=== PATIENT | female | born 1965 | race Caucasian/White ===

== ENCOUNTER 2020-01-14 12:54 | Inpatient (IN) ==
[2020-01-14 13:26] LABS: Appearance Urine Clear (Clear); Bacteria Urine Automated Negative (Negative); Bilirubin Urine Negative (Negative); Blood Urine 2+ (Negative); Cast Urine Automated 0 /lpf (0-5); Color Urine Yellow; Epithelial Cell Urine Auto >30 /lpf (0-5); Glucose Urine UA Negative (Negative); Ketones Urine Negative (Negative); Leukocyte Esterase Urine Trace (Negative); Nitrite Urine Negative (Negative); Protein Urine Negative (Negative); Urobilinogen Urine Negative (Negative)
[2020-01-14 13:33] LABS: Basophils # (auto) 0.01 K/uL (0-0.2); Basophils % (auto) 0.2 %; Eosinophils # (auto) 0.11 K/uL (0-0.5); Eosinophils % (auto) 1.8 %; Hematocrit (blood only) 41.8 % (37-47); Hemoglobin 13.7 g/dL (12.0-16.0); Immature Granulocytes # (auto) 0.02 K/uL (0.00-0.02); Immature Granulocytes % (auto) 0.3 %; Lymphocytes # (auto) 2.24 K/uL (1.2-3.4); Lymphocytes % (auto) 36.2 %; Mean Corpuscular Hemoglobin 26.9 pg (25-34); Mean Corpuscular Hgb Conc 32.8 g/dL (32-36); Mean Platelet Volume 12.5 fL (7.4-10.4); Monocytes % (auto) 4.9 %; Neutrophils % (auto) 56.6 %; Platelet Count 238 K/uL (130-400); RDW Coefficient of Variation 15.7 % (11.5-14.5); RDW Standard Deviation 46.6 fL (36.4-46.3); White Blood Count 6.18 K/uL (4.8-10.8)
[2020-01-14 13:50] LABS: Albumin Level 3.9 gm/dl (3.4-5.0); BUN Creatinine Ratio 11.7 (10-20); Calcium 10.7 mg/dl (8.5-10.1); Creatinine Clr Calc Pharmacy 97.3 ml/min; Est GFR (African American) 115.7; Est GFR (Non-African American) 99.9; Potassium 3.6 mmol/L (3.5-5.1)
[2020-01-14 13:53] LABS: Amphetamines+Metham, Urine Neg (Neg); Barbiturates, Urine Neg (Neg); Benzodiazepine, Urine Neg (Neg); Cocaine, Urine Neg (Neg); MDMA (Ecstacy), Urine Neg (Neg); Methadone, Urine Neg (Neg); Opiate, Urine Neg (Neg); Phencyclidine, Urine Neg (Neg)
--- NOTE | 2020-01-14 13:53 | Emergency Department Note ---
History of Present Illness General Chief complaint: Mental Health Evaluation Stated complaint: [facility] Time Seen by Provider: 01/14/20 13:00 History of Present Illness Provider complaint: Mental health evaluation Maximum Pain Intensity: 0 54-year-old female presents emergency department for mental health evaluation. She states that her family members wanted her to get evaluated. Patient states she has been feeling depressed. She reports decreased sleep, decreased energy levels, and decreased consultation. She denies any suicidal ideation currently. Patient does have a history of suicide attempts in the past. She does report wanting to hurt her . She reports that her has been cutting her hair and dying it without her knowing in her sleep. She states she has not taken any of her psychiatric medications last 3 to 4 years since she lost health insurance. Home Medications Home Medications Medication Instructions Recorded Confirmed Type Ergocalciferol (Vitamin D Cap) 50,000 inter.unit PO WK #0 cap 10/05/13 01/14/20 History FERROUS SULFATE 325 mg PO TIDM 30 Days #0 tab 10/07/13 01/14/20 Rx Ibuprofen 600 mg PO Q6H PRN #30 tab 11/29/13 01/14/20 Rx ASPIRIN (ASPIRIN EC) 81 mg PO DAILY #0 05/26/16 01/14/20 History atorvastatin 40 mg PO DAILY 01/14/20 01/14/20 History Allergies Allergy/AdvReac Type Severity Reaction Status Date / Time Penicillins Allergy Severe SEIZURES Verified 01/14/20 13:30 Sulfa (Sulfonamide Allergy Severe ARRHYTHMIAS Verified 01/14/20 13:30 Antibiotics) Past Med/Surg History Medical History Altered mental status (Acute) Near syncope (Acute 10/05/13) No pertinent family history Surgical History No pertinent past surgical history Social History Preferred Language: Rw[place] Feels Safe at Home: Hesitant to Answer Smoking Status: Never smoker Review of Systems Unobtainable due to cognitive status Physical Exam Vital Signs Vital Signs - 24 hr 01/14/20 12:56 01/14/20 15:12 01/14/20 17:33 Temperature 36.6 C Temperature Source Oral Pulse Rate 78 87 Pulse Rate [Finger] 81 Pulse Rhythm Regular Pulse Strength Normal Respiratory Rate 16 16 18 Respiratory Effort / Characteristics Non-Labored Non-Labored Spontaneous Respiratory Depth Normal Normal Respiratory Pattern Regular Regular Blood Pressure 195/25 H 164/105 H Blood Pressure [Right Arm] 161/95 H Blood Pressure Mean 81 Blood Pressure Mean [Right Arm] 117 Blood Pressure Position Sitting Blood Pressure Position [Right Arm] Lying Pulse Oximetry 99 98 97 Oxygen Delivery Method Room Air Room Air Room Air Sepsis Recent Fever Within 48 Hours No Sepsis Action Taken by Nursing No Action Required Physical Exam HENT: Exam performed. -Head: Normocephalic and atraumatic. -Right Ear: External ear normal. No mastoid tenderness. -Left Ear: External ear normal. No mastoid tenderness. -Mouth/Throat: The oropharynx is clear and moist. No trismus in the jaw. No dental abscesses or uvula swelling. No oropharyngeal exudate or tonsillar abscesses. EYES: Conjunctivae and EOM are normal. Pupils are equal, round, and reactive to light. Right eye exhibits no discharge. Left eye exhibits no discharge. No scleral icterus. NECK: Normal range of motion. Neck supple. No JVD present. No spinous process tenderness present. No carotid bruit present. No rigidity. No tracheal deviation and normal range of motion present. No Brudzinski's sign and no Kernig's sign noted. CV: Normal rate, regular rhythm, normal heart sounds and intact distal pulses. There is no peripheral edema. Palpable radial pulses bue. PULM/CHEST: Effort normal and breath sounds normal. No respiratory distress. No stridor. She has no wheezes. She has no rales. -Chest Wall: She exhibits no tenderness. ABD: The abdomen is soft. Bowel sounds are normal. She has no distension. No mass is present. There is no tenderness. There is no rebound, no guarding, no Humphreys's sign and no tenderness at McBurney's point. Rovsig negative MUSC/SKEL: Normal range of motion. There is no peripheral edema, tenderness or deformity. LYMPH: No cervical adenopathy. NEURO: She is alert and oriented to place and time. She is not oriented to person. She has normal strength. No cranial nerve deficit or sensory deficit. Coordination and gait normal. GCS eye subscore is 4. GCS verbal subscore is 5. GCS motor subscore is 6. Cerebellar tests wnl. SKIN: Skin is warm and dry. She is not diaphoretic. PSYCH: Bizarre affect. Course Course 1345: The patient was evaluated in room A6. A complete history and physical exam was performed. 1500: Patient medically cleared. Placed in observation at this time awaiting psychiatric evaluation and possible placement Medical Decision Making Laboratory Data Result diagrams: 01/14/20 13:10 01/14/20 13:10 Lab Results 01/14/20 01/14/20 01/14/20 Range/Units 13:05 13:05 13:10 WBC 6.18 (4.8-10.8) K/uL RBC 5.10 (4.2-5.4) M/uL Hgb 13.7 (12.0-16.0) g/dL Hct 41.8 (37-47) % MCV 82.0 (80-100) fL MCH 26.9 (25-34) pg MCHC 32.8 (32-36) g/dL RDW Std Deviation 46.6 H (36.4-46.3) fL RDW Coeff of Padmini 15.7 H (11.5-14.5) % Plt Count 238 (130-400) K/uL MPV 12.5 H (7.4-10.4) fL Immature Gran % (Auto) 0.3 % Neut % (Auto) 56.6 % Lymph % (Auto) 36.2 % Coffey % (Auto) 4.9 % Eos % (Auto) 1.8 % Baso % (Auto) 0.2 % Immature Gran # (Auto) 0.02 (0.00-0.02) K/uL Neut # (Auto) 3.50 (1.4-6.5) K/uL Lymph # (Auto) 2.24 (1.2-3.4) K/uL Coffey # (Auto) 0.30 (0.11-0.59) K/uL Eos # (Auto) 0.11 (0-0.5) K/uL Baso # (Auto) 0.01 (0-0.2) K/uL Sodium (136-145) mmol/L Potassium (3.5-5.1) mmol/L Chloride (98-107) mmol/L Carbon Dioxide (21-32) mmol/L Anion Gap (3-11) BUN (7-18) mg/dl Creatinine (0.6-1.2) mg/dl Est Cr Clr Drug Dosing ml/min Est GFR ( Amer) Est GFR (Non-Af Amer) BUN/Creatinine Ratio (10-20) Glucose (70-99) mg/dl Calcium (8.5-10.1) mg/dl Total Bilirubin (0.2-1) mg/dl AST (15-37) U/L ALT (12-78) U/L Alkaline Phosphatase (45-117) U/L Total Protein (6.4-8.2) gm/dl Albumin (3.4-5.0) gm/dl Globulin (2.5-4.0) gm/dl Albumin/Globulin Ratio (0.9-2) TSH (0.300-4.500) uIu/ml Urine Color Yellow Urine Appearance Clear (Clear) Urine pH 7.0 (4.5-7.5) Ur Specific [place] 1.010 (1.000-1.030) Urine Protein Negative (Negative) Urine Glucose (UA) Negative (Negative) Urine Ketones Negative (Negative) Urine Blood 2+ H (Negative) Urine Nitrite Negative (Negative) Urine Bilirubin Negative (Negative) Urine Urobilinogen Negative (Negative) Ur Leukocyte Esterase Trace H (Negative) Urine WBC (Auto) 1-5 (0-5) /hpf Urine RBC (Auto) 5-10 H (0-4) /hpf U Hyaline Cast (Auto) 0 (0-5) /lpf U Epithel Cells (Auto) >30 H (0-5) /lpf Urine Bacteria (Auto) Negative (Negative) POC Ur Test (NEG) Salicylates (2.8-20) mg/dl Urine Opiates Screen Neg (Neg) Ur Methadone, Qual Neg (Neg) Acetaminophen (10-30) ug/ml Urine Barbiturates Neg (Neg) Ur Phencyclidine (PCP) Neg (Neg) U Amphetamin/Meth Scrn Neg (Neg) MDMA (Ecstasy) Screen Neg (Neg) U Benzodiazepines Scrn Neg (Neg) Ur Cocaine Metabolite Neg (Neg) U Marijuana (THC) Screen Neg (Neg) Ethyl Alcohol mg/dL (0-3) mg/dl 01/14/20 01/14/20 01/14/20 Range/Units 13:10 13:10 13:10 WBC (4.8-10.8) K/uL RBC (4.2-5.4) M/uL Hgb (12.0-16.0) g/dL Hct (37-47) % MCV (80-100) fL MCH (25-34) pg MCHC (32-36) g/dL RDW Std Deviation (36.4-46.3) fL RDW Coeff of Padmini (11.5-14.5) % Plt Count (130-400) K/uL MPV (7.4-10.4) fL Immature Gran % (Auto) % Neut % (Auto) % Lymph % (Auto) % Coffey % (Auto) % Eos % (Auto) % Baso % (Auto) % Immature Gran # (Auto) (0.00-0.02) K/uL Neut # (Auto) (1.4-6.5) K/uL Lymph # (Auto) (1.2-3.4) K/uL [place]offey # (Auto) (0.11-0.59) K/uL Eos # (Auto) (0-0.5) K/uL Baso # (Auto) (0-0.2) K/uL Sodium 140 (136-145) mmol/L Potassium 3.6 (3.5-5.1) mmol/L Chloride 110 H (98-107) mmol/L Carbon Dioxide 24 (21-32) mmol/L Anion Gap 6.0 (3-11) BUN 8 (7-18) mg/dl Creatinine 0.68 (0.6-1.2) mg/dl Est Cr Clr Drug Dosing 97.3 ml/min Est GFR ( Amer) 115.7 Est GFR (Non-Af Amer) 99.9 BUN/Creatinine Ratio 11.7 (10-20) Glucose 98 (70-99) mg/dl Calcium 10.7 H (8.5-10.1) mg/dl Total Bilirubin 0.3 (0.2-1) mg/dl AST 9 L (15-37) U/L ALT 23 (12-78) U/L Alkaline Phosphatase 132 H (45-117) U/L Total Protein 8.2 (6.4-8.2) gm/dl Albumin 3.9 (3.4-5.0) gm/dl Globulin 4.3 H (2.5-4.0) gm/dl Albumin/Globulin Ratio 0.9 (0.9-2) TSH 1.800 (0.300-4.500) uIu/ml Urine Color Urine Appearance (Clear) Urine pH (4.5-7.5) Ur Specific [place] (1.000-1.030) Urine Protein (Negative) Urine Glucose (UA) (Negative) Urine Ketones (Negative) Urine Blood (Negative) Urine Nitrite (Negative) Urine Bilirubin (Negative) Urine Urobilinogen (Negative) Ur Leukocyte Esterase (Negative) Urine WBC (Auto) (0-5) /hpf Urine RBC (Auto) (0-4) /hpf U Hyaline Cast (Auto) (0-5) /lpf U Epithel Cells (Auto) (0-5) /lpf Urine Bacteria (Auto) (Negative) POC Ur Test (NEG) Salicylates < 1.7 L (2.8-20) mg/dl Urine Opiates Screen (Neg) Ur Methadone, Qual (Neg) Acetaminophen < 2 L (10-30) ug/ml Urine Barbiturates (Neg) Ur Phencyclidine (PCP) (Neg) U Amphetamin/Meth Scrn (Neg) MDMA (Ecstasy) Screen (Neg) U Benzodiazepines Scrn (Neg) Ur Cocaine Metabolite (Neg) U Marijuana (THC) Screen (Neg) Ethyl Alcohol mg/dL < 3.0 (0-3) mg/dl 01/14/20 Range/Units 14:48 WBC (4.8-10.8) K/uL RBC (4.2-5.4) M/uL Hgb (12.0-16.0) g/dL Hct (37-47) % MCV (80-100) fL MCH (25-34) pg MCHC (32-36) g/dL RDW Std Deviation (36.4-46.3) fL RDW Coeff of Padmini (11.5-14.5) % Plt Count (130-400) K/uL MPV (7.4-10.4) fL Immature Gran % (Auto) % Neut % (Auto) % Lymph % (Auto) % Coffey % (Auto) % Eos % (Auto) % Baso % (Auto) % Immature Gran # (Auto) (0.00-0.02) K/uL Neut # (Auto) (1.4-6.5) K/uL Lymph # (Auto) (1.2-3.4) K/uL Coffey # (Auto) (0.11-0.59) K/uL Eos # (Auto) (0-0.5) K/uL Baso # (Auto) (0-0.2) K/uL Sodium (136-145) mmol/L Potassium (3.5-5.1) mmol/L Chloride (98-107) mmol/L Carbon Dioxide (21-32) mmol/L Anion Gap (3-11) BUN (7-18) mg/dl Creatinine (0.6-1.2) mg/dl Est Cr Clr Drug Dosing ml/min Est GFR ( Amer) Est GFR (Non-Af Amer) BUN/Creatinine Ratio (10-20) Glucose (70-99) mg/dl Calcium (8.5-10.1) mg/dl Total Bilirubin (0.2-1) mg/dl AST (15-37) U/L ALT (12-78) U/L Alkaline Phosphatase (45-117) U/L Total Protein (6.4-8.2) gm/dl Albumin (3.4-5.0) gm/dl Globulin (2.5-4.0) gm/dl Albumin/Globulin Ratio (0.9-2) TSH (0.300-4.500) uIu/ml Urine Color Urine Appearance (Clear) Urine pH (4.5-7.5) Ur Specific [place] (1.000-1.030) Urine Protein (Negative) Urine Glucose (UA) (Negative) Urine Ketones (Negative) Urine Blood (Negative) Urine Nitrite (Negative) Urine Bilirubin (Negative) Urine Urobilinogen (Negative) Ur Leukocyte Esterase (Negative) Urine WBC (Auto) (0-5) /hpf Urine RBC (Auto) (0-4) /hpf U Hyaline Cast (Auto) (0-5) /lpf U Epithel Cells (Auto) (0-5) /lpf Urine Bacteria (Auto) (Negative) POC Ur Test NEG (NEG) Salicylates (2.8-20) mg/dl Urine Opiates Screen (Neg) Ur Methadone, Qual (Neg) Acetaminophen (10-30) ug/ml Urine Barbiturates (Neg) Ur Phencyclidine (PCP) (Neg) U Amphetamin/Meth Scrn (Neg) MDMA (Ecstasy) Screen (Neg) U Benzodiazepines Scrn (Neg) Ur Cocaine Metabolite (Neg) U Marijuana (THC) Screen (Neg) Ethyl Alcohol mg/dL (0-3) mg/dl Imaging Data Radiologist's Impression: CT head/brain wo con CLINICAL HISTORY: 54 years-old Female presenting with ams. TECHNIQUE: Multidetector CT imaging of the head was performed without the use of intravenous contrast. IV contrast: None. One or more dose lowering techniques were used consistent with the principles of ALARA (as low as reasonably achievable), including automatic exposure control, mA or kV adjustment to kellie vidual patient size, and/or use of iterative reconstruction. COMPARISON: 10/05/2013. CT DOSE (mGy.cm): The estimated cumulative dose is 638.56 mGycm. FINDINGS: Adzing And Boring Machine Helper topogram: Unremarkable. Ventricles and sulci normal in size. No hemorrhage. Brain parenchyma normal in appearance with preserved addison-white differentiation. No acute territorial infarct. No mass effect or midline shift. No extra-axial fluid collection. Paranasal sinuses and mastoid air cells clear. Calvarium intact. IMPRESSION: 1. No acute intracranial abnormality. ACT 112: Negative or not required by law. Electronically signed by: Abel Blackburn M.D. 01/14/2020 2:32 PM Dictated: 01/14/20 1430 Transcribed: 01/14/20 1430 [facility] Narrative Observation note Indication: Mental health evaluation/placement Patient, with depression was first seen at 1345 hrs and the observation time began at 1500 hrs and was necessary in order to determine psychiatric evaluatio n and placement. Upon re-evaluation, 75 minutes of observation revealed that the patient should be admitted to inpatient psychiatry. Disposition date and time January 14, 2020 1615. Impression & Plan Acute paranoia Discharge Plan Visit Data Chief Complaint: Mental Health Evaluation Stated Complaint: [facility] ED Provider: Bill Lovett Discharge Problem: Acute paranoia Patient Disposition: Admitted As Inpatient Forms Stand Alone Forms: My [facility], Suicide Prevention Resources Prescriptions Prescriptions: No Action Ergocalciferol (Vitamin D Cap) 50,000 INTERUNIT capsule 50,000 inter.unit PO WK Qty: 0 RF: 0 FERROUS SULFATE 325 MG tablet 325 mg PO TIDM 30 Days Qty: 0 RF: 0 Ibuprofen 600 MG tablet 600 mg PO Q6H PRN (Reason: Pain) Qty: 30 RF: 0 ASPIRIN (ASPIRIN EC) 81 MG tablet 81 mg PO DAILY Qty: 0 RF: 0 atorvastatin 40 mg PO DAILY RF: 0 Referrals Referrals: Joseph Harvey MD [Primary Care Provider] -
[2020-01-14 13:56] LABS: Acetaminophen < 2 ug/ml (10-30); Salicylate < 1.7 mg/dl (2.8-20)
[2020-01-14 14:01] LABS: Albumin Globulin Ratio 0.9 (0.9-2); Bilirubin,Total 0.3 mg/dl (0.2-1); Globulin 4.3 gm/dl (2.5-4.0); Thyroid Stimulating Hormone 1.8 uIu/ml (0.300-4.500); Total Protein 8.2 gm/dl (6.4-8.2)
--- NOTE | 2020-01-14 14:34 | CT Scan Report ---
CT head/brain wo con CLINICAL HISTORY: 54 years-old Female presenting with ams. TECHNIQUE: Multidetector CT imaging of the head was performed without the use of intravenous contrast . IV contrast: None. One or more dose lowering techniques were used consistent with the principles of ALARA (as low as reasonably achievable), including automatic exposure control, mA or kV adjustment t o individual patient size, and/or use of iterative reconstruction. COMPARISON: 10/05/2013. CT DOSE (mGy.cm): The estimated cumulative dose is 638.56 mGycm. FINDINGS: In Tube Conversion Technician topogram: Unremarkable. Ventricles and sulci normal in size. No hemorrhage. Brain parenchyma normal in appearance with preser braulio addison-white differentiation. No acute territorial infarct. No mass effect or midline shift. No ext ra-axial fluid collection. Paranasal sinuses and mastoid air cells clear. Calvarium intact. IMPRESSION: 1. No acute intracranial abnormality. ACT 112: Negative or not required by law. Electronically signed by: Abel Blackburn M.D. 01/14/2020 2:32 PM
[2020-01-14] MEDS ORDERED: ALUMINUM/MAGNESIUM SUSP 30 ML UDC PO PRN (16:36)
[2020-01-14] MEDS ORDERED: SODIUM CHLORIDE 0.65% NA SOLN 45 ML (OCEAN) PRN (16:36)
[2020-01-14] MEDS ORDERED: MAGNESIUM HYDROXIDE SUSP 30 ML UDC PO PRN (16:36)
[2020-01-14] MEDS ORDERED: BISMUTH SUBSALICYLATE PER ML OMNICELL CHARGE PO PRN (16:36)
[2020-01-14] MEDS ORDERED: IBUPROFEN 600 MG TAB PO PRN (17:45)
[2020-01-14] MEDS: ACETAMINOPHEN 325 MG TAB PO PRN (21:29)
[2020-01-15] MEDS: ACETAMINOPHEN 325 MG TAB PO PRN (04:53)
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
[2020-01-15] MEDS: ASPIRIN 81 MG ECTAB PO SCH (08:28)
[2020-01-15] MEDS: FERROUS SULFATE 325 MG TAB PO SCH ×3 (08:28→16:50)
[2020-01-15] MEDS: ATORVASTATIN 40 MG TAB PO SCH (08:29)
[2020-01-15] MEDS: risperiDONE 1 MG TABLET PO SCH ×3 (12:38→20:27)
[2020-01-15] MEDS: OLANZAPINE ZYDIS 5 MG ORALLY DIS. TAB PO PRN ×2 (14:36→20:23)
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
[2020-01-16 08:12] LABS: Glucose Fasting 102 mg/dl (70-99)
[2020-01-16 08:25] LABS: Chol HDL Ratio 4; Cholesterol 212 mg/dl (0-200); HDL Cholesterol 61 mg/dl; LDL Cholesterol Calculated 132 mg/dl; Triglycerides 94 mg/dl (0-150); VLDL Cholesterol 19 mg/dl
[2020-01-16] MEDS: FERROUS SULFATE 325 MG TAB PO SCH ×3 (09:08→17:03)
[2020-01-16] MEDS: CEROVITE ADV FORMULA TAB PO SCH (09:08)
[2020-01-16] MEDS: ATORVASTATIN 40 MG TAB PO SCH (09:08)
[2020-01-16] MEDS: ASPIRIN 81 MG ECTAB PO SCH (09:08)
[2020-01-16] MEDS: OLANZAPINE ZYDIS 5 MG ORALLY DIS. TAB PO SCH ×2 (09:09→20:27)
[2020-01-17] MEDS: ASPIRIN 81 MG ECTAB PO SCH (07:41)
[2020-01-17] MEDS: CEROVITE ADV FORMULA TAB PO SCH (07:41)
[2020-01-17] MEDS: ATORVASTATIN 40 MG TAB PO SCH (07:41)
[2020-01-17] MEDS: FERROUS SULFATE 325 MG TAB PO SCH (07:41)
[2020-01-17] MEDS: OLANZAPINE ZYDIS 5 MG ORALLY DIS. TAB PO SCH ×2 (07:42→21:01)
[2020-01-17] MEDS: ACETAMINOPHEN 325 MG TAB PO PRN (07:42)
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
[2020-01-18] MEDS: ASPIRIN 81 MG ECTAB PO SCH (08:11)
[2020-01-18] MEDS: CEROVITE ADV FORMULA TAB PO SCH (08:11)
[2020-01-18] MEDS: ATORVASTATIN 40 MG TAB PO SCH (08:12)
[2020-01-18] MEDS: OLANZAPINE ZYDIS 5 MG ORALLY DIS. TAB PO SCH (08:12)
[2020-01-18] MEDS ORDERED: FERROUS SULFATE 325 MG TAB PO SCH (09:00)
[2020-01-18] MEDS ORDERED: FLUOXETINE HCL 10 MG CAP PO SCH (09:00)
--- NOTE | 2020-01-18 11:44 | Discharge Summary ---
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 At any time you feel your situation is an emergency, you may also call 911 immediately. Your Doctors Instructions noted above were prepared by provider South Sharif MD. Pending Studies at Discharge: No Stand-Alone Forms: [facility], Smoking Cessation, Suicide Prevention Resources Medications and DC Order Prescriptions: New ferrous sulfate 325 mg (65 mg iron) Tablet,Delayed Release (Dr/Ec) 325 mg PO QAM Qty: 30 RF: 0 olanzapine 5 mg tablet 5 mg PO BID Qty: 60 RF: 1 fluoxetine 10 mg Capsule 10 mg PO QAM Qty: 30 RF: 1 Continued Ergocalciferol (Vitamin D Cap) 50,000 INTERUNIT capsule 50,000 inter.unit PO WK Qty: 0 RF: 0 Ibuprofen 600 MG tablet 600 mg PO Q6H PRN (Reason: Pain) Qty: 30 RF: 0 ASPIRIN (ASPIRIN EC) 81 MG tablet 81 mg PO DAILY Qty: 0 RF: 0 atorvastatin 40 mg PO DAILY RF: 0 Discontinued FERROUS SULFATE 325 MG tablet 325 mg PO TIDM 30 Days Qty: 0 RF: 0 Discharge Orders: Discharge Order (Routine); Ordered 01/18/20 Ordered By: South Sharif Admission Data Admit Date/Time: 01/14/20 16:36 Attending Provider: Marlene Molina Admit Provider: Marlene Molina Primary Care Provider: Joseph Harvey Other Interventions: PSY Interdisciplinary Discharge Planning Last Done: 01/18/20 10:23 C[place] [address] D/C day mgmt > 30 min Patient Type Established History Expanded Problem Focused Exam Expanded Problem Focused Medical Decision Making Moderate Complexity Diagnoses Psychosis F29 Major depression F32.9 Time Spent (min) 60
[2020-01-20] MEDS ORDERED: ERGOCALCIFEROL 50,000 UNITS CAP PO SCH (09:00)
== END 2020-01-18 12:25 | disposition home or self-care (01) | DRG 885 ==
LOC: ED 12:54 → 3S 16:36

== ENCOUNTER 2025-01-23 17:07 | Inpatient (IN) ==
[~2025-01-23 17:07] MED LIST: ROCURONIUM BROMIDE 10 MG/ML 5 ML VIAL IV ONE
[2025-01-23 17:28] LABS: Base Excess VBG -1.4 mEq/L; HCO3 VBG 25 mmol/L; Oxygen Saturation VBG 81.8 %; PCO2 VBG 49 mmHg (38-50); PO2 VBG 51 mmHg; pH VBG 7.32 (7.36-7.41)
[2025-01-23 17:34] LABS: Basophils # (auto) 0.02 K/uL (0.00-0.20); Basophils % (auto) 0.2 %; Eosinophils # (auto) 0.01 K/uL (0.00-0.50); Eosinophils % (auto) 0.1 %; Hematocrit (blood only) 44.1 % (37.0-47.0); Hemoglobin 14.4 g/dl (12.0-16.0); Immature Granulocytes # (auto) 0.11 K/uL (0.01-0.20); Immature Granulocytes % (auto) 1.1 %; Mean Corpuscular Hemoglobin 28.7 pg (25.0-34.0); Mean Corpuscular Hgb Conc 32.7 g/dL (32.0-36.0); Mean Platelet Volume 11.9 fL (9.4-12.4); Monocytes # (auto) 0.24 K/uL (0.11-0.59); Monocytes % (auto) 2.4 %; Neutrophils # (auto) 8.71 K/uL (1.40-6.50); Neutrophils % (auto) 87.2 %; Platelet Count 201 K/uL (130-400); RDW Coefficient of Variation 13.3 % (11.5-14.5); RDW Standard Deviation 42.7 fL (36.4-46.3); Red Blood Count 5.01 M/uL (4.20-5.40); White Blood Count 9.99 K/ul (4.8-10.8)
[2025-01-23] MEDS: SODIUM CHLORIDE 0.9% 1,000 ML IV ONE ×2 (17:39→19:18)
--- NOTE | 2025-01-23 17:39 | Emergency Department Note ---
Impression & Plan On mechanically assisted ventilation, Unresponsive, Antipsychotic overdose, Encephalopathy acute, Prolonged QT interval ED Provider Note NAME: RIK FAJARDO AGE: 59 SEX: F : 1965 ARRIVES VIA: Ambulance INFORMANT: EMS report, family ED PROVIDER(S): Mulugeta Ahumada MD CHIEF COMPLAINT: Overdose MEDICAL DECISION MAKING: Patient presents as an overdose. Not responding to commands. Patient is not protecting airway and reportedly has already vomited prior to arrival in the setting of overdose. Patient also already received Narcan and the patient's sugar was not initially 198. IV was established blood work was obtained. The patient did receive rocuronium and the patient was intubated without issue. Of note the patient does have an anterior airway and did require cricoid pressure. Blood work was obtained along with ordering CT of the head. I did speak with poison control agreed with recommendations. They did state that there can be an increased risk of seizure with Zyprexa overdose with the patient was ordered Versed drip. Patient also ordered fentanyl IV bolus as needed for pain control. EKG was obtained upon arrival but too much motion artifact. EKG with elevations inferiorly although no obvious reciprocal changes and no reports of any prior history of chest pain and no known prior history of any heart disease. I did speak with the on-call java project manager Dr. De La Cruz who did present to the emergency department. He did do a [id number] echo at the bedside. Given the patient's abnormal EKG CT angiography of the chest was ordered. Initial creatinine normal. Patient's EKG did show QTc prolongation so the patient was ordered 2 g of magnesium IV over 1 hour. Patient was ordered fentanyl as needed as well as Versed drip. I did speak with the patient's who stated that he was at work when he was called about this. There were no reports of any chest pain. He states that she does follow with a PCP through [facility] and the patient has had prior significant depressive episodes. Reportedly had been taking fluoxetine which she may still take. He states that she had been on respite all but this was stopped. He also states that she was to be on something for bipolar but reportedly she was taking it as needed when he states that she likely was post to be taking this every day. I did speak with case management in order to obtain the patient's records. Dr. De La Cruz bedside echo states that patient's EF is normal and hyperdynamic no obvious wall motion abnormality based on his assessment. OG was placed. KUB performed which shows appropriate placement of KUB. Blood work shows a normal white count H&H and platelet count. Patient's initial venous blood gas shows a VBG pH is 7.32. The patient's pCO2 is not elevated. Patient's kidney function is unremarkable. Patient CT head did not show any obvious acute changes. Chest x-ray showed endotracheal tube 2 and half centimeters above the rosalia. CT angiography of the chest was completed no evidence of PE and atelectatic changes noted. Patient also with consolidation atelectasis in the superior segment of the right lower lobe. Initial troponin of 434. I discussed the patient's elevated troponin with Dr. Leong states that unless there is a big change in the troponin or changes on EKG he would defer heparin at this time. I subsequently did speak with the on-call hospitalist service Dr. Cardona who and also did speak with Destinee Boston PA-C first beater service. I updated family the patient was subsequently admitted to the intensive care unit. Critical Care: I have personally spent 125 minutes of critical care time in direct management of this patient. This includes bedside care, interpretation of diagnostic studies, and testing, discussion with consultants, patient, and family members, and other require inpatient management activities. This 125 minutes is in excess of all separately billable procedures. Procedures: Endotracheal Intubation performed by Dr. Ahumada Indication: Apnea, unresponsive The patient was on 100% oxygen via NRB prior to the procedure. Suction, airway equipment, RSI drugs, respiratory equipment, and appropriate personnel were prepared prior to the initiation of the procedure. A time out was taken. Patient did receive IV rocuronium 100 mg. After observing the clinical benefit of the medications, the airway was easily visualized utilizing a MAC 3 video laryngoscope. A 7.523 size ETT tube was placed atraumatically to cm using standard technique. The cuff inflated without signs of malfunction. There were bilateral breath sounds, positive colormetric change, no gastric sounds, a good capnography waveform, and post procedure pulse oximetry was 100%. Post intubation sedation with as needed IV fentanyl as well as Versed drip. There were no complications. Discussion w/ other healthcare providers: Poison control Dr. De La Cruz interventional cardiology Dr. Cardona inpatient medicine service Destinee Boston PA-C ICU with Dr. Aguilar Prior /Outside records reviewed: I did review part of a prior PCP visit from Dr. Mendez from August 20, 2024. Known history of PFO methylenetetrahydrofolate reductase mutation, dyslipidemia, CVA, MDD elevated parathyroid iron deficiency CVA who is on aspirin and lisinopril B vitamin folic acid atorvastatin multivitamin and albuterol. Differential diagnosis: Overdose, medication side effect, dehydration, infection, hypoglycemia, electrolyte abnormalities, arrhythmia, among other etiologies were considered. Diagnostics, as interpreted by me: ECG: Sinus tachycardia, rate of 152, normal UT QRS, prolonged QTc, normal axis, inferior elevations without obvious reciprocal changes. Cardiac monitoring: An order was placed for continuous cardiac monitoring. The monitor shows a rate of 125 with tachycardic and regular rhythm. Patient was placed on pulse oximetry Medical decision rules: None Imaging studies: I informally interpreted the patient's chest x-ray shows well-positioned ET tube no obvious pneumonia or pneumothorax with formal report to follow. HPI: Patient presents due to concern for reported overdose. Patient reportedly been found with the Zyprexa bottle that was empty. Reportedly the patient has been in a verbal disagreement family and subsequently took these medications. EMS did report the patient had vomited and they did suction her oropharynx which did reveal food that was removed at the time. They report that the patient has been unresponsive and not following commands and is not responding to tactile stimuli. Patient reportedly did have some additional empty bottles at her side unclear as to what these were although they did say atorvastatin is one of them. EMS had reported that family also reports that sometimes she will just empty her meds. PAST MEDICAL HISTORY: See Below PAST SURGICAL HISTORY: See Below SOCIAL HISTORY: See Below HOME MEDICATIONS: See Below ALLERGIES: See Below VITALS: See Below PHYSICAL EXAMINATION: GENERAL: Severe distress, occasionally apneic. EYE EXAM: Normal conjunctiva. PERRL, no anisocoria and EOM's grossly intact w/o pain. OROPHARYNX: Dry mucus membranes, grossly normal dentition. NECK: Trachea midline, no stridor. Supple, no nuchal rigidity, no adenopathy, non-tender. No signs of meningismus. FROM of the neck with good chin to chest and neck extension. Short neck noted. LUNGS: Normal breath sounds. Occasional apnea. HEART: Tachycardic and regular, no MRG. ABDOMEN: Abdomen soft, non-tender, no masses, no rebound or guarding. BACK: No step-offs. SKIN: No rashes and no bruising. UPPER EXTREMITIES: Upper extremities are grossly normal. LOWER EXTREMITIES: Grossly normal, no edema. NEURO EXAM: Somnolent occasionally will wake up with eyes open and utter unintelligible sounds and move upper extremities. Past Med/Surg History Problem List (Updated 01/23/25 @ 23:04 by Mulugeta Ahumada MD) Prolonged QT interval (Acute) Lactic acidosis Acute kidney injury On mechanically assisted ventilation (Acute) Encephalopathy acute (Acute) Antipsychotic overdose (Acute) Unresponsive (Acute) Major depression Near syncope (Acute 10/05/13) Altered mental status (Acute) Medical History Psychosis No pertinent family history Surgical History No pertinent past surgical history Social History Smoking Status: Never smoker Hx Alcohol Use: No Hx Substance Use: No Preferred Language: Estonian Communication Ability: Effective Manager Aviation Required: No Beliefs That Will Affect Care: None Current Living Situation: Spouse Feels Safe at Home: Yes Assistive Devices: Glasses Allergies Allergies Allergy/AdvReac Type Severity Reaction Status Date / Time Penicillins Allergy Severe SEIZURES Verified 01/23/25 17:57 Sulfa (Sulfonamide Allergy Severe ARRHYTHMIAS Verified 03/03/24 17:55 Antibiotics) doxycycline AdvReac Tachycardia Verified 01/23/25 17:57 Home Meds Home Medications Medication Instructions Recorded Confirmed albuterol sulfate 90 mcg/actuation 2 puff inhalation Q4 PRN Wheezing 05/17/21 01/23/25 aerosol inhaler atorvastatin 40 mg tablet 40 mg PO QAM 05/17/21 01/23/25 aspirin 81 mg tablet,delayed 81 mg PO QAM 03/03/24 01/23/25 release multivitamin with minerals 1 tab PO QAM 03/03/24 01/23/25 (Multiple Vitamin-Minerals tablet) lisinopril 20 mg tablet 20 mg PO QAM 01/23/25 01/23/25 Results & Data (ED) Vital Signs Vital Signs - 24 hr 01/23/25 17:10 01/23/25 17:14 01/23/25 17:18 Temperature Temperature Source Pulse Rate 163 H 160 H 159 H Pulse Rate [Right Finger] Pulse Rate from SpO2 Sensor 157 H Respiratory Rate 20 22 Respiratory Effort / Characteristics Gasping/Agonal Blood Pressure 118/100 118/100 Blood Pressure [Left Arm] Blood Pressure Mean 106 106 Blood Pressure Mean [Left Arm] Blood Pressure Position Lying Pulse Oximetry 98 99 Oxygen Delivery Method Non-rebreather Mechanical Vent Oxygen Flow Rate 15 Fraction of Inspired Oxygen Sepsis Recent Fever Within 48 Hours No Sepsis New/Unexplained Change in Mental Status N/A Sepsis Action Taken by Nursing No Action Required End-Tidal CO2 01/23/25 17:19 01/23/25 17:27 01/23/25 17:30 Temperature Temperature Source Pulse Rate 153 H Pulse Rate [Right Finger] Pulse Rate from SpO2 Sensor 150 H Respiratory Rate 22 22 Respiratory Effort / Characteristics Blood Pressure 110/70 Blood Pressure [Left Arm] Blood Pressure Mean 83 Blood Pressure Mean [Left Arm] Blood Pressure Position Pulse Oximetry 98 Oxygen Delivery Method Mechanical Vent Mechanical Vent Oxygen Flow Rate Fraction of Inspired Oxygen 50 Sepsis Recent Fever Within 48 Hours Sepsis New/Unexplained Change in Mental Status Sepsis Action Taken by Nursing End-Tidal CO2 22 38 01/23/25 17:33 01/23/25 17:51 01/23/25 18:00 Temperature 37.1 C Temperature Source Stone Cath ( Temp Sensing) Pulse Rate 134 H 132 H Pulse Rate [Right Finger] Pulse Rate from SpO2 Sensor 135 H 131 H Respiratory Rate 22 22 Respiratory Effort / Characteristics Blood Pressure 158/91 H 142/87 H Blood Pressure [Left Arm] Blood Pressure Mean 113 105 Blood Pressure Mean [Left Arm] Blood Pressure Position Pulse Oximetry 100 100 Oxygen Delivery Method Mechanical Vent Mechanical Vent Oxygen Flow Rate Fraction of Inspired Oxygen Sepsis Recent Fever Within 48 Hours Sepsis New/Unexplained Change in Mental Status Sepsis Action Taken by Nursing End-Tidal CO2 22 32 01/23/25 18:38 01/23/25 19:00 01/23/25 19:57 Temperature Temperature Source Pulse Rate 138 H Pulse Rate [Right Finger] 134 H 122 H Pulse Rate from SpO2 Sensor Respiratory Rate 22 22 21 Respiratory Effort / Characteristics Blood Pressure 134/63 Blood Pressure [Left Arm] 114/68 125/95 Blood Pressure Mean 86 Blood Pressure Mean [Left Arm] 83 105 Blood Pressure Position Pulse Oximetry 100 97 100 Oxygen Delivery Method Mechanical Vent Mechanical Vent Mechanical Vent Oxygen Flow Rate Fraction of Inspired Oxygen Sepsis Recent Fever Within 48 Hours Sepsis New/Unexplained Change in Mental Status Sepsis Action Taken by Nursing End-Tidal CO2 33 Home Medications Current Medication List: was personally reviewed by me Laboratory Data Attestation: I reviewed the patient's lab results. 01/23/25 17:14 01/23/25 22:13 Lab Results 01/23/25 01/23/25 01/23/25 Range/Units 17:11 17:14 17:32 WBC 9.99 (4.8-10.8) K/ul RBC 5.01 (4.20-5.40) M/uL Hgb 14.4 (12.0-16.0) g/dl Hct 44.1 (37.0-47.0) % MCV 88.0 (80.0-100.0) fL MCH 28.7 (25.0-34.0) pg MCHC 32.7 (32.0-36.0) g/dL RDW Std Deviation 42.7 (36.4-46.3) fL RDW Coeff of Padmini 13.3 (11.5-14.5) % Plt Count 201 (130-400) K/uL MPV 11.9 (9.4-12.4) fL Immature Gran % (Auto) 1.1 % Neut % (Auto) 87.2 % Lymph % (Auto) 9.0 % [facility] % (Auto) 2.4 % Eos % (Auto) 0.1 % Baso % (Auto) 0.2 % Neut # (Auto) 8.71 H (1.40-6.50) K/uL Lymph # (Auto) 0.90 L (1.20-3.40) K/uL [facility] [place] [facility] # (Auto) 0.24 (0.11-0.59) K/uL Eos # (Auto) 0.01 (0.00-0.50) K/uL Baso # (Auto) 0.02 (0.00-0.20) K/uL Immature Gran # (Auto) 0.11 (0.01-0.20) K/uL VBG pH 7.32 L (7.36-7.41) VBG pCO2 49 (38-50) mmHg VBG pO2 51 mmHg VBG HCO3 25 mmol/L VBG O2 Saturation 81.8 % VBG Base Excess -1.4 mEq/L Sodium 138 (136-145) mmol/L Potassium 3.7 (3.5-5.1) mmol/L Chloride 102 (98-107) mmol/L Carbon Dioxide 25 (21-32) mmol/L Anion Gap 11 (3-11) BUN 16 (6-23) mg/dl Creatinine 1.03 (0.6-1.2) mg/dl Est Cr Clr Drug Dosing Not Reportable eGFR 63.03 BUN/Creatinine Ratio 15.5 (10-20) Glucose 203 H (70-99(Fasting)) mg/dl POC Glucose 189 H (70-99) mg/dl Calcium 11.3 H (8.6-10.3) mg/dl Total Bilirubin 0.9 (0.2-1.0) mg/dl AST 21 (13-39) U/L ALT 32 (7-52) U/L Alkaline Phosphatase 155 H (34-104) U/L Troponin I High Sens 434.8 H* (0-14) pg/ml Total Protein 7.2 (6.0-8.3) gm/dl Albumin 4.5 (3.4-5.0) gm/dl Globulin 2.7 (2.5-4.0) gm/dl Albumin/Globulin Ratio 1.7 (0.9-2) TSH 2.447 (0.300-4.500) uIu/ml Urine Color Yellow Urine Appearance Clear (Clear) Urine pH 6.0 (4.5-7.5) Ur Specific Brandon 1.013 (1.000-1.030) Urine Protein 2+ H (Negative) Urine Glucose (UA) Negative (Negative) Urine Ketones Negative (Negative) Urine Blood Negative (Negative) Urine Nitrite Negative (Negative) Urine Bilirubin Negative (Negative) Urine Urobilinogen Negative (Negative) Ur Leukocyte Esterase Negative (Negative) Urine WBC (Auto) 0-5 (0-5) /hpf Urine RBC (Auto) 3-5 H (0-2) /hpf U Hyaline Cast (Auto) >20 H (0-2) /lpf U Epithel Cells (Auto) 6-10 H (0-2) /hpf Urine Bacteria (Auto) None Seen (None Seen) Calcium Oxalate Crystal Present A (None Prsent) Urine Opiates Screen Neg (Neg) Ur Methadone, Qual Neg (Neg) Urine Fentanyl Screen Neg (Neg) Urine Barbiturates Neg (Neg) Ur Phencyclidine (PCP) Neg (Neg) U Amphetamin/Meth Scrn Neg (Neg) MDMA (Ecstasy) Screen Neg (Neg) U Benzodiazepines Scrn Neg (Neg) Ur Cocaine Metabolite Neg (Neg) U Marijuana (THC) Screen Neg (Neg) Ethyl Alcohol mg/dL < 10.0 (<10.0) mg/dl 01/23/25 Range/Units 19:16 WBC (4.8-10.8) K/ul RBC (4.20-5.40) M/uL Hgb (12.0-16.0) g/dl Hct (37.0-47.0) % MCV (80.0-100.0) fL MCH (25.0-34.0) pg MCHC (32.0-36.0) g/dL RDW Std Deviation (36.4-46.3) fL RDW Coeff of Padmini (11.5-14.5) % Plt Count (130-400) K/uL MPV (9.4-12.4) fL Immature Gran % (Auto) % Neut % (Auto) % Lymph % (Auto) % [facility] [place] [facility] % (Auto) % Eos % (Auto) % Baso % (Auto) % Neut # (Auto) (1.40-6.50) K/uL Lymph # (Auto) (1.20-3.40) K/uL [facility] # (Auto) (0.11-0.59) K/uL Eos # (Auto) (0.00-0.50) K/uL Baso # (Auto) (0.00-0.20) K/uL Immature Gran # (Auto) (0.01-0.20) K/uL VBG pH (7.36-7.41) VBG pCO2 (38-50) mmHg VBG pO2 mmHg VBG HCO3 mmol/L VBG O2 Saturation % VBG Base Excess mEq/L Sodium (136-145) mmol/L Potassium (3.5-5.1) mmol/L Chloride (98-107) mmol/L Carbon Dioxide (21-32) mmol/L Anion Gap (3-11) BUN (6-23) mg/dl Creatinine (0.6-1.2) mg/dl Est Cr Clr Drug Dosing eGFR BUN/Creatinine Ratio (10-20) Glucose (70-99(Fasting)) mg/dl POC Glucose (70-99) mg/dl Calcium (8.6-10.3) mg/dl Total Bilirubin (0.2-1.0) mg/dl AST (13-39) U/L ALT (7-52) U/L Alkaline Phosphatase (34-104) U/L Troponin I High Sens 618.8 H* D (0-14) pg/ml Total Protein (6.0-8.3) gm/dl Albumin (3.4-5.0) gm/dl Globulin (2.5-4.0) gm/dl Albumin/Globulin Ratio (0.9-2) TSH (0.300-4.500) uIu/ml Urine Color Urine Appearance (Clear) Urine pH (4.5-7.5) Ur Specific Brandon (1.000-1.030) Urine Protein (Negative) Urine Glucose (UA) (Negative) Urine Ketones (Negative) Urine Blood (Negative) Urine Nitrite (Negative) Urine Bilirubin (Negative) Urine Urobilinogen (Negative) Ur Leukocyte Esterase (Negative) Urine WBC (Auto) (0-5) /hpf Urine RBC (Auto) (0-2) /hpf U Hyaline Cast (Auto) (0-2) /lpf U Epithel Cells (Auto) (0-2) /hpf Urine Bacteria (Auto) (None Seen) Calcium Oxalate Crystal (None Prsent) Urine Opiates Screen (Neg) Ur Methadone, Qual (Neg) Urine Fentanyl Screen (Neg) Urine Barbiturates (Neg) Ur Phencyclidine (PCP) (Neg) U Amphetamin/Meth Scrn (Neg) MDMA (Ecstasy) Screen (Neg) U Benzodiazepines Scrn (Neg) Ur Cocaine Metabolite (Neg) U Marijuana (THC) Screen (Neg) Ethyl Alcohol mg/dL (<10.0) mg/dl Administered Medications Fentanyl Citrate (Fentanyl Citrate Pf 100 Mcg/2 Ml Vial) 50 mcg IV Q15M PRN PRN Reason: Pain Stop: 02/06/25 17:18 Last Admin: 01/23/25 19:45 Dose: 50 mcg Documented By: Admin: 01/23/25 18:54 Dose: 50 mcg Documented By: [facility] [place] Midazolam HCl (Versed) 125 mg in 250 mls @ 4 mls/hr IV .[id number] DARLENE; Protocol Stop: 02/22/25 17:29 Last Titration: 01/23/25 21:15 Dose: 2 mg/hr, 4 mls/hr Documented By: MICHELLE Co-signed By: YOLANDA Titration: 01/23/25 19:19 Dose: 1.5 mg/hr, 3 mls/hr Documented By: PAM Co-signed By: Admin: 01/23/25 17:47 Dose: 1 mg/hr, 2 mls/hr Documented By: TEVIN Co-signed By: CAP Lactated Ringer's (Lr) 1,000 mls @ 100 mls/hr IV .Q10H [facility] Stop: 01/24/25 21:44 Last Admin: 01/23/25 22:22 Dose: 100 mls/hr Documented By: MICHELLE Midazolam HCl (Midazolam Bolus From Bag) 2 mg IV Q60M PRN PRN Reason: Sedation Stop: 02/22/25 17:21 Last Admin: 01/23/25 21:15 Dose: 2 mg Documented By: MICHELLE Co-signed By: YOLANDA Admin: 01/23/25 18:50 Dose: 2 mg Documented By: TEVIN Co-signed By: PAM Miscellaneous (Icu Protocol For Hyperglycemia) 1 each N/A ACHS [facility] Stop: 01/25/25 21:58 Last Admin: 01/23/25 22:31 Dose: Not Given Documented By: MICHELLE Discontinued Medications Sodium Chloride (Nss) 1,000 mls @ 999 mls/hr IV .Q1H1M ONE Stop: 01/23/25 18:21 Last Infusion: 01/23/25 19:22 Dose: Infused Documented By: Admin: 01/23/25 17:39 Dose: 999 mls/hr Documented By: [facility] [place] Magnesium Sulfate/Dextrose (Magnesium Sulfate / D5w) 1 gm in 100 mls @ 200 mls/hr IV Q30M [facility] Stop: 01/23/25 18:59 Last Infusion: 01/23/25 19:54 Dose: Infused Documented By: Admin: 01/23/25 19:18 Dose: 200 mls/hr Documented By: Infusion: 01/23/25 19:09 Dose: Infused Documented By: Admin: 01/23/25 18:33 Dose: 200 mls/hr Documented By: [facility] [place] Sodium Chloride (Nss) 1,000 mls @ 999 mls/hr IV .Q1H1M ONE Stop: 01/23/25 19:57 Last Infusion: 01/23/25 20:29 Dose: Infused Documented By: Admin: 01/23/25 19:18 Dose: 999 mls/hr Documented By: PAM Ioversol (Optiray 320 125ml) 115 ml IV ONCE ONE Stop: 01/23/25 18:16 Last Admin: 01/23/25 18:16 Dose: 115 ml Documented By: EDEL Miscellaneous (Rapid Sequence Induction Bag) Confirm Administered Dose 1 each N/A .STK-MED ONE Stop: 01/23/25 16:58 Last Admin: 01/23/25 18:33 Dose: Not Given Documented By: [facility] [place] Margacellaneous (Stat Iv Infusion Titration Per Protocol) 1 each N/A NOW STA Stop: 01/23/25 17:23 Last Admin: 01/23/25 18:33 Dose: Not Given Documented By: [facility] [place] Imaging Data Radiologist's Impression: Head CT 01/23/25 17:19 EXAM: CT head/brain wo con CLINICAL HISTORY: AMS TECHNIQUE: An axial non-contrast CT scan of the brain was performed from the skull base to the high parietal region. One of the following dose-reduction techniques was utilized for this exam. Automated exposure control, adjustment of the mA and/or kV according to patient size, and use of iterative reconstruction. (CTDI: 65.32 mGy, DLP: 2022.61 mGy*cm) COMPARISON: 01/14/2020 CT FINDINGS: Patchy hypodensities are seen in the bilateral cerebral deep and subcortical white matter regions and are non-specific but may represent chronic microvascular white matter ischemic changes. The ventricular system, cortical sulci, and basal cisterns are prominent and consistent with senile changes. Coelho-white matter differentiation is maintained. No midline shifts or deformity. No intracerebral or extra axial hematoma. Normal CT appearance of the posterior fossa structures, namely the cerebellar hemispheres, brainstem, and cerebellar peduncles. The bony structures in the skull base are unremarkable. There are no definite calvarium fractures. The scanned paranasal sinuses are clear. Septum nasi shows mild deviation to the right with a bony spur. IMPRESSION: 1. Microvascular white matter ischemic changes and senile changes. Mild interval progression. 2. No intra. or extra-axial hematomas or parenchymal territorial hypodense areas suggest an acute ischemic insult. 3. Early changes of stroke may not be detected on a CT scan. If there is a strong clinical suspicion of stroke, then an MRI with diffusion-weighted imaging is suggested. Electronically signed by Jordan Ventura 01-23-2025 7:11 PM Chest X-Ray 01/23/25 17:20 EXAM: X-ray chest one-view portable CLINICAL HISTORY: Post intubation PRIORS: 05/26/2016 TECHNIQUE: Frontal view chest FINDINGS: An endotracheal tube is present terminating 2.5 cm superior to the rosalia. Lung volumes diminished. Patient is rotated. Cardiac size mildly enlarged. Diffuse interstitial changes noted. No confluent opacification. Indistinctness of the superior mediastinum, possibly elevation of patient rotation No radiopaque foreign body. IMPRESSION: 1. Endotracheal tube with distal tip 2.5 cm superior to the rosalia. If clinically appropriate, tube could be withdrawn approximately 1.5 to 2 cm or as appropriate. 2. Diffuse interstitial changes, in the setting of diminished lung volumes, please correlate clinically. Electronically signed by Tisha Mcguire 01-23-2025 5:43 PM Chest CTA 01/23/25 17:33 EXAM: CT angio chest PE protocol CLINICAL HISTORY: PE TECHNIQUE: CT angiography of the chest was performed with and without intravenous contrast with the following protocol: axial images with, reconstructed coronal and sagittal images. Non-contrast images were initially acquired, followed by contrast-enhanced images in arterial and venous phases. Intravenous contrast was administered using automated injection techniques. Bolus tracking was employed to optimize arterial phase imaging. One of these 3D techniques was utilized: Maximum Intensity Pixel (MIP), 3D Reconstructed Images, Volume Rendered Images, Surface Shaded Rendering. One of the following dose reduction techniques was utilized for this exam: Automated exposure control, adjustment of the mA and/or kV according to patient size, and use of iterative reconstruction. COMPARISON: Same day chest xray was reviewed. FINDINGS: Endotracheal tube is seen with its distal tip 1.2 cm above the rosalia Nasogastric tube with distal tip cut off from the view. Aorta and Great Vessels: Ascending Aorta: Normal in caliber, no aneurysm, dissection, or significant atherosclerosis. Aortic Arch: Normal in caliber, no aneurysm, dissection, or significant atherosclerosis. Descending Aorta: Normal in caliber, no aneurysm, dissection, or significant atherosclerosis. Pulmonary Arteries: The main pulmonary artery and its branches are patent. No evidence of pulmonary embolism or significant stenosis. Heart: Cardiac Chambers: Normal in size. No evidence of cardiomegaly. Pericardium: No pericardial effusion or thickening. Lungs and Pleura: Subpleural atelectasis in both lungs from superior to lower zones. Consolidation/atelectasis in the superior segment of the right lower lobe. Small calcified nodule in the left lower lobe. No pleural effusion or pleural thickening. Mediastinum: No mediastinal mass or abnormal lymphadenopathy. Normal appearance of the trachea and central bronchi. Hilar Structures: Hilar structures are normal without enlargement. Chest Wall: No mass lesions or abnormalities in the chest wall. Vascular Structures: Superior Vena Cava: Patent without evidence of stenosis or thrombus. Inferior Vena Cava: Patent without evidence of stenosis or thrombus. Bones and Soft Tissues: No fractures, lytic, or blastic lesions of the visualized bony structures. Soft tissues are unremarkable. IMPRESSION: 1. Endotracheal tube is seen with its distal tip 1.2 cm above the rosalia. Advised urgent repositioning. 2. No evidence of pulmonary embolism. 3. Subpleural atelectasis in both lungs from superior to lower zones. 4. Consolidation/atelectasis in the superior segment of the right lower lobe. Electronically signed by Jordan Ventura 01-23-2025 7:21 PM KUB X-Ray 01/23/25 18:37 EXAM: XR KUB/Abdomen 1 view CLINICAL HISTORY: OG tube placement TECHNIQUE: X-ray image of the chest and upper abdomen performed in Frontal projection. COMPARISON: CR 05/26/2016 - CT 03/03/2024 FINDINGS: Orogastric tube is noted with its tip in the stomach. An endotracheal tube is noted with its tip 3.5 cm above the rosalia. Lungs: Prominent bilateral bronchovascular markings. No evidence of any focal area of consolidation. The costophrenic and cardiophrenic angles are clear. Mediastinum: Cardiac size cannot be accurately assessed in AP projection, however, cardiac shadow appears enlarged. Soft Tissues: Soft tissues of the abdomen appear normal without evidence of masses or calcifications. IMPRESSION: 1. Orogastric tube is noted with its tip in the stomach. 2. An endotracheal tube is noted with its tip 3.5 cm above the rosalia. 3. Prominent bilateral bronchovascular markings. These could probably represent early/mild inflammatory/infectious etiology. 4. New findings. Correlate clinically. Electronically signed by Jordan Ventura 01-23-2025 8:09 PM Discharge Plan Visit Data Chief Complaint: Unresponsive Stated Complaint: UNRESP. OVERDOSE ED Provider: Mulugeta Ahumada Discharge Problem: On mechanically assisted ventilation, Unresponsive, Antipsychotic overdose, Encephalopathy acute, Prolonged QT interval Patient Disposition: Admitted As Inpatient Discharge Instructions Interventions: ED Discharge Assessment Last Done: 01/23/25 21:31 Discharge Problem: Antipsychotic overdose Qualifiers: Encounter type: initial encounter Injury intent: intentional self-harm Q ualified Code(s): T43.502A - Poisoning by unspecified antipsychotics and neuroleptics, intentional self-harm, initial encounter
--- NOTE | 2025-01-23 17:43 | XRay Report ---
EXAM: X-ray chest one-view portable CLINICAL HISTORY: Post intubation PRIORS: 05/26/2016 TECHNIQUE: Frontal view chest FINDINGS: An endotracheal tube is present terminating 2.5 cm superior to the rosalia. Lung volumes diminished. Patient is rotated. Cardiac size mildly enlarged. Diffuse interstitial changes noted. No confluent opacification. Indistinctness of the superior mediastinum, possibly elevation of patient rotation No radiopaque foreign body. IMPRESSION: 1. Endotracheal tube with distal tip 2.5 cm superior to the rosalia. If clinically appropriate, tube could be withdrawn approximately 1.5 to 2 cm or as appropriate. 2. Diffuse interstitial changes, in the setting of diminished lung volumes, please correlate clinically. Electronically signed by Tisha Mcguire 01-23-2025 5:43 PM
[2025-01-23] MEDS: MIDAZOLAM HCL 125 MG/250 ML BAG IV SCH (17:47)
[2025-01-23 17:49] LABS: Alanine Aminotransferase 32 U/L (7-52); Albumin Globulin Ratio 1.7 (0.9-2); Albumin Level 4.5 gm/dl (3.4-5.0); Alkaline Phosphatase 155 U/L (34-104); Anion Gap 11 (3-11); Aspartate Aminotransferase 21 U/L (13-39); BUN Creatinine Ratio 15.5 (10-20); Bilirubin,Total 0.9 mg/dl (0.2-1.0); Blood Urea Nitrogen 16 mg/dl (6-23); Calcium 11.3 mg/dl (8.6-10.3); Carbon Dioxide 25 mmol/L (21-32); Chloride 102 mmol/L (98-107); Globulin 2.7 gm/dl (2.5-4.0); Glucose 203 mg/dl (70-99(Fasting)); Potassium 3.7 mmol/L (3.5-5.1); Sodium 138 mmol/L (136-145); Total Protein 7.2 gm/dl (6.0-8.3)
[2025-01-23 18:03] LABS: Thyroid Stimulating Hormone 2.447 uIu/ml (0.300-4.500)
[2025-01-23] MEDS: OPTIRAY 320 125ml IV ONE (18:16)
[2025-01-23 18:17] LABS: Amphetamines+Metham, Urine Neg (Neg); Barbiturates, Urine Neg (Neg); Benzodiazepine, Urine Neg (Neg); Cocaine, Urine Neg (Neg); Fentanyl, Urine Neg (Neg); MDMA (Ecstacy), Urine Neg (Neg); Marijuana, Urine Neg (Neg); Methadone, Urine Neg (Neg); Opiate, Urine Neg (Neg); Phencyclidine, Urine Neg (Neg)
[2025-01-23 18:25] LABS: Troponin I High Sensitivity 434.8 pg/ml (0-14)
[2025-01-23] MEDS: STAT IV Infusion **Titration per Protocol STA (18:33)
[2025-01-23] MEDS: MAGNESIUM SULFATE / D5W 1 GM/100 ML BAG IV SCH (18:33)
[2025-01-23] MEDS: RAPID SEQUENCE INDUCTION BAG ONE (18:33)
[2025-01-23 18:45] LABS: Appearance Urine Clear (Clear); Bacteria Urine Automated None Seen (None Seen); Bilirubin Urine Negative (Negative); Blood Urine Negative (Negative); Calcium Oxalate Crystals Urine Present (None Prsent); Cast Urine Automated >20 /lpf (0-2); Color Urine Yellow; Glucose Urine UA Negative (Negative); Ketones Urine Negative (Negative); Leukocyte Esterase Urine Negative (Negative); Nitrite Urine Negative (Negative); Protein Urine 2+ (Negative); Specific Gravity Urine 1.013 (1.000-1.030); Urobilinogen Urine Negative (Negative); WBC Urine Automated 0-5 /hpf (0-5)
[2025-01-23] MEDS: MIDAZOLAM BOLUS FROM BAG IV PRN (18:50)
[2025-01-23] MEDS: fentaNYL citrate PF 100 MCG/2 ML VIAL IV PRN (18:54)
--- NOTE | 2025-01-23 19:11 | CT Scan Report ---
EXAM: CT head/brain wo con CLINICAL HISTORY: AMS TECHNIQUE: An axial non-contrast CT scan of the brain was performed from the skull base to the high parietal region. One of the following dose-reduction techniques was utilized for this exam. Automated exposure control, adjustment of the mA and/or kV according to patient size, and use of iterative reconstruction. (CTDI: 65.32 mGy, DLP: 2022.61 mGy*cm) COMPARISON: 01/14/2020 CT FINDINGS: Patchy hypodensities are seen in the bilateral cerebral deep and subcortical white matter regions and are non-specific but may represent chronic microvascular white matter ischemic changes. The ventricular system, cortical sulci, and basal cisterns are prominent and consistent with senile changes. Coelho-white matter differentiation is maintained. No midline shifts or deformity. No intracerebral or extra axial hematoma. Normal CT appearance of the posterior fossa structures, namely the cerebellar hemispheres, brainstem, and cerebellar peduncles. The bony structures in the skull base are unremarkable. There are no definite calvarium fractures. The scanned paranasal sinuses are clear. Septum nasi shows mild deviation to the right with a bony spur. IMPRESSION: 1. Microvascular white matter ischemic changes and senile changes. Mild interval progression. 2. No intra. or extra-axial hematomas or parenchymal territorial hypodense areas suggest an acute ischemic insult. 3. Early changes of stroke may not be detected on a CT scan. If there is a strong clinical suspicion of stroke, then an MRI with diffusion-weighted imaging is suggested. Electronically signed by Jordan Ventura 01-23-2025 7:11 PM
--- NOTE | 2025-01-23 19:22 | CT Scan Report ---
EXAM: CT angio chest PE protocol CLINICAL HISTORY: PE TECHNIQUE: CT angiography of the chest was performed with and without intravenous contrast with the following protocol: axial images with, reconstructed coronal and sagittal images. Non-contrast images were initially acquired, followed by contrast-enhanced images in arterial and venous phases. Intravenous contrast was administered using automated injection techniques. Bolus tracking was employed to optimize arterial phase imaging. One of these 3D techniques was utilized: Maximum Intensity Pixel (MIP), 3D Reconstructed Images, Volume Rendered Images, Surface Shaded Rendering. One of the following dose reduction techniques was utilized for this exam: Automated exposure control, adjustment of the mA and/or kV according to patient size, and use of iterative reconstruction. COMPARISON: Same day chest xray was reviewed. FINDINGS: Endotracheal tube is seen with its distal tip 1.2 cm above the rosalia Nasogastric tube with distal tip cut off from the view. Aorta and Great Vessels: Ascending Aorta: Normal in caliber, no aneurysm, dissection, or significant atherosclerosis. Aortic Arch: Normal in caliber, no aneurysm, dissection, or significant atherosclerosis. Descending Aorta: Normal in caliber, no aneurysm, dissection, or significant atherosclerosis. Pulmonary Arteries: The main pulmonary artery and its branches are patent. No evidence of pulmonary embolism or significant stenosis. Heart: Cardiac Chambers: Normal in size. No evidence of cardiomegaly. Pericardium: No pericardial effusion or thickening. Lungs and Pleura: Subpleural atelectasis in both lungs from superior to lower zones. Consolidation/atelectasis in the superior segment of the right lower lobe. Small calcified nodule in the left lower lobe. No pleural effusion or pleural thickening. Mediastinum: No mediastinal mass or abnormal lymphadenopathy. Normal appearance of the trachea and central bronchi. Hilar Structures: Hilar structures are normal without enlargement. Chest Wall: No mass lesions or abnormalities in the chest wall. Vascular Structures: Superior Vena Cava: Patent without evidence of stenosis or thrombus. Inferior Vena Cava: Patent without evidence of stenosis or thrombus. Bones and Soft Tissues: No fractures, lytic, or blastic lesions of the visualized bony structures. Soft tissues are unremarkable. IMPRESSION: 1. Endotracheal tube is seen with its distal tip 1.2 cm above the rosalia. Advised urgent repositioning. 2. No evidence of pulmonary embolism. 3. Subpleural atelectasis in both lungs from superior to lower zones. 4. Consolidation/atelectasis in the superior segment of the right lower lobe. Electronically signed by Jordan Ventura 01-23-2025 7:21 PM
--- NOTE | 2025-01-23 20:09 | XRay Report ---
EXAM: XR KUB/Abdomen 1 view CLINICAL HISTORY: OG tube placement TECHNIQUE: X-ray image of the chest and upper abdomen performed in Frontal projection. COMPARISON: CR 05/26/2016 - CT 03/03/2024 FINDINGS: Orogastric tube is noted with its tip in the stomach. An endotracheal tube is noted with its tip 3.5 cm above the rosalia. Lungs: Prominent bilateral bronchovascular markings. No evidence of any focal area of consolidation. The costophrenic and cardiophrenic angles are clear. Mediastinum: Cardiac size cannot be accurately assessed in AP projection, however, cardiac shadow appears enlarged. Soft Tissues: Soft tissues of the abdomen appear normal without evidence of masses or calcifications. IMPRESSION: 1. Orogastric tube is noted with its tip in the stomach. 2. An endotracheal tube is noted with its tip 3.5 cm above the rosalia. 3. Prominent bilateral bronchovascular markings. These could probably represent early/mild inflammatory/infectious etiology. 4. New findings. Correlate clinically. Electronically signed by Jordan Ventura 01-23-2025 8:09 PM
--- NOTE | 2025-01-23 20:44 | History & Physical Report ---
Date of Service January 23, 2025 Assessment & Plan (1) Unresponsive: Plan: 59-year-old female with past medical history significant for dyslipidemia, history of elevated parathyroid hormone, methytetrahydrofolate reductase mutation, patent foramen ovale, history of CVA , morbid obesity, microcytic anemia, recurrent depression, was brought in from home because of unresponsiveness. As per in the morning patient seemed irritable. Patient's has history of depression and psychosis in the past and currently not taking medications for mental health as per . At 4 PM was called by her son that the patient had an episode of vomiting and was unresponsive. Zyprexa empty bottle was found beside her. Zyprexa was prescribed in 2019 when she was admitted here for psychosis and depression. As per she never took the Zyprexa medication and thinks the bottle is full . Expiry date on the bottle is 2020. She was on fluoxetine but has been not taking as per . Sometimes seems irritable as per . Her appetite is down but she was drinking a lot of water. No recent fevers. No complaint of chest pain or abdominal pain as per . She has some back pain. But she was walking and climbing steps okay. Patient in the ER was intubated. ER spoke with poison control and plan for supportive care.Patient was placed on Versed for seizure precaution and also fentanyl as needed. Patient also has ST elevations on EKG and elevated troponins. Patient was evaluated by cardiology at bedside with bedside echo and plan for observation for now as per ER. Unresponsive Zyprexa overdose S/p intubation On Versed and fentanyl as needed and also on propofol currently Poison control notified by ER Close monitoring ICU possible Seizures on MRI appreciate critical care help Supportive care Abnormal EKG ST elevation on EKG Initial troponin 432 and repeat 618 Cardiology evaluated patient in the ER and did bedside echo No ACS per cardiology Plan for observation Follow serial cardiac enzyme, repeat EKG and echo cardiology consult Close monitor elevated lactic acid lactic acid 3.5 and repeat 3.9 procalcitonin negative on fluids close monitor follow repeat levels. History of depression History of psychosis Currently not taking any medications Psychiatry consult once stable History of CVA Patent foramen ovale On aspirin and statin History of hypertension On lisinopril which will be held for now Will monitor DVT prophylaxis SCDs Lovenox Disposition Close monitoring ICU Full code History of Present Illness Chief Complaint: Unresponsiveness, drug overdose Primary Care Provider: NO PCP 59-year-old female with past medical history significant for dyslipidemia, history of elevated parathyroid hormone, methytetrahydrofolate reductase mutation, patent foramen ovale, history of CVA , morbid obesity, microcytic anemia, recurrent depression, was brought in from home because of unresponsiveness. As per in the morning patient seemed irritable. Patient's has history of depression and psychosis in the past and currently not taking medications for mental health as per . At 4 PM was called by her son that the patient had an episode of vomiting and was unresponsive. Zyprexa empty bottle was found beside her. Zyprexa was prescribed in 2019 when she was admitted here for psychosis and depression. As per she never took the Zyprexa medication and thinks the bottle is full . Expiry date on the bottle is 2020. She was on fluoxetine but has been not taking as per . Sometimes seems irritable as per . Her appetite is down but she was drinking a lot of water. No recent fevers. No complaint of chest pain or abdominal pain as per . She has some back pain. But she was walking and climbing steps okay. Patient in the ER was intubated. ER spoke with poison control and plan for supportive care.Patient was placed on Versed for seizure precaution and also fentanyl as needed. Patient also has ST elevations on EKG and elevated troponins. Patient was evaluated by cardiology at bedside with bedside echo and plan for observation for now as per ER. Past medical history. As mentioned above Past surgical history. Biopsy of uterus lining. Colonoscopy. Ligation oviducts. Social history. . No smoking. No alcohol use. No drug use. Family history. Paternal aunt had breast cancer. Father had cancer. Hypertension. Mother has diabetes. Allergies Allergy/AdvReac Type Severity Reaction Status Date / Time Penicillins Allergy Severe SEIZURES Verified 01/23/25 17:57 Sulfa (Sulfonamide Allergy Severe ARRHYTHMIAS Verified 03/03/24 17:55 Antibiotics) doxycycline AdvReac Tachycardia Verified 01/23/25 17:57 Home Medications Medication Instructions Recorded Confirmed Type albuterol sulfate 90 mcg/actuation 2 puff inhalation Q4 PRN Wheezing 05/17/21 01/23/25 History aerosol inhaler atorvastatin 40 mg tablet 40 mg PO QAM 05/17/21 01/23/25 History aspirin 81 mg tablet,delayed 81 mg PO QAM 03/03/24 01/23/25 History release multivitamin with minerals 1 tab PO QAM 03/03/24 01/23/25 History (Multiple Vitamin-Minerals tablet) lisinopril 20 mg tablet 20 mg PO QAM 01/23/25 01/23/25 History Past Med/Surg History Problem List (Updated 01/23/25 @ 23:04 by Mulugeta Ahumada MD) Prolonged QT interval (Acute) Lactic acidosis Acute kidney injury On mechanically assisted ventilation (Acute) Encephalopathy acute (Acute) Antipsychotic overdose (Acute) Unresponsive (Acute) Major depression Near syncope (Acute 10/05/13) Altered mental status (Acute) Medical History Psychosis No pertinent family history Surgical History No pertinent past surgical history Social History Smoking Status: Never smoker Hx Alcohol Use: No Hx Substance Use: No Preferred Language: Belgian Communication Ability: Effective Watch Assembly Inspector Required: No Beliefs That Will Affect Care: None Current Living Situation: Spouse Feels Safe at Home: Yes Assistive Devices: Glasses Review of Systems Review of Systems: Unobtainable due to endotracheal tube Physical Exam Physical Exam: General- s/p intubation Head- atraumatic Eyes- Pupils pinpoint and very sluggish reaction to light Neck- No neck masses seen.no JVD. Lungs- clear to auscultation no wheezing or crackles Heart- regular rhythm;tachycardia no murmur, no gallop. Abdomen- normal bowel sounds, soft, no distension Extremities- no pretibial edema, no erythema seen Neuro- s/p intubation Results & Data Results & Data Vital Signs (Past 12 Hours) Vital Signs Temp Pulse Pulse Resp BP BP Pulse Ox 01/23/25 20:33 125 H 22 131/90 99 01/23/25 19:57 122 H 21 125/95 100 01/23/25 19:00 134 H 22 114/68 97 01/23/25 18:38 138 H 22 134/63 100 01/23/25 18:00 132 H 22 142/87 H 100 01/23/25 17:51 134 H 22 158/91 H 100 01/23/25 17:33 37.1 C 01/23/25 17:30 22 01/23/25 17:27 153 H 22 110/70 98 01/23/25 17:19 01/23/25 17:18 159 H 22 118/100 99 01/23/25 17:14 160 H 01/23/25 17:10 163 H 20 118/100 98 O2 Del Method O2 Flow Rate FiO2 01/23/25 20:33 Mechanical Vent 01/23/25 19:57 Mechanical Vent 01/23/25 19:00 Mechanical Vent 01/23/25 18:38 Mechanical Vent 01/23/25 18:00 Mechanical Vent 01/23/25 17:51 Mechanical Vent 01/23/25 17:33 01/23/25 17:30 50 01/23/25 17:27 Mechanical Vent 01/23/25 17:19 Mechanical Vent 01/23/25 17:18 Mechanical Vent 01/23/25 17:14 01/23/25 17:10 Non-rebreather 15 Diagnostic Findings Laboratory Results WBC 9.99 K/ul (4.8-10.8) 01/23/25 17:14 RBC 5.01 M/uL (4.20-5.40) 01/23/25 17:14 Hgb 14.4 g/dl (12.0-16.0) 01/23/25 17:14 Hct 44.1 % (37.0-47.0) 01/23/25 17:14 MCV 88.0 fL (80.0-100.0) 01/23/25 17:14 MCH 28.7 pg (25.0-34.0) 01/23/25 17:14 MCHC 32.7 g/dL (32.0-36.0) 01/23/25 17:14 RDW Std Deviation 42.7 fL (36.4-46.3) 01/23/25 17:14 RDW Coeff of Padmini 13.3 % (11.5-14.5) 01/23/25 17:14 Plt Count 201 K/uL (130-400) 01/23/25 17:14 MPV 11.9 fL (9.4-12.4) 01/23/25 17:14 Immature Gran % (Auto) 1.1 % 01/23/25 17:14 Neut % (Auto) 87.2 % 01/23/25 17:14 Lymph % (Auto) 9.0 % 01/23/25 17:14 [place] % (Auto) 2.4 % 01/23/25 17:14 Eos % (Auto) 0.1 % 01/23/25 17:14 Baso % (Auto) 0.2 % 01/23/25 17:14 Neut # (Auto) 8.71 K/uL (1.40-6.50) H 01/23/25 17:14 Lymph # (Auto) 0.90 K/uL (1.20-3.40) L 01/23/25 17:14 [place] # (Auto) 0.24 K/uL (0.11-0.59) 01/23/25 17:14 Eos # (Auto) 0.01 K/uL (0.00-0.50) 01/23/25 17:14 Baso # (Auto) 0.02 K/uL (0.00-0.20) 01/23/25 17:14 Immature Gran # (Auto) 0.11 K/uL (0.01-0.20) 01/23/25 17:14 VBG pH 7.32 (7.36-7.41) L 01/23/25 17:14 VBG pCO2 49 mmHg (38-50) 01/23/25 17:14 VBG pO2 51 mmHg 01/23/25 17:14 VBG HCO3 25 mmol/L 01/23/25 17:14 VBG O2 Saturation 81.8 % 01/23/25 17:14 VBG Base Excess -1.4 mEq/L 01/23/25 17:14 Sodium 138 mmol/L (136-145) 01/23/25 17:14 Potassium 3.7 mmol/L (3.5-5.1) 01/23/25 17:14 Chloride 102 mmol/L (98-107) 01/23/25 17:14 Carbon Dioxide 25 mmol/L (21-32) 01/23/25 17:14 Anion Gap 11 (3-11) 01/23/25 17:14 BUN 16 mg/dl (6-23) 01/23/25 17:14 Creatinine 1.03 mg/dl (0.6-1.2) 01/23/25 17:14 Est Cr Clr Drug Dosing Not Reportable 01/23/25 17:14 eGFR 63.03 01/23/25 17:14 BUN/Creatinine Ratio 15.5 (10-20) 01/23/25 17:14 Glucose 203 mg/dl (70-99(Fasting)) H 01/23/25 17:14 POC Glucose 189 mg/dl (70-99) H 01/23/25 17:11 Lactate 3.5 mmol/L (0.4-2.0) H* 01/23/25 20:26 Calcium 11.3 mg/dl (8.6-10.3) H 01/23/25 17:14 Total Bilirubin 0.9 mg/dl (0.2-1.0) 01/23/25 17:14 AST 21 U/L (13-39) 01/23/25 17:14 ALT 32 U/L (7-52) 01/23/25 17:14 Alkaline Phosphatase 155 U/L (34-104) H 01/23/25 17:14 Troponin I High Sens 618.8 pg/ml (0-14) H* D 01/23/25 19:16 Total Protein 7.2 gm/dl (6.0-8.3) 01/23/25 17:14 Albumin 4.5 gm/dl (3.4-5.0) 01/23/25 17:14 Globulin 2.7 gm/dl (2.5-4.0) 01/23/25 17:14 Albumin/Globulin Ratio 1.7 (0.9-2) 01/23/25 17:14 TSH 2.447 uIu/ml (0.300-4.500) 01/23/25 17:14 Urine Color Yellow 01/23/25 17:32 Urine Appearance Clear (Clear) 01/23/25 17:32 Urine pH 6.0 (4.5-7.5) 01/23/25 17:32 Ur Specific [place] 1.013 (1.000-1.030) 01/23/25 17:32 Urine Protein 2+ (Negative) H 01/23/25 17:32 Urine Glucose (UA) Negative (Negative) 01/23/25 17:32 Urine Ketones Negative (Negative) 01/23/25 17:32 Urine Blood Negative (Negative) 01/23/25 17:32 Urine Nitrite Negative (Negative) 01/23/25 17:32 Urine Bilirubin Negative (Negative) 01/23/25 17:32 Urine Urobilinogen Negative (Negative) 01/23/25 17:32 Ur Leukocyte Esterase Negative (Negative) 01/23/25 17:32 Urine WBC (Auto) 0-5 /hpf (0-5) 01/23/25 17:32 Urine RBC (Auto) 3-5 /hpf (0-2) H 01/23/25 17:32 U Hyaline Cast (Auto) >20 /lpf (0-2) H 01/23/25 17:32 U Epithel Cells (Auto) 6-10 /hpf (0-2) H 01/23/25 17:32 Urine Bacteria (Auto) None Seen (None Seen) 01/23/25 17:32 Calcium Oxalate Crystal Present (None Prsent) A 01/23/25 17:32 Urine Opiates Screen Neg (Neg) 01/23/25 17:32 Ur Methadone, Qual Neg (Neg) 01/23/25 17:32 Urine Fentanyl Screen Neg (Neg) 01/23/25 17:32 Urine Barbiturates Neg (Neg) 01/23/25 17:32 Ur Phencyclidine (PCP) Neg (Neg) 01/23/25 17:32 U Amphetamin/Meth Scrn Neg (Neg) 01/23/25 17:32 MDMA (Ecstasy) Screen Neg (Neg) 01/23/25 17:32 U Benzodiazepines Scrn Neg (Neg) 01/23/25 17:32 Ur Cocaine Metabolite Neg (Neg) 01/23/25 17:32 U Marijuana (THC) Screen Neg (Neg) 01/23/25 17:32 Ethyl Alcohol mg/dL < 10.0 mg/dl (<10.0) 01/23/25 17:[address] 01/23/25 17:19 EXAM: CT head/brain wo con CLINICAL HISTORY: AMS TECHNIQUE: An axial non-contrast CT scan of the brain was performed from the skull base to the high parietal region. One of the following dose-reduction techniques was utilized for this exam. Automated exposure control, adjustment of the mA and/or kV according to patient size, and use of iterative reconstruction. (CTDI: 65.32 mGy, DLP: 2022.61 mGy*cm) COMPARISON: 01/14/2020 CT FINDINGS: Patchy hypodensities are seen in the bilateral cerebral deep and subcortical white matter regions and are non-specific but may represent chronic microvascular white matter ischemic changes. The ventricular system, cortical sulci, and basal cisterns are prominent and consistent with senile changes. Coelho-white matter differentiation is maintained. No midline shifts or deformity. No intracerebral or extra axial hematoma. Normal CT appearance of the posterior fossa structures, namely the cerebellar hemispheres, brainstem, and cerebellar peduncles. The bony structures in the skull base are unremarkable. There are no definite calvarium fractures. The scanned paranasal sinuses are clear. Septum nasi shows mild deviation to the right with a bony spur. IMPRESSION: 1. Microvascular white matter ischemic changes and senile changes. Mild interval progression. 2. No intra. or extra-axial hematomas or parenchymal territorial hypodense areas suggest an acute ischemic insult. 3. Early changes of stroke may not be detected on a CT scan. If there is a strong clinical suspicion of stroke, then an MRI with diffusion-weighted imaging is suggested. Electronically signed by Jordan Ventura 01-23-2025 7:11 PM Chest X-Ray 01/23/25 17:20 EXAM: X-ray chest one-view portable CLINICAL HISTORY: Post intubation PRIORS: 05/26/2016 TECHNIQUE: Frontal view chest FINDINGS: An endotracheal tube is present terminating 2.5 cm superior to the rosalia. Lung volumes diminished. Patient is rotated. Cardiac size mildly enlarged. Diffuse interstitial changes noted. No confluent opacification. Indistinctness of the superior mediastinum, possibly elevation of patient rotation No radiopaque foreign body. IMPRESSION: 1. Endotracheal tube with distal tip 2.5 cm superior to the rosalia. If clinically appropriate, tube could be withdrawn approximately 1.5 to 2 cm or as appropriate. 2. Diffuse interstitial changes, in the setting of diminished lung volumes, please correlate clinically. Electronically signed by Tisha Mcguire 01-23-2025 5:43 PM Chest CTA 01/23/25 17:33 EXAM: CT angio chest PE protocol CLINICAL HISTORY: PE TECHNIQUE: CT angiography of the chest was performed with and without intravenous contrast with the following protocol: axial images with, reconstructed coronal and sagittal images. Non-contrast images were initially acquired, followed by contrast-enhanced images in arterial and venous phases. Intravenous contrast was administered using automated injection techniques. Bolus tracking was employed to optimize arterial phase imaging. One of these 3D techniques was utilized: Maximum Intensity Pixel (MIP), 3D Reconstructed Images, Volume Rendered Images, Surface Shaded Rendering. One of the following dose reduction techniques was utilized for this exam: Automated exposure control, adjustment of the mA and/or kV according to patient size, and use of iterative reconstruction. COMPARISON: Same day chest xray was reviewed. FINDINGS: Endotracheal tube is seen with its distal tip 1.2 cm above the rosalia Nasogastric tube with distal tip cut off from the view. Aorta and Great Vessels: Ascending Aorta: Normal in caliber, no aneurysm, dissection, or significant atherosclerosis. Aortic Arch: Normal in caliber, no aneurysm, dissection, or significant atherosclerosis. Descending Aorta: Normal in caliber, no aneurysm, dissection, or significant atherosclerosis. Pulmonary Arteries: The main pulmonary artery and its branches are patent. No evidence of pulmonary embolism or significant stenosis. Heart: Cardiac Chambers: Normal in size. No evidence of cardiomegaly. Pericardium: No pericardial effusion or thickening. Lungs and Pleura: Subpleural atelectasis in both lungs from superior to lower zones. Consolidation/atelectasis in the superior segment of the right lower lobe. Small calcified nodule in the left lower lobe. No pleural effusion or pleural thickening. Mediastinum: No mediastinal mass or abnormal lymphadenopathy. Normal appearance of the trachea and central bronchi. Hilar Structures: Hilar structures are normal without enlargement. Chest Wall: No mass lesions or abnormalities in the chest wall. Vascular Structures: Superior Vena Cava: Patent without evidence of stenosis or thrombus. Inferior Vena Cava: Patent without evidence of stenosis or thrombus. Bones and Soft Tissues: No fractures, lytic, or blastic lesions of the visualized bony structures. Soft tissues are unremarkable. IMPRESSION: 1. Endotracheal tube is seen with its distal tip 1.2 cm above the rosalia. Advised urgent repositioning. 2. No evidence of pulmonary embolism. 3. Subpleural atelectasis in both lungs from superior to lower zones. 4. Consolidation/atelectasis in the superior segment of the right lower lobe. Electronically signed by Jordan Ventura 01-23-2025 7:21 PM KUB X-Ray 01/23/25 18:37 EXAM: XR KUB/Abdomen 1 view CLINICAL HISTORY: OG tube placement TECHNIQUE: X-ray image of the chest and upper abdomen performed in Frontal projection. COMPARISON: CR 05/26/2016 - CT 03/03/2024 FINDINGS: Orogastric tube is noted with its tip in the stomach. An endotracheal tube is noted with its tip 3.5 cm above the rosalia. Lungs: Prominent bilateral bronchovascular markings. No evidence of any focal area of consolidation. The costophrenic and cardiophrenic angles are clear. Mediastinum: Cardiac size cannot be accurately assessed in AP projection, however, cardiac shadow appears enlarged. Soft Tissues: Soft tissues of the abdomen appear normal without evidence of masses or calcifications. IMPRESSION: 1. Orogastric tube is noted with its tip in the stomach. 2. An endotracheal tube is noted with its tip 3.5 cm above the rosalia. 3. Prominent bilateral bronchovascular markings. These could probably represent early/mild inflammatory/infectious etiology. 4. New findings. Correlate clinically. Electronically signed by Jordan Ventura 01-23-2025 8:09 PM ECG Additional Comments: ECG. Sinus tachycardia rate of 152. ST elevation in inferior leads. QTc 492. Code Status & VTE Plan VTE Prophylaxis Plan VTE Prophylaxis will be ordered: Yes
--- NOTE | 2025-01-23 21:13 | Critical Care Consultation ---
Date of Consultation January 23, 2025 Assessment & Plan (1) Antipsychotic overdose: (2) Encephalopathy acute: (3) On mechanically assisted ventilation: (4) Acute kidney injury: (5) Lactic acidosis: (6) Prolonged QT interval: Plan Reason Critically Ill: 1. Acute toxic encephalopathy 2. Toxic ingestion / atypical antipsychotic toxicity 3. JENNA on CKD 4. Psychosis and hallucinations 5. Cardiac ischemia, type I vs. type II WI Neuro - RASS GOAL 0 to -1 If QTc stable we will transition to propofol vs Precedex for hopeful extubation in AM APAP PRN fever Seizure precautions MRI brain to rule out occult CVA, especially posterior CVA leading to unresponsiveness Consider Neurology consult given "senile" changes on CTH, ?vascular dementia?, awaiting MRI read Cardiac - Serial EKG, s/p 2g MgSO4 Serial troponin, Dr. De La Cruz has evaluated the patient and does not recommend heparin at this time, appreciate continued input TTE pending MAP goal > 65mmHg mIVF as below Permissive hypertension, treat judiciously if > 180mmHg Respiratory - Continue mechanical ventilation Daily SAT/SBT, hopeful extubation in AM pending mentation VBG post-intubation pending SpO2 goal > 92% Pulmonary hygiene GI - Diet: NPO except Rx via OGT SUP: H2B Bowel regimen: Miralax RENAL/LYTES - JENNA Replete electrolytes as indicated Stone for accurate I/Os, remove upon extubation mIVF LR at 100cc/hr Maintain net even to net negative ENDO - BG 140-180 per SCCM guidelines ISS if needed while inpatient HEME/ONC/OTHER - No acute concerns Psych consult once extubated and able to participate in care ID - Afebrile, normal WBC. Trend fever curve and CBC Monitor off antibiotics for now. Possible aspiration pneumonitis, will see how patient declares herself UA WNL, procalcitonin pending LINES/TUBES/DRAINS - ETT (Day #1) OGT (Day #1) Stone (Day #1) PIV x2 DVT PROPHYLAXIS - Enoxaparin I have personally spent 48 minutes of critical care time in the direct management of this patient. This is a life/limb threatening event. This includes time spent evaluating patient, direct bedside care, chart review, placing orders, interpretation of diagnostic studies, discussion with consultants, patient, and family members, as well as other required patient management activities. This time is exclusive of all separately billable procedures, and teaching time and separate from and in addition to any other critical care service time. Thank you for allowing us to participate in the care of this patient. Please refer to my attending physician's documentation for any further recommendations. Supervising Physician Co-Signing Physician Notes Patient seen and examined. EMR reviewed. Discussed with critical care TERI and agree with assessment plan as noted. Please refer to my progress note from for additional details History of Present Illness Reason for Consultation: Unresponsiveness requiring mechanical ventilation Requesting Physician: Brendan Attending Physician: Brendan History of Present Illness Ms. Jo Patel is a 59YOF with a history of psychosis, hypertension, dyslipidemia, medical nonadherence, MTHR mutation, PFO, CVA, obesity, hyperparathyroidism who is admitted to [facility] ICU after being found unresponsive at home. Per report, patient had an episode of emesis and was unresponsive around 1600 01/23/2025. LKW was that morning. An empty Zyprexa bottle was found near her. This is an old prescription which actually in 2020, but patient did not take it. She was intubated in the emergency department due to inability to protect her airway. Placed on Versed infusion. Her EKG showed STEMI with QTc 492. Dr. De La Cruz saw the patient in the ED, performed POCUS without WMA, recommended serial troponin and observation. Remainder of workup was remarkable for elevated troponin, negative UDS, negative ETOH, JENNA, LA 3.5, hypercalcemia. CTA Chest negative for PE, does show atelectasis of RUL. CTH showing ischemic and senile changes. No CTA Head performed. Patient seen in B01. She is intubated and sedated with Versed infusion at 3mg/hr. Pupils 1-2mm and reactive. Normothermic. Not diaphoretic. Hypertensive and tachycardic. Saturating well on minimal ventilator settings. Family at bedside who provide additional history. Patient has history of small strokes and was found to have PFO on prior echo. In recent weeks she has been quite irritable and "sometimes seeing people who aren't there". Per daughter, patient refuses to take her medications and never took her prescribed Zyprexa after inpatient psych discharge in 2019. They did not note any admitted suicidal ideations, and feel it's possible she could've taken the Zyprexa to stop the hallucinations. I assured them that Jo will receive multidisciplinary support at [facility] and our social work services are here if they were to need anything as well. All questions were answered to apparent satisfaction. Allergies Allergy/AdvReac Type Severity Reaction Status Date / Time Penicillins Allergy Severe SEIZURES Verified 01/23/25 17:57 Sulfa (Sulfonamide Allergy Severe ARRHYTHMIAS Verified 03/03/24 17:55 Antibiotics) doxycycline AdvReac Tachycardia Verified 01/23/25 17:57 Home Medications Medication Instructions Recorded Confirmed Type albuterol sulfate 90 mcg/actuation 2 puff inhalation Q4 PRN Wheezing 05/17/21 01/23/25 History aerosol inhaler atorvastatin 40 mg tablet 40 mg PO QAM 05/17/21 01/23/25 History aspirin 81 mg tablet,delayed 81 mg PO QAM 03/03/24 01/23/25 History release multivitamin with minerals 1 tab PO QAM 03/03/24 01/23/25 History (Multiple Vitamin-Minerals tablet) lisinopril 20 mg tablet 20 mg PO QAM 01/23/25 01/23/25 History Patient History Medical History Psychosis No pertinent family history Surgical History No pertinent past surgical history Social History Smoking Status: Never smoker Hx Alcohol Use: No Hx Substance Use: No Preferred Language: Finnish Communication Ability: Effective Residential Instructor Required: No Beliefs That Will Affect Care: None Current Living Situation: Spouse Feels Safe at Home: Yes Assistive Devices: Glasses Review of Systems Review of Systems: Unobtainable due to endotracheal tube Physical Exam Constitutional: + ill appearing, + obese and + mechanica lly ventilated; no acute distress Eyes: reactive pupils; no conjunctival abnormality, no scleral abnormality and pupils not dilated ENMT: ETT in place Neck: trachea midline, no thyromegaly Respiratory: + tachypneic Auscultation: no crackle s, no rhonchi and no wheezes Cardiovascular: Rate/Rhythm: regular rhythm and + tachycardic Heart Sounds: + murmur Vessels: no JVD and no carotid bruit Extremities: normal capillary refill; no edema Gastrointestinal (Abdomen): normal bowel sounds, soft, nontender, no hepatosplenomegaly Skin: no rashes, warm and dry Neurologic: + obtunded Genitourinary: Stone in place draining dilute urine Results & Data Results & Data Vital Signs (Past 12 Hours) Vital Signs Temp Pulse Pulse Resp BP BP Pulse Ox 01/23/25 20:47 37.1 C 119 H 20 125/80 99 01/23/25 20:33 125 H 22 131/90 99 01/23/25 19:57 122 H 21 125/95 100 01/23/25 19:00 134 H 22 114/68 97 01/23/25 18:38 138 H 22 134/63 100 01/23/25 18:00 132 H 22 142/87 H 100 01/23/25 17:51 134 H 22 158/91 H 100 01/23/25 17:33 37.1 C 01/23/25 17:30 22 01/23/25 17:27 153 H 22 110/70 98 01/23/25 17:19 01/23/25 17:18 159 H 22 118/100 99 01/23/25 17:14 160 H 01/23/25 17:10 163 H 20 118/100 98 O2 Del Method O2 Flow Rate FiO2 01/23/25 20:47 Mechanical Vent 01/23/25 20:33 Mechanical Vent 01/23/25 19:57 Mechanical Vent 01/23/25 19:00 Mechanical Vent 01/23/25 18:38 Mechanical Vent 01/23/25 18:00 Mechanical Vent 01/23/25 17:51 Mechanical Vent 01/23/25 17:33 01/23/25 17:30 50 01/23/25 17:27 Mechanical Vent 01/23/25 17:19 Mechanical Vent 01/23/25 17:18 Mechanical Vent 01/23/25 17:14 01/23/25 17:10 Non-rebreather 15 Laboratory Results Reviewed Diagnostic Findings Reviewed Medications Administered See MAR Coding Level of Care Code 18590 CRITICAL CARE 1ST 30-74M Diagnoses Antipsychotic overdose T43.501A Encephalopathy acute G93.40 On mechanically assisted ventilation Z99.11 Acute kidney injury N17.9 Lactic acidosis E87.20 Prolonged QT interval R94.31 Time Spent (min) 48
[2025-01-23] MEDS ORDERED: ENOXAPARIN 0.5 MG/KG SQ SCH (22:00)
[2025-01-23] MEDS: LACTATED RINGER'S 1,000 ML IV SCH (22:22)
[2025-01-23] MEDS: ICU Protocol for HYPERglycemia SCH (22:31)
[2025-01-23 22:38] LABS: Base Excess VBG -0.4 mEq/L; HCO3 VBG 25 mmol/L; Oxygen Saturation VBG 77.9 %; PCO2 VBG 42 mmHg (38-50); PO2 VBG 46 mmHg; pH VBG 7.38 (7.36-7.41)
[2025-01-23 22:45] LABS: Acetaminophen < 3 ug/ml (10-30); Salicylate < 3.0 mg/dl (3.0-30)
[2025-01-23 22:53] LABS: Calcium 10.3 mg/dl (8.6-10.3); Magnesium 2.2 mg/dl (1.7-2.4); Potassium 4.2 mmol/L (3.5-5.1)
[2025-01-23 22:59] LABS: BUN Creatinine Ratio 15.3 (10-20); Creatinine Clr Calc Pharmacy 81.4 ml/min
[2025-01-23] MEDS: ENOXAPARIN INJ 60 MG/0.6 ML SYR SQ SCH (23:21)
[2025-01-23] MEDS ORDERED: STAT IV Infusion **Titration per Protocol STA (23:23)
[2025-01-23] MEDS ORDERED: Nursing to Pharmacy Communication SCH (23:30)
[2025-01-24] MEDS: propofoL 1,000 MG/100 ML VIAL IV SCH (00:05)
[2025-01-24] MEDS ORDERED: Nursing to Pharmacy Communication SCH ×3 (00:15→03:15)
--- NOTE | 2025-01-24 00:25 | Magnetic Resonance Report ---
Exam(s): MRI HEAD Without Contrast EXAM: MR Head Without Intravenous Contrast CLINICAL HISTORY: Reason for exam: Unresponsive. rule out occult CVA. TECHNIQUE: Magnetic resonance images of the head/brain without intravenous contrast in multiple planes. COMPARISON: Prior brain MRI from October 06, 2013. 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 No mass. No hemorrhage. No acute infarct. The flow voids at the base of the brain are intact. Ventricles: Unremarkable. No ventriculomegaly. Bones/joints: Unremarkable. No acute fracture. Sinuses: Chronic ethmoid sinusitis. No acute sinusitis. Mastoid air cells: Unremarkable as visualized. No mastoid effusion. Orbits: Unremarkable as visualized. IMPRESSION: No evidence of acute intracranial Pathology. 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 Clinical correlation is recommended. Electronically signed by: Rizwana Pedro MD 01/24/25 00:24 AM
--- OUTSIDE RECORDS SUMMARY | 2025-01-24 02:13 | External Medical Summary | Summary of Care ---
Author Name Unknown Organization [facility] Address [address] [place] [address] Phone [phone] Care Team Providers Care [employer] Name Role Phone Unavailable Primary Care Provider Unavailabl e Reason for Visit * Reason Comments eRx-Medication Refill Encounter Details Date Type Department Care Team (Late st Contact Info) Description 12/21/2024 Refill Family Medicine [address] [id number] Stephen Ritter PA-C [address] [place] [address] Dr [place] [id number] HTN, goal below 130/80 Allergies Active Allergy Reactions Criticality Noted Date Comments Doxycycline 06/28/2020 Tachycardia per pt Penicillins Edema airway High 08/07/2002 convulsions documented as of this encounter (statuses as of 12/22/2024) Medications Aspirin 81 MG Tablet Take 1 Tablet by mouth in the morning. Active Multiple Vitamins-[place] als (MULTIVITAMIN ADULT) TABS Take by mouth. 08/08/20 19 Active Albuterol Sulfate HFA 108 (90 Base) MCG/ACT Inhalation Aerosol SolutionIndica tions:Pneumoni a of left lower lobe due to infectious organism Inhale 2 Puffs by mouth every 4 hours as needed for Wheezing. 18 g 3 04/20/20 24 Active B-Complex/B-12 Oral Tablet Take by mouth. Active Folic Acid 5 MG Oral Capsule Take by mouth. Active Atorvastatin Calcium 40 MG Oral Tablet (Lipitor)Indic ations:Cerebro vascular disease, arteriosclerot ic, post-stroke,Dy slipidemia, goal LDL below 100 Take 1 Tablet by mouth in the morning. 90 Tablet 1 06/28/20 24 Active Nystatin-Triam cinolone 197945-6.1 UNIT/GM-% External Cream (Mycolog)Indic ations:Tinea corporis Apply topically to affected area 3 times a day. Apply to exterior as needed for itching 30 g 2 06/28/20 24 Active Lisinopril 20 MG Oral Tablet (Prinivil)Zoila cations:HTN, goal below 130/80 TAKE 1 TABLET BY MOUTH EVERY DAY IN THE MORNING 90 Tablet 1 12/23/19 25 Active Lisinopril 20 MG Oral Tablet (Prinivil)Zoila cations:HTN, goal below 130/80 Take 1 Tablet by mouth in the morning. 90 Tablet 1 06/19/20 24 025 Discontinued documented as of this encounter (statuses as of 12/22/2024) Active Problems Problem Noted Date Diagnosed Date Morbid obesity with BMI of 40.0-44.9, adult 10/2021 Overview (11/17/2021): 221 Food insecurity 05/25/2021 Overview: Per [facility] Protocol Iron deficiency anemia 03/24/2021 Elevated parathyroid hormone 01/12/2019 Cerebrovascular disease, arteriosclerotic, post- stroke 10/05/2017 H/O colonoscopy with polypectomy 10/05/2017 Recurrent major depressive disorder, in full rem ission 10/05/2017 Microcytic anemia 10/05/2017 Dyslipidemia, goal LDL below 100 09/08/2010 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 Patent foramen ovale 2007 documented as of this encounter (statuses as of 12/22/2024) Resolved Problems Problem Noted Date Diagnosed Date Resolved Date Hyperplastic polyp of large intestine 09/03/2016 10/05/2017 Dyslipidemia, goal LDL below 160 09/08/2010 09/08/2010 Obesity, morbid (more than 1 00 lbs over ideal weight or BMI > 40) 03/31/2010 09/22/2012 Overview (01/05/2016): Per Obesity Protocol, #19 ICD-10 update of inactive term Mixed dyslipidemia 11/03/2009 0 Overview (11/03/2009): chol 222, hdl 52, ldl 141, tirg 142 Vitamin D deficiency 11/03/2009 017 Overview (11/04/2009): Vitamin D 5.0 Dyslipidemia, goal to be determined 10/02/2009 11/03/2009 Overview (10/02/2009): Per Lipid Taxonomy. chol 222, hdl 52, ldl 141, tirg 142 GENERALIZED ANXIETY DIS 11/28/200608/18 CVA 11/16/2006 10/30/2008 Mixed dyslipidemia 07/12/2006 9 Overview (10/02/2009): Per Lipid Taxonomy. chol 222, hdl 52, ldl 141, tirg 142 Encounter for supervision of other normal 03/02/2006 11/03/2009 Overview (02/17/2016): ICD-10 update of inactive term ADVANCE DIRECTIVE INFORMATION 12/23/2005 10/05/2017 Overview (12/23/2005): No, Advance Directive brochure given to patient. Residual schizophrenia 02/19/200408/24 Overview (05/25/2004): admitted to [facility] Ill-defined cerebrovascular disease 10/05/2017 documented as of this encounter (statuses as of 12/22/2024) Immunizations Name Administration Dates Next Due COVID-19 mRNA, LNP-s, No Pre serve, 2-Dose Series ([employer]) 07/11/2021,06/20/2021 Seasonal Influenza Vac., MDV , IM, 0.5 mL (Fluzone) 07/14/2012,09/08/2010,07/21/2009,2006 Seasonal Influenza Virus Vac cine, Unspecified Formulation 07/20/2019 Seasonal Influenza, PF, 6 M & above, IM , (FluLaval or Fluzone) 07/20/2019,07/06/2018,10/05/2017 Seasonal Influenza, Quadriva lent, No Preserve, IM 07/23/2016,11/10/2015 TDAP (age 10 and older)(Boostrix) 07/06/2018 TDAP, Age 7 and older, IM (Adacel) 12/20/2007 documented as of this encounter Social History Tobacco Use Types Packs/Day Years Used Date Smoking Tobacco: Never Smokeless Tobacco: Never Alcohol Use Standard Drinks/Week Comments No 0 (1 standard drink = 0.6 oz pur e alcohol) PHQ-2 Answer Date Recorded PHQ-2 Score 0 07/20/2019 Hunger Vital Sign Answer Date Recorded Worried About Running Out of Food in the Last Ye ar Sometimes true 07/20/2019 Ran Out of Food in the Last Year Sometimes true 07/20/2019 Comments No Sex and Gender Information Value Date Recorded Sex Assigned at Not on file Legal Sex Female 5:37 AM EST Gender Identity Not on file Sexual Orientation Not on file Occupation Industry Job Start Date Job End Date Homemaker Not on file Not on file Not on file documented as of this encounter Miscellaneous Notes * Telephone Encounter - Lewis Rojas [facility] - 12/22/2024 1:30 AM ESTSigned Prescriptions: Disp Refills Lisinopril 20 MG Oral Tablet (Prinivil) 90 Tab*1 Sig: TAKE 1 TABLET BY MOUTH EVERY DAY IN THE MORNINGAuthorizing Provider: STEPHEN RITTER User: LEWIS ROJAS documented in this encounter Plan of Treatment Scheduled Procedures Name Priority Associated Diagnoses Date/Ti me COLONOSCOPY FLEXIBLE PROXIMAL DIAGNOSTIC Recall Colon cancer screening Health Maintenance Due Date Last Done Comments Hepatitis C Screening 02/23/1984 Hepatitis B Vaccine (1 of 3 - 19+ 3-dose series) 1985 Cologuard 2011 Fecal Occult Blood Test 2011 Sigmoidoscopy 2011 Pneumococcal Vaccine: 50+ Years (1 of 1 - PCV) 02/23/2016 Zoster Vaccines (1 of 2) 02/23/2016 Depression Monitoring 07/20/2020 07/20/2019 Mammogram 01/06/2024 01/05/2023, 10/0 05/2021, 08/11/2020, Additional history exists COVID-19 Vaccine (3 - season) 2024 07/11/2021, 06/20/2021 Influenza Vaccine (FLU shot) (#1) 2024 07/20/2019, 07/20/2019, 07/06/2018, Additional history exists Colonoscopy 09/02/2026 09/02/2016, 09/02/2016 Colorectal Cancer Screening 09/02/2026 Diabetes Screening 05/17/2027 05/17/2024, 0 03/17/2021, 04/25/2020, Additional history exists Pap Smear 07/03/2027 07/03/2024, 07/18, 07/23/2016, Additional history exists DTap/Tdap Vaccines (3 - Td or Tdap) 07/06/2028 07/06/2018, 12/20/2007 Cervical Cancer Screening 07/03/2029 HPV/Co-Test 07/03/2029 07/03/2024 HPV (Gardasil) Vaccine Aged Out No lo nger eligible based on patient's age to complete this topic MENINGOCOCCAL (MENACTRA/MENVEO) Aged Out No longer eligible based on patient's age to complete this topic Meningitis B Vaccine (Bexsero/Trumemba) Aged Out No longer eligible based on patient's age to complete this topic documented as of this encounter Medical Devices Not on filedocumented as of this encounter Visit Diagnoses Diagnosis HTN, goal below 130/80 Unspecified essential hypertension documented in this encounter
--- OUTSIDE RECORDS SUMMARY | 2025-01-24 02:13 | External Medical Summary | Summary of Care ---
Author Name Unknown Organization [facility] Address [address] [place] [address] Phone [phone] Care Team Providers Care Deployment Engineer Name Role Phone Unavailable Primary Care Provider Unavailabl e Reason for Visit * Reason Comments Acute Encounter Details Date Type Department Care Team (Late st Contact Info) Description 08/20/2024 5:20 PM EST Office Visit Family Medicine [address] [phone] Minerva Mendez MD [address] [place] [address] [place] [id number] Acute cystitis with hematuria*; Dysuria; Microscopic hematuria; HTN, goal below 130/80; Back strain, initial encounter Allergies Active Allergy Reactions Criticality Noted Date Comments Doxycycline 06/28/2020 Tachycardia per pt Penicillins Edema airway High 08/07/2002 convulsions documented as of this encounter (statuses as of 08/20/2024) Medications Medication Sig Dispensed Refills Start Date End Date Status Aspirin 81 MG Tablet Take 1 Tablet by mouth in the morning. Active Multiple Vitamins-Minerals (MULTIVITAMIN ADULT) TABS Take by mouth. 08/08/2019 Active Albuterol Sulfate HFA 108 (90 Base) MCG/ACT Inhalation Aerosol SolutionIndication s:Pneumonia of left lower lobe due to infectious organism Inhale 2 Puffs by mouth every 4 hours as needed for Wheezing. 18 g 3 04/20/2024 Active Lisinopril 20 MG Oral Tablet (Prinivil)Indicati ons:HTN, goal below 130/80 Take 1 Tablet by mouth in the morning. 90 Tablet 1 06/19/2024 Active B-Complex/B-12 Oral Tablet Take by mouth. Active Folic Acid 5 MG Oral Capsule Take by mouth. Active Atorvastatin Calcium 40 MG Oral Tablet (Lipitor)Indicatio ns:Cerebrovascular disease, arteriosclerotic, post-stroke,Dyslip idemia, goal LDL below 100 Take 1 Tablet by mouth in the morning. 90 Tablet 1 06/28/2024 Active Nystatin-Triamcino lone 288530-0.1 UNIT/GM-% External Cream (Mycolog)Indicatio ns:Tinea corporis Apply topically to affected area 3 times a day. Apply to exterior as needed for itching 30 g 2 06/28/2024 Active Cephalexin 500 MG Oral Capsule (Keflex)Indication s:Acute cystitis with hematuria Take 1 Capsule by mouth in the morning and 1 Capsule before bedtime. Do all this for 6 days. 12 Capsule 08/20/2024 08/26/2024 Active documented as of this encounter (statuses as of 08/20/2024) Active Problems Problem Noted Date Diagnosed Date Morbid obesity with BMI of 40.0-44.9, adult 10/2021 Overview: 221 Food insecurity 05/25/2021 Overview: Per [facility] Protocol Iron deficiency anemia 03/24/2021 Elevated parathyroid hormone 01/12/2019 Cerebrovascular disease, arteriosclerotic, post- stroke 10/05/2017 H/O colonoscopy with polypectomy 10/05/2017 Recurrent major depressive disorder, in full rem ission 10/05/2017 Microcytic anemia 10/05/2017 Dyslipidemia, goal LDL below 100 09/08/2010 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 Patent foramen ovale 2007 documented as of this encounter (statuses as of 08/20/2024) Resolved Problems Problem Noted Date Diagnosed Date Resolved Date Hyperplastic polyp of large intestine 09/03/2016 10/05/2017 Dyslipidemia, goal LDL below 160 09/08/2010 09/08/2010 Obesity, morbid (more than 1 00 lbs over ideal weight or BMI > 40) 03/31/2010 09/22/2012 Overview: Per Obesity Protocol, #19 ICD-10 update of inactive term Mixed dyslipidemia 11/03/2009 0 Overview: chol 222, hdl 52, ldl 141, tirg 142 Vitamin D deficiency 11/03/2009 017 Overview: Vitamin D 5.0 Dyslipidemia, goal to be determined 10/02/2009 11/03/2009 Overview: Per Lipid Taxonomy. chol 222, hdl 52, ldl 141, tirg 142 GENERALIZED ANXIETY DIS 11/28/200608/18 CVA 11/16/2006 10/30/2008 Mixed dyslipidemia 07/12/2006 9 Overview: Per Lipid Taxonomy. chol 222, hdl 52, ldl 141, tirg 142 Encounter for supervision of other normal 03/02/2006 11/03/2009 Overview: ICD-10 update of inactive term ADVANCE DIRECTIVE INFORMATION 12/23/2005 10/05/2017 Overview: No, Advance Directive brochure given to patient. Residual schizophrenia 02/19/200408/24 Overview: admitted to [facility] Ill-defined cerebrovascular disease 10/05/2017 documented as of this encounter (statuses as of 08/20/2024) Immunizations Name Administration Dates Next Due COVID-19 mRNA, LNP-s, No Pre serve, 2-Dose Series ([employer]) 07/11/2021,06/20/2021 Seasonal Influenza Vac., MDV , IM, [...] in the Last Year Sometimes true 07/20/2019 Utilities Answer Date Recorded Do you have trouble paying y our heating, water, or electric bill? (Adult - for ages 18 years and over) Not on file 04/03/2024 Is your family able to pay t he heat, water, or electric bill? (Household - for ages 0-17 years) Not on file 04/03/2024 Does your family have access to good internet? (Household - for ages 0-17 years) Not on file 04/03/2024 Social Connections Answer Date Recorded How often do you feel lonely or isolated from those around you? (Adult - for ages 18 years and over) Not on file 04/03/2024 Sex and Gender Information Value Date Recorded Sex Assigned at Not on file Gender Identity Not on file Sexual Orientation Not on file Job Start Date Occupation Industry Not on file Not on file Not on file documented as of this encounter Last Filed Vital Signs Vital Sign Reading Time Taken Comments Blood Pressure 160/100 08/20/2024 5:16 PM EST Pulse 89 08/20/2024 5:16 PM EST Temperature 36.2 °C (97.1 °F) 08/20/2024 5:16 PM ES T Respiratory Rate - - Oxygen Saturation 97% 08/20/2024 5:16 PM EST Inhaled Oxygen Concentration - - Weight 97.5 kg (215 lb) 08/20/2024 5:16 PM EST Height - - Body Mass Index 40.62 07/03/2024 2:11 PM EDT documented in this encounter Progress Notes * Minerva Mendez MD - 08/20/2024 5:24 PM EST Subjective: Jo Patel is a 59 year old female. Chief Complaint Patient presents with Acute HPI: Brief Clinical History Ms. Patel is a 59 year old female last seen in [facility] on 07/03/2024 by Estrella Silveira She has a h/o the following chronic conditions indicated on the problem list: Chronic Conditions Morbid obesity with BMI of 40.0-44.9, adult (HCC) Recurrent major depressive disorder, in full remission (HCC) Was having some low mid back pain but got much worse this morning when she got up. Is swollen in her low back. Has had frequent urination and some dysuria. Feels the same as her UTIs. No fever. She took some ibuprofen and her back pain is improved. Dropped some of her lisinopril on the floor so she ran out early. Will check on the refill at the pharmacy. Results for orders placed or performed in visit on 07/03/24 HUMAN PAPILLOMA VIRUS, PROBE Result Value Ref Range Human Papilloma Virus Result Negative Not Applicable TAG PRESS OPERATOR PAP SCREEN Result Value Ref Range Final Diagnosis A. Cervix, SurePath Pap test: Adequacy: Satisfactory for evaluation. Cellular content appropriate for menstrual/clinical history. Interpretation: Negative for Intraepithelial lesion or malignancy (Shubert System). AUTOMATED REVIEW: Focal Point computerized screening device (quintile 3, review). Performing Labs Black Top Paver Operator screening performed at [facility] ([facility] [address] [place] [address]. Gross Description A. Cervix. SurePath vial received labeled with the patient's identification. EDUCATIONAL NOTE: The Pap test (thin-layer cervical screening specimen) is a screening test that aids in the detection of cervical cancer and cancer precursors. Both false positive and false negativeresults can occur. The test should be used at regular intervals (as per the ASCCP guidelines) and positive results should be confirmed before definitive therapy. Discrepancies between the Pap test findings and clinical impressions should be resolved with diagnostic tests such as colposcopy and biopsy. Case Report Gynecologic Cytology Report Case: [id number] Authorizing Provider: Estrella Silveira CRNP Collected: 07/03/2024 03:17 PM Ordering Location: [facility] Received: 07/03/2024 03:20 PM [facility] First Screen: Derick Payne CT(ASCP) Specimen: SurePath Pap test, Cervix PAP Indication for Procedure: Routine Pap PAP Previous Cancer: None HPV Permissions: HPV Regardless (Including cotest) PAP Contraceptive History: None PAP Menstrual Status: Pre-menopausal PHM: Patient Active Problem List Diagnosis Patent foramen ovale Methyltetrahydrofolate reductase mutation Dyslipidemia, goal LDL below 100 Morbid obesity with BMI of 40.0-44.9, adult (HCC) Cerebrovascular disease, arteriosclerotic, post-stroke H/O colonoscopy with polypectomy Recurrent major depressive disorder, in full remission (HCC) Microcytic anemia Elevated parathyroid hormone Iron deficiency anemia Food insecurity Current Outpatient Medications Medication Sig Dispense Refill Aspirin 81 MG Tablet Take 1 Tablet by mouth in the morning. Multiple Vitamins-Minerals (MULTIVITAMIN ADULT) TABS Take by mouth. Albuterol Sulfate HFA 108 (90 Base) MCG/ACT Inhalation Aerosol Solution Inhale 2 Puffs by mouth every 4 hours as needed for Wheezing. 18 g 3 Lisinopril 20 MG Oral Tablet (Prinivil) Take 1 Tablet by mouth in the morning. 90 Tablet 1 B-Complex/B-12 Oral Tablet Take by mouth. Folic Acid 5 MG Oral Capsule Take by mouth. Atorvastatin Calcium 40 MG Oral Tablet (Lipitor) Take 1 Tablet by mouth in the morning. 90 Tablet 1 Nystatin-Triamcinolone 328056-6.1 UNIT/GM-% External Cream (Mycolog) Apply topically to affected area 3 times a day. Apply to exterior as needed for itching 30 g 2 No current facility-administered medications for this visit. Past Medical History: Diagnosis Date BMI 39.0-39.9,adult Body mass index 40 and over, adult 03/31/2010 Cerebrovascular event, ill-defined, within last 8 weeks 11/08/2006 2x3 cm infarct in psterior left parietal lobe. COVID-19 11/11/2021 vaccinated two doses Dyslipidemia, goal LDL below 100 09/08/2010 Generalized anxiety disorder 11/28/2006 Hyperplastic polyp of large intestine 09/03/2016 Ill-defined cerebrovascular disease LLL pneumonia 05/26/2016 Methyltetrahydrofolate reductase mutation Migraine without aura 09/14/2006 seen in [place] for Tremor and headache, told it was migraine Mixed dyslipidemia 07/12/2006 chol 222, hdl 52, ldl 141, tirg 142 Patent foramen ovale 2007 Severe recurrent major depression with psychotic features (HCC) 02/16/2004 Treated in [place] and discharged with this diagnosis Syncope and collapse 04/07/2009 [facility] Vitamin D deficiency 11/03/2009 Vitamin D 5.0 XANTHELASMA OF EYELID upper eyelids Past Surgical History: Procedure Laterality Date BIOPSY OF UTERUS LINING 11/29/2013 endometrial polyp, negative for malignancy CHARGE ONLY - EEG, AWAKE AND DROWSY 11/10/2006 normal EEG in the waking, drowsy and sleep states COLONOSCOPY, DIAGNOSTIC (RECTUM) 09/02/2016 hyperplastic polyp, repeat 10 yrs/COLONOSCOPY FLEXIBLE PROXIMAL DIAGNOSTIC performed by Nakita Hopper DO at ENDOSCOPY [facility] CT CHEST W CONTRAST 07/14/2009 0.63 cm left hilar node, normal parenchyma CT CHEST WO CONTRAST 04/01/2009 micronodular appearance RUL, possible infiltrate, followup advised CT HEAD/BRAIN WO CONTRAST 09/14/[address] HEAD/BRAIN WO CONTRAST 11/17/[address] of brain CT HEAD/BRAIN WO CONTRAST 04/01/2009 moderate paranasal sinus thickening CT HEAD/BRAIN WO CONTRAST 10/05/2013 no acute process CXR 2 VIEWS AP/PA & LATERAL 02/19/2004 [facility]-normal chest. CXR 2 VIEWS AP/PA & LATERAL 03/07/2004 [facility]-the heart, lungs, mediastinum and bony thorax are normal ECHO, COMPLETE (2D), TRANS-THORACIC 04/01/2009 EF 60-65% nor thrombus EEG 12/29/2006 normal EEG in awake and drowsy states EEG 04/01/2009 normal HC BREAST JEN BILATATERAL Bilateral 01/05/2023 left suspicious, category 4, needs biopsy HC DIGITAL BREAST TOMOSYNTHESIS; BILATERAL Bilateral 08/11/2020 category 2 scattered fibroglandular densities LIGATE/CUT OVIDUCT(S) 08/01/2006 Dr Cotton, [facility] MAMMOGRAM SCREENING BILATERAL Bilateral 08/05/2016 scattered fibroglandular densities, left category 0 MAMMOGRAM SCREENING BILATERAL Bilateral 08/30/2019 scattered fibroglandular densities, asymmetry right category 0 MAMMOGRAM SCREENING-BILATERAL 04/21/2007 category 1 normal MRA HEAD W WO CONTRAST 10/06/2013 normal MRA NECK W WO CONTRAST 10/06/2013 unremarkable MRI BRAIN W WO CONTRAST 11/08/2006 possible infarct of left posterior parietal lobe MRI BRAIN W WO CONTRAST 04/02/2009 hyperintensity in left parietal lobe, thickening paranasal sinuses MRI BRAIN WITHOUT CONTRAST 10/06/2013 no acute abnormality, white matter changes similar to 2009 US HEAD AND NECK 10/05/2013 no carotid stenosis, vertebral flow antegrade US PELVIS/HIPS ADULT 10/06/2013 ovaries normal, endometrial polyp vs submucosal fibroid Social History Socioeconomic History Marital status: Spouse name: Not on file Number of children: 6 Years of education: Not on file Highest education level: Not on file Occupational History Occupation: Homemaker Tobacco Use Smoking status: Never Smokeless tobacco: Never Substance and Sexual Activity Alcohol use: No Drug use: No Sexual activity: Yes Partners: Male control/protection: Surgical Comment: BTL 08/01/06 Other Topics Concern Not on file Social History Narrative Not on file Social Determinants of Health Financial Resource Strain: Not on file Food Insecurity: Food Insecurity Present (07/20/2019) Hunger Vital Sign Worried About Running Out of Food in the Last Year: Sometimes true Ran Out of Food in the Last Year: Sometimes true Transportation Needs: Not on file Social Connections: Unknown (04/03/2024) Social Connections How often do you feel lonely or isolated from those around you? (Adult - for ages 18 years and over): Not on file Housing Stability: Not on file Review of patient's allergies indicates: Allergen Reactions Penicillins Edema airway convulsions Doxycycline Tachycardia per pt Objective: BP 160/100 | Pulse 89 | Temp 36.2 °C (97.1 °F) (Tympanic) | Wt 97.5 kg (215 lb) | SpO2 97% | BMI 40.62 kg/m² | BSA 2.05 m² Physical Exam: General: alert, healthy, no distress, well nourished, well developed, and obese Head: Normocephalic, No masses, lesions, tenderness or abnormalities Heart: regular rate & rhythm, no murmur, and no gallops Lungs: chest symmetric with normal AP diameter, no chest deformities noted, no chest wall tenderness, lungs clear to auscultation Back: back symmetric, no curvature, no costovertebral angle tenderness, range of motion is normal, Tender paralumbar muscles bilaterally, marked tenderness to light touch of anywhere on the low to mid back Extremities: no edema, no clubbing, no cyanosis Neuro Exam: alert & oriented x 3 with fluent speech, no focal motor/sensory deficits, gait normal, reflexes normal and symmetric Extensive ROS Constitutional (f/c/wt/vision/hearing): Negative Resp (cough/sob/menjivar): Negative CV (cp/palp/fluttering/diaphoresis/menjivar/pnd):Negative GI (n/v/d/hrtburn): Negative Endo (hair/cold or heat intol/ 3 p's): Negative Neuro (shaking/weak/fatigu/parasthesi/): Negative Skin (rash/easy bruis/xerosis): Negative Psy (si/hi/halluc/): Negative (nocturia/hesit/drib/sexual review): see above hpi Lymph (swollen glands/b sx's/: Negative ASSESSMENT: Acute cystitis with hematuria (Primary)--UA with trace blood. Not a smoker. Patient reports dysuriaand frequency. Feels very strongly that she has UTI. Start cephalexin and send culture. Can use ibuprofen as needed for back pain. - Cephalexin 500 MG Oral Capsule (Keflex); Take 1 Capsule by mouth in the morning and 1 Capsule before bedtime. Do all this for 6 days. Dysuria - CULTURE, URINE, QUANTITATIVE Microscopic hematuria - CULTURE, URINE, QUANTITATIVE HTN, goal below 130/80--dropped medication on the floor and ran out. Will check on the refill that should be at the pharmacy. Back strain--can use ibuprofen as needed. Declines prednisone Follow Up: Return if symptoms worsen or fail to improve. PLAN: Continue present medication(s): Begin medication(s): cephalexin Schedule labs: urine culture Patient education: discussed UTI treatment and urine culture. Feels she has a back strain as well. Can use ibuprofen as needed. Follow up: as needed. Minerva Mendez MD documented in this encounter Nursing Notes * Juliet Millard LPN - 08/20/2024 5:16 PM EST Severe back pain Thinks she has a kidney infection documented in this encounter Plan of Treatment Scheduled Orders Name Type Priority Associated Diagnoses Orde r Schedule CULTURE, URINE, QUANTITATIVE Lab Routine Dysuria Microscopic hematuria Ordered: 08/20/2024 Scheduled Procedures Name Priority Associated Diagnoses Date/Ti me COLONOSCOPY FLEXIBLE PROXIMAL DIAGNOSTIC Recall Colon cancer screening Health Maintenance Due Date Last Done Comments Hepatitis C Screening 02/23/1984 Hepatitis B Vaccine (1 of 3 - 19+ 3-dose series) 1985 Cologuard 2011 Fecal Occult Blood Test 2011 Sigmoidoscopy 2011 Zoster Vaccines (1 of 2) 02/23/2016 Depression Monitoring 07/20/2020 07/20/2019 Mammogram 01/06/2024 01/05/2023, 10/0 05/2021, 08/11/2020, Additional history exists COVID-19 Vaccine ( season) 2024 07/11/2021, 06/20/2021 Influenza Vaccine (FLU [...] on patient's age to complete this topic Pneumococcal Vaccine: Pediatrics (0 to 5 Years) and At-Risk Patients (6 to 64 Years) Aged Out No longer eligible based on patient's age to complete this topic documented as of this encounter Medical Devices Not on filedocumented as of this encounter Visit Diagnoses Diagnosis Acute cystitis with hematuria- Primary Acute cystitis Dysuria Microscopic hematuria HTN, goal below 130/80 Unspecified essential hypertension Back strain, initial encounter documented in this encounter"
--- OUTSIDE RECORDS SUMMARY | 2025-01-24 02:13 | External Medical Summary ---
Author Name Unknown Address Unknown Organization [id number]:[facility] [address] [place] [address] Laboratory Report Ordering Provider Test Date Status MARILYN LEE 08/20/2024 17:43:43 Final Observation Date Value Abnormality Reference (Units) Status Bacteria identified in Specimen by Culture 08/20/2024 17:43:43 No significant growth Final Test: Culture, Urine, Quanti tative
Specimen Source: Urine, Clean Catch
Specimen Type: Urine
Specimen Date: 08/20/2024 174
Result Date: 08/22/2024 1003
Result Status: Final result
Resulting Lab: [facility]
[address]
[place] [address]

CULTURE

No significant growth

null Performing Location [facility] [place] [address] [place] [place] [address]
--- OUTSIDE RECORDS SUMMARY | 2025-01-24 02:13 | External Medical Summary | Summary of Care ---
Author Name Unknown Organization [facility] Address [address] [place] [address] Phone [phone] Care Team Providers Care Supervisor Bleach Plant Name Role Phone Unavailable Primary Care Provider Unavailabl e Reason for Visit * Reason Onset Date Comments Blood Pressure Check 06/07/2024 FYI. Pt nick eduled for next . Encounter Details Date Type Department Care Team (Late st Contact Info) Description 06/07/2024 Telephone Family [address] [place] [phone] Alva Jarvis PA-C [address] [place] [address] [place] [id number] Blood Pressure Check (FYI. Pt scheduled fo... Allergies Active Allergy Reactions Criticality Noted Date Comments Doxycycline 06/28/2020 Tachycardia per pt Penicillins Edema airway High 08/07/2002 convulsions documented as of this encounter (statuses as of 09/06/2024) Medications Aspirin 81 MG Tablet Take 1 Tablet by mouth in the morning. Active Multiple Vitamins-Mineral s (MULTIVITAMIN ADULT) TABS Take by mouth. 08/08/2019 Active Albuterol Sulfate HFA 108 (90 Base) MCG/ACT Inhalation Aerosol SolutionIndicati ons:Pneumonia of left lower lobe due to infectious organism Inhale 2 Puffs by mouth every 4 hours as needed for Wheezing. 18 g 3 04/20/2024 Active documented as of this encounter (statuses as of 09/06/2024) Active Problems Problem Noted Date Diagnosed Date [...] as of this encounter (statuses as of 09/06/2024) Resolved Problems Problem Noted Date Diagnosed Date [...] Residual schizophrenia 02/19/200408/24 [facility] ([facility]/2004[facility] Ill-defined cerebrovascular disease 10/05/2017 documented as of this encounter (statuses as of 09/06/2024) Immunizations Name Administration Dates Next Due COVID-19 mRNA, LNP-s, No Pre serve, 2-Dose Series ([employer]) 07/11/2021,06/20/2021 Seasonal Influenza Vac., MDV , IM, [...] encounter Miscellaneous Notes * Telephone Encounter - Nakita Parra LPN - 06/07/2024 10:09 AM EDT Jo Patel presented for blood pressure check per provider orders. The blood pressure was obtained using the left arm in the sitting position using a adult large cuff. The results were charted in Vital Signs. BP Readings from Last 3 Encounters: 06/07/24 190/92 05/17/24 174/104 01/06/23 176/80 BP 190/92 | Pulse 75 Patient denies headache, pressure in head, dizziness, lightheadedness, chest discomfort, focal neurological symptoms, change in vision, nose bleeds. Did patient take medications today? No, Patient was instructed to follow-up with a nurse for a repeat blood pressure check and to take her medication before her nurse visit next time. documented in this encounter Plan of Treatment [...] 05/2021, 08/11/2020, Additional history exists COVID-19 Vaccine (2023- season) 2024 07/11/2021, 06/20/2021 Influenza Vaccine (FLU [...] Devices Not on filedocumented as of this encounter"
--- OUTSIDE RECORDS SUMMARY | 2025-01-24 02:13 | External Medical Summary | Summary of Care ---
Author Name Unknown Organization [facility] Address [address] [place] [address] Phone [phone] Care Team Providers Care Costume Mistress Name Role Phone Unavailable Primary Care Provider Unavailabl e Reason for Visit * Reason Comments eRx-Medication Refill Encounter Details Date Type Department Care Team (Late st Contact Info) Description 12/21/2024 Refill Family Medicine [address] [phone] Joseph Harvey MD [address] [place] [address] [place] [address] Cerebrovascular disease, arteriosclerotic, post-stroke; Dyslipidemia, goal LDL below 100 Allergies Active Allergy Reactions Criticality Noted Date Comments Doxycycline 06/28/2020 Tachycardia per pt Penicillins Edema airway High 08/07/2002 convulsions documented as of this encounter (statuses as of 12/24/2024) Medications Aspirin 81 MG Tablet Take 1 Tablet by mouth in the morning. Active Multiple Vitamins-Birney als (MULTIVITAMIN ADULT) TABS Take by mouth. [...] MG Oral Capsule Take by mouth. Active Nystatin-Triam cinolone 020920-2.1 UNIT/GM-% External Cream (Mycolog)Indic ations:Tinea corporis Apply topically to affected area 3 times a day. Apply to exterior as needed for itching 30 g 2 06/28/20 24 Active Lisinopril 20 MG Oral Tablet (Prinivil)Zoila cations:HTN, goal below 130/80 TAKE 1 TABLET BY MOUTH EVERY DAY IN THE MORNING 90 Tablet 1 12/23/19 25 Active Atorvastatin Calcium 40 MG Oral Tablet (Lipitor)Indic ations:Cerebro vascular disease, arteriosclerot ic, post-stroke,Dy slipidemia, goal LDL below 100 TAKE 1 TABLET BY MOUTH EVERY DAY IN THE MORNING 90 Tablet 1 12/25/19 25 Active Atorvastatin Calcium 40 MG Oral Tablet (Lipitor)Indic ations:Cerebro vascular disease, arteriosclerot ic, post-stroke,Dy slipidemia, goal LDL below 100 Take 1 Tablet by mouth in the morning. 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 Ill-defined cerebrovascular disease 10/05/2017 documented as of this encounter (statuses as of 12/24/2024) Immunizations Name Administration Dates Next Due COVID-19 mRNA, LNP-s, No Pre serve, 2-Dose Series ([employer]) 07/11/2021,06/20/2021 Seasonal Influenza Vac., MDV , IM, [...] encounter Miscellaneous Notes * Telephone Encounter - Kaity Garcia RN - 12/24/2024 11:17 AM EDTPending Prescriptions: Disp Refills Atorvastatin Calcium 40 MG Oral Tablet [Ph*90 Tab*1 Sig: TAKE 1 TABLET BY MOUTH EVERY DAY IN THE MORNING * Telephone Encounter - Kaity Garcia RN - 12/24/2024 11:17 AM EDT Francesca, please call pt with an appt to establish with a doctor * Telephone Encounter - [place] Camp [facility] - 12/22/2024 7:39 AM ESTPending Prescriptions: Disp Refills Atorvastatin Calcium 40 MG Oral Tablet [Ph*90 Tab*1 Sig: TAKE 1 TABLET BY MOUTH EVERY DAY IN THE MORNING * Telephone Encounter - Lewis Camp [facility] - 12/22/2024 7:39 AM EST Patient has no PCP under whom to authorize refills. Please approve if appropriate. Thank You, Lewis Nathan [facility] Clinical Pharmacist [facility] ([facility]) 12/22/2024, 7:39 AM * Telephone Encounter - [place] Camp [facility] - 12/22/2024 7:38 AM EST Pending Prescriptions: Disp Refills Atorvastatin Calcium 40 MG Oral Tablet (L*90 Tab*1 Sig: TAKE 1 TABLET BY MOUTH EVERY DAY IN THE MORNING Last Visit: 08/20/2024 (in office), Visit date not found (telemedicine) Next Visit: Visit date not found If no future appointments scheduled, and last appointment is greater than a year ago, please schedule patient for a follow-up appointment Last date the medication was ordered: 06/28/24 Pharmacy: [id number] Is this request for a controlled substance? No Urine Drug Screen:No results found for this or any previous visit. Patient Phone Numbers Labs: Lab Results Component Value Date/Time CREAT 0.8 05/17/2024 10:35 AM CREAT 0.8 04/25/2020 02:32 PM POTASSIUM 4.2 05/17/2024 10:35 AM POTASSIUM 4.5 04/25/2020 02:32 PM TSH 2.28 03/23/2021 03:03 PM TSH 2.73 07/23/2016 11:35 AM LDL 151 (H) 05/17/2024 10:35 AM LDL 93 07/06/2018 10:34 AM LDL NOT APPLICABLE 07/06/2018 10:34 AM LDLCALC 88 01/03/2019 04:49 AM ALT 24 05/17/2024 10:35 AM ALT 35 04/25/2020 02:32 PM HGBA1C 5.8 01/03/2019 04:49 AM HGBA1C 6.0 11/01/2006 09:32 AM documented in this encounter Plan of Treatment [...] Additional history exists Pap Smear 07/03/2027 07/03/2024, 1012/2018, 07/23/2016, Additional history exists DTap/Tdap Vaccines (3 [...] as of this encounter Visit Diagnoses Diagnosis Cerebrovascular disease, arteriosclerotic, post-stroke Cerebral atherosclerosis Dyslipidemia, goal LDL below 100 Other and unspecified hyperlipidemia documented in this encounter
--- OUTSIDE RECORDS SUMMARY | 2025-01-24 02:13 | External Medical Summary | Summary of Care ---
Author Name Unknown Organization [facility] Address [address] [place] [address] Phone [phone] Care Team Providers Care Nurses' Aide Name Role Phone Unavailable Primary Care Provider Unavailabl e Reason for Visit * Reason Comments Acute Encounter Details Date Type Department Care Team (Late st Contact Info) Description 08/20/2024 5:20 PM EST Office Visit Family Medicine [address] [phone] Minerva Mendez MD [address] [place] [address] [place] [phone] Acute cystitis with hematuria*; Dysuria; Microscopic hematuria; [...] 90 Tablet 1 06/28/2024 Active Nystatin-Triamcino lone 773275-3.1 UNIT/GM-% External Cream (Mycolog)Indicatio ns:Tinea corporis Apply [...] patient. Residual schizophrenia 02/19/200408/24 Overview: admitted to [facility] Ill-defined cerebrovascular disease 10/05/2017 documented as of this encounter (statuses as of 08/20/2024) Immunizations Name Administration Dates Next Due COVID-19 mRNA, LNP-s, No Pre serve, 2-Dose Series ([employer]) 07/11/2021,06/20/2021 Seasonal Influenza Vac., MDV , IM, [...] 59 year old female last seen in [facility] on 07/03/2024 by Estrella Silveira She has [...] Human Papilloma Virus Result Negative Not Applicable ELECTRONIC DATA INTERCHANGE SPECIALIST PAP SCREEN Result Value Ref Range Final Diagnosis A. Cervix, SurePath Pap test: Adequacy: Satisfactory for evaluation. Cellular content appropriate for menstrual/clinical history. Interpretation: Negative for Intraepithelial lesion or malignancy ([place] System). AUTOMATED REVIEW: Focal Point computerized screening device (quintile 3, review). Performing Labs Air Brake Tester screening performed at [facility] ([facility] [address] [place] [address]. Gross Description A. Cervix. SurePath vial received [...] biopsy. Case Report Gynecologic Cytology Report Case: [id number] Authorizing Provider: Estrella Silveira CRNP Collected: 07/03/2024 03:17 PM Ordering Location: [facility] Received: 07/03/2024 03:20 PM [facility] First Screen: Derick Payne CT(ASCP) Specimen: SurePath [...] in the morning. 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 CXR 2 VIEWS AP/PA & LATERAL [...] fibroglandular densities LIGATE/CUT OVIDUCT(S) 08/01/2006 Dr Cotton, [facility] MAMMOGRAM SCREENING BILATERAL Bilateral 08/05/2016 scattered fibroglandular [...]
--- OUTSIDE RECORDS SUMMARY | 2025-01-24 02:13 | External Medical Summary | Summary of Care ---
Author Name Unknown Organization [facility] Address [address] [place] [address] Phone [phone] Care Team Providers Care Machine Molder Name Role Phone Unavailable Primary Care Provider Unavailabl e Reason for Visit * Reason Comments Acute Encounter Details Date Type Department Care Team (Late st Contact Info) Description 08/20/2024 5:20 PM EST Office Visit Family Medicine [address] [phone] Minerva Mendez MD [address] [place] [address] [place] [phone] Acute cystitis with hematuria*; Dysuria; Microscopic hematuria; [...] 90 Tablet 1 06/28/2024 Active Nystatin-Triamcino lone 908312-0.1 UNIT/GM-% External Cream (Mycolog)Indicatio ns:Tinea corporis Apply [...] patient. Residual schizophrenia 02/19/200408/24 Overview: admitted to [facility] Ill-defined cerebrovascular disease 10/05/2017 documented as of this encounter (statuses as of 08/20/2024) Immunizations Name Administration Dates Next Due COVID-19 mRNA, LNP-s, No Pre serve, 2-Dose Series ([employer]) 07/11/2021,06/20/2021 Seasonal Influenza Vac., MDV , IM, [...] 59 year old female last seen in [facility] on 07/03/2024 by Estrella Silveira [...] Human Papilloma Virus Result Negative Not Applicable YARN CLEANER PAP SCREEN Result Value Ref Range Final Diagnosis A. Cervix, SurePath Pap test: Adequacy: Satisfactory for evaluation. Cellular content appropriate for menstrual/clinical history. Interpretation: Negative for Intraepithelial lesion or malignancy ([place] System). AUTOMATED REVIEW: Focal Point computerized screening device (quintile 3, review). Performing Labs Tree Warden screening performed at [facility] [address] [place] [address]. Gross Description A. Cervix. SurePath vial received [...] biopsy. Case Report Gynecologic Cytology Report Case: [id number] Authorizing Provider: Estrella Silveira CRNP Collected: 07/03/2024 03:17 PM Ordering Location: [facility] Received: 07/03/2024 03:20 PM [facility] First Screen: Derick Payne CT(ASCP) Specimen: [...] in the morning. 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 CXR 2 VIEWS AP/PA & LATERAL [...] fibroglandular densities LIGATE/CUT OVIDUCT(S) 08/01/2006 Dr Cotton, [facility] MAMMOGRAM SCREENING BILATERAL Bilateral 08/05/2016 scattered fibroglandular [...]
[2025-01-24] MEDS: PROPOFOL BOLUS FROM BAG IV PRN (04:00)
[2025-01-24 04:56] LABS: Basophils # (auto) 0.01 K/uL (0.00-0.20); Basophils % (auto) 0.1 %; Hematocrit (blood only) 38.5 % (37.0-47.0); Hemoglobin 12.9 g/dl (12.0-16.0); Immature Granulocytes # (auto) 0.06 K/uL (0.01-0.20); Immature Granulocytes % (auto) 0.6 %; Lymphocytes % (auto) 9.5 %; Mean Corpuscular Hemoglobin 29.3 pg (25.0-34.0); Mean Corpuscular Hgb Conc 33.5 g/dL (32.0-36.0); Mean Corpuscular Volume 87.5 fL (80.0-100.0); Mean Platelet Volume 11.8 fL (9.4-12.4); Monocytes # (auto) 0.52 K/uL (0.11-0.59); Monocytes % (auto) 4.9 %; Neutrophils # (auto) 8.98 K/uL (1.40-6.50); Neutrophils % (auto) 84.9 %; Platelet Count 192 K/uL (130-400); RDW Coefficient of Variation 13.4 % (11.5-14.5); RDW Standard Deviation 43.1 fL (36.4-46.3); White Blood Count 10.57 K/ul (4.8-10.8)
[2025-01-24 05:09] LABS: Albumin Level 3.5 gm/dl (3.4-5.0); Bilirubin Direct 0.2 mg/dl (0-0.2); Bilirubin,Total 0.7 mg/dl (0.2-1.0); Magnesium 2.1 mg/dl (1.7-2.4); Total Protein 5.9 gm/dl (6.0-8.3)
[2025-01-24] MEDS: ICU Protocol for HYPERglycemia SCH (05:41)
[2025-01-24 07:59] LABS: Base Excess VBG -0.8 mEq/L; HCO3 VBG 24 mmol/L; Oxygen Saturation VBG 84.3 %; PCO2 VBG 37 mmHg (38-50); PO2 VBG 50 mmHg; pH VBG 7.41 (7.36-7.41)
[2025-01-24] MEDS: POLYETHYLENE (MIRALAX) 17 GM PACK PO SCH (08:02)
[2025-01-24] MEDS: FAMOTIDINE 40 MG TABLET PO SCH (08:02)
--- NOTE | 2025-01-24 08:52 | Critical Care Progress Note ---
Date of Service January 24, 2025 Assessment & Plan (1) Antipsychotic overdose: (2) Encephalopathy acute: (3) On mechanically assisted ventilation: (4) Acute kidney injury: (5) Lactic acidosis: (6) Prolonged QT interval: Plan Reason Critically Ill: 59-year-old female brought to the hospital with altered mental status intubated due to concern about to protect airway. There was concern about possible intentional versus unintentional Zyprexa overdose. 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 24-hour events: Patient presented to the emergency room. Intubated. Brought to the ICU. This morning sedation was lightened and the patient was extubated. Formal neurology consultation is pending Recommendations Neuro -altered mental status. Differential remains intentional/unintentional overdose with atypical antipsychotics versus seizure. MRI of the brain was abnormal. Formal neurology consultation pending. Defer LP for now. Obtain EEG. Hold additional antipsychotics. Defer antiepileptics for now unless overt seizure activity is identified. May need behavioral health/inpatient psych evaluation once medical issues are resolved/cleared Cardiac -echocardiogram pending. Will recheck lactate this morning. Mild elevation in troponin. No suspicion for cardiac event currently. She remains mildly tachycardic. Respiratory -no current issues. Extubated now. Will need pulmonary toilet as allowed by mental status. Basilar atelectasis identified on CT scan. GI -n.p.o. pending improvement in the patient's mental status RENAL/LYTES -ICU electrolyte replacement protocol. Repeat BMP this morning. Acid-base status acceptable. Appears adequately fluid resuscitated. If lactate remains elevated, additional IV fluids will be administered ENDO - glycemic control per protocol HEME/ONC/OTHER -acute issues ID -no indication for antibiotics currently DVT PROPHYLAXIS - Enoxaparin I have personally spent 42 minutes of critical care time in the direct management of this patient. This is a life/limb threatening event. This includes time spent evaluating patient, direct bedside care, chart review, placing orders, interpretation of diagnostic studies, discussion with consultants, patient, and family members, as well as other required patient management activities. This time is exclusive of all separately billable procedures, and teaching time and separate from and in addition to any other critical care service time. Thank you for allowing us to participate in the care of this patient. Please refer to my attending physician's documentation for any further recommendations. Admission and Anticipated Discharge Date Admission Date: January 23, 2025 Subjective Patient is intubated and sedated Review of Systems Review of Systems: Unobtainable due to endotracheal tube Physical Exam Constitutional: WD/WN, vitals as above Neck: trachea midline, no thyromegaly Respiratory: normal respiratory effort, lungs clear to auscultation Cardiovascular: RRR, no murmur, no edema Gastrointestinal (Abdomen): normal bowel sounds, soft, nontender, no hepatosplenomegaly Musculoskeletal: Extremities: extremities normal to inspection Skin: no rashes, warm and dry Neurologic: Sedated on propofol Lymphatic: no cervical lymphadenopathy Results & Data Results & Data Vital Signs (Past 12 Hours) Vital Signs Temp Pulse Pulse Resp BP BP Pulse Ox 01/24/25 08:27 01/24/25 08:12 37.6 C H 134 H 22 97 01/24/25 08:00 112 H 17 96 01/24/25 07:50 96 H 19 99 01/24/25 07:00 37.5 C 88 18 126/76 100 01/24/25 06:30 108/88 01/24/25 06:30 108/88 01/24/25 06:21 37.6 C H 93 H 18 100 01/24/25 06:03 37.6 C H 107 H 18 100 01/24/25 06:01 122/79 01/24/25 06:01 122/79 01/24/25 06:01 122/79 01/24/25 05:48 37.6 C H 99 H 18 100 01/24/25 05:31 165/125 H 01/24/25 05:15 37.5 C 87 22 100 01/24/25 05:00 37.6 C H 90 19 100 01/24/25 05:00 119/69 01/24/25 04:51 37.7 C H 92 H 22 100 01/24/25 04:48 37.7 C H 92 H 18 100 01/24/25 04:30 37.8 C H 95 H 19 98 01/24/25 04:30 106/57 L 01/24/25 04:30 106/57 L 01/24/25 04:21 37.8 C H 97 H 19 99 01/24/25 04:15 37.8 C H 97 H 18 99 01/24/25 04:06 37.8 C H 101 H 18 99 01/24/25 04:00 01/24/25 04:00 116/56 L 01/24/25 04:00 116/56 L 01/24/25 04:00 116/56 L 01/24/25 03:48 37.8 C H 107 H 18 99 01/24/25 03:45 37.8 C H 108 H 18 99 01/24/25 03:33 37.8 C H 114 H 18 99 01/24/25 03:30 161/81 H 01/24/25 03:30 115 H 22 95 01/24/25 03:27 37.8 C H 116 H 18 99 01/24/25 03:12 37.6 C H 120 H 21 100 01/24/25 03:09 37.5 C 120 H 21 95 01/24/25 03:00 129/74 01/24/25 02:57 37.5 C 92 H 22 100 01/24/25 02:42 37.5 C 92 H 22 100 01/24/25 02:36 37.5 C 95 H 22 100 01/24/25 02:21 37.5 C 93 H 22 100 01/24/25 02:18 37.5 C 93 H 22 100 01/24/25 02:00 37.5 C 93 H 22 100 01/24/25 02:00 118/73 01/24/25 02:00 118/73 01/24/25 02:00 118/73 01/24/25 01:30 37.5 C 95 H 22 100 01/24/25 01:30 113/71 01/24/25 01:30 113/71 01/24/25 01:21 37.5 C 95 H 22 100 01/24/25 01:18 37.5 C 96 H 22 100 01/24/25 00:49 125 H 25 H 100 01/24/25 00:42 37.6 C H 99 H 22 100 01/24/25 00:31 124/64 01/24/25 00:31 124/64 01/24/25 00:21 37.5 C 115 H 22 100 01/24/25 00:12 37.5 C 120 H 22 100 01/24/25 00:01 214/95 H 01/23/25 23:54 37.3 C 106 H 22 99 01/23/25 23:51 37.3 C 106 H 22 99 01/23/25 23:48 37.3 C 107 H 22 96 01/23/25 23:30 37.3 C 111 H 22 100 01/23/25 23:30 134/73 01/23/25 23:30 134/73 01/23/25 23:30 134/73 01/23/25 23:30 134/73 01/23/25 23:27 37.3 C 111 H 22 100 01/23/25 23:15 150/91 H 01/23/25 23:15 150/91 H 01/23/25 23:03 37.3 C 119 H 25 H 100 01/23/25 23:00 01/23/25 23:00 120 H 01/23/25 22:57 37.4 C 115 H 23 100 01/23/25 22:54 37.4 C 115 H 23 100 01/23/25 22:30 37.4 C 118 H 22 100 01/23/25 22:22 37.2 C 121 H 20 170/99 H 99 01/23/25 22:16 125 H 25 H 93 01/23/25 22:12 37.4 C 133 H 22 100 01/23/25 22:03 37.4 C 125 H 22 100 01/23/25 22:01 178/99 H 01/23/25 22:01 178/99 H 01/23/25 21:59 133 H 01/23/25 21:31 37.1 C 119 H 20 125/80 99 O2 Del Method O2 Flow Rate FiO2 01/24/25 08:27 Nasal Cannula 3 01/24/25 08:12 01/24/25 08:00 40 01/24/25 07:50 40 01/24/25 07:00 Mechanical Vent 01/24/25 06:30 01/24/25 06:30 01/24/25 06:21 01/24/25 06:03 01/24/25 06:01 01/24/25 06:01 01/24/25 06:01 01/24/25 05:48 01/24/25 05:31 01/24/25 05:15 01/24/25 05:00 01/24/25 05:00 01/24/25 04:51 01/24/25 04:48 01/24/25 04:30 01/24/25 04:30 01/24/25 04:30 01/24/25 04:21 01/24/25 04:15 01/24/25 04:06 01/24/25 04:00 40 01/24/25 04:00 01/24/25 04:00 01/24/25 04:00 01/24/25 03:48 01/24/25 03:45 01/24/25 03:33 01/24/25 03:30 01/24/25 03:30 40 01/24/25 03:27 01/24/25 03:12 01/24/25 03:09 01/24/25 03:00 01/24/25 02:57 01/24/25 02:42 01/24/25 02:36 01/24/25 02:21 01/24/25 02:18 01/24/25 02:00 01/24/25 02:00 01/24/25 02:00 01/24/25 02:00 01/24/25 01:30 01/24/25 01:30 01/24/25 01:30 01/24/25 01:21 01/24/25 01:18 01/24/25 00:49 40 01/24/25 00:42 01/24/25 00:31 01/24/25 00:31 01/24/25 00:21 01/24/25 00:12 01/24/25 00:01 01/23/25 23:54 01/23/25 23:51 01/23/25 23:48 01/23/25 23:30 01/23/25 23:30 01/23/25 23:30 01/23/25 23:30 01/23/25 23:30 01/23/25 23:27 Mechanical Vent 40 01/23/25 23:15 01/23/25 23:15 01/23/25 23:03 01/23/25 23:00 40 01/23/25 23:00 01/23/25 22:57 01/23/25 22:54 01/23/25 22:30 01/23/25 22:22 Mechanical Vent 01/23/25 22:16 40 01/23/25 22:12 01/23/25 22:03 01/23/25 22:01 01/23/25 22:01 01/23/25 21:59 01/23/25 21:31 Mechanical Vent Critical Care Results & Data Vital Signs (Past 12 Hours) Vital Signs Temp Pulse Pulse Resp BP BP Pulse Ox 01/24/25 08:27 01/24/25 08:12 37.6 C H 134 H 22 97 01/24/25 08:00 112 H 17 96 01/24/25 07:50 96 H 19 99 01/24/25 07:00 37.5 C 88 18 126/76 100 01/24/25 06:30 108/88 01/24/25 06:30 108/88 01/24/25 06:21 37.6 C H 93 H 18 100 01/24/25 06:03 37.6 C H 107 H 18 100 01/24/25 06:01 122/79 01/24/25 06:01 122/79 01/24/25 06:01 122/79 01/24/25 05:48 37.6 C H 99 H 18 100 01/24/25 05:31 165/125 H 01/24/25 05:15 37.5 C 87 22 100 01/24/25 05:00 37.6 C H 90 19 100 01/24/25 05:00 119/69 01/24/25 04:51 37.7 C H 92 H 22 100 01/24/25 04:48 37.7 C H 92 H 18 100 01/24/25 04:30 37.8 C H 95 H 19 98 01/24/25 04:30 106/57 L 01/24/25 04:30 106/57 L 01/24/25 04:21 37.8 C H 97 H 19 99 01/24/25 04:15 37.8 C H 97 H 18 99 01/24/25 04:06 37.8 C H 101 H 18 99 01/24/25 04:00 01/24/25 04:00 116/56 L 01/24/25 04:00 116/56 L 01/24/25 04:00 116/56 L 01/24/25 03:48 37.8 C H 107 H 18 99 01/24/25 03:45 37.8 C H 108 H 18 99 01/24/25 03:33 37.8 C H 114 H 18 99 01/24/25 03:30 161/81 H 01/24/25 03:30 115 H 22 95 01/24/25 03:27 37.8 C H 116 H 18 99 01/24/25 03:12 37.6 C H 120 H 21 100 01/24/25 03:09 37.5 C 120 H 21 95 01/24/25 03:00 129/74 01/24/25 02:57 37.5 C 92 H 22 100 01/24/25 02:42 37.5 C 92 H 22 100 01/24/25 02:36 37.5 C 95 H 22 100 01/24/25 02:21 37.5 C 93 H 22 100 01/24/25 02:18 37.5 C 93 H 22 100 01/24/25 02:00 37.5 C 93 H 22 100 01/24/25 02:00 118/73 01/24/25 02:00 118/73 01/24/25 02:00 118/73 01/24/25 01:30 37.5 C 95 H 22 100 01/24/25 01:30 113/71 01/24/25 01:30 113/71 01/24/25 01:21 37.5 C 95 H 22 100 01/24/25 01:18 37.5 C 96 H 22 100 01/24/25 00:49 125 H 25 H 100 01/24/25 00:42 37.6 C H 99 H 22 100 01/24/25 00:31 124/64 01/24/25 00:31 124/64 01/24/25 00:21 37.5 C 115 H 22 100 01/24/25 00:12 37.5 C 120 H 22 100 01/24/25 00:01 214/95 H 01/23/25 23:54 37.3 C 106 H 22 99 01/23/25 23:51 37.3 C 106 H 22 99 01/23/25 23:48 37.3 C 107 H 22 96 01/23/25 23:30 37.3 C 111 H 22 100 01/23/25 23:30 134/73 01/23/25 23:30 134/73 01/23/25 23:30 134/73 01/23/25 23:30 134/73 01/23/25 23:27 37.3 C 111 H 22 100 01/23/25 23:15 150/91 H 01/23/25 23:15 150/91 H 01/23/25 23:03 37.3 C 119 H 25 H 100 01/23/25 23:00 01/23/25 23:00 120 H 01/23/25 22:57 37.4 C 115 H 23 100 01/23/25 22:54 37.4 C 115 H 23 100 01/23/25 22:30 37.4 C 118 H 22 100 01/23/25 22:22 37.2 C 121 H 20 170/99 H 99 01/23/25 22:16 125 H 25 H 93 01/23/25 22:12 37.4 C 133 H 22 100 01/23/25 22:03 37.4 C 125 H 22 100 01/23/25 22:01 178/99 H 01/23/25 22:01 178/99 H 01/23/25 21:59 133 H 01/23/25 21:31 37.1 C 119 H 20 125/80 99 O2 Del Method O2 Flow Rate FiO2 01/24/25 08:27 Nasal Cannula 3 01/24/25 08:12 01/24/25 08:00 40 01/24/25 07:50 40 01/24/25 07:00 Mechanical Vent 01/24/25 06:30 01/24/25 06:30 01/24/25 06:21 01/24/25 06:03 01/24/25 06:01 01/24/25 06:01 01/24/25 06:01 01/24/25 05:48 01/24/25 05:31 01/24/25 05:15 01/24/25 05:00 01/24/25 05:00 01/24/25 04:51 01/24/25 04:48 01/24/25 04:30 01/24/25 04:30 01/24/25 04:30 01/24/25 04:21 01/24/25 04:15 01/24/25 04:06 01/24/25 04:00 40 01/24/25 04:00 01/24/25 04:00 01/24/25 04:00 01/24/25 03:48 01/24/25 03:45 01/24/25 03:33 01/24/25 03:30 01/24/25 03:30 40 01/24/25 03:27 01/24/25 03:12 01/24/25 03:09 01/24/25 03:00 01/24/25 02:57 01/24/25 02:42 01/24/25 02:36 01/24/25 02:21 01/24/25 02:18 01/24/25 02:00 01/24/25 02:00 01/24/25 02:00 01/24/25 02:00 01/24/25 01:30 01/24/25 01:30 01/24/25 01:30 01/24/25 01:21 01/24/25 01:18 01/24/25 00:49 40 01/24/25 00:42 01/24/25 00:31 01/24/25 00:31 01/24/25 00:21 01/24/25 00:12 01/24/25 00:01 01/23/25 23:54 01/23/25 23:51 01/23/25 23:48 01/23/25 23:30 01/23/25 23:30 01/23/25 23:30 01/23/25 23:30 01/23/25 23:30 01/23/25 23:27 Mechanical Vent 40 01/23/25 23:15 01/23/25 23:15 01/23/25 23:03 01/23/25 23:00 40 01/23/25 23:00 01/23/25 22:57 01/23/25 22:54 01/23/25 22:30 01/23/25 22:22 Mechanical Vent 01/23/25 22:16 40 01/23/25 22:12 01/23/25 22:03 01/23/25 22:01 01/23/25 22:01 01/23/25 21:59 01/23/25 21:31 Mechanical Vent Lab & Micro Results (Past 24 Hours) RBC 4.40 M/uL (4.20-5.40) 01/24/25 WBC 10.57 K/ul (4.8-10.8) 01/24/25 Hgb 12.9 g/dl (12.0-16.0) 01/24/25 Hct 38.5 % (37.0-47.0) 01/24/25 MCV 87.5 fL (80.0-100.0) 01/24/25 MCH 29.3 pg (25.0-34.0) 01/24/25 MCHC 33.5 g/dL (32.0-36.0) 01/24/25 RDW Standard Deviation 43.1 fL (36.4-46.3) 01/24/25 RDW Coefficient of Variation 13.4 % (11.5-14.5) 01/24/25 Plt Count 192 K/uL (130-400) 01/24/25 MPV 11.8 fL (9.4-12.4) 01/24/25 Neutrophils (%) (Auto) 84.9 % 01/24/25 Lymphocytes (%) (Auto) 9.5 % 01/24/25 Monocytes # (Auto) 0.52 K/uL (0.11-0.59) 01/24/25 Eosinophils # (Auto) 0.00 K/uL (0.00-0.50) 01/24/25 Immature Granulocyte % (Auto) 0.6 % 01/24/25 Neutrophils # (Auto) 8.98 K/uL (1.40-6.50) H 01/24/25 Lymphocytes # (Auto) 1.00 K/uL (1.20-3.40) L 01/24/25 Monocytes # (Auto) 0.52 K/uL (0.11-0.59) 01/24/25 Eosinophils # (Auto) 0.00 K/uL (0.00-0.50) 01/24/25 Basophils # (Auto) 0.01 K/uL (0.00-0.20) 01/24/25 Immature Granulocyte # (Auto) 0.06 K/uL (0.01-0.20) 5 Na 142 mmol/L (136-145) 01/23/25 K 4.2 mmol/L (3.5-5.1) 01/23/25 Cl 108 mmol/L (98-107) H 01/23/25 CO2 25 mmol/L (21-32) 01/23/25 Anion Gap 9 (3-11) 01/23/25 BUN 13 mg/dl (6-23) 01/23/25 Creatinine 0.85 mg/dl (0.6-1.2) 01/23/25 BUN/Creatinine Ratio 15.3 (10-20) 01/23/25 Glu 183 mg/dl (70-99(Fasting)) H 01/23/25 Ca 10.3 mg/dl (8.6-10.3) 01/23/25 Phosphorus Level 2.0 mg/dl (2.5-4.9) L 01/24/25 Total Bilirubin 0.7 mg/dl (0.2-1.0) 01/24/25 Direct Bilirubin 0.2 mg/dl (0-0.2) 01/24/25 AST 19 U/L (13-39) 01/24/25 ALT 24 U/L (7-52) 01/24/25 Alkaline Phosphatase 129 U/L (34-104) H 01/24/25 TP 5.9 gm/dl (6.0-8.3) L 01/24/25 Albumin 3.5 gm/dl (3.4-5.0) 01/24/25 Globulin 2.7 gm/dl (2.5-4.0) 01/23/25 Albumin/Globulin Ratio 1.7 (0.9-2) 01/23/25 Mg 2.1 mg/dl (1.7-2.4) 01/24/25 04:31 Calcium Level 10.3 mg/dl (8.6-10.3) 01/23/25 22:13 Venous Blood pH 7.41 (7.36-7.41) 01/24/25 07:54 Venous Blood Partial Pressure CO2 37 mmHg (38-50) L 01/24/25 07 :54 Venous Blood Partial Pressure O2 50 mmHg 01/24/25 07:54 Venous Blood HCO3 24 mmol/L 01/24/25 07:54 Venous Blood Base Excess -0.8 mEq/L 01/24/25 07:54 Venous Blood Oxygen Saturation 84.3 % 01/24/25 07:54 Microbiology 01/24/25 03:10 Gram Stain - Final Sputum,Vent Suction Diagnostic Findings (Past 24 Hours) Head CT 01/23/25 17:19 EXAM: CT head/brain wo con CLINICAL HISTORY: AMS TECHNIQUE: An axial non-contrast CT scan of the brain was performed from the skull base to the high parietal region. One of the following dose-reduction techniques was utilized for this exam. Automated exposure control, adjustment of the mA and/or kV according to patient size, and use of iterative reconstruction. (CTDI: 65.32 mGy, DLP: 2022.61 mGy*cm) COMPARISON: 01/14/2020 CT FINDINGS: Patchy hypodensities are seen in the bilateral cerebral deep and subcortical white matter regions and are non-specific but may represent chronic microvascular white matter ischemic changes. The ventricular system, cortical sulci, and basal cisterns are prominent and consistent with senile changes. Coelho-white matter differentiation is maintained. No midline shifts or deformity. No intracerebral or extra axial hematoma. Normal CT appearance of the posterior fossa structures, namely the cerebellar hemispheres, brainstem, and cerebellar peduncles. The bony structures in the skull base are unremarkable. There are no definite calvarium fractures. The scanned paranasal sinuses are clear. Septum nasi shows mild deviation to the right with a bony spur. IMPRESSION: 1. Microvascular white matter ischemic changes and senile changes. Mild interval progression. 2. No intra. or extra-axial hematomas or parenchymal territorial hypodense areas suggest an acute ischemic insult. 3. Early changes of stroke may not be detected on a CT scan. If there is a strong clinical suspicion of stroke, then an MRI with diffusion-weighted imaging is suggested. Electronically signed by Jordan Ventura 01-23-2025 7:11 PM Chest X-Ray 01/23/25 17:20 EXAM: X-ray chest one-view portable CLINICAL HISTORY: Post intubation PRIORS: 05/26/2016 TECHNIQUE: Frontal view chest FINDINGS: An endotracheal tube is present terminating 2.5 cm superior to the rosalia. Lung volumes diminished. Patient is rotated. Cardiac size mildly enlarged. Diffuse interstitial changes noted. No confluent opacification. Indistinctness of the superior mediastinum, possibly elevation of patient rotation No radiopaque foreign body. IMPRESSION: 1. Endotracheal tube with distal tip 2.5 cm superior to the rosalia. If clinically appropriate, tube could be withdrawn approximately 1.5 to 2 cm or as appropriate. 2. Diffuse interstitial changes, in the setting of diminished lung volumes, please correlate clinically. Electronically signed by Tisha Mcguire 01-23-2025 5:43 PM Chest CTA 01/23/25 17:33 EXAM: CT angio chest PE protocol CLINICAL HISTORY: PE TECHNIQUE: CT angiography of the chest was performed with and without intravenous contrast with the following protocol: axial images with, reconstructed coronal and sagittal images. Non-contrast images were initially acquired, followed by contrast-enhanced images in arterial and venous phases. Intravenous contrast was administered using automated injection techniques. Bolus tracking was employed to optimize arterial phase imaging. One of these 3D techniques was utilized: Maximum Intensity Pixel (MIP), 3D Reconstructed Images, Volume Rendered Images, Surface Shaded Rendering. One of the following dose reduction techniques was utilized for this exam: Automated exposure control, adjustment of the mA and/or kV according to patient size, and use of iterative reconstruction. COMPARISON: Same day chest xray was reviewed. FINDINGS: Endotracheal tube is seen with its distal tip 1.2 cm above the rosalia Nasogastric tube with distal tip cut off from the view. Aorta and Great Vessels: Ascending Aorta: Normal in caliber, no aneurysm, dissection, or significant atherosclerosis. Aortic Arch: Normal in caliber, no aneurysm, dissection, or significant atherosclerosis. Descending Aorta: Normal in caliber, no aneurysm, dissection, or significant atherosclerosis. Pulmonary Arteries: The main pulmonary artery and its branches are patent. No evidence of pulmonary embolism or significant stenosis. Heart: Cardiac Chambers: Normal in size. No evidence of cardiomegaly. Pericardium: No pericardial effusion or thickening. Lungs and Pleura: Subpleural atelectasis in both lungs from superior to lower zones. Consolidation/atelectasis in the superior segment of the right lower lobe. Small calcified nodule in the left lower lobe. No pleural effusion or pleural thickening. Mediastinum: No mediastinal mass or abnormal lymphadenopathy. Normal appearance of the trachea and central bronchi. Hilar Structures: Hilar structures are normal without enlargement. Chest Wall: No mass lesions or abnormalities in the chest wall. Vascular Structures: Superior Vena Cava: Patent without evidence of stenosis or thrombus. Inferior Vena Cava: Patent without evidence of stenosis or thrombus. Bones and Soft Tissues: No fractures, lytic, or blastic lesions of the visualized bony structures. Soft tissues are unremarkable. IMPRESSION: 1. Endotracheal tube is seen with its distal tip 1.2 cm above the rosalia. Advised urgent repositioning. 2. No evidence of pulmonary embolism. 3. Subpleural atelectasis in both lungs from superior to lower zones. 4. Consolidation/atelectasis in the superior segment of the right lower lobe. Electronically signed by Jordan Ventura 01-23-2025 7:21 PM KUB X-Ray 01/23/25 18:37 EXAM: XR KUB/Abdomen 1 view CLINICAL HISTORY: OG tube placement TECHNIQUE: X-ray image of the chest and upper abdomen performed in Frontal projection. COMPARISON: CR 05/26/2016 - CT 03/03/2024 FINDINGS: Orogastric tube is noted with its tip in the stomach. An endotracheal tube is noted with its tip 3.5 cm above the rosalia. Lungs: Prominent bilateral bronchovascular markings. No evidence of any focal area of consolidation. The costophrenic and cardiophrenic angles are clear. Mediastinum: Cardiac size cannot be accurately assessed in AP projection, however, cardiac shadow appears enlarged. Soft Tissues: Soft tissues of the abdomen appear normal without evidence of masses or calcifications. IMPRESSION: 1. Orogastric tube is noted with its tip in the stomach. 2. An endotracheal tube is noted with its tip 3.5 cm above the rosalia. 3. Prominent bilateral bronchovascular markings. These could probably represent early/mild inflammatory/infectious etiology. 4. New findings. Correlate clinically. Electronically signed by Jordan Ventura 01-23-2025 8:09 PM Brain MRI 01/23/25 19:46 Exam(s): MRI HEAD Without Contrast EXAM: MR Head Without Intravenous Contrast CLINICAL HISTORY: Reason for exam: Unresponsive. rule out occult CVA. TECHNIQUE: Magnetic resonance images of the head/brain without intravenous contrast in multiple planes. COMPARISON: Prior brain MRI from October 06, 2013. 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 No mass. No hemorrhage. No acute infarct. The flow voids at the base of the brain are intact. Ventricles: Unremarkable. No ventriculomegaly. Bones/joints: Unremarkable. No acute fracture. Sinuses: Chronic ethmoid sinusitis. No acute sinusitis. Mastoid air cells: Unremarkable as visualized. No mastoid effusion. Orbits: Unremarkable as visualized. IMPRESSION: No evidence of acute intracranial Pathology. 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 Clinical correlation is recommended. Electronically signed by: Rizwana Pedro MD 01/24/25 00:24 AM I & O Totals 24 Hours 01/23/25 01/24/2501/25/25 06:59 06:59 06:59 Intake Total 2375.394 / 2375.394 978.08 / 978.08 Output Total 1500 / 1500 Balance 875.394 / 875.394 978.08 / 978.08 Cumulative 01/23/25 16:50 thru 01/24/25 08:05 Intake Total 3353.474 Output Total 1500 Balance 1853.474 RT Ventilator Mngmt (Last Documented) Ventilator Ordered Settings Ventilator Support Mode CPAP 01/24/25 08:00 Respiratory Rate 22 01/24/25 08:12 Ventilator Tidal Volume 400 01/24/25 07:50 Setting Minute Ventilation 9.0 01/24/25 08:00 Ventilator Positive Pressure 8 01/24/25 08:00 Support Setting Positive End Expiratory 5 01/24/25 08:00 Pressure Fraction of Inspired Oxygen 40 01/24/25 08:00 Ventilator - PT Measurements Respiratory Rate 22 Exhaled Tidal Volume 412 Minute Ventilation 9.0 Peak Inspiratory Airway 15 Pressure Plateau Pressure 14 Respiratory Cycle Inspiratory: 1:3.2 Expiratory Ratio Inspiratory Phase Time 0.80 End-Tidal CO2 41 Static Lung Compliance 44.44 Dynamic Lung Compliance 41.20 Normal Static Lung Compliance 48.00 Patient Measurements Comment patient extubated to 3L NC and SPO2 95% Coding Level of Care Code 68140 CRITICAL CARE 1ST 30-74M Diagnoses Antipsychotic overdose T43.502A Encounter type: initial encounter Injury intent: intentional self-harm Encephalopathy acute G93.40 On mechanically assisted ventilation Z99.11 Acute kidney injury N17.9 Lactic acidosis E87.20 Prolonged QT interval R94.31 (1) Antipsychotic overdose Encounter type: initial encounter Injury intent: intentional self-harm Qualified Code(s): T43.502A - Poisoning by unspecified antipsychotics and neuroleptics, intentional self-harm, initial encounter
--- NOTE | 2025-01-24 09:29 | Neurology Consultation ---
Date of Consultation January 24, 2025 Assessment & Plan (1) Encephalopathy acute: Acute encephalopathy from possible overdose in a 59F with a PMH of depression with psychotic features. [facility] is an [facility] from 2006 which shows the region of likely encephalomalacia vs dysplasia in the left parietal lobe and that region is stable on the most recent MRI. This does put her at greater risk of seizure, especially in the setting of taking Zyprexia which can lower the seizure threshold. The more recent MRI has considerably more white matter disease which is typically seen in people with uncontrolled vascular risk factors vs a demyelinating disease. Plan -- recommend routine EEG -- hold on AED for now -- recommend MRI brain with contrast for evaluation of white matter disease Telehealth Consultation Telehealth Information Telehealth Information: I performed this visit using a real-time telehealth connection between my location and the patients location ([facility]). After connecting through interactive tele-video, patient was identified by name and date of and/or wristband check.Patient (or authorized healthcare claim service representative) was informed that this was a telemedicine visit and it was being conducted confidentially over secure lines. My office door was closed and no one else was present in the room with me.Patient (or authorized healthcare claim service representative) provided consent to proceed with the visit, expressed an understanding of privacy and security of the telemedicine visit, and gave permission to have a hospital claim service representative in the room in order to assist with the visit and to conduct portions of the visit, as needed. I informed the patient (or authorized healthcare claim service representative) that I reviewed their record and presented the opportunity for them to ask any questions regarding the visit today. The patient agreed to participate. History of Present Illness Reason for Consultation: [facility] Attending Physician: Chanel Nunes MD History of Present Illness Jo Patel is a 59F with a PMH of HLD, depression with psychotic features, prior stroke, who presented from home unresponsive with an empty bottle of Zyprexa beside her. Patient is extubated but can't provide any history at this time. Allergies Allergy/AdvReac Type Severity Reaction Status Date / Time Penicillins Allergy Severe SEIZURES Verified 01/23/25 17:57 Sulfa (Sulfonamide Allergy Severe ARRHYTHMIAS Verified 03/03/24 17:55 Antibiotics) doxycycline AdvReac Tachycardia Verified 01/23/25 17:57 Home Medications Medication Instructions Recorded Confirmed Type albuterol sulfate 90 mcg/actuation 2 puff inhalation Q4 PRN Wheezing 05/17/21 01/23/25 History aerosol inhaler atorvastatin 40 mg tablet 40 mg PO QAM 05/17/21 01/23/25 History aspirin 81 mg tablet,delayed 81 mg PO QAM 03/03/24 01/23/25 History release multivitamin with minerals 1 tab PO QAM 03/03/24 01/23/25 History (Multiple Vitamin-Minerals tablet) lisinopril 20 mg tablet 20 mg PO QAM 01/23/25 01/23/25 History Patient History Medical History Psychosis No pertinent family history Surgical History No pertinent past surgical history Social History Smoking Status: Never smoker Hx Alcohol Use: No Hx Substance Use: No Preferred Language: Mongolian Communication Ability: Effective [employer] Required: No Beliefs That Will Affect Care: None Current Living Situation: Spouse Feels Safe at Home: Yes Assistive Devices: Glasses Review of Systems Unable to obtain secondary to encephalopathy Physical Exam Lethargic, spontaneous movement, no speech output and follows no commands, grimace to trap squeeze Results & Data Vital Signs (Past 12 Hours) Vital Signs Temp Pulse Pulse Resp BP BP Pulse Ox 01/24/25 08:27 01/24/25 08:12 37.6 C H 134 H 22 97 01/24/25 08:00 112 H 17 96 01/24/25 07:50 96 H 19 99 01/24/25 07:00 37.5 C 88 18 126/76 100 01/24/25 06:30 108/88 01/24/25 06:30 108/88 01/24/25 06:21 37.6 C H 93 H 18 100 01/24/25 06:03 37.6 C H 107 H 18 100 01/24/25 06:01 122/79 01/24/25 06:01 122/79 01/24/25 06:01 122/79 01/24/25 05:48 37.6 C H 99 H 18 100 01/24/25 05:31 165/125 H 01/24/25 05:15 37.5 C 87 22 100 01/24/25 05:00 37.6 C H 90 19 100 01/24/25 05:00 119/69 01/24/25 04:51 37.7 C H 92 H 22 100 01/24/25 04:48 37.7 C H 92 H 18 100 01/24/25 04:30 37.8 C H 95 H 19 98 01/24/25 04:30 106/57 L 01/24/25 04:30 106/57 L 01/24/25 04:21 37.8 C H 97 H 19 99 01/24/25 04:15 37.8 C H 97 H 18 99 01/24/25 04:06 37.8 C H 101 H 18 99 01/24/25 04:00 01/24/25 04:00 116/56 L 01/24/25 04:00 116/56 L 01/24/25 04:00 116/56 L 01/24/25 03:48 37.8 C H 107 H 18 99 01/24/25 03:45 37.8 C H 108 H 18 99 01/24/25 03:33 37.8 C H 114 H 18 99 01/24/25 03:30 161/81 H 01/24/25 03:30 115 H 22 95 01/24/25 03:27 37.8 C H 116 H 18 99 01/24/25 03:12 37.6 C H 120 H 21 100 01/24/25 03:09 37.5 C 120 H 21 95 01/24/25 03:00 129/74 01/24/25 02:57 37.5 C 92 H 22 100 01/24/25 02:42 37.5 C 92 H 22 100 01/24/25 02:36 37.5 C 95 H 22 100 01/24/25 02:21 37.5 C 93 H 22 100 01/24/25 02:18 37.5 C 93 H 22 100 01/24/25 02:00 37.5 C 93 H 22 100 01/24/25 02:00 118/73 01/24/25 02:00 118/73 01/24/25 02:00 118/73 01/24/25 01:30 37.5 C 95 H 22 100 01/24/25 01:30 113/71 01/24/25 01:30 113/71 04/10/25 01:21 37.5 C 95 H 22 100 01/24/25 01:18 37.5 C 96 H 22 100 01/24/25 00:49 125 H 25 H 100 01/24/25 00:42 37.6 C H 99 H 22 100 01/24/25 00:31 124/64 01/24/25 00:31 124/64 01/24/25 00:21 37.5 C 115 H 22 100 01/24/25 00:12 37.5 C 120 H 22 100 01/24/25 00:01 214/95 H 01/23/25 23:54 37.3 C 106 H 22 99 01/23/25 23:51 37.3 C 106 H 22 99 01/23/25 23:48 37.3 C 107 H 22 96 01/23/25 23:30 37.3 C 111 H 22 100 01/23/25 23:30 134/73 01/23/25 23:30 134/73 01/23/25 23:30 134/73 01/23/25 23:30 134/73 01/23/25 23:27 37.3 C 111 H 22 100 01/23/25 23:15 150/91 H 01/23/25 23:15 150/91 H 01/23/25 23:03 37.3 C 119 H 25 H 100 01/23/25 23:00 01/23/25 23:00 120 H 01/23/25 22:57 37.4 C 115 H 23 100 01/23/25 22:54 37.4 C 115 H 23 100 01/23/25 22:30 37.4 C 118 H 22 100 01/23/25 22:22 37.2 C 121 H 20 170/99 H 99 01/23/25 22:16 125 H 25 H 93 01/23/25 22:12 37.4 C 133 H 22 100 01/23/25 22:03 37.4 C 125 H 22 100 01/23/25 22:01 178/99 H 01/23/25 22:01 178/99 H 01/23/25 21:59 133 H 01/23/25 21:31 37.1 C 119 H 20 125/80 99 O2 Del Method O2 Flow Rate FiO2 01/24/25 08:27 Nasal Cannula 3 01/24/25 08:12 01/24/25 08:00 40 01/24/25 07:50 40 01/24/25 07:00 Mechanical Vent 01/24/25 06:30 01/24/25 06:30 01/24/25 06:21 01/24/25 06:03 01/24/25 06:01 01/24/25 06:01 01/24/25 06:01 01/24/25 05:48 01/24/25 05:31 01/24/25 05:15 01/24/25 05:00 01/24/25 05:00 01/24/25 04:51 01/24/25 04:48 01/24/25 04:30 01/24/25 04:30 01/24/25 04:30 01/24/25 04:21 01/24/25 04:15 01/24/25 04:06 01/24/25 04:00 40 01/24/25 04:00 01/24/25 04:00 01/24/25 04:00 01/24/25 03:48 01/24/25 03:45 01/24/25 03:33 01/24/25 03:30 01/24/25 03:30 40 01/24/25 03:27 01/24/25 03:12 01/24/25 03:09 01/24/25 03:00 01/24/25 02:57 01/24/25 02:42 01/24/25 02:36 01/24/25 02:21 01/24/25 02:18 01/24/25 02:00 01/24/25 02:00 01/24/25 02:00 01/24/25 02:00 01/24/25 01:30 01/24/25 01:30 01/24/25 01:30 01/24/25 01:21 01/24/25 01:18 01/24/25 00:49 40 01/24/25 00:42 01/24/25 00:31 01/24/25 00:31 01/24/25 00:21 01/24/25 00:12 01/24/25 00:01 01/23/25 23:54 01/23/25 23:51 01/23/25 23:48 01/23/25 23:30 01/23/25 23:30 01/23/25 23:30 01/23/25 23:30 01/23/25 23:30 01/23/25 23:27 Mechanical Vent 40 01/23/25 23:15 01/23/25 23:15 01/23/25 23:03 01/23/25 23:00 40 01/23/25 23:00 01/23/25 22:57 01/23/25 22:54 01/23/25 22:30 01/23/25 22:22 Mechanical Vent 01/23/25 22:16 40 01/23/25 22:12 01/23/25 22:03 01/23/25 22:01 01/23/25 22:01 01/23/25 21:59 01/23/25 21:31 Mechanical Vent Laboratory Results Abnormal Lab Results 01/23/25 01/23/25 01/23/25 17:11 17:14 17:32 WBC 9.99 RBC 5.01 Hgb 14.4 Hct 44.1 MCV 88.0 MCH 28.7 MCHC 32.7 RDW Std Deviation 42.7 RDW Coeff of Padmini 13.3 Plt Count 201 MPV 11.9 Immature Gran % (Auto) 1.1 Neut % (Auto) 87.2 Lymph % (Auto) 9.0 Bryan % (Auto) 2.4 Eos % (Auto) 0.1 Baso % (Auto) 0.2 Neut # (Auto) 8.71 H Lymph # (Auto) 0.90 L Bryan # (Auto) 0.24 Eos # (Auto) 0.01 Baso # (Auto) 0.02 Immature Gran # (Auto) 0.11 VBG pH 7.32 L VBG pCO2 49 VBG pO2 51 VBG HCO3 25 VBG O2 Saturation 81.8 VBG Base Excess -1.4 Sodium 138 Potassium 3.7 Chloride 102 Carbon Dioxide 25 Anion Gap 11 BUN 16 Creatinine 1.03 Est Cr Clr Drug Dosing Not Reportable eGFR 63.03 BUN/Creatinine Ratio 15.5 Glucose 203 H POC Glucose 189 H Lactate Calcium 11.3 H Phosphorus Magnesium Total Bilirubin 0.9 Direct Bilirubin AST 21 ALT 32 Alkaline Phosphatase 155 H Troponin I High Sens 434.8 H* Total Protein 7.2 Albumin 4.5 Globulin 2.7 Albumin/Globulin Ratio 1.7 Procalcitonin TSH 2.447 Urine Color Yellow Urine Appearance Clear Urine pH 6.0 Ur Specific [place] 1.013 Urine Protein 2+ H Urine Glucose (UA) Negative Urine Ketones Negative Urine Blood Negative Urine Nitrite Negative Urine Bilirubin Negative Urine Urobilinogen Negative Ur Leukocyte Esterase Negative Urine WBC (Auto) 0-5 Urine RBC (Auto) 3-5 H U Hyaline Cast (Auto) >20 H U Epithel Cells (Auto) 6-10 H Urine Bacteria (Auto) None Seen Calcium Oxalate Crystal Present A Nasal Screen MRSA (PCR) Salicylates Urine Opiates Screen Neg Ur Methadone, Qual Neg Urine Fentanyl Screen Neg Acetaminophen Urine Barbiturates Neg Ur Phencyclidine (PCP) Neg U Amphetamin/Meth Scrn Neg MDMA (Ecstasy) Screen Neg U Benzodiazepines Scrn Neg Ur Cocaine Metabolite Neg U Marijuana (THC) Screen Neg Ethyl Alcohol mg/dL < 10.0 01/23/25 01/23/25 01/23/25 19:16 20:26 22:10 WBC RBC Hgb Hct MCV MCH MCHC RDW Std Deviation RDW Coeff of Padmini Plt Count MPV Immature Gran % (Auto) Neut % (Auto) Lymph % (Auto) Bryan % (Auto) Eos % (Auto) Baso % (Auto) Neut # (Auto) Lymph # (Auto) Bryan # (Auto) Eos # (Auto) Baso # (Auto) Immature Gran # (Auto) VBG pH VBG pCO2 VBG pO2 VBG HCO3 VBG O2 Saturation VBG Base Excess Sodium Potassium Chloride Carbon Dioxide Anion Gap BUN Creatinine Est Cr Clr Drug Dosing eGFR BUN/Creatinine Ratio Glucose POC Glucose Lactate 3.5 H* Calcium Phosphorus Magnesium Total Bilirubin Direct Bilirubin AST ALT Alkaline Phosphatase Troponin I High Sens 618.8 H* D Total Protein Albumin Globulin Albumin/Globulin Ratio Procalcitonin TSH Urine Color Urine Appearance Urine pH Ur Specific [place] Urine Protein Urine Glucose (UA) Urine Ketones Urine Blood Urine Nitrite Urine Bilirubin Urine Urobilinogen Ur Leukocyte Esterase Urine WBC (Auto) Urine RBC (Auto) U Hyaline Cast (Auto) U Epithel Cells (Auto) Urine Bacteria (Auto) Calcium Oxalate Crystal Nasal Screen MRSA (PCR) Salicylates < 3.0 L Urine Opiates Screen Ur Methadone, Qual Urine Fentanyl Screen Acetaminophen < 3 L Urine Barbiturates Ur Phencyclidine (PCP) U Amphetamin/Meth Scrn MDMA (Ecstasy) Screen U Benzodiazepines Scrn Ur Cocaine Metabolite U Marijuana (THC) Screen Ethyl Alcohol mg/dL 01/23/25 01/23/25 01/23/25 22:13 22:18 22:20 WBC RBC Hgb Hct MCV MCH MCHC RDW Std Deviation RDW Coeff of Padmini Plt Count MPV Immature Gran % (Auto) Neut % (Auto) Lymph % (Auto) Bryan % (Auto) Eos % (Auto) Baso % (Auto) Neut # (Auto) Lymph # (Auto) Bryan # (Auto) Eos # (Auto) Baso # (Auto) Immature Gran # (Auto) VBG pH 7.38 VBG pCO2 42 VBG pO2 46 VBG HCO3 25 VBG O2 Saturation 77.9 VBG Base Excess -0.4 Sodium 142 Potassium 4.2 Chloride 108 H Carbon Dioxide 25 Anion Gap 9 BUN 13 Creatinine 0.85 Est Cr Clr Drug Dosing 81.4 eGFR 79.36 BUN/Creatinine Ratio 15.3 Glucose 183 H POC Glucose Lactate 3.9 H* Calcium 10.3 Phosphorus Magnesium 2.2 Total Bilirubin Direct Bilirubin AST ALT Alkaline Phosphatase Troponin I High Sens 664.2 H* Total Protein Albumin Globulin Albumin/Globulin Ratio Procalcitonin < 0.02 TSH Urine Color Urine Appearance Urine pH Ur Specific [place] Urine Protein Urine Glucose (UA) Urine Ketones Urine Blood Urine Nitrite Urine Bilirubin Urine Urobilinogen Ur Leukocyte Esterase Urine WBC (Auto) Urine RBC (Auto) U Hyaline Cast (Auto) U Epithel Cells (Auto) Urine Bacteria (Auto) Calcium Oxalate Crystal Nasal Screen MRSA (PCR) Salicylates Urine Opiates Screen Ur Methadone, Qual Urine Fentanyl Screen Acetaminophen Urine Barbiturates Ur Phencyclidine (PCP) U Amphetamin/Meth Scrn MDMA (Ecstasy) Screen U Benzodiazepines Scrn Ur Cocaine Metabolite U Marijuana (THC) Screen Ethyl Alcohol mg/dL 01/23/25 01/23/25 01/24/25 22:25 Unknown 04:31 WBC 10.57 RBC 4.40 Hgb 12.9 Hct 38.5 MCV 87.5 MCH 29.3 MCHC 33.5 RDW Std Deviation 43.1 RDW Coeff of Padmini 13.4 Plt Count 192 MPV 11.8 Immature Gran % (Auto) 0.6 Neut % (Auto) 84.9 Lymph % (Auto) 9.5 Bryan % (Auto) 4.9 Eos % (Auto) 0.0 Baso % (Auto) 0.1 Neut # (Auto) 8.98 H Lymph # (Auto) 1.00 L Bryan # (Auto) 0.52 Eos # (Auto) 0.00 Baso # (Auto) 0.01 Immature Gran # (Auto) 0.06 VBG pH VBG pCO2 VBG pO2 VBG HCO3 VBG O2 Saturation VBG Base Excess Sodium Potassium Chloride Carbon Dioxide Anion Gap BUN Creatinine Est Cr Clr Drug Dosing eGFR BUN/Creatinine Ratio Glucose POC Glucose 177 H Lactate Calcium Phosphorus 2.0 L Magnesium 2.1 Total Bilirubin 0.7 Direct Bilirubin 0.2 AST 19 ALT 24 Alkaline Phosphatase 129 H Troponin I High Sens 600.0 H* Total Protein 5.9 L Albumin 3.5 Globulin Albumin/Globulin Ratio Procalcitonin TSH Urine Color Urine Appearance Urine pH Ur Specific [place] Urine Protein Urine Glucose (UA) Urine Ketones Urine Blood Urine Nitrite Urine Bilirubin Urine Urobilinogen Ur Leukocyte Esterase Urine WBC (Auto) Urine RBC (Auto) U Hyaline Cast (Auto) U Epithel Cells (Auto) Urine Bacteria (Auto) Calcium Oxalate Crystal Nasal Screen MRSA (PCR) Negative Salicylates Urine Opiates Screen Ur Methadone, Qual Urine Fentanyl Screen Acetaminophen Urine Barbiturates Ur Phencyclidine (PCP) U Amphetamin/Meth Scrn MDMA (Ecstasy) Screen U Benzodiazepines Scrn Ur Cocaine Metabolite U Marijuana (THC) Screen Ethyl Alcohol mg/dL 01/24/25 01/24/25 01/24/25 05:40 07:54 09:45 WBC RBC Hgb Hct MCV MCH MCHC RDW Std Deviation RDW Coeff of Padmini Plt Count MPV Immature Gran % (Auto) Neut % (Auto) Lymph % (Auto) Bryan % (Auto) Eos % (Auto) Baso % (Auto) Neut # (Auto) Lymph # (Auto) Bryan # (Auto) Eos # (Auto) Baso # (Auto) Immature Gran # (Auto) VBG pH 7.41 VBG pCO2 37 L VBG pO2 50 VBG HCO3 24 VBG O2 Saturation 84.3 VBG Base Excess -0.8 Sodium 143 Potassium 4.2 Chloride 111 H Carbon Dioxide 27 Anion Gap 5 BUN 12 Creatinine 0.73 Est Cr Clr Drug Dosing 94.2 eGFR 95.27 BUN/Creatinine Ratio 16.4 Glucose 136 H POC Glucose 132 H Lactate Calcium 11.2 H Phosphorus Magnesium Total Bilirubin Direct Bilirubin AST ALT Alkaline Phosphatase Troponin I High Sens 503.2 H* Total Protein Albumin Globulin Albumin/Globulin Ratio Procalcitonin TSH Urine Color Urine Appearance Urine pH Ur Specific [place] Urine Protein Urine Glucose (UA) Urine Ketones Urine Blood Urine Nitrite Urine Bilirubin Urine Urobilinogen Ur Leukocyte Esterase Urine WBC (Auto) Urine RBC (Auto) U Hyaline Cast (Auto) U Epithel Cells (Auto) Urine Bacteria (Auto) Calcium Oxalate Crystal Nasal Screen MRSA (PCR) Salicylates Urine Opiates Screen Ur Methadone, Qual Urine Fentanyl Screen Acetaminophen Urine Barbiturates Ur Phencyclidine (PCP) U Amphetamin/Meth Scrn MDMA (Ecstasy) Screen U Benzodiazepines Scrn Ur Cocaine Metabolite U Marijuana (THC) Screen Ethyl Alcohol mg/dL 01/24/25 09:48 WBC RBC Hgb Hct MCV MCH MCHC RDW Std Deviation RDW Coeff of Padmini Plt Count MPV Immature Gran % (Auto) Neut % (Auto) Lymph % (Auto) Bryan % (Auto) Eos % (Auto) Baso % (Auto) Neut # (Auto) Lymph # (Auto) Bryan # (Auto) Eos # (Auto) Baso # (Auto) Immature Gran # (Auto) VBG pH VBG pCO2 VBG pO2 VBG HCO3 VBG O2 Saturation VBG Base Excess Sodium Potassium Chloride Carbon Dioxide Anion Gap BUN Creatinine Est Cr Clr Drug Dosing eGFR BUN/Creatinine Ratio Glucose POC Glucose Lactate 1.4 Calcium Phosphorus Magnesium Total Bilirubin Direct Bilirubin AST ALT Alkaline Phosphatase Troponin I High Sens Total Protein Albumin Globulin Albumin/Globulin Ratio Procalcitonin TSH Urine Color Urine Appearance Urine pH Ur Specific [place] Urine Protein Urine Glucose (UA) Urine Ketones Urine Blood Urine Nitrite Urine Bilirubin Urine Urobilinogen Ur Leukocyte Esterase Urine WBC (Auto) Urine RBC (Auto) U Hyaline Cast (Auto) U Epithel Cells (Auto) Urine Bacteria (Auto) Calcium Oxalate Crystal Nasal Screen MRSA (PCR) Salicylates Urine Opiates Screen Ur Methadone, Qual Urine Fentanyl Screen Acetaminophen Urine Barbiturates Ur Phencyclidine (PCP) U Amphetamin/Meth Scrn MDMA (Ecstasy) Screen U Benzodiazepines Scrn Ur Cocaine Metabolite U Marijuana (THC) Screen Ethyl Alcohol mg/dL Diagnostic Findings Brain MRI 01/23/25 19:46 Exam(s): MRI HEAD Without Contrast EXAM: MR Head Without Intravenous Contrast CLINICAL HISTORY: Reason for exam: Unresponsive. rule out occult CVA. TECHNIQUE: Magnetic resonance images of the head/brain without intravenous contrast in multiple planes. COMPARISON: Prior brain MRI from October 06, 2013. 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 No mass. No hemorrhage. No acute infarct. The flow voids at the base of the brain are intact. Ventricles: Unremarkable. No ventriculomegaly. Bones/joints: Unremarkable. No acute fracture. Sinuses: Chronic ethmoid sinusitis. No acute sinusitis. Mastoid air cells: Unremarkable as visualized. No mastoid effusion. Orbits: Unremarkable as visualized. IMPRESSION: No evidence of acute intracranial Pathology. 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 Clinical correlation is recommended. Electronically signed by: Rizwana Pedro MD 01/24/25 00:24 AM
[2025-01-24 10:21] LABS: BUN Creatinine Ratio 16.4 (10-20); Calcium 11.2 mg/dl (8.6-10.3); Creatinine Clr Calc Pharmacy 94.2 ml/min; Potassium 4.2 mmol/L (3.5-5.1)
[2025-01-24] MEDS: GADOBUTROL 65ML VIAL IV ONE (13:13)
--- NOTE | 2025-01-24 13:33 | Magnetic Resonance Report ---
MRI OF THE BRAIN COMBO CLINICAL HISTORY: Altered mental status. COMPARISON STUDY: MRI of the brain October 06, 2013. Head CT and MRI of the brain January 23, 2025. TECHNIQUE: MRI of the brain was performed utilizing various T1 and T2-weighted sequences in the axial , sagittal, and coronal planes. Contrast-enhanced sequences were acquired following the administratio n of cc of Gadavist. FINDINGS: This exam is moderately compromised by motion artifact. There are no foci of restricted dif fusion to suggest acute infarct. No acute intracranial hemorrhage, midline shift or mass effect is pr esent. Ventricular system is unremarkable. The basal cisterns are patent. Flow-voids for the major in tracranial vessels are present. A 2.5 cm subcortical T2 hyperintense focus within the posterior left parietal lobe on image 15 of 22 of the T2-weighted sequence remains unchanged since initial MRI April 02, 2019. Multiple white matter T2 hyperintense foci are present. These have increased in number sinc e MRI of October 06, 2013. There is no associated enhancement. No intracranial mass or pathologic en hancement is present. No calvarial lesions are identified. There is mild sinus mucosal thickening. Th ere are a small amount of secretions within the left frontal sinus. IMPRESSION: 1. No evidence for acute infarction. No acute intracranial hemorrhage. Moderate motion artifact. 2. Numerous white matter T2 hyperintense foci which have significantly increased in number since MRI of October 06, 2013. Although nonspecific, these statistically represent small vessel disease. Demye linating disease could appear similar. 3. No intracranial mass or pathologic enhancement. 4. No change in a 2.5 cm subcortical T2 hyperintense focus within the left parietal lobe since initia l MRI. No associated enhancement. This may represent a focus of encephalomalacia. Cortical dysplasia is also within the differential. ACT 112: Negative or not required by law. Electronically signed by: Bernard Carey M.D. 01/24/2025 1:30 PM
--- NOTE | 2025-01-24 14:08 | Cardiology Consultation ---
Date of Consultation January 24, 2025 Assessment & Plan (1) Antipsychotic overdose: 2. Elevated troponin, transient ST elevation 3. Preserved LV function with LVH 4. Hypertension 5. Paroxysmal SVT Relatively small troponin rise and EKG changes are not secondary to ACS. Suspect demand ischemia in the setting of overdose, hypertension/tachycardia and LVH. Remains tachycardic, primarily sinus with periods of intermittent SVT. Likely secondary to antipsychotic overdose. QTc now normal. SVT benign in the setting of structurally normal heart. Would continue to monitor on telemetry for now. At this point no need for additional ischemic/cardiac testing. Can resume home aspirin, statin, NICOLAS when able. Please contact cardiology if new issues arise. History of Present Illness Attending Physician: Chanel Nunes MD History of Present Illness Mrs. Patel is a 59-year-old woman who was admitted after found unresponsive at home in the setting of Zyprexa overdose. Cardiology consulted due to transient inferior ST elevations on ECG and mildly elevated troponin. Past medical history includes psychiatric illness with prior psychotic episodes requiring hospitalization, hypertension, dyslipidemia MTHFR mutation, PFO, prior CVA, hyperparathyroidism. Has had issues with medical adherence. No known prior cardiac history. Initially contacted by Dr. Ahumada from ED yesterday afternoon. She had already been intubated in the ED for airway protection. On initial ECG at 17: 27 yesterday suspected SVT (? AFL vs AT) with inferior ST elevations, calculated QTc 492. Hypertensive to the 180s over 110s. Bedside echo showed hyperdynamic LV with no regional wall motion abnormalities. Initial HS TropI 430, trended up to 664 before downtrending. Remained hemodynamically stable overnight. Intermittently tachycardic overnight on telemetry up to 130s (? paroxysmal AT). Formal echo this morning showed EF 65% with mild LVH, sigmoid septum and no significant valve disease. She was extubated this morning. Comfortable, calm but unable to answer questions. Allergies Allergy/AdvReac Type Severity Reaction Status Date / Time Penicillins Allergy Severe SEIZURES Verified 01/23/25 17:57 Sulfa (Sulfonamide Allergy Severe ARRHYTHMIAS Verified 03/03/24 17:55 Antibiotics) doxycycline AdvReac Tachycardia Verified 01/23/25 17:57 Home Medications Medication Instructions Recorded Confirmed Type albuterol sulfate 90 mcg/actuation 2 puff inhalation Q4 PRN Wheezing 05/17/21 01/23/25 History aerosol inhaler atorvastatin 40 mg tablet 40 mg PO QAM 05/17/21 01/23/25 History aspirin 81 mg tablet,delayed 81 mg PO QAM 03/03/24 01/23/25 History release multivitamin with minerals 1 tab PO QAM 03/03/24 01/23/25 History (Multiple Vitamin-Minerals tablet) lisinopril 20 mg tablet 20 mg PO QAM 01/23/25 01/23/25 History Patient History Medical History Psychosis No pertinent family history Surgical History No pertinent past surgical history Social History Smoking Status: Never smoker Hx Alcohol Use: No Hx Substance Use: No Preferred Language: Slovenian Communication Ability: Effective Turf Grower Required: No Beliefs That Will Affect Care: None Current Living Situation: Spouse Feels Safe at Home: Yes Assistive Devices: None Review of Systems Review of Systems: Unobtainable due to cognitive status Physical Exam Physical Exam: General: Resting comfortably, moans, unable to answer questions HEENT: Sclerae anicteric Lungs: Clear anteriorly Cardiac: Tachycardic, regular, no murmurs Vascular: 2+ radial Abdomen: Soft, nontender Extremities: Well perfused, no edema Results & Data Vital Signs (Past 12 Hours) Vital Signs Temp Pulse Resp BP Pulse Ox O2 Del Method O2 Flow Rate 01/24/25 08:27 Nasal Cannula 3 01/24/25 08:12 99.7 F H 134 H 22 97 01/24/25 08:00 112 H 17 96 01/24/25 07:50 96 H 19 99 01/24/25 07:00 99.5 F 88 18 126/76 100 Mechanical Vent 01/24/25 06:30 108/88 01/24/25 06:30 108/88 01/24/25 06:21 99.7 F H 93 H 18 100 01/24/25 06:03 99.7 F H 107 H 18 100 01/24/25 06:01 122/79 01/24/25 06:01 122/01/24/25 06:01 12201/24/25 05:48 99.7 F H 99 H 18 100 01/24/25 05:31 165/125 H 01/24/25 05:15 99.5 F 87 22 100 01/24/25 05:00 99.7 F H 90 19 100 01/24/25 05:00 119/69 01/24/25 04:51 99.9 F H 92 H 22 100 01/24/25 04:48 99.9 F H 92 H 18 100 01/24/25 04:30 100.0 F H 95 H 19 98 01/24/25 04:30 106/57 L 01/24/25 04:30 106/57 L 01/24/25 04:21 100.0 F H 97 H 19 99 01/24/25 04:15 100.0 F H 97 H 18 99 01/24/25 04:06 100.0 F H 101 H 18 99 01/24/25 04:00 01/24/25 04:00 116/56 L 01/24/25 04:00 116/56 L 01/24/25 04:00 116/56 L 01/24/25 03:48 100.0 F H 107 H 18 99 01/24/25 03:45 100.0 F H 108 H 18 99 01/24/25 03:33 100.0 F H 114 H 18 99 01/24/25 03:30 161/81 H 01/24/25 03:30 115 H 22 95 01/24/25 03:27 100.0 F H 116 H 18 99 01/24/25 03:12 99.7 F H 120 H 21 100 01/24/25 03:09 99.5 F 120 H 21 95 01/24/25 03:00 129/74 01/24/25 02:57 99.5 F 92 H 22 100 01/24/25 02:42 99.5 F 92 H 22 100 01/24/25 02:36 99.5 F 95 H 22 100 01/24/25 02:21 99.5 F 93 H 22 100 01/24/25 02:18 99.5 F 93 H 22 100 01/24/25 02:00 99.5 F 93 H 22 100 01/24/25 02:00 118/73 01/24/25 02:00 118/73 01/24/25 02:00 118/73 FiO2 01/24/25 08:27 04/10/25 08:12 01/24/25 08:00 40 01/24/25 07:50 40 01/24/25 07:00 01/24/25 06:30 01/24/25 06:30 01/24/25 06:21 01/24/25 06:03 01/24/25 06:01 01/24/25 06:01 01/24/25 06:01 01/24/25 05:48 01/24/25 05:31 01/24/25 05:15 01/24/25 05:00 01/24/25 05:00 01/24/25 04:51 01/24/25 04:48 01/24/25 04:30 01/24/25 04:30 01/24/25 04:30 01/24/25 04:21 01/24/25 04:15 01/24/25 04:06 01/24/25 04:00 40 01/24/25 04:00 01/24/25 04:00 01/24/25 04:00 01/24/25 03:48 01/24/25 03:45 01/24/25 03:33 01/24/25 03:30 01/24/25 03:30 40 01/24/25 03:27 01/24/25 03:12 01/24/25 03:09 01/24/25 03:00 01/24/25 02:57 01/24/25 02:42 01/24/25 02:36 01/24/25 02:21 01/24/25 02:18 01/24/25 02:00 01/24/25 02:00 01/24/25 02:00 01/24/25 02:00 PG Care Time/CCT Total # of Minutes Spent Total Time Spent with Patient: Total time spent is greater than 50% in coordination of care (as documented) at patient's floor/unit and/or counseling patient: Coding Level of Care Code 46782 IN/OBS CONSULT LVL 4,60M Diagnoses Antipsychotic overdose T43.502A Encounter type: initial encounter Injury intent: intentional self-harm (1) Antipsychotic overdose Encounter type: initial encounter Injury intent: intentional self-harm Qualified Code(s): T43.502A - Poisoning by unspecified antipsychotics and neuroleptics, intentional self-harm, initial encounter
--- NOTE | 2025-01-24 14:16 | Hospitalist Progress Note ---
Date of Service January 24, 2025 Assessment & Plan (1) Antipsychotic overdose: Plan: 59-year-old female with past medical history significant for dyslipidemia, history of elevated parathyroid hormone, methytetrahydrofolate reductase mutation, patent foramen ovale, history of CVA , morbid obesity, microcytic anemia, recurrent depression, was brought in from home because of unresponsiveness. As per in the morning patient seemed irritable. Pat parker's has history of depression and psychosis in the past and currently not taking medications for mental health as per . At 4 PM was called by her son that the patient had an episode of vomiting and was unresponsive. Zyprexa empty bottle was found beside her. Zyprexa was prescribed in 2019 when she was admitted here for psychosis and depression. As per she never took the Zyprexa medication and thinks the bottle is full . Expiry date on the bottle is 2020. She was on fluoxetine but has been not taking as per . Sometimes seems irritable as per . Her appetite is down but she was drinking a lot of water. No recent fevers. No complaint of chest pain or abdominal pain as per . She has some back pain. But she was walking and climbing steps okay. Patient in the ER was intubated. ER spoke with poison control and plan for supportive care.Patient was placed on Versed for seizure precaution and also fentanyl as needed. Patient also has ST elevations on EKG and elevated troponins. Patient was evaluated by cardiology at bedside with bedside echo and plan for observation for now as per ER. Zyprexa overdose Unresponsive on admission S/p intubation On Versed and fentanyl as needed and also on propofol currently Poison control notified by ER Close monitoring ICU Appreciate certified physical therapist assistant input and recommendation The patient is status post extubation this morning and he still remains under the influence of sedative medications Remains tachycardic but otherwise hemodynamically stable Possible Seizures on MRI Appreciate neurology input and recommendation Has had MRI with and without contrast showed small vessel disease from poorly controlled risk factors No definitive source of seizure focus and no significant change compared with the MRI that was done before [employer] system in 2006 Will have EEG Will not start any antiseizure medication Abnormal EKG ST elevation on EKG Initial troponin 432 and repeat 618 Cardiology evaluated patient in the ER and did bedside echo No ACS per cardiology Appreciate cardiology input and recommendationdemand ischemia from hypertension/tachycardia and LVH No QT prolongation and will observe Elevated lactic acid lactic acid 3.5 and repeat 3.9 procalcitonin negative on fluids close monitor follow repeat levels. Doubt any infection and the patient will not need any antibiotics History of depression History of psychosis Currently not taking any medications Psychiatry consult once stable History of CVA Patent foramen ovale On aspirin and statin History of hypertension On lisinopril which will be held for now Will monitor DVT prophylaxis SCDs Lovenox Disposition Close monitoring ICU Full code (2) Unresponsive: Plan: As above (3) Encephalopathy acute: Plan: As above (4) Major depression: Admission and Anticipated Discharge Date Admission Date: January 23, 2025 Subjective 01/24/2025 The patient was seen and examined in ICU in presence of the family members She is status post extubation and also remains under the effect of sedative medications Remains tachycardic and does not respond with vocal commands Review of Systems Review of Systems: Unobtainable due to cognitive status Physical Exam Physical Exam: Lying in bed without any acute distress, under the influence of sedative medications and is status post extubation Constitutional: + ill appearing and + morbidly obese Eyes: closed ENMT: external ear and nose normal, oropharynx normal Neck: trachea midline, no thyromegaly Respiratory: no respiratory distress Auscultation: + diminished lung sounds ( bilaterally) Cardiovascular: Rate/Rhythm: regular rate, regular rhythm and + tachycardic Heart Sounds: normal S1 and normal S2; no murmur Extremities: + edema ( trace edema bilaterally) Gastrointestinal (Abdomen): Inspection/Auscultation: normal bowel sounds; abdomen not distended Percussion/Palpation: abdomen soft; abdomen nontender Musculoskeletal: No acute arthritis involving any of the joint Neurologic: Just extubated and remains noncommunicative likely secondary to effect of medications, hemodynamically stable with tachycardia Lymphatic: no cervical or axillary lymphadenopathy Results & Data Results & Data Vital Signs (Past 12 Hours) Vital Signs Temp Pulse Resp BP Pulse Ox O2 Del Method O2 Flow Rate 01/24/25 08:27 Nasal Cannula 3 01/24/25 08:12 37.6 C H 134 H 22 97 01/24/25 08:00 112 H 17 96 01/24/25 07:50 96 H 19 99 01/24/25 07:00 37.5 C 88 18 126/76 100 Mechanical Vent 01/24/25 06:30 108/88 01/24/25 06:30 108/88 01/24/25 06:21 37.6 C H 93 H 18 100 01/24/25 06:03 37.6 C H 107 H 18 100 01/24/25 06:01 122/79 01/24/25 06:01 122/79 01/24/25 06:01 122/79 01/24/25 05:48 37.6 C H 99 H 18 100 01/24/25 05:31 165/125 H 01/24/25 05:15 37.5 C 87 22 100 01/24/25 05:00 37.6 C H 90 19 100 01/24/25 05:00 119/69 01/24/25 04:51 37.7 C H 92 H 22 100 01/24/25 04:48 37.7 C H 92 H 18 100 01/24/25 04:30 37.8 C H 95 H 19 98 01/24/25 04:30 106/57 L 01/24/25 04:30 106/57 L 01/24/25 04:21 37.8 C H 97 H 19 99 01/24/25 04:15 37.8 C H 97 H 18 99 01/24/25 04:06 37.8 C H 101 H 18 99 01/24/25 04:00 01/24/25 04:00 116/56 L 01/24/25 04:00 116/56 L 01/24/25 04:00 116/56 L 01/24/25 03:48 37.8 C H 107 H 18 99 01/24/25 03:45 37.8 C H 108 H 18 99 01/24/25 03:33 37.8 C H 114 H 18 99 01/24/25 03:30 161/81 H 01/24/25 03:30 115 H 22 95 01/24/25 03:27 37.8 C H 116 H 18 99 01/24/25 03:12 37.6 C H 120 H 21 100 01/24/25 03:09 37.5 C 120 H 21 95 01/24/25 03:00 129/74 01/24/25 02:57 37.5 C 92 H 22 100 01/24/25 02:42 37.5 C 92 H 22 100 01/24/25 02:36 37.5 C 95 H 22 100 01/24/25 02:21 37.5 C 93 H 22 100 01/24/25 02:18 37.5 C 93 H 22 100 FiO2 01/24/25 08:27 01/24/25 08:12 01/24/25 08:00 40 01/24/25 07:50 40 01/24/25 07:00 01/24/25 06:30 01/24/25 06:30 01/24/25 06:21 01/24/25 06:03 01/24/25 06:01 01/24/25 06:01 01/24/25 06:01 01/24/25 05:48 01/24/25 05:31 01/24/25 05:15 01/24/25 05:00 01/24/25 05:00 01/24/25 04:51 01/24/25 04:48 01/24/25 04:30 01/24/25 04:30 01/24/25 04:30 01/24/25 04:21 01/24/25 04:15 01/24/25 04:06 01/24/25 04:00 40 01/24/25 04:00 01/24/25 04:00 01/24/25 04:00 01/24/25 03:48 01/24/25 03:45 01/24/25 03:33 01/24/25 03:30 01/24/25 03:30 40 01/24/25 03:27 01/24/25 03:12 01/24/25 03:09 01/24/25 03:00 01/24/25 02:57 01/24/25 02:42 01/24/25 02:36 01/24/25 02:21 01/24/25 02:18 Laboratory Results Short CBC 01/23/25 01/24/25 Range/Units 17:14 04:31 WBC 9.99 10.57 (4.8-10.8) K/ul Hgb 14.4 12.9 (12.0-16.0) g/dl Hct 44.1 38.5 (37.0-47.0) % Plt Count 201 192 (130-400) K/uL BMP 01/23/25 01/23/25 01/24/25 17:14 22:13 09:45 Sodium 138 142 143 Potassium 3.7 4.2 4.2 Chloride 102 108 H 111 H Carbon Dioxide 25 25 27 BUN 16 13 12 Creatinine 1.03 0.85 0.73 Glucose 203 H 183 H 136 H Calcium 11.3 H 10.3 11.2 H Liver Function 01/23/25 01/24/25 Range/Units 17:14 04:31 Total Bilirubin 0.9 0.7 (0.2-1.0) mg/dl Direct Bilirubin 0.2 (0-0.2) mg/dl AST 21 19 (13-39) U/L ALT 32 24 (7-52) U/L Alkaline Phosphatase 155 H 129 H (34-104) U/L Albumin 4.5 3.5 (3.4-5.0) gm/dl Urine 01/23/25 Range/Units 17:32 Urine Color Yellow Urine Appearance Clear (Clear) Urine pH 6.0 (4.5-7.5) Ur Specific [place]ck[place] 1.013 (1.000-1.030) Urine Protein 2+ H (Negative) Urine Glucose (UA) Negative (Negative) Medications Administered Current Inpatient Medications Enoxaparin Sodium (Enoxaparin Inj 40 Mg/0.4 Ml Syr) 40 mg SQ Q24H DARLENE Stop: 02/23/25 22:59 Famotidine (Famotidine 40 Mg Tablet) 40 mg PO QAM DARLENE Stop: 02/23/25 08:59 Last Admin: 01/24/25 08:02 Dose: 40 mg Lactated Ringer's (Lr) 1,000 mls @ 100 mls/hr IV .Q10H DARLENE Stop: 01/24/25 21:44 Last Admin: 01/24/25 07:58 Dose: 100 mls/hr Miscellaneous ([facility] Protocol For Hyperglycemia) 1 each N/A Q6 DARLENE Stop: 01/26/25 05:59 Last Admin: 01/24/25 05:41 Dose: Not Given Miscellaneous (Icu Electrolyte Replacement Protocol) 1 each N/A BID@06,18 DARLENE; Protocol Stop: 01/31/25 17:59 Polyethylene Glycol (Polyethylene (Miralax) 17 Gm Pack) 17 gm PO DAILY DARLENE Stop: 02/23/25 08:59 Last Admin: 01/24/25 08:02 Dose: 17 gm (1) Antipsychotic overdose Encounter type: initial encounter Injury intent: intentional self-harm Qualified Code(s): T43.502A - Poisoning by unspecified antipsychotics and neuroleptics, intentional self-harm, initial encounter
[2025-01-24] MEDS: ICU ELECTROLYTE REPLACEMENT PROTOCOL SCH (18:34)
[2025-01-24] MEDS ORDERED: LABETALOL HCL IV 5 MG/ML 20ML IV PRN (21:14)
--- NOTE | 2025-01-24 22:57 | Electrocardiogram Report ---
Test Reason : Blood Pressure : */* mmHG Vent. Rate : 152 BPM Atrial Rate : 153 BPM P-R Int : 112 ms QRS Dur : 74 ms QT Int : 310 ms P-R-T Axes : * 48 63 degrees QTcB Int : 492 ms Supraventricular tachycardia vs atrial flutter ST elevation consider inferior injury or acute infarct ACUTE AL / STEMI Abnormal ECG When compared with ECG of 05-Oct-2013 08:25, Supraventricular tachycardia vs atrial flutter has replaced sinus Vent. rate has increased by [address] elevation now present in Inferior leads Confirmed by Aurelio Buck ([id number]) on 01/24/2025 10:57:22 PM Referred By: REFERRED SELF Confirmed By: Aurelio Buck
--- NOTE | 2025-01-24 22:58 | Electrocardiogram Report ---
Test Reason : Blood Pressure : */* mmHG Vent. Rate : 117 BPM Atrial Rate : 117 BPM P-R Int : 190 ms QRS Dur : 76 ms QT Int : 302 ms P-R-T Axes : 60 30 56 degrees QTcB Int : 421 ms Sinus tachycardia Nonspecific ST and T wave abnormality Abnormal ECG When compared with ECG of 23-Jan-2025 17:27, ST less elevated in Inferior leads Sinus rhythm has replaced Supraventricular tachycardia vs atrial flutter Confirmed by Aurelio Buck ([id number]) on 01/24/2025 10:58:11 PM Referred By: REFERRED SELF Confirmed By: Aurelio Buck
--- NOTE | 2025-01-24 22:58 | Electrocardiogram Report ---
Test Reason : Blood Pressure : */* mmHG Vent. Rate : 110 BPM Atrial Rate : 110 BPM P-R Int : 190 ms QRS Dur : 74 ms QT Int : 334 ms P-R-T Axes : 70 37 30 degrees QTcB Int : 452 ms Sinus tachycardia Otherwise normal ECG When compared with ECG of 23-Jan-2025 22:50, Nonspecific T wave abnormality no longer evident in Lateral leads Confirmed by Aurelio Buck ([id number]) on 01/24/2025 10:58:35 PM Referred By: REFERRED SELF Confirmed By: Aurelio Buck
[2025-01-24] MEDS: ENOXAPARIN INJ 40 MG/0.4 ML SYR SQ SCH (23:10)
[2025-01-25] MEDS: ACETAMINOPHEN 1,000 MG/100 ML VIAL IV PRN (00:20)
[2025-01-25 00:47] LABS: Appearance Urine Clear (Clear); Bacteria Urine Automated None Seen (None Seen); Bilirubin Urine Negative (Negative); Blood Urine 1+ (Negative); Cast Urine Automated 0-2 /lpf (0-2); Color Urine Yellow; Epithelial Cell Urine Auto 0-2 /hpf (0-2); Glucose Urine UA Negative (Negative); Ketones Urine Negative (Negative); Leukocyte Esterase Urine Negative (Negative); Nitrite Urine Negative (Negative); Protein Urine Negative (Negative); RBC Urine Automated >20 /hpf (0-2); Specific Gravity Urine 1.012 (1.000-1.030); Urobilinogen Urine Negative (Negative); WBC Urine Automated 0-5 /hpf (0-5)
[2025-01-25 05:16] LABS: Basophils # (auto) 0.02 K/uL (0.00-0.20); Basophils % (auto) 0.3 %; Eosinophils # (auto) 0.01 K/uL (0.00-0.50); Eosinophils % (auto) 0.1 %; Hemoglobin 12.5 g/dl (12.0-16.0); Immature Granulocytes # (auto) 0.03 K/uL (0.01-0.20); Immature Granulocytes % (auto) 0.4 %; Lymphocytes # (auto) 0.96 K/uL (1.20-3.40); Lymphocytes % (auto) 13.3 %; Mean Corpuscular Hgb Conc 32.9 g/dL (32.0-36.0); Mean Corpuscular Volume 88.2 fL (80.0-100.0); Mean Platelet Volume 12.4 fL (9.4-12.4); Monocytes # (auto) 0.45 K/uL (0.11-0.59); Monocytes % (auto) 6.3 %; Neutrophils # (auto) 5.73 K/uL (1.40-6.50); Neutrophils % (auto) 79.6 %; Platelet Count 171 K/uL (130-400); RDW Coefficient of Variation 13.8 % (11.5-14.5); RDW Standard Deviation 44.5 fL (36.4-46.3); Red Blood Count 4.31 M/uL (4.20-5.40)
[2025-01-25 05:27] LABS: Albumin Level 3.7 gm/dl (3.4-5.0); BUN Creatinine Ratio 19.5 (10-20); Bilirubin Direct 0.2 mg/dl (0-0.2); Bilirubin,Total 0.7 mg/dl (0.2-1.0); Creatinine Clr Calc Pharmacy 89.3 ml/min; Phosphorus 2.5 mg/dl (2.5-4.9); Potassium 3.8 mmol/L (3.5-5.1)
[2025-01-25] MEDS ORDERED: POTASSIUM PHOS 3 MMOL/1 ML INFUSION IV ONE (06:09)
--- NOTE | 2025-01-25 06:36 | Electroencephalogram ---
EEG Procedure Note Date of Service January 24, 2025 Start / End Times Start Time: 1039 End Time: [address] Cade Aguilar History A 59 year old female with encephalopathy. EEG performed for evaluation of epileptiform activtiy. Home Medication List Medication Instructions Recorded Confirmed Type albuterol sulfate 90 mcg/actuation 2 puff inhalation Q4 PRN Wheezing 05/17/21 01/23/25 History aerosol inhaler atorvastatin 40 mg tablet 40 mg PO QAM 05/17/21 01/23/25 History aspirin 81 mg tablet,delayed 81 mg PO QAM 03/03/24 01/23/25 History release multivitamin with minerals 1 tab PO QAM 03/03/24 01/23/25 History (Multiple Vitamin-Minerals tablet) lisinopril 20 mg tablet 20 mg PO QAM 01/23/25 01/23/25 History Inpatient Medication List Enoxaparin Sodium (Enoxaparin Inj 40 Mg/0.4 Ml Syr) 40 mg SQ Q24H DARLENE Stop: 02/23/25 22:59 Last Admin: 01/24/25 23:10 Dose: 40 mg Documented By: STEPHANIE Famotidine (Famotidine 40 Mg Tablet) 40 mg PO QAM DARLENE Stop: 02/23/25 08:59 Last Admin: 01/24/25 08:02 Dose: 40 mg Documented By: ROBBY Acetaminophen (Ofirmev) 1,000 mg in 100 mls @ 400 mls/hr IV Q8H PRN PRN Reason: Pain or Fever Stop: 01/27/25 23:53 Last Infusion: 01/25/25 01:11 Dose: Infused Documented By: Admin: 01/25/25 00:20 Dose: 400 mls/hr Documented By: STEPHANIE Greshamcellaneous (Icu Protocol For Hyperglycemia) 1 each N/A Q6 DARLENE Stop: 01/26/25 05:59 Last Admin: 01/25/25 06:11 Dose: Not Given Documented By: Admin: 01/25/25 00:14 Dose: Not Given Documented By: Admin: 01/24/25 18:34 Dose: Not Given Documented By: Admin: 01/24/25 12:30 Dose: Not Given Documented By: Admin: 01/24/25 05:41 Dose: Not Given Documented By: ELTONP Miscellaneous ([facility]cu Electrolyte Replacement Protocol) 1 each N/A BID@06,18 [facility]; Protocol Stop: 01/31/25 17:59 Last Admin: 01/25/25 06:13 Dose: 1 each Documented By: Admin: 01/24/25 18:34 Dose: Not Given Documented By: ZEHRAK Polyethylene Glycol (Polyethylene (Miralax) 17 Gm Pack) 17 gm PO DAILY DARLENE Stop: 02/23/25 08:59 Last Admin: 01/24/25 08:02 Dose: 17 gm Documented By: ZEHRAK Discontinued Medications Enoxaparin Sodium (Enoxaparin Inj 60 Mg/0.6 Ml Syr) 50 mg SQ Q24H DARLENE Stop: 02/22/25 22:14 Last Admin: 01/23/25 23:21 Dose: 50 mg Documented By: MICHELLE Fentanyl Citrate (Fentanyl Citrate Pf 100 Mcg/2 Ml Vial) 50 mcg IV Q15M PRN PRN Reason: Pain Stop: 02/06/25 17:18 Last Admin: 01/23/25 19:45 Dose: 50 mcg Documented By: Admin: 01/23/25 18:54 Dose: 50 mcg Documented By: [facility] Gadobutrol (Gadobutrol 65ml Vial) 10.5 ml IV ONCE ONE Stop: 01/24/25 13:14 Last Admin: 01/24/25 13:13 Dose: 10.5 ml Documented By: MARYCHUY Sodium Chloride (Nss) 1,000 mls @ 999 mls/hr IV .Q1H1M ONE Stop: 01/23/25 18:21 Last Infusion: 01/23/25 19:22 Dose: Infused Documented By: Admin: 01/23/25 17:39 Dose: 999 mls/hr Documented By: [facility] Midazolam HCl (Versed) 125 mg in 250 mls @ 0 mls/hr IV .Q0M [facility]; Protocol Stop: 02/22/25 17:29 Last Titration: 01/24/25 00:06 Dose: Infused Documented By: LLP Co-signed By: CLC Titration: 01/24/25 00:05 Dose: 0 mg/hr, 0 mls/hr Documented By: LLP Co-signed By: CLC Titration: 01/23/25 23:00 Dose: 1 mg/hr, 2 mls/hr Documented By: LLP Co-signed By: CLC Titration: 01/23/25 21:15 Dose: 2 mg/hr, 4 mls/hr Documented By: LLP Co-signed By: YOLANDA Titration: 01/23/25 19:19 Dose: 1.5 mg/hr, 3 mls/hr Documented By: CTK Co-signed By: HH Admin: 01/23/25 17:47 Dose: 1 mg/hr, 2 mls/hr Documented By: [facility] Co-signed By: CAP Magnesium Sulfate/Dextrose (Magnesium Sulfate / D5w) 1 gm in 100 mls @ 200 mls/hr IV Q30M DARLENE Stop: 01/23/25 18:59 Last Infusion: 01/23/25 19:54 Dose: Infused Documented By: Admin: 01/23/25 19:18 Dose: 200 mls/hr Documented By: Infusion: 01/23/25 19:09 Dose: Infused Documented By: Admin: 01/23/25 18:33 Dose: 200 mls/hr Documented By: TEVIN Sodium Chloride (Nss) 1,000 mls @ 999 mls/hr IV .Q1H1M ONE Stop: 01/23/25 19:57 Last Infusion: 01/23/25 20:29 Dose: Infused Documented By: Admin: 01/23/25 19:18 Dose: 999 mls/hr Documented By: JUANK Lactated Ringer's (Lr) 1,000 mls @ 100 mls/hr IV .Q10H DARLENE Stop: 01/24/25 21:44 Last Admin: 01/24/25 21:11 Dose: 100 mls/hr Documented By: Infusion: 01/24/25 17:58 Dose: Infused Documented By: Admin: 01/24/25 07:58 Dose: 100 mls/hr Documented By: Infusion: 01/24/25 07:58 Dose: Infused Documented By: Admin: 01/23/25 22:22 Dose: 100 mls/hr Documented By: MICHELLE Propofol (Diprivan) 1,000 mg in 100 mls @ 9.63 mls/hr IV .[id number] DARLENE; Protocol Stop: 01/26/25 23:29 Last Titration: 01/24/25 08:05 Dose: Infused Documented By: Titration: 01/24/25 07:15 Dose: 15 mcg/kg/min, 9.6 mls/hr Documented By: ZEHRAK Co-signed By: MICHELLE Admin: 01/24/25 06:12 Dose: 15 mcg/kg/min, 9.6 mls/hr Documented By: MICHELLE Co-signed By: MNVeronica Titration: 01/24/25 06:12 Dose: Infused Documented By: MICHELLE Co-signed By: MNM Titration: 01/24/25 03:11 Dose: 15 mcg/kg/min, 9.6 mls/hr Documented By: Titration: 01/24/25 02:59 Dose: 10 mcg/kg/min, 6.4 mls/hr Documented By: Admin: 01/24/25 00:05 Dose: 20 mcg/kg/min, 12.8 mls/hr Documented By: MICHELLE Co-signed By: CLC Ioversol (Optiray 320 125ml) 115 ml IV ONCE ONE Stop: 01/23/25 18:16 Last Admin: 01/23/25 18:16 Dose: 115 ml Documented By: EDEL Midazolam HCl (Midazolam Bolus From Bag) 2 mg IV Q60M PRN PRN Reason: Sedation Stop: 02/22/25 17:21 Last Admin: 01/23/25 21:15 Dose: 2 mg Documented By: MICHELLE Co-signed By: YOLANDA Admin: 01/23/25 18:50 Dose: 2 mg Documented By: TEVIN Co-signed By: PAM Miscellaneous (Rapid Sequence Induction Bag) Confirm Administered Dose 1 each N/A .STK-MED ONE Stop: 01/23/25 16:58 Last Admin: 01/23/25 18:33 Dose: Not Given Documented By: TEVIN Moses (Stat Iv Infusion Titration Per Protocol) 1 each N/A NOW STA Stop: 01/23/25 17:23 Last Admin: 01/23/25 18:33 Dose: Not Given Documented By: TEVIN Moses (Icu Protocol For Hyperglycemia) 1 each N/A ACHS DARLENE Stop: 01/25/25 21:58 Last Admin: 01/23/25 22:31 Dose: Not Given Documented By: MICHELLE Propofol (Propofol Bolus From Bag) 20 mg IV Q5M PRN PRN Reason: Sedation Stop: 01/26/25 23:22 Last Admin: 01/24/25 06:12 Dose: 20 mg Documented By: MICHELLE Co-signed By: HOLA Admin: 01/24/25 05:00 Dose: 20 mg Documented By: MICHELLE Co-signed By: HOLA Admin: 01/24/25 04:00 Dose: 20 mg Documented By: MICHELLE Co-signed By: HOLA Description This is a 21 electrode EEG with a single channel dedicated to limited EKG. The electrodes were placed in accordance with the International 10-20 system. REPORT: At the onset of the EEG the patient is drowsy. THe background is continuous and symmetric. The background consist of generalized 6-7 Hz theta activity with some intermixed polymorphic delta activity. No stage II sleep transients are seen. Photic does not induce any abnormalities. Interpretation IMPRESSION: This is an abnormal routine EEG due to generalized background slowing suggestive of a non specific encephalopathy. No seizures or epileptiform discharges are seen.
[2025-01-25] MEDS: MAGNESIUM SULFATE / D5W 1 GM/100 ML BAG IV SCH (06:44)
[2025-01-25] MEDS: POTASSIUM PHOSPHATE 15 MMOL in SODIUM CHLORIDE 0.9% 250 ML IV ONE (08:02)
--- NOTE | 2025-01-25 08:03 | XRay Report ---
EXAM: XR chest 1V portable CLINICAL HISTORY: eval lung islas for opacitiy TECHNIQUE: An X-ray image of the chest is obtained in AP portable projection. COMPARISON: 01/23/2025 CR. FINDINGS: Pulmonary Parenchyma: Bilateral atelectasis in both lower zones. Bilateral hilar congestion. Suspected opacities at right mid and lower lung zones. More appreciated. Effacement of both costophrenic angles could be due to small effusion or due to atelectasis. Interval mild increase. Heart and Mediastinum: Cardiomegaly and dilated unfolded thoracic aorta. No mediastinal widening or masses. No hilar or mediastinal lymphadenopathy. Bony Thorax: Bony thorax appears intact without fractures or deformities. Soft Tissues: Soft tissues overlying the chest wall are unremarkable. IMPRESSION: 1. Effacement of both costophrenic angles could be due to small effusion or due to atelectasis. Interval mild increase. 2. Bilateral hilar congestion. Suspected opacities at right mid and lower lung zones. More appreciated. Pulmonary oedema/infection should be assessed clinically. 3. Cardiomegaly and dilated unfolded thoracic aorta. Stable 4. Bilateral atelectasis in both lower zones. Stable 5. Interval removal of the ETT and NGT. Electronically signed by Jordan Ventura 01-25-2025 08:03 AM
--- NOTE | 2025-01-25 09:02 | Critical Care Progress Note ---
Date of Service January 25, 2025 Assessment & Plan (1) Antipsychotic overdose: (2) Encephalopathy acute: (3) On mechanically assisted ventilation: (4) Acute kidney injury: (5) Lactic acidosis: (6) Prolonged QT interval: Plan Reason Critically Ill: 59-year-old female brought to the hospital with altered mental status intubated due to concern about to protect airway. There was concern about possible intentional versus unintentional Zyprexa overdose. 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 24-hour events: Patient was extubated. EEG accomplished. MRI of the brain with and without contrast completed. Results noted above. Recommendations Neuro -improved but remains somewhat obtunded. MRI showed increase in T2 hyperintense lesions compared to previous of unclear etiology. Differential would be demyelinating disorders versus vascular ischemic injury. Neurology consultation reviewed. Defer additional evaluation to them. Continue supportive care. Holding any antipsychotics. Cardiac -cardiology notes reviewed. Agree this does not represent ACS. She is no longer tachycardic. Her QT interval is now normal. Respiratory -no current issues. Extubated now. Will need pulmonary toilet as allowed by mental status. Basilar atelectasis identified on CT scan. GI -n.p.o. pending improvement in the patient's mental status RENAL/LYTES -ICU electrolyte replacement protocol. Repeat BMP this morning. Acid-base status acceptable. Appears adequately fluid resuscitated. ENDO - glycemic control per protocol HEME/ONC/OTHER -no acute issues ID -no indication for antibiotics currently DVT PROPHYLAXIS - Enoxaparin Patient's critical care issues appear improved. Continued supportive care is warranted to monitor her neurological status however she does not have a critical care needed at this point in time. She can be transferred out of the ICU and critical care services will sign off. Feel free to contact us with questions or concerns Admission and Anticipated Discharge Date Admission Date: January 23, 2025 Subjective Patient seen and examined. EMR reviewed. Discussed with bedside critical care nurse and on multidisciplinary rounds. The patient is hemodynamically stable however she was febrile overnight. She remains somewhat obtunded but is not agitated. She is able to respond somewhat to intermittent commands Review of Systems Review of Systems: Unobtainable due to reduced consciousness Physical Exam Constitutional: WD/WN, vitals as above Neck: trachea midline, no thyromegaly Respiratory: normal respiratory effort, lungs clear to auscultation Cardiovascular: RRR, no murmur, no edema Gastrointestinal (Abdomen): normal bowel sounds, soft, nontender, no hepatosplenomegaly Musculoskeletal: Extremities: extremities normal to inspection Skin: no rashes, warm and dry Neurologic: Somnolent. Responds to tactile stimulus Lymphatic: no cervical lymphadenopathy Results & Data Results & Data Vital Signs (Past 12 Hours) Vital Signs Temp Pulse Resp BP Pulse Ox O2 Del Method 01/25/25 06:33 37.6 C H 104 H 14 91 01/25/25 06:03 37.6 C H 109 H 15 137/75 87 L 01/25/25 05:57 37.6 C H 103 H 14 89 L 01/25/25 05:06 37.7 C H 108 H 17 135/77 90 01/25/25 04:45 37.7 C H 111 H 14 90 01/25/25 04:33 37.7 C H 114 H 14 91 01/25/25 04:03 37.7 C H 108 H 15 108/63 98 01/25/25 03:48 37.7 C H 98 H 14 97 01/25/25 03:39 37.7 C H 105 H 13 97 01/25/25 03:12 38.0 C H 102 H 14 93 01/25/25 03:01 116/63 01/25/25 02:51 38.1 C H 105 H 14 92 01/25/25 02:42 38.1 C H 106 H 13 92 01/25/25 02:00 38.3 C H 108 H 14 119/71 91 01/25/25 01:30 38.3 C H 112 H 14 93 01/25/25 01:06 38.3 C H 113 H 17 90 01/25/25 01:00 38.3 C H 112 H 17 148/73 H 91 01/25/25 00:57 38.3 C H 110 H 25 H 91 01/25/25 00:33 38.4 C H 118 H 18 94 01/25/25 00:03 38.3 C H 110 H 23 93 01/25/25 00:01 164/80 H 01/25/25 00:00 115 H 01/24/25 23:51 38.3 C H 118 H 23 93 01/24/25 23:42 38.3 C H 111 H 28 H 94 01/24/25 23:39 38.3 C H 117 H 29 H 94 01/24/25 23:19 Room Air 01/24/25 23:03 38.2 C H 129 H 19 95 01/24/25 22:42 38.2 C H 120 H 21 93 01/24/25 22:21 38.1 C H 126 H 49 H 94 01/24/25 22:01 159/103 H 01/24/25 22:00 38.0 C H 124 H 25 H 93 01/24/25 21:54 169/140 H 01/24/25 21:48 37.9 C H 127 H 22 96 01/24/25 21:27 37.8 C H 121 H 26 H 92 01/24/25 21:09 195/119 H 01/24/25 21:09 195/119 H 01/24/25 21:09 37.8 C H 116 H 23 206/99 H 87 L Diagnostic Findings EEG performed yesterday showed generalized background slowing consistent with metabolic encephalopathy but no seizures or epileptiform discharges were identified. Critical Care Results & Data Vital Signs (Past 12 Hours) Vital Signs Temp Pulse Resp BP Pulse Ox O2 Del Method 01/25/25 06:33 37.6 C H 104 H 14 91 01/25/25 06:03 37.6 C H 109 H 15 137/75 87 L 01/25/25 05:57 37.6 C H 103 H 14 89 L 01/25/25 05:06 37.7 C H 108 H 17 135/77 90 01/25/25 04:45 37.7 C H 111 H 14 90 01/25/25 04:33 37.7 C H 114 H 14 91 01/25/25 04:03 37.7 C H 108 H 15 108/63 98 01/25/25 03:48 37.7 C H 98 H 14 97 01/25/25 03:39 37.7 C H 105 H 13 97 01/25/25 03:12 38.0 C H 102 H 14 93 01/25/25 03:01 116/63 01/25/25 02:51 38.1 C H 105 H 14 92 01/25/25 02:42 38.1 C H 106 H 13 92 01/25/25 02:00 38.3 C H 108 H 14 119/71 91 01/25/25 01:30 38.3 C H 112 H 14 93 01/25/25 01:06 38.3 C H 113 H 17 90 01/25/25 01:00 38.3 C H 112 H 17 148/73 H 91 01/25/25 00:57 38.3 C H 110 H 25 H 91 01/25/25 00:33 38.4 C H 118 H 18 94 01/25/25 00:03 38.3 C H 110 H 23 93 01/25/25 00:01 164/80 H 01/25/25 00:00 115 H 01/24/25 23:51 38.3 C H 118 H 23 93 01/24/25 23:42 38.3 C H 111 H 28 H 94 01/24/25 23:39 38.3 C H 117 H 29 H 94 01/24/25 23:19 Room Air 01/24/25 23:03 38.2 C H 129 H 19 95 01/24/25 22:42 38.2 C H 120 H 21 93 01/24/25 22:21 38.1 C H 126 H 49 H 94 01/24/25 22:01 159/103 H 01/24/25 22:00 38.0 C H 124 H 25 H 93 01/24/25 21:54 169/140 H 01/24/25 21:48 37.9 C H 127 H 22 96 01/24/25 21:27 37.8 C H 121 H 26 H 92 01/24/25 21:09 195/119 H 01/24/25 21:09 195/119 H 01/24/25 21:09 37.8 C H 116 H 23 206/99 H 87 L Lab & Micro Results (Past 24 Hours) RBC 4.31 M/uL (4.20-5.40) 01/25/25 WBC 7.20 K/ul (4.8-10.8) 01/25/25 Hgb 12.5 g/dl (12.0-16.0) 01/25/25 Hct 38.0 % (37.0-47.0) 01/25/25 MCV 88.2 fL (80.0-100.0) 01/25/25 MCH 29.0 pg (25.0-34.0) 01/25/25 MCHC 32.9 g/dL (32.0-36.0) 01/25/25 RDW Standard Deviation 44.5 fL (36.4-46.3) 01/25/25 RDW Coefficient of Variation 13.8 % (11.5-14.5) 01/25/25 Plt Count 171 K/uL (130-400) 01/25/25 MPV 12.4 fL (9.4-12.4) 01/25/25 Neutrophils (%) (Auto) 79.6 % 01/25/25 Lymphocytes (%) (Auto) 13.3 % 01/25/25 Monocytes # (Auto) 0.45 K/uL (0.11-0.59) 01/25/25 Eosinophils # (Auto) 0.01 K/uL (0.00-0.50) 01/25/25 Immature Granulocyte % (Auto) 0.4 % 01/25/25 Neutrophils # (Auto) 5.73 K/uL (1.40-6.50) 01/25/25 Lymphocytes # (Auto) 0.96 K/uL (1.20-3.40) L 01/25/25 Monocytes # (Auto) 0.45 K/uL (0.11-0.59) 01/25/25 Eosinophils # (Auto) 0.01 K/uL (0.00-0.50) 01/25/25 Basophils # (Auto) 0.02 K/uL (0.00-0.20) 01/25/25 Immature Granulocyte # (Auto) 0.03 K/uL (0.01-0.20) 5 Na 144 mmol/L (136-145) 01/25/25 K 3.8 mmol/L (3.5-5.1) 01/25/25 Cl 113 mmol/L (98-107) H 01/25/25 CO2 28 mmol/L (21-32) 01/25/25 Anion Gap 3 (3-11) 01/25/25 BUN 15 mg/dl (6-23) 01/25/25 Creatinine 0.77 mg/dl (0.6-1.2) 01/25/25 BUN/Creatinine Ratio 19.5 (10-20) 01/25/25 Glu 142 mg/dl (70-99(Fasting)) H 01/25/25 Ca 11.0 mg/dl (8.6-10.3) H 01/25/25 Phosphorus Level 2.5 mg/dl (2.5-4.9) 01/25/25 Total Bilirubin 0.7 mg/dl (0.2-1.0) 01/25/25 Direct Bilirubin 0.2 mg/dl (0-0.2) 01/25/25 AST 20 U/L (13-39) 01/25/25 ALT 23 U/L (7-52) 01/25/25 Alkaline Phosphatase 127 U/L (34-104) H 01/25/25 TP 6.0 gm/dl (6.0-8.3) 01/25/25 Albumin 3.7 gm/dl (3.4-5.0) 01/25/25 Mg 2.0 mg/dl (1.7-2.4) 01/25/25 04:31 Calcium Level 11.0 mg/dl (8.6-10.3) H 01/25/25 04:31 Microbiology 01/24/25 03:10 Gram Stain - Final Sputum,Vent Suction Diagnostic Findings (Past 24 Hours) Brain MRI 01/24/25 10:08 MRI OF THE BRAIN COMBO CLINICAL HISTORY: Altered mental status. COMPARISON STUDY: MRI of the brain October 06, 2013. Head CT and MRI of the brain January 23, 2025. TECHNIQUE: MRI of the brain was performed utilizing various T1 and T2-weighted sequences in the axial, sagittal, and coronal planes. Contrast-enhanced sequences were acquired following the administration of cc of Gadavist. FINDINGS: This exam is moderately compromised by motion artifact. There are no foci of restricted diffusion to suggest acute infarct. No acute intracranial hemorrhage, midline shift or mass effect is present. Ventricular system is unremarkable. The basal cisterns are patent. Flow-voids for the major intracranial vessels are present. A 2.5 cm subcortical T2 hyperintense focus within the posterior left parietal lobe on image 15 of 22 of the T2-weighted sequence remains unchanged since initial MRI April 02, 2019. Multiple white matter T2 hyperintense foci are present. These have increased in number since MRI of October 06, 2013. There is no associated enhancement. No intracranial mass or pathologic enhancement is present. No calvarial lesions are identified. There is mild sinus mucosal thickening. There are a small amount of secretions within the left frontal sinus. IMPRESSION: 1. No evidence for acute infarction. No acute intracranial hemorrhage. Moderate motion artifact. 2. Numerous white matter T2 hyperintense foci which have significantly increased in number since MRI of October 06, 2013. Although nonspecific, these statistically represent small vessel disease. Demyelinating disease could appear similar. 3. No intracranial mass or pathologic enhancement. 4. No change in a 2.5 cm subcortical T2 hyperintense focus within the left parietal lobe since initial MRI. No associated enhancement. This may represent a focus of encephalomalacia. Cortical dysplasia is also within the differential. ACT 112: Negative or not required by law. Electronically signed by: Bernard Carey M.D. 01/24/2025 1:30 PM Chest X-Ray 01/25/25 06:15 EXAM: XR chest 1V portable CLINICAL HISTORY: eval lung islas for opacitiy TECHNIQUE: An X-ray image of the chest is obtained in AP portable projection. COMPARISON: 01/23/2025 CR. FINDINGS: Pulmonary Parenchyma: Bilateral atelectasis in both lower zones. Bilateral hilar congestion. Suspected opacities at right mid and lower lung zones. More appreciated. Effacement of both costophrenic angles could be due to small effusion or due to atelectasis. Interval mild increase. Heart and Mediastinum: Cardiomegaly and dilated unfolded thoracic aorta. No mediastinal widening or masses. No hilar or mediastinal lymphadenopathy. Bony Thorax: Bony thorax appears intact without fractures or deformities. Soft Tissues: Soft tissues overlying the chest wall are unremarkable. IMPRESSION: 1. Effacement of both costophrenic angles could be due to small effusion or due to atelectasis. Interval mild increase. 2. Bilateral hilar congestion. Suspected opacities at right mid and lower lung zones. More appreciated. Pulmonary oedema/infection should be assessed clinically. 3. Cardiomegaly and dilated unfolded thoracic aorta. Stable 4. Bilateral atelectasis in both lower zones. Stable 5. Interval removal of the ETT and NGT. Electronically signed by Jordan Ventura 01-25-2025 08:03 AM I & O Totals 24 Hours 01/24/25 01/25/25 01/26/25 06:59 06:59 06:59 Intake Total 2375.394 / 2375.394 8.08 / 2077.08 1100 / 1100 Output Total 1500 / 1500 2600 / 2600 80 / 80 Balance 875.394 / 875.394 -521.92 / -521.92 1020 / 1020 Cumulative 01/23/25 16:50 thru 01/25/25 08:44 Intake Total 5553.474 Output Total 4180 Balance 1373.474 RT Ventilator Mngmt (Last Documented) Ventilator Ordered Settings Ventilator Support Mode CPAP 01/24/25 08:00 Respiratory Rate 14 01/25/25 06:33 Ventilator Tidal Volume 400 01/24/25 07:50 Setting Minute Ventilation 9.0 01/24/25 08:00 Ventilator Positive Pressure 8 01/24/25 08:00 Support Setting Positive End Expiratory 5 01/24/25 08:00 Pressure Fraction of Inspired Oxygen 40 01/24/25 08:00 Ventilator - PT Measurements Respiratory Rate 14 Exhaled Tidal Volume 412 Minute Ventilation 9.0 Peak Inspiratory Airway 15 Pressure Plateau Pressure 14 Respiratory Cycle Inspiratory: 1:3.2 Expiratory Ratio Inspiratory Phase Time 0.80 End-Tidal CO2 41 Static Lung Compliance 44.44 Dynamic Lung Compliance 41.20 Normal Static Lung Compliance 48.00 Patient Measurements Comment patient extubated to 3L NC and SPO2 95% Coding Level of Care Code 79635 SUB INP/OBS CARE 3/50MIN Diagnoses Antipsychotic overdose T43.502A Encounter type: initial encounter Injury intent: intentional self-harm Encephalopathy acute G93.40 On mechanically assisted ventilation Z99.11 Acute kidney injury N17.9 Lactic acidosis E87.20 Prolonged QT interval R94.31 (1) Antipsychotic overdose Encounter type: initial encounter Injury intent: intentional self-harm Qualified Code(s): T43.502A - Poisoning by unspecified antipsychotics and neuroleptics, intentional self-harm, initial encounter
[2025-01-25] MEDS: ASPIRIN 81 MG ECTAB PO SCH (10:13)
[2025-01-25] MEDS: ATORVASTATIN 40 MG TAB PO SCH (10:13)
[2025-01-25] MEDS: ASPIRIN 81 MG CHEW PO SCH (10:15)
--- NOTE | 2025-01-25 10:55 | Hospitalist Progress Note ---
Date of Service January 25, 2025 Assessment & Plan (1) Antipsychotic overdose: Plan: 59-year-old female with past medical history significant for dyslipidemia, history of elevated parathyroid hormone, methytetrahydrofolate reductase mutation, patent foramen ovale, history of CVA , morbid obesity, microcytic anemia, recurrent depression, was brought in from home because of unresponsiveness. As per in the morning patient seemed irritable. Pat parker's has history of depression and psychosis in the past and currently not taking medications for mental health as per . At 4 PM was called by her son that the patient had an episode of vomiting and was unresponsive. Zyprexa empty bottle was found beside her. Zyprexa was prescribed in 2019 when she was admitted here for psychosis and depression. As per she never took the Zyprexa medication and thinks the bottle is full . Expiry date on the bottle is 2020. She was on fluoxetine but has been not taking as per . Sometimes seems irritable as per . Her appetite is down but she was drinking a lot of water. No recent fevers. No complaint of chest pain or abdominal pain as per . She has some back pain. But she was walking and climbing steps okay. Patient in the ER was intubated. ER spoke with poison control and plan for supportive care.Patient was placed on Versed for seizure precaution and also fentanyl as needed. Patient also has ST elevations on EKG and elevated troponins. Patient was evaluated by cardiology at bedside with bedside echo and plan for observation for now as per ER. Zyprexa overdose Unresponsive on admission S/p intubation On Versed and fentanyl as needed and also on propofol currently Poison control notified by ER Close monitoring ICU Appreciate occupational medicine physician input and recommendation The patient is status post extubation this morning and he still remains under the influence of sedative medications Remains tachycardic but otherwise hemodynamically stable Remains hemodynamically stable and responding to vocal commands minimally Has been moving all the limbs and remained generally weak and lethargic Can be moved to telemetry unit for continuation of care Possible Seizures on MRI Appreciate neurology input and recommendation Has had MRI with and without contrast showed small vessel disease from poorly controlled risk factors No definitive source of seizure focus and no significant change compared with the MRI that was done before [facility] system in 2006 Will have EEG Will not start any antiseizure medication EEG is not showing any focal seizure activity Abnormal EKG ST elevation on EKG Initial troponin 432 and repeat 618 Cardiology evaluated patient in the ER and did bedside echo No ACS per cardiology Appreciate cardiology input and recommendationdemand ischemia from hypertension/tachycardia and LVH No QT prolongation and will observe Tachycardia has decreased Elevated lactic acid lactic acid 3.5 and repeat 3.9 procalcitonin negative on fluids close monitor follow repeat levels. Doubt any infection and the patient will not need any antibiotics History of depression History of psychosis Currently not taking any medications Psychiatry consult once stable Will not start any antipsychotic medications until being evaluated by psychiatrist History of CVA Patent foramen ovale On aspirin and statin History of hypertension On lisinopril which will be held for now Will monitor DVT prophylaxis SCDs Lovenox Disposition Close monitoring ICU Full code (2) Unresponsive: Plan: As above (3) Encephalopathy acute: Plan: As above (4) Major depression: Admission and Anticipated Discharge Date Admission Date: January 23, 2025 Subjective 01/24/2025 The patient was seen and examined in ICU in presence of the family members She is status post extubation and also remains under the effect of sedative medications Remains tachycardic and does not respond with vocal commands 01/25/2025 The patient was seen and examined in ICU She is alert and awake today Has been responding to commands minimally and moving all extremities Review of Systems Review of Systems: Unobtainable due to cognitive status Physical Exam Physical Exam: Lying in bed with moderate distress Constitutional: + ill appearing and + morbidly obese ENMT: external ear and nose normal, oropharynx normal Neck: trachea midline, no thyromegaly Respiratory: no respiratory distress Auscultation: + diminished lung sounds ( bilaterally) Cardiovascular: Rate/Rhythm: regular rate, regular rhythm and + tachycardic Heart Sounds: normal S1 and normal S2; no murmur Extremities: + edema ( trace edema bilaterally) Gastrointestinal (Abdomen): Inspection/Auscultation: normal bowel sounds; abdomen not distended Percussion/Palpation: abdomen soft; abdomen nontender Neurologic: moves all extremities and + obtunded ( moderately obtunded) Minimally responsive to vocal commands Lymphatic: no cervical or axillary lymphadenopathy Results & Data Results & Data Vital Signs (Past 12 Hours) Vital Signs Temp Pulse Resp BP Pulse Ox O2 Del Method O2 Del Method 01/25/25 08:00 92 H 01/25/25 08:00 Nasal Cannula 01/25/25 06:33 37.6 C H 104 H 14 91 01/25/25 06:03 37.6 C H 109 H 15 137/75 87 L 01/25/25 05:57 37.6 C H 103 H 14 89 L 01/25/25 05:06 37.7 C H 108 H 17 135/77 90 01/25/25 04:45 37.7 C H 111 H 14 90 01/25/25 04:33 37.7 C H 114 H 14 91 01/25/25 04:03 37.7 C H 108 H 15 108/63 98 01/25/25 03:48 37.7 C H 98 H 14 97 01/25/25 03:39 37.7 C H 105 H 13 97 01/25/25 03:12 38.0 C H 102 H 14 93 01/25/25 03:01 116/63 01/25/25 02:51 38.1 C H 105 H 14 92 01/25/25 02:42 38.1 C H 106 H 13 92 01/25/25 02:00 38.3 C H 108 H 14 119/71 91 01/25/25 01:30 38.3 C H 112 H 14 93 01/25/25 01:06 38.3 C H 113 H 17 90 01/25/25 01:00 38.3 C H 112 H 17 148/73 H 91 01/25/25 00:57 38.3 C H 110 H 25 H 91 01/25/25 00:33 38.4 C H 118 H 18 94 01/25/25 00:03 38.3 C H 110 H 23 93 01/25/25 00:01 164/80 H 01/25/25 00:00 115 H 01/24/25 23:51 38.3 C H 118 H 23 93 01/24/25 23:42 38.3 C H 111 H 28 H 94 01/24/25 23:39 38.3 C H 117 H 29 H 94 01/24/25 23:19 Room Air 01/24/25 23:03 38.2 C H 129 H 19 95 Laboratory Results Short CBC 01/25/25 Range/Units 04:31 WBC 7.20 (4.8-10.8) K/ul Hgb 12.5 (12.0-16.0) g/dl Hct 38.0 (37.0-47.0) % Plt Count 171 (130-400) K/uL BMP 01/25/25 04:31 Sodium 144 Potassium 3.8 Chloride 113 H Carbon Dioxide 28 BUN 15 Creatinine 0.77 Glucose 142 H Calcium 11.0 H Liver Function 01/25/25 Range/Units 04:31 Total Bilirubin 0.7 (0.2-1.0) mg/dl Direct Bilirubin 0.2 (0-0.2) mg/dl AST 20 (13-39) U/L ALT 23 (7-52) U/L Alkaline Phosphatase 127 H (34-104) U/L Albumin 3.7 (3.4-5.0) gm/dl Urine 01/25/25 Range/Units 00:04 Urine Color Yellow Urine Appearance Clear (Clear) Urine pH 7.0 (4.5-7.5) Ur Specific Everly 1.012 (1.000-1.030) Urine Protein Negative (Negative) Urine Glucose (UA) Negative (Negative) Medications Administered Current Inpatient Medications Aspirin (Aspirin 81 Mg Chew) 81 mg PO DAILY DARLENE Stop: 02/24/25 09:59 Last Admin: 01/25/25 10:15 Dose: 81 mg Atorvastatin Calcium (Atorvastatin 40 Mg Tab) 40 mg PO DAILY DARLENE Stop: 02/24/25 09:59 Last Admin: 01/25/25 10:13 Dose: 40 mg Enoxaparin Sodium (Enoxaparin Inj 40 Mg/0.4 Ml Syr) 40 mg SQ Q24H DARLENE Stop: 02/23/25 22:59 Last Admin: 01/24/25 23:10 Dose: 40 mg Famotidine (Famotidine 40 Mg Tablet) 40 mg PO QAM DARLENE Stop: 02/23/25 08:59 Last Admin: 01/25/25 10:13 Dose: 40 mg Acetaminophen (Ofirmev) 1,000 mg in 100 mls @ 400 mls/hr IV Q8H PRN PRN Reason: Pain or Fever Stop: 01/27/25 23:53 Last Infusion: 01/25/25 01:11 Dose: Infused Labetalol HCl (Labetalol Hcl Iv 5 Mg/Ml 20ml) 5 mg IV Q2H PRN PRN Reason: SBP >190 and/or DBP >105 Stop: 02/23/25 21:13 Miscellaneous ([facility] Protocol For Hyperglycemia) 1 each N/A Q6 DARLENE Stop: 01/26/25 05:59 Last Admin: 01/25/25 06:11 Dose: Not Given Miscellaneous ([facility] Electrolyte Replacement Protocol) 1 each N/A BID@06,18 DARLENE; Protocol Stop: 01/31/25 17:59 Last Admin: 01/25/25 06:13 Dose: 1 each Polyethylene Glycol (Polyethylene (Miralax) 17 Gm Pack) 17 gm PO DAILY DARLENE Stop: 02/23/25 08:59 Last Admin: 01/25/25 10:13 Dose: 17 gm (1) Antipsychotic overdose Encounter type: initial encounter Injury intent: intentional self-harm Qualified Code(s): T43.502A - Poisoning by unspecified antipsychotics and neuroleptics, intentional self-harm, initial encounter
--- NOTE | 2025-01-25 16:17 | Electrocardiogram Report ---
Test Reason : Blood Pressure : */* mmHG Vent. Rate : 101 BPM Atrial Rate : 101 BPM P-R Int : 182 ms QRS Dur : 72 ms QT Int : 342 ms P-R-T Axes : 30 -6 24 degrees QTcB Int : 443 ms Sinus tachycardia Minimal voltage criteria for LVH, may be normal variant ( R in aVL ) Borderline ECG When compared with ECG of 24-Jan-2025 06:00, No significant change was found Confirmed by Rigoberto Quiñones ([id number]) on 01/25/2025 4:17:19 PM Referred By: REFERRED SELF Confirmed By: Rigoberto Quiñones
[2025-01-25] MEDS: COUGH DROP (SUGAR FREE) LOZ 24 LOZ/1 BOX BUCCAL STA (22:50)
[2025-01-26 05:00] LABS: Basophils # (auto) 0.03 K/uL (0.00-0.20); Basophils % (auto) 0.4 %; Eosinophils # (auto) 0.16 K/uL (0.00-0.50); Eosinophils % (auto) 2.4 %; Hematocrit (blood only) 38.2 % (37.0-47.0); Hemoglobin 12.4 g/dl (12.0-16.0); Immature Granulocytes # (auto) 0.01 K/uL (0.01-0.20); Immature Granulocytes % (auto) 0.1 %; Lymphocytes # (auto) 1.66 K/uL (1.20-3.40); Lymphocytes % (auto) 24.7 %; Mean Corpuscular Hemoglobin 29.2 pg (25.0-34.0); Mean Corpuscular Hgb Conc 32.5 g/dL (32.0-36.0); Mean Corpuscular Volume 90.1 fL (80.0-100.0); Monocytes # (auto) 0.44 K/uL (0.11-0.59); Monocytes % (auto) 6.5 %; Neutrophils # (auto) 4.42 K/uL (1.40-6.50); Neutrophils % (auto) 65.9 %; Platelet Count 148 K/uL (130-400); RDW Coefficient of Variation 13.5 % (11.5-14.5); RDW Standard Deviation 44.4 fL (36.4-46.3); Red Blood Count 4.24 M/uL (4.20-5.40); White Blood Count 6.72 K/ul (4.8-10.8)
[2025-01-26 05:17] LABS: Albumin Level 3.5 gm/dl (3.4-5.0); Bilirubin Direct 0.1 mg/dl (0-0.2); Bilirubin,Total 0.5 mg/dl (0.2-1.0); Calcium 10.3 mg/dl (8.6-10.3)
[2025-01-26 05:23] LABS: Albumin Globulin Ratio 1.6 (0.9-2); BUN Creatinine Ratio 22.7 (10-20); Creatinine Clr Calc Pharmacy 90.5 ml/min; Globulin 2.2 gm/dl (2.5-4.0); Phosphorus 2.9 mg/dl (2.5-4.9); Total Protein 5.7 gm/dl (6.0-8.3)
--- NOTE | 2025-01-26 12:20 | Hospitalist Progress Note ---
Date of Service January 26, 2025 Assessment & Plan (1) Antipsychotic overdose: Plan: 59-year-old female with past medical history significant for dyslipidemia, history of elevated parathyroid hormone, methytetrahydrofolate reductase mutation, patent foramen ovale, history of CVA , morbid obesity, microcytic anemia, recurrent depression, was brought in from home because of unresponsiveness. As per in the morning patient seemed irritable. Pat parker's has history of depression and psychosis in the past and currently not taking medications for mental health as per . At 4 PM was called by her son that the patient had an episode of vomiting and was unresponsive. Zyprexa empty bottle was found beside her. Zyprexa was prescribed in 2019 when she was admitted here for psychosis and depression. As per she never took the Zyprexa medication and thinks the bottle is full . Expiry date on the bottle is 2020. She was on fluoxetine but has been not taking as per . Sometimes seems irritable as per . Her appetite is down but she was drinking a lot of water. No recent fevers. No complaint of chest pain or abdominal pain as per . She has some back pain. But she was walking and climbing steps okay. Patient in the ER was intubated. ER spoke with poison control and plan for supportive care.Patient was placed on Versed for seizure precaution and also fentanyl as needed. Patient also has ST elevations on EKG and elevated troponins. Patient was evaluated by cardiology at bedside with bedside echo and plan for observation for now as per ER. Zyprexa overdose Unresponsive on admission S/p intubation On Versed and fentanyl as needed and also on propofol currently Poison control notified by ER Close monitoring ICU Appreciate street flusher driver input and recommendation The patient is status post extubation this morning and he still remains under the influence of sedative medications Remains tachycardic but otherwise hemodynamically stable Remains hemodynamically stable and responding to vocal commands minimally Has been moving all the limbs and remained generally weak and lethargic Can be moved to telemetry unit for continuation of care She has been much better today and communicating normally Remains hemodynamically stable without any acute distress Will a formal psychiatric consult today Possible Seizures on MRI Appreciate neurology input and recommendation Has had MRI with and without contrast showed small vessel disease from poorly controlled risk factors No definitive source of seizure focus and no significant change compared with the MRI that was done before [facility] system in 2006 Will have EEG Will not start any antiseizure medication EEG is not showing any focal seizure activity Abnormal EKG ST elevation on EKG Initial troponin 432 and repeat 618 Cardiology evaluated patient in the ER and did bedside echo No ACS per cardiology Appreciate cardiology input and recommendationdemand ischemia from hypertension/tachycardia and LVH No QT prolongation and will observe Tachycardia is resolved Elevated lactic acid lactic acid 3.5 and repeat 3.9 procalcitonin negative on fluids close monitor follow repeat levels. Doubt any infection and the patient will not need any antibiotics History of depression History of psychosis Currently not taking any medications Psychiatry consult once stable Will not start any antipsychotic medications until being evaluated by psychiatrist Psychiatric evaluation today History of CVA Patent foramen ovale On aspirin and statin History of hypertension On lisinopril which will be held for now Will monitor DVT prophylaxis SCDs Lovenox Disposition Close monitoring ICU Full code (2) Unresponsive: Plan: As above (3) Encephalopathy acute: Plan: As above (4) Major depression: Admission and Anticipated Discharge Date Admission Date: January 23, 2025 Supervising Physician Co-Signing Physician Notes Patient seen and examined. EMR reviewed. Discussed with critical care TERI and agree with assessment plan as noted. Please refer to my progress note from for additional details Subjective 01/24/2025 The patient was seen and examined in ICU in presence of the family members She is status post extubation and also remains under the effect of sedative medications Remains tachycardic and does not respond with vocal commands 01/25/2025 The patient was seen and examined in ICU She is alert and awake today Has been responding to commands minimally and moving all extremities 01/26/2025 The patient was seen and examined in ICU with telemetry status She has been much better and communicating normally Complains to have extreme weakness and tiredness but denies any other significant symptoms Review of Systems Review of Systems: All systems reviewed and are unremarkable except as noted below Physical Exam Physical Exam: Lying in bed with minimal distress Constitutional: + ill appearing and + morbidly obese ENMT: external ear and nose normal, oropharynx normal Neck: trachea midline, no thyromegaly Respiratory: no respiratory distress Auscultation: + diminished lung sounds ( bilaterally) Cardiovascular: Rate/Rhythm: regular rate, regular rhythm and + tachycardic Heart Sounds: normal S1 and normal S2; no murmur Extremities: + edema ( trace edema bilaterally) Gastrointestinal (Abdomen): Inspection/Auscultation: normal bowel sounds; abdo men not distended Percussion/Palpation: abdomen soft; abdomen nontender Musculoskeletal: No acute arthritis involving any of the joint Neurologic: moves all extremities and + obtunded ( moderately obtunded) Lymphatic: no cervical or axillary lymphadenopathy Results & Data Results & Data Vital Signs (Past 12 Hours) Vital Signs Temp Pulse Pulse Resp BP BP Pulse Ox 01/26/25 11:36 37.2 C 91 H 16 133/80 97 01/26/25 07:54 37.3 C 88 16 157/85 H 99 01/26/25 07:45 87 01/26/25 04:30 37.4 C 85 15 144/75 H 90 01/26/25 01:07 37.7 C H 73 14 134/73 95 O2 Del Method O2 Flow Rate 01/26/25 11:36 Nasal Cannula 3 01/26/25 07:54 Nasal Cannula 2 01/26/25 07:45 01/26/25 04:30 Nasal Cannula 4 01/26/25 01:07 Nasal Cannula 4 Laboratory Results Short CBC 01/26/25 Range/Units 04:32 WBC 6.72 (4.8-10.8) K/ul Hgb 12.4 (12.0-16.0) g/dl Hct 38.2 (37.0-47.0) % Plt Count 148 (130-400) K/uL BMP 01/26/25 04:32 Sodium 144 Potassium 4.0 Chloride 111 H Carbon Dioxide 28 BUN 17 Creatinine 0.75 Glucose 114 H Calcium 10.3 Liver Function 01/26/25 Range/Units 04:32 Total Bilirubin 0.5 (0.2-1.0) mg/dl Direct Bilirubin 0.1 (0-0.2) mg/dl AST 23 (13-39) U/L ALT 26 (7-52) U/L Alkaline Phosphatase 118 H (34-104) U/L Albumin 3.5 (3.4-5.0) gm/dl Medications Administered Current Inpatient Medications Aspirin (Aspirin 81 Mg Chew) 81 mg PO DAILY DARLENE Stop: 02/24/25 09:59 Last Admin: 01/26/25 08:18 Dose: 81 mg Atorvastatin Calcium (Atorvastatin 40 Mg Tab) 40 mg PO DAILY DARLENE Stop: 02/24/25 09:59 Last Admin: 01/26/25 08:18 Dose: 40 mg Enoxaparin Sodium (Enoxaparin Inj 40 Mg/0.4 Ml Syr) 40 mg SQ Q24H DARLENE Stop: 02/23/25 22:59 Last Admin: 01/25/25 22:13 Dose: 40 mg Famotidine (Famotidine 40 Mg Tablet) 40 mg PO QAM DARLENE Stop: 02/23/25 08:59 Last Admin: 01/26/25 08:18 Dose: 40 mg Acetaminophen (Ofirmev) 1,000 mg in 100 mls @ 400 mls/hr IV Q8H PRN PRN Reason: Pain or Fever Stop: 01/27/25 23:53 Last Infusion: 01/25/25 17:21 Dose: Infused Labetalol HCl (Labetalol Hcl Iv 5 Mg/Ml 20ml) 5 mg IV Q2H PRN PRN Reason: SBP >190 and/or DBP >105 Stop: 02/23/25 21:13 Polyethylene Glycol (Polyethylene (Miralax) 17 Gm Pack) 17 gm PO DAILY DARLENE Stop: 02/23/25 08:59 Last Admin: 01/26/25 08:17 Dose: Not Given (1) Antipsychotic overdose Encounter type: initial encounter Injury intent: intentional self-harm Qualified Code(s): T43.502A - Poisoning by unspecified antipsychotics and neuroleptics, intentional self-harm, initial encounter
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
[2025-01-27 06:56] LABS: BUN Creatinine Ratio 20.3 (10-20); Calcium 10.4 mg/dl (8.6-10.3); Creatinine Clr Calc Pharmacy 98.7 ml/min; Magnesium 1.8 mg/dl (1.7-2.4); Potassium 3.8 mmol/L (3.5-5.1)
[2025-01-27] MEDS: METOPROLOL TARTRATE 25 MG TAB PO SCH (08:30)
--- NOTE | 2025-01-27 10:50 | Hospitalist Progress Note ---
Date of Service January 27, 2025 Assessment & Plan (1) Antipsychotic overdose: Plan: 59-year-old female with past medical history significant for dyslipidemia, history of elevated parathyroid hormone, methytetrahydrofolate reductase mutation, patent foramen ovale, history of CVA , morbid obesity, microcytic anemia, recurrent depression, was brought in from home because of unresponsiveness. As per in the morning patient seemed irritable. Pat parker's has history of depression and psychosis in the past and currently not taking medications for mental health as per . At 4 PM was called by her son that the patient had an episode of vomiting and was unresponsive. Zyprexa empty bottle was found beside her. Zyprexa was prescribed in 2019 when she was admitted here for psychosis and depression. As per she never took the Zyprexa medication and thinks the bottle is full . Expiry date on the bottle is 2020. She was on fluoxetine but has been not taking as per . Sometimes seems irritable as per . Her appetite is down but she was drinking a lot of water. No recent fevers. No complaint of chest pain or abdominal pain as per . She has some back pain. But she was walking and climbing steps okay. Patient in the ER was intubated. ER spoke with poison control and plan for supportive care.Patient was placed on Versed for seizure precaution and also fentanyl as needed. Patient also has ST elevations on EKG and elevated troponins. Patient was evaluated by cardiology at bedside with bedside echo and plan for observation for now as per ER. Zyprexa overdose Unresponsive on admission S/p intubation On Versed and fentanyl as needed and also on propofol currently Poison control notified by ER Close monitoring ICU Appreciate chemical instrumentation officer input and recommendation The patient is status post extubation this morning and he still remains under the influence of sedative medications Remains tachycardic but otherwise hemodynamically stable Remains hemodynamically stable and responding to vocal commands minimally Has been moving all the limbs and remained generally weak and lethargic Can be moved to telemetry unit for continuation of care She has been much better today and communicating normally Remains hemodynamically stable without any acute distress Will a formal psychiatric consult today Remains extremely weak and lethargic otherwise no other significant symptoms Has had psychiatric evaluation and will need to go to inpatient psychiatric unit Will get PT and OT evaluation Hypertension Will start Lopressor 25 twice daily And discharged on Toprol-XL Possible Seizures on MRI Appreciate neurology input and recommendation Has had MRI with and without contrast showed small vessel disease from poorly controlled risk factors No definitive source of seizure focus and no significant change compared with the MRI that was done before [employer] [facility] in 2006 Will have EEG Will not start any antiseizure medication EEG is not showing any focal seizure activity Abnormal EKG ST elevation on EKG Initial troponin 432 and repeat 618 Cardiology evaluated patient in the ER and did bedside echo No ACS per cardiology Appreciate cardiology input and recommendationdemand ischemia from hypertension/tachycardia and LVH No QT prolongation and will observe Tachycardia is resolved Elevated lactic acid lactic acid 3.5 and repeat 3.9 procalcitonin negative on fluids close monitor follow repeat levels. Doubt any infection and the patient will not need any antibiotics History of depression History of psychosis Currently not taking any medications Psychiatry consult once stable Will not start any antipsychotic medications until being evaluated by psychiatrist Psychiatric evaluation today History of CVA Patent foramen ovale On aspirin and statin History of hypertension On lisinopril which will be held for now Will monitor DVT prophylaxis SCDs Lovenox Disposition Close monitoring ICU Full code (2) Unresponsive: Plan: As above (3) Encephalopathy acute: Plan: As above (4) Major depression: Admission and Anticipated Discharge Date Admission Date: January 23, 2025 Subjective 01/24/2025 The patient was seen and examined in ICU in presence of the family members She is status post extubation and also remains under the effect of sedative medications Remains tachycardic and does not respond with vocal commands 01/25/2025 The patient was seen and examined in ICU She is alert and awake today Has been responding to commands minimally and moving all extremities 01/26/2025 The patient was seen and examined in ICU with telemetry status She has been much better and communicating normally Complains to have extreme weakness and tiredness but denies any other significant symptoms 01/27/2025 The patient was seen and examined in telemetry unit She remains extremely weak and lethargic but denies any other significant symptoms Noted to have high blood pressure and medications administered She will need to go to inpatient psychiatric unit following discharge Review of Systems Review of Systems: All systems reviewed and are unremarkable except as noted below Physical Exam Physical Exam: lying in bed without any acute distress Constitutional: + ill appearing and + morbidly obese ENMT: external ear and nose normal, oropharynx normal Neck: trachea midline, no thyromegaly Respiratory: no respiratory distress Auscultation: + diminished lung sounds ( bilaterally) Cardiovascular: Rate/Rhythm: regular rate, regular rhythm and + tachycardic Heart Sounds: normal S1 and normal S2; no murmur Extremities: + edema ( trace edema bilaterally) Gastrointestinal (Abdomen): Inspection/Auscultation: normal bowel sounds; abdomen not distended Percussion/Palpation: abdomen soft; abdomen nontender Neurologic: moves all extremities; no focal motor deficits Alert awake and oriented x 3 and has been communicating normally Lymphatic: no cervical or axillary lymphadenopathy Results & Data Results & Data Vital Signs (Past 12 Hours) Vital Signs Temp Pulse Pulse Pulse Resp BP BP 01/27/25 07:43 75 01/27/25 07:03 36.6 C 81 18 158/90 H 01/27/25 03:47 36.9 C 93 H 17 123/74 01/26/25 23:00 01/26/25 22:54 37.6 C H 87 17 150/77 H Pulse Ox Pulse Ox O2 Del Method O2 Del Method 01/27/25 07:43 01/27/25 07:03 94 Room Air 01/27/25 03:47 90 Room Air 01/26/25 23:00 92 Room Air 01/26/25 22:54 94 Room Air Laboratory Results BMP 01/27/25 06:15 Sodium 142 Potassium 3.8 Chloride 109 H Carbon Dioxide 30 BUN 14 Creatinine 0.69 Glucose 122 H Calcium 10.4 H Medications Administered Current Inpatient Medications Aspirin (Aspirin 81 Mg Chew) 81 mg PO DAILY [facility]ARLENE Stop: 02/24/25 09:59 Last Admin: 01/27/25 08:30 Dose: 81 mg Atorvastatin Calcium (Atorvastatin 40 Mg Tab) 40 mg PO DAILY DARLENE Stop: 02/24/25 09:59 Last Admin: 01/27/25 08:30 Dose: 40 mg Enoxaparin Sodium (Enoxaparin Inj 40 Mg/0.4 Ml Syr) 40 mg SQ Q24H DARLENE Stop: 02/23/25 22:59 Last Admin: 01/26/25 20:03 Dose: 40 mg Famotidine (Famotidine 40 Mg Tablet) 40 mg PO QAM DARLENE Stop: 02/23/25 08:59 Last Admin: 01/27/25 08:30 Dose: 40 mg Acetaminophen (Ofirmev) 1,000 mg in 100 mls @ 400 mls/hr IV Q8H PRN PRN Reason: Pain or Fever Stop: 01/27/25 23:53 Last Infusion: 01/27/25 01:07 Dose: Infused Labetalol HCl (Labetalol Hcl Iv 5 Mg/Ml 20ml) 5 mg IV Q2H PRN PRN Reason: SBP >190 and/or DBP >105 Stop: 02/23/25 21:13 Metoprolol Tartrate (Metoprolol Tartrate 25 Mg Tab) 25 mg PO BID [facility] Stop: 02/26/25 08:59 Last Admin: 01/27/25 08:30 Dose: 25 mg Polyethylene Glycol (Polyethylene (Miralax) 17 Gm Pack) 17 gm PO DAILY DARLENE Stop: 02/23/25 08:59 Last Admin: 01/27/25 08:31 Dose: 17 gm (1) Antipsychotic overdose Encounter type: initial encounter Injury intent: intentional self-harm Qualified Code(s): T43.502A - Poisoning by unspecified antipsychotics and neuroleptics, intentional self-harm, initial encounter
[2025-01-27] MEDS: guaiFENesin/DEXTROM SYRUP 200MG/20MG 10ML UDC PO PRN (11:39)
[2025-01-28 03:30] VITALS: O2SAT 93
[2025-01-28 07:16] LABS: BUN Creatinine Ratio 16.4 (10-20); Calcium 10.7 mg/dl (8.6-10.3); Creatinine Clr Calc Pharmacy 93.2 ml/min; Magnesium 1.8 mg/dl (1.7-2.4); Phosphorus 2.3 mg/dl (2.5-4.9); Potassium 3.9 mmol/L (3.5-5.1)
[2025-01-28] MEDS: POTASSIUM PHOSPHATE 15 MMOL in SODIUM CHLORIDE 0.9% 250 ML IV ONE (08:51)
[2025-01-28] MEDS: POTASSIUM PHOS 3 MMOL/1 ML INFUSION IV STA (09:25)
[2025-01-28 11:13] VITALS: RESP 20; TEMP 98.8
--- NOTE | 2025-01-28 11:54 | Psychiatric Progress Note ---
Date of Service January 28, 2025 Impression / Recommendations Darrion Osorio is admitted medically following an intentional overdose suicide attempt. Diagnostically consistent with major depressive disorder with psychotic features in the context of recent stressors including multiple deaths in the family. Differential also includes delirium from overdose vs primary psychotic disorder vs MDD without psychotic features vs mood disorder vs possible neurocognitive disorder such as lewy body dementia give report of recent increase in visual hallucinations and white matter changes on MRI but this is less likely given her age and lack of report of recent cognitive impairments. Acute risk of self-harm remains elevated and high given suicide attempt requiring medical admission, major depressive symptoms, psychosis, impulsivity, limited insight, high psychic distress. Given elevated risk of harm to self they meet criteria for inpatient psychiatric care for diagnostic clarification, safety/stabilization, development of additional coping skills, medication management and disposition/safety planning once medically stable. If they do not agree to voluntary treatment at that time they will meet criteria for 302 status based on severity of suicide attempt and ongoing modifiable risk factors. 01/28/2025: Ongoing periods of psychosis, some restlessness and irritability last evening and today. Plan for inpatient psych admission once medically cleared, likely later today. Overall, I spent a total of 50 minutes with this case including review of chart records, review of labwork, direct evaluation of the patient at bedside, counseling the patient, discussion of the patient with the hospitalist provider, discussion with the psychiatric liason during clinical rounds, review of collateral historian information from the family and documentation in the electronic health record. (1) Major depressive disorder with psychotic features: (2) Antipsychotic overdose: Plan -Continue 1-on-1 for risk of harm to self -Do not discharge or allow to leave AMA -Hold psych medications for now -Once medically cleared plan for psychiatric hospitalization 201 status Interval History Identifying Information 59-year-old female with past medical history significant for dyslipidemia, history of elevated parathyroid hormone, methyltetrahydrofolate reductase mutat ion, patent foramen ovale, history of CVA , morbid obesity, microcytic anemia, recurrent depression, was brought in from home because of unresponsiveness. Psychiatry consulted for recommendations for suicide attempt. Chief Complaint "Crabby". Subjective Subjective Patient was seen & assessed and interval progress reviewed. More agitated overnight. Today reports her mood is "crabby" and restless. Reports seeing a kitten which she attributes to a "spirit". Agreeable to inpatient psych admission. Physical Exam Vital Signs (Past 24 Hours) Last Vital Signs Temp 37.1 C 01/28/25 11:11 Pulse 73 01/28/25 11:11 Resp 20 01/28/25 11:11 BP 142/83 H 01/28/25 11:11 Pulse Ox 93 01/28/25 11:11 O2 Del Method Room Air 01/28/25 11:11 O2 Flow Rate 2.0 01/26/25 15:30 FiO2 40 01/24/25 08:00 Results & Data ([facility]) Laboratory Results Laboratory Results - last 24 hr 01/28/25 06:35 Sodium 143 Potassium 3.9 Chloride 109 H Carbon Dioxide 29 Anion Gap 5 BUN 12 Creatinine 0.73 Est Cr Clr Drug Dosing 93.2 eGFR 95.27 BUN/Creatinine Ratio 16.4 Glucose 110 H Calcium 10.7 H Phosphorus 2.3 L Magnesium 1.8 Current Inpatient Medications Current Inpatient Medications: Current Inpatient Medications Aspirin (Aspirin 81 Mg Chew) 81 mg PO DAILY DARLENE Stop: 02/24/25 09:59 Last Admin: 01/28/25 08:06 Dose: 81 mg Atorvastatin Calcium (Atorvastatin 40 Mg Tab) 40 mg PO DAILY DARLENE Stop: 02/24/25 09:59 Last Admin: 01/28/25 08:07 Dose: 40 mg Enoxaparin Sodium (Enoxaparin Inj 40 Mg/0.4 Ml Syr) 40 mg SQ Q24H [facility] Stop: 02/23/25 22:59 Last Admin: 01/28/25 00:23 Dose: 40 mg Famotidine (Famotidine 40 Mg Tablet) 40 mg PO QAM [facility] Stop: 02/23/25 08:59 Last Admin: 01/28/25 08:07 Dose: 40 mg Guaifenesin/Dextromethorphan (Guaifenesin/Dextrom Syrup 200mg/20mg 10ml Udc) 10 ml PO Q6H PRN PRN Reason: Cough Stop: 02/26/25 11:01 Last Admin: 01/27/25 23:43 Dose: 10 ml Labetalol HCl (Labetalol Hcl Iv 5 Mg/Ml 20ml) 5 mg IV Q2H PRN PRN Reason: SBP >190 and/or DBP >105 Stop: 02/23/25 21:13 Metoprolol Tartrate (Metoprolol Tartrate 25 Mg Tab) 25 mg PO BID [facility] Stop: 02/26/25 08:59 Last Admin: 01/28/25 08:07 Dose: 25 mg Polyethylene Glycol (Polyethylene (Miralax) 17 Gm Pack) 17 gm PO DAILY [facility] Stop: 02/23/25 08:59 Last Admin: 01/28/25 08:06 Dose: 17 gm (2) Antipsychotic overdose Encounter type: initial encounter Injury intent: intentional self-harm Qualified Code(s): T43.502A - Poisoning by unspecified antipsychotics and neuroleptics, intentional self-harm, initial encounter
--- NOTE | 2025-01-28 12:35 | Hospitalist Progress Note ---
Date of Service January 28, 2025 Assessment & Plan (1) Antipsychotic overdose: Plan: 59-year-old female with past medical history significant for dyslipidemia, history of elevated parathyroid hormone, methytetrahydrofolate reductase mutation, patent foramen ovale, history of CVA , morbid obesity, microcytic anemia, recurrent depression, was brought in from home because of unresponsiveness. As per in the morning patient seemed irritable. Pat parker's has history of depression and psychosis in the past and currently not taking medications for mental health as per . At 4 PM was called by her son that the patient had an episode of vomiting and was unresponsive. Zyprexa empty bottle was found beside her. Zyprexa was prescribed in 2019 when she was admitted here for psychosis and depression. As per she never took the Zyprexa medication and thinks the bottle is full . Expiry date on the bottle is 2020. She was on fluoxetine but has been not taking as per . Sometimes seems irritable as per . Her appetite is down but she was drinking a lot of water. No recent fevers. No complaint of chest pain or abdominal pain as per . She has some back pain. But she was walking and climbing steps okay. Patient in the ER was intubated. ER spoke with poison control and plan for supportive care.Patient was placed on Versed for seizure precaution and also fentanyl as needed. Patient also has ST elevations on EKG and elevated troponins. Patient was evaluated by cardiology at bedside with bedside echo and plan for observation for now as per ER. Zyprexa overdose Unresponsive on admission S/p intubation On Versed and fentanyl as needed and also on propofol currently Poison control notified by ER Close monitoring ICU Appreciate rn surgery input and recommendation The patient is status post extubation this morning and he still remains under the influence of sedative medications Remains tachycardic but otherwise hemodynamically stable Remains hemodynamically stable and responding to vocal commands minimally Has been moving all the limbs and remained generally weak and lethargic Can be moved to telemetry unit for continuation of care She has been much better today and communicating normally Remains hemodynamically stable without any acute distress Will a formal psychiatric consult today Remains extremely weak and lethargic otherwise no other significant symptoms Has had psychiatric evaluation and will need to go to inpatient psychiatric unit She did reasonably well with PT and OT and recommended home Minimal dysarthria but does not have any other significant symptoms She is medically cleared to go to inpatient psych unit Will have COVID-19 virus testing prior to discharge Hypertension Will start Lopressor 25 twice daily And discharged on Toprol-XL Blood pressure is controlled and will change Lopressor 25 twice daily to Toprol- XL 25mg once daily Possible Seizures on MRI Appreciate neurology input and recommendation Has had MRI with and without contrast showed small vessel disease from poorly controlled risk factors No definitive source of seizure focus and no significant change compared with the MRI that was done before [facility] in 2006 Will have EEG Will not start any antiseizure medication EEG is not showing any focal seizure activity Abnormal EKG ST elevation on EKG Initial troponin 432 and repeat 618 Cardiology evaluated patient in the ER and did bedside echo No ACS per cardiology Appreciate cardiology input and recommendationdemand ischemia from hypertension/tachycardia and LVH No QT prolongation and will observe Tachycardia is resolved Elevated lactic acid lactic acid 3.5 and repeat 3.9 procalcitonin negative on fluids close monitor follow repeat levels. Doubt any infection and the patient will not need any antibiotics History of depression History of psychosis Currently not taking any medications Psychiatry consult once stable Will not start any antipsychotic medications until being evaluated by psychiatrist Psychiatric evaluation today Management will be as per the psychiatrist History of CVA Patent foramen ovale On aspirin and statin History of hypertension On lisinopril which will be held for now Will monitor DVT prophylaxis SCDs Lovenox Disposition Close monitoring ICU Full code (2) Unresponsive: Plan: As above (3) Encephalopathy acute: Plan: As above (4) Major depression: Admission and Anticipated Discharge Date Admission Date: January 23, 2025 Subjective 01/24/2025 The patient was seen and examined in ICU in presence of the family members She is status post extubation and also remains under the effect of sedative medications Remains tachycardic and does not respond with vocal commands 01/25/2025 The patient was seen and examined in ICU She is alert and awake today Has been responding to commands minimally and moving all extremities 01/26/2025 The patient was seen and examined in ICU with telemetry status She has been much better and communicating normally Complains to have extreme weakness and tiredness but denies any other significant symptoms 01/27/2025 The patient was seen and examined in telemetry unit She remains extremely weak and lethargic but denies any other significant symptoms Noted to have high blood pressure and medications administered She will need to go to inpatient psychiatric unit following discharge 01/28/2025 The patient was seen and examined in telemetry unit She has minimal dysarthria and remains pleasantly confused Weakness has been improving and denies any other significant symptoms Review of Systems Review of Systems: All systems reviewed and are unremarkable except as noted below Physical Exam Physical Exam: lying in bed without any acute distress Constitutional: + ill appearing and + morbidly obese ENMT: external ear and nose normal, oropharynx normal Neck: trachea midline, no thyromegaly Respiratory: no respiratory distress Auscultation: + diminished lung sounds ( bilaterally) Cardiovascular: Rate/Rhythm: regular rate, regular rhythm and + tachycardic Heart Sounds: normal S1 and normal S2; no murmur Extremities: + edema ( trace edema bilaterally) Gastrointestinal (Abdomen): Inspection/Auscultation: normal bowel sounds; abdomen not distended Percussion/Palpation: abdomen soft; abdomen nontender Neurologic: moves all extremities and + obtunded ( moderately obtunded); no focal motor deficits Lymphatic: no cervical or axillary lymphadenopathy Results & Data Results & Data Vital Signs (Past 12 Hours) Vital Signs Temp Pulse Pulse Resp BP BP Pulse Ox 01/28/25 11:11 37.1 C 73 20 142/83 H 93 01/28/25 08:00 83 01/28/25 08:00 01/28/25 07:02 37.0 C 85 18 148/84 H 93 01/28/25 03:29 37.4 C 100 H 17 113/71 93 O2 Del Method 01/28/25 11:11 Room Air 01/28/25 08:00 01/28/25 08:00 Room Air 01/28/25 07:02 Room Air 01/28/25 03:29 Room Air Laboratory Results BMP 01/28/25 06:35 Sodium 143 Potassium 3.9 Chloride 109 H Carbon Dioxide 29 BUN 12 Creatinine 0.73 Glucose 110 H Calcium 10.7 H Medications Administered Current Inpatient Medications Aspirin (Aspirin 81 Mg Chew) 81 mg PO DAILY DARLENE Stop: 02/24/25 09:59 Last Admin: 01/28/25 08:06 Dose: 81 mg Atorvastatin Calcium (Atorvastatin 40 Mg Tab) 40 mg PO DAILY DARLENE Stop: 02/24/25 09:59 Last Admin: 01/28/25 08:07 Dose: 40 mg Enoxaparin Sodium (Enoxaparin Inj 40 Mg/0.4 Ml Syr) 40 mg SQ Q24H DARLENE Stop: 02/23/25 22:59 Last Admin: 01/28/25 00:23 Dose: 40 mg Famotidine (Famotidine 40 Mg Tablet) 40 mg PO QAM [facility]ARLENE Stop: 02/23/25 08:59 Last Admin: 01/28/25 08:07 Dose: 40 mg Guaifenesin/Dextromethorphan (Guaifenesin/Dextrom Syrup 200mg/20mg 10ml Udc) 10 ml PO Q6H PRN PRN Reason: Cough Stop: 02/26/25 11:01 Last Admin: 01/27/25 23:43 Dose: 10 ml Labetalol HCl (Labetalol Hcl Iv 5 Mg/Ml 20ml) 5 mg IV Q2H PRN PRN Reason: SBP >190 and/or DBP >105 Stop: 02/23/25 21:13 Metoprolol Tartrate (Metoprolol Tartrate 25 Mg Tab) 25 mg PO BID [facility]LENE Stop: 02/26/25 08:59 Last Admin: 01/28/25 08:07 Dose: 25 mg Polyethylene Glycol (Polyethylene (Miralax) 17 Gm Pack) 17 gm PO DAILY DARLENE Stop: 02/23/25 08:59 Last Admin: 01/28/25 08:06 Dose: 17 gm (1) Antipsychotic overdose Encounter type: initial encounter Injury intent: intentional self-harm Qualified Code(s): T43.502A - Poisoning by unspecified antipsychotics and neuroleptics, intentional self-harm, initial encounter
--- NOTE | 2025-01-28 13:55 | Discharge Summary ---
Date of Service January 28, 2025 Admission HPI Per Admitting Provider 59-year-old female with past medical history significant for dyslipidemia, history of elevated parathyroid hormone, methytetrahydrofolate reductase mutation, patent foramen ovale, history of CVA , morbid obesity, microcytic anemia, recurrent depression, was brought in from home because of unresponsiveness. As per in the morning patient seemed irritable. Patient's has history of depression and psychosis in the past and currently not taking medications for mental health as per . At 4 PM was called by her son that the patient had an episode of vomiting and was unresponsive. Zyprexa empty bottle was found beside her. Zyprexa was prescribed in 2019 when she was admitted here for psychosis and depression. As per she never took the Zyprexa medication and thinks the bottle is full . Expiry date on the bottle is 2020. She was on fluoxetine but has been not taking as per . Sometimes seems irritable as per . Her appetite is down but she was drinking a lot of water. No recent fevers. No complaint of chest pain or abdominal pain as per . She has some back pain. But she was walking and climbing steps okay. Patient in the ER was intubated. ER spoke with poison control and plan for supportive care.Patient was placed on Versed for seizure precaution and also fentanyl as needed. Patient also has ST elevations on EKG and elevated troponins. Patient was evaluated by cardiology at bedside with bedside echo and plan for observation for now as per ER. Past medical history. As mentioned above Past surgical history. Biopsy of uterus lining. Colonoscopy. Ligation oviducts. Social history. . No smoking. No alcohol use. No drug use. Family history. Paternal aunt had breast cancer. Father had cancer. Hypertension. Mother has diabetes. Admission Exam Per Admitting Provider Physical Exam: General- s/p intubation Head- atraumatic Eyes- Pupils pinpoint and very sluggish reaction to light Neck- No neck masses seen.no JVD. Lungs- clear to auscultation no wheezing or crackles Heart- regular rhythm;tachycardia no murmur, no gallop. Abdomen- normal bowel sounds, soft, no distension Extremities- no pretibial edema, no erythema seen Neuro- s/p intubation Principal Diagnosis Zyprexa overdose, hypertension, history of depression and psychosis Discharge Exam lying in bed without any acute distress Constitutional + ill appearing and + morbidly obese ENMT external ear and nose normal, oropharynx normal Neck trachea midline, no thyromegaly Respiratory no respiratory distress Auscultation: + diminished lung sounds ( bilaterally) Cardiovascular Rate/Rhythm: regular rate, regular rhythm and + tachycardic Heart Sounds: normal S1 and normal S2; no murmur Extremities: + edema ( trace edema bilaterally) Gastrointestinal (Abdomen) Inspection/Auscultation: normal bowel sounds; abdomen not distended Percussion/Palpation: abdomen soft; abdomen nontender Neurologic moves all extremities and + obtunded ( moderately obtunded); no focal motor deficits Lymphatic no cervical or axillary lymphadenopathy Discharge Data Allergies Allergy/AdvReac Type Severity Reaction Status Date / Time Penicillins Allergy Severe SEIZURES Verified 01/23/25 17:57 Sulfa (Sulfonamide Allergy Severe ARRHYTHMIAS Verified 03/03/24 17:55 Antibiotics) doxycycline AdvReac Tachycardia Verified 01/23/25 17:57 Consultations 01/23/25 19:38 ED Decision to Admit Stat 01/23/25 21:59 Consult Electrical Tester Routine 01/24/25 00:49 Consult Neurology Routine 01/24/25 08:00 Consult Cardiology Routine 01/26/25 09:10 Consult Psychiatry Routine Ordered Studies 01/23/25 17:19 CT head/brain wo con Stat 01/23/25 17:33 CT angio chest PE protocol Stat 01/23/25 19:46 MRI Brain [MR brain wo con] Stat 01/24/25 10:08 MRI Brain [MR brain wo/w con] Urgent Hospital Course (1) Antipsychotic overdose: 59-year-old female with past medical history significant for dyslipidemia, history of elevated parathyroid hormone, methytetrahydrofolate reductase mutation, patent foramen ovale, history of CVA , morbid obesity, microcytic anemia, recurrent depression, was brought in from home because of unresponsiveness. As per in the morning patient seemed irritable. Patient's has history of depression and psychosis in the past and currently not taking medications for mental health as per . At 4 PM was called by her son that the patient had an episode of vomiting and was unresponsive. Zyprexa empty bottle was found beside her. Zyprexa was prescribed in 2019 when she was admitted here for psychosis and depression. As per she never took the Zyprexa medication and thinks the bottle is full . Expiry date on the bottle is 2020. She was on fluoxetine but has been not taking as per . Sometimes seems irritable as per . Her appetite is down but she was drinking a lot of water. No recent fevers. No complaint of chest pain or abdominal pain as per . She has some back pain. But she was walking and climbing steps okay. Patient in the ER was intubated. ER spoke with poison control and plan for supportive care.Patient was placed on Versed for seizure precaution and also fentanyl as needed. Patient also has ST elevations on EKG and elevated troponins. Patient was evaluated by cardiology at bedside with bedside echo and plan for observation for now as per ER. Zyprexa overdose Unresponsive on admission S/p intubation On Versed and fentanyl as needed and also on propofol currently Poison control notified by ER Close monitoring ICU Appreciate professional model input and recommendation The patient is status post extubation this morning and he still remains under the influence of sedative medications Remains tachycardic but otherwise hemodynamically stable Remains hemodynamically stable and responding to vocal commands minimally Has been moving all the limbs and remained generally weak and lethargic Can be moved to telemetry unit for continuation of care She has been much better today and communicating normally Remains hemodynamically stable without any acute distress Will a formal psychiatric consult today Remains extremely weak and lethargic otherwise no other significant symptoms Has had psychiatric evaluation and will need to go to inpatient psychiatric unit She did reasonably well with PT and OT and recommended home Minimal dysarthria but does not have any other significant symptoms She is medically cleared to go to inpatient psych unit Will have COVID-19 virus testing prior to discharge Hypertension Will start Lopressor 25 twice daily And discharged on Toprol-XL Blood pressure is controlled and will change Lopressor 25 twice daily to Toprol- XL 25mg once daily Her lisinopril was restarted on discharge and beta-rich discontinued as it was only for short-term Possible Seizures on MRI Appreciate neurology input and recommendation Has had MRI with and without contrast showed small vessel disease from poorly controlled risk factors No definitive source of seizure focus and no significant change compared with the MRI that was done before [facility] in 2006 Will have EEG Will not start any antiseizure medication EEG is not showing any focal seizure activity Abnormal EKG ST elevation on EKG Initial troponin 432 and repeat 618 Cardiology evaluated patient in the ER and did bedside echo No ACS per cardiology Appreciate cardiology input and recommendationdemand ischemia from hypertension/tachycardia and LVH No QT prolongation and will observe Tachycardia is resolved Elevated lactic acid lactic acid 3.5 and repeat 3.9 procalcitonin negative on fluids close monitor follow repeat levels. Doubt any infection and the patient will not need any antibiotics History of depression History of psychosis Currently not taking any medications Psychiatry consult once stable Will not start any antipsychotic medications until being evaluated by psychiatrist Psychiatric evaluation today Management will be as per the psychiatrist History of CVA Patent foramen ovale On aspirin and statin History of hypertension On lisinopril which will be held for now Will monitor DVT prophylaxis SCDs Lovenox Disposition Close monitoring ICU Full code (2) Unresponsive: As above (3) Encephalopathy acute: As above (4) Major depression: Total Time Total Time Spent Total Time Spent (In Minutes): 35 minutes Discharge Plan Discharge Items Patient Disposition: Transfer [facility] Fac Reason For Visit: UNRESPONSIVE, DRUG OVERDOSE Discharge Diagnosis: Zyprexa overdose, hypertension, history of depression and psychosis Condition on Discharge: Good Activity: Resume your previous activity Non-emergency contact: Primary Care Provider Call non-emergency contact if: you have any medication questions Follow-up/Referrals: PCP,NO [Primary Care Provider] - Diet: Regular Addtl Attending Provider Instructions: Please take precautions to avoid falls Pending Studies at Discharge: No Stand-Alone Forms: My [facility] Skilled Items DNR: No Lines: None Urinary Catheter: No Medications and DC Order Prescriptions: Continued atorvastatin 40 mg tablet 40 mg PO QAM albuterol sulfate 90 mcg/actuation HFA aerosol inhaler 2 puff INHALATION Q4 PRN (Reason: Wheezing) Multiple Vitamin-Minerals Tablet 1 tab PO QAM aspirin [Aspirin Low-Strength] 81 mg Tablet,Delayed Release (Dr/Ec) 81 mg PO QAM lisinopril 20 mg tablet 20 mg PO QAM Discharge Orders: Discharge Order (Routine); Ordered 01/28/25 Ordered By: Chanel Nunes Admission Data Admit Date/Time: 01/23/25 20:24 Attending Provider: Chanel Nunes Admit Provider: Hua Cardona Primary Care Provider: PCP,NO Other Providers: Hua Cardona; Cade Aguilar; Yvrose Cotton; Danilo Kelly; Yvrose Yepez; [place]; Erich Lobo; German Valderrama; Carlton Strickland; Desire Gibbs; Enoch Simon; Bhanu Bello; Jaycob Cardona; Shree Mckinley; Janel Dow; Tanya Grigsby; Carlton Vinson; Marcela Parra; Nomi De La Cruz; Steph Hinojosa; [place]; Claritza Jamison; Catie Collado; Robe Smith; Tyrel Espino
[2025-01-28 14:08] VITALS: BP 113/71; PULSE 77
== END 2025-01-28 15:46 | DRG 917 ==
LOC: ED 17:07 → 1E 20:24 → 2S 01-26 17:03

== ENCOUNTER 2025-01-28 13:05 | Inpatient (IN) ==
[2025-01-28] MEDS ORDERED: SODIUM CHLORIDE 0.65% NA SOLN 45 ML (OCEAN) PRN (13:08)
[2025-01-28] MEDS ORDERED: BISMUTH SUBSALICYLATE 262 MG CHEW PO PRN (13:08)
[2025-01-28] MEDS ORDERED: MAGNESIUM HYDROXIDE SUSP 30 ML UDC PO PRN (13:08)
[2025-01-28] MEDS ORDERED: hydrOXYzine HCl 25 MG TAB PO PRN (13:08)
[2025-01-28] MEDS: Patient's HEIGHT &/or WEIGHT Needed STA (14:37)
[2025-01-28] MEDS ORDERED: risperiDONE 1 MG TABLET PO PRN (17:27)
[2025-01-28] MEDS: hydrOXYzine HCl 25 MG TAB PO PRN (21:17)
[2025-01-28] MEDS: METOPROLOL SUCC 25MG EXT REL TAB PO SCH (21:17)
[2025-01-28] MEDS: risperiDONE 0.5 MG TABLET PO SCH (21:17)
[2025-01-29] MEDS: ACETAMINOPHEN 325 MG TAB PO PRN (07:24)
[2025-01-29] MEDS: FAMOTIDINE 40 MG TABLET PO SCH (07:25)
[2025-01-29] MEDS: ATORVASTATIN 40 MG TAB PO SCH (07:25)
[2025-01-29] MEDS: ASPIRIN 81 MG ECTAB PO SCH (07:25)
[2025-01-29] MEDS: POLYETHYLENE (MIRALAX) 17 GM PACK PO SCH (07:35)
[2025-01-29] MEDS: POLYETHYLENE (MIRALAX) 17 GM PACK ONE (07:47)
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
[2025-01-29] MEDS: FLUoxetine HCL 10 MG CAP PO SCH (11:38)
[2025-01-29] MEDS: ALUMINUM/MAGNESIUM SUSP 30 ML UDC PO PRN (19:35)
[2025-01-30 07:48] LABS: Estimated Average Glucose 134 mg/dl; Hemoglobin A1C 6.3 % (4.5-5.6)
--- NOTE | 2025-01-30 09:02 | Psychiatric Progress Note ---
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 Diagnostically consistent with unspecified psychosis with differential including major depressive disorder with psychotic features vs bipolar affective disorder with mixed episode and psychosis vs primary psychotic disorder such as schizophrenia (parietal lobe addison matter changes on MRI) vs post TBI or infectious psychosis (given MRI changes) vs neurocognitive process such as lewy body dementia given confusion and visual hallucinations (however, also with recent delirium from overdose and history of significant confusion during episode of psychosis in the past). A: Still getting easily confused but mood showing some signs of improving slightly today. Still with some paranoia. Tolerating medications. Discussed alternative antipsychotic options, she wants to continue with risperidone as this has worked well for her in the past despite history of weight gain with it. Reviewed labwork including elevated HbA1c, low Vit D. She consents to starting metformin for prediabetes and off-label for antipsychotic-induced weight gain. MNPR-psychosis and irritability Overall, I spent a total of 40 minutes on this case including meeting with the patient, reviewing the chart, nursing report, multidisciplinary team meeting, orders, and documentation. (1) Major depressive disorder with psychotic features: (2) Disorganized behavior: (3) Confusion: (4) Antipsychotic overdose: (5) Suicide attempt: Plan 01/30/2025: -Start metformin 500mg qdinner -Add multivitamin and Vit D -She requests Robitussin as she was getting this on medical floor for sore throat and slight cough since extubation, reasonable to continue for a few more days 01/29/2025: The [facility] mental health unit) on q15 min checks (behavioral with suicide precautions) for safety. The patient will participate in group, recreational, and milieu therapies and will be offered additional individual and family sessions as clinically appropriate. -Start risperidone 0.5mg BID -Start fluoxetine 10mg daily -Fasting lipid panel, HbA1c, Vit D, Vit B12, RPR tomorrow AM -Elopement precautions Inventory Assets Strengths: supportive relationships, willing to get treatment Needs: safety and stabilization, medication adjustment, additional coping skills, increased outpatient services Suicide Risk Level Suicide Risk Level: High-Moderate (q15 min suicide checks) (s/p serious suicide attempt and ongoing confusion and psychosis, but denies SI and able to ask staff for support ) Suicide Risk Level Comments: Risk Factors Assessment Male: No : Yes Do You Have Access To A Gun?: No Health Problems: Yes Mental Health Diagnoses: Yes Substance Use Disorders: No Previous Attempt: Yes Family History of Suicide: No Previous Psychiatric Hospitalization: Yes Hopelessness: No Protective Factors Assessment : Yes Stable Relationships: Yes Supportive Family: Yes Interval History Identifying Information RIK FAJARDO is a 59-year-old woman who currently lives [place] with her and adult children, has a history of psychosis, MDD with psychotic features, brain imaging showing 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 Chief Complaint "Kind of sad this morning and kind of better now". Review of Systems Sleep Information Total Hours of Sleep: 6 Meal Information Percent Meal Consumed - Breakfast: 100 Percent Meal Consumed - Lunch: 100 Percent Meal Consumed - Dinner: 100 Subjective Subjective Patient was seen & assessed and interval progress reviewed with treatment team. Paranoid yesterday, wouldn't sign ARIANA for her citing that he steals items from her purse and then they re-appear. He visited last evening and she did end up signing an ARIANA. Awake once overnight, reporting sore throat. Attending groups and did a puzzle with peers. Showered yesterday. This morning paranoid about signing insurance authorization. Today reports lower mood that has improved throughout the day. Enjoying groups. Reflects on her regret of suicide attempt and that "I felt really bad I went so far". Denies SI today. Tolerating medication changes. Physical Exam Psychiatric Orientation: alert, oriented to person and oriented to place; + not oriented to time Apperance: appropriately dressed and appropriately groomed Eye Contact: good eye contact Motor Behavior: no abnormal motor movements Speech: normal rate/rhythm/volume of speech Affect: + constricted affect Mood: + depressed mood and + irritable mood Thought Process: + concrete thought process Thought Content: + paranoid Suicidal Thoughts: denies suicidal thoughts (s/ serious attempt), denies suicidal plan and denies suicidal intent Homicidal Thoughts: denies homicidal thoughts Hallucinations: + visual hallucinations (intermittent of children and animals); no auditory hallucinations Cognition: remote memory grossly intact, attention grossly intact and language grossly intact; + recent memory not intact Insight: + limited insight Judgment: + limited judgement Vital Signs (Past 24 Hours) Last Vital Signs Temp 36.7 C 01/30/25 06:21 Pulse 105 H 01/30/25 06:21 Resp 18 01/30/25 06:21 BP 128/88 01/30/25 06:21 Pulse Ox 97 01/28/25 16:33 O2 Del Method Room Air 01/28/25 16:33 Results & Data ([facility]) Laboratory Results Laboratory Results - last 24 hr 01/30/25 07:04 Estimat Average Glucose 134 Hemoglobin A1c 6.3 H Triglycerides 103 Cholesterol 145 LDL Cholesterol, Calc 75 VLDL Cholesterol, Calc 21 HDL Cholesterol 49 Cholesterol/HDL Ratio 3.0 Vitamin B12 330 25-OH Vitamin D Total 17.8 L Treponema pallidum Ab Pending Current Inpatient Medications Current Inpatient Medications: Current Inpatient Medications Acetaminophen (Acetaminophen 325 Mg Tab) 650 mg PO Q4H PRN PRN Reason: Headache or Minor Fever Stop: 02/27/25 13:07 Last Admin: 01/30/25 06:17 Dose: 650 mg Al Hydrox/Mg Hydrox/Simethicone (Aluminum/Magnesium Susp 30 Ml Udc) 30 ml PO Q4H PRN PRN Reason: GI Upset Stop: 02/27/25 13:07 Last Admin: 01/29/25 19:35 Dose: 30 ml Aspirin (Aspirin 81 Mg Ectab) 81 mg PO [facility] Stop: 02/28/25 08:59 Last Admin: 01/30/25 08:18 Dose: 81 mg Atorvastatin Calcium (Atorvastatin 40 Mg Tab) [facility] Stop: 02/28/25 08:59 Last Admin: 01/30/25 08:18 Dose: 40 mg Bismuth Subsalicylate (Bismuth Subsalicylate 262 Mg Chew) 2 tab PO Q30M PRN PRN Reason: Loose Stool/Diarrhea Stop: 02/27/25 13:07 Famotidine (Famotidine 40 Mg Tablet) 40 mg PO [facility] Stop: 02/28/25 08:59 Last Admin: 01/30/25 08:18 Dose: 40 mg Fluoxetine HCl (Fluoxetine Hcl 10 Mg Cap) 10 mg PO QAM [facility] Stop: 02/28/25 11:14 Last Admin: 01/30/25 08:18 Dose: 10 mg Hydroxyzine HCl (Hydroxyzine Hcl 25 Mg Tab) 50 mg PO HSZ PRN PRN Reason: Insomnia Stop: 02/27/25 13:07 Last Admin: 01/28/25 21:17 Dose: 50 mg Hydroxyzine HCl (Hydroxyzine Hcl 25 Mg Tab) 25 mg PO Q4H PRN PRN Reason: Anxiety Stop: 02/27/25 13:07 Magnesium Hydroxide (Magnesium Hydroxide Susp 30 Ml Udc) 30 ml PO DAILY PRN PRN Reason: Constipation Stop: 02/27/25 13:07 Metoprolol Succinate (Metoprolol Succ 25mg Ext Rel Tab) 25 mg PO BID [facility] Stop: 02/27/25 20:59 Last Admin: 01/30/25 08:18 Dose: 25 mg Polyethylene Glycol (Polyethylene (Miralax) 17 Gm Pack) 17 gm PO DAILY [facility] Stop: 02/28/25 08:59 Last Admin: 01/30/25 08:15 Dose: 17 gm Risperidone (Risperidone 0.5 Mg Tablet) 0.5 mg PO BID [facility] Stop: 02/27/25 20:59 Last Admin: 01/30/25 08:18 Dose: 0.5 mg Risperidone (Risperidone 1 Mg Tablet) 1 mg PO BID PRN PRN Reason: agitation/psychosis Stop: 02/27/25 17:26 Sodium Chloride (Sodium Chloride 0.65% Na Soln 45 Ml ([place])) 1 - 2 sprays NA PRN PRN PRN Reason: Nasal Dryness/Congestion Stop: 02/27/25 13:07 Mental Health & Subst Abuse Tx Convenience Store Manager Name of Convenience Store Manager: BSU case manger Phone Number for Convenience Store Manager: [phone] Case Management Appointment Comment: Referral for BSU completed on 01/29/25. Post Discharge Appointments Contact Information Discharge Discharge Address: [address] [place] [id number] (4) Antipsychotic overdose Encounter type: initial encounter Injury intent: intentional self-harm Qualified Code(s): T43.502A - Poisoning by unspecified antipsychotics and neuroleptics, intentional self-harm, initial encounter
[2025-01-30] MEDS: COUGH DROP (SUGAR FREE) LOZ 24 LOZ/1 BOX BUCCAL PRN (14:03)
[2025-01-30] MEDS: metFORMIN HCL ER 500 MG TABCR PO SCH (17:37)
[2025-01-30] MEDS: guaiFENesin SUGAR FREE 100 MG/5 ML UDC PO PRN (20:54)
[2025-01-31] MEDS: CHOLECALCIFEROL 25 MCG (1000 UNITS) TAB PO SCH (08:41)
[2025-01-31] MEDS: CEROVITE ADV FORMULA TAB PO SCH (08:41)
--- NOTE | 2025-01-31 08:44 | Psychiatric Progress Note ---
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 Diagnostically consistent with unspecified psychosis with differential including major depressive disorder with psychotic features vs bipolar affective disorder with mixed episode and psychosis vs primary psychotic disorder such as schizophrenia (parietal lobe addison matter changes on MRI) vs post TBI or infectious psychosis (given MRI changes) vs neurocognitive process such as lewy body dementia given confusion and visual hallucinations (however, also with recent delirium from overdose and history of significant confusion during episode of psychosis in the past). A: As she opens up more evidence for ongoing paranoia. Tolerated metformin initiation, will increase risperidone to further target paranoia. In the past seems that her confusion improved as psychosis was treated. Will continue to monitor. Certainly possible she has prosopagnosia though it is not mentioned anywhere in her medical chart that I could find nor mentioned from collateral/family reports. MNPR-psychosis and periods of abrupt irritability Overall, I spent a total of 40 minutes on this case including meeting with the patient, reviewing the chart, nursing report, multidisciplinary team meeting, orders, and documentation. (1) Major depressive disorder with psychotic features: (2) Disorganized behavior: (3) Confusion: (4) Antipsychotic overdose: (5) Suicide attempt: Plan 01/31/2025: -Increase risperidone to 1mg BID -Increase fluoxetine to 20mg qAM tomorrow 01/30/2025: -Start metformin 500mg qdinner -Add multivitamin and Vit D -She requests Robitussin as she was getting this on medical floor for sore throat and slight cough since extubation, reasonable to continue for a few more days 01/29/2025: The patient was [facility] to the [facility] ([facility] inpatient mental health unit) on q15 min checks (behavioral with suicide precautions) for safety. The patient will participate in group, recreational, and milieu therapies and will be offered additional individual and family sessions as clinically appropriate. -Start risperidone 0.5mg BID -Start fluoxetine 10mg daily -Fasting lipid panel, HbA1c, Vit D, Vit B12, RPR tomorrow AM -Elopement precautions Inventory Assets Strengths: supportive relationships, willing to get treatment Needs: safety and stabilization, medication adjustment, additional coping skills, increased outpatient services Suicide Risk Level Suicide Risk Level: High-Moderate (q15 min suicide checks) (s/p serious suicide attempt and ongoing confusion and psychosis, but denies SI and able to ask staff for support ) Suicide Risk Level Comments: Risk Factors Assessment Male: No : Yes Do You Have Access To A Gun?: No Health Problems: Yes Mental Health Diagnoses: Yes Substance Use Disorders: No Previous Attempt: Yes Family History of Suicide: No Previous Psychiatric Hospitalization: Yes Hopelessness: No Protective Factors Assessment : Yes Stable Relationships: Yes Supportive Family: Yes Interval History Identifying Information RIK FAJARDO is a 59-year-old woman who currently lives [place] with her and adult children, has a history of psychosis, MDD with psychotic features, brain imaging showing 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 Chief Complaint "He sneaks around behind my back". Review of Systems Sleep Information Total Hours of Sleep: 6.75 Meal Information Percent Meal Consumed - Breakfast: 100 Percent Meal Consumed - Lunch: 100 Percent Meal Consumed - Dinner: 100 Subjective Subjective Patient was seen & assessed and interval progress reviewed with nursing and social work. More confused and paranoid last evening about her and children. Today she reports her mood is "tired" despite sleeping well last night. She denies SI but as we talk more about things outside of the hospital she starts expressing beliefs about her wanting her to stay trapped at home without a car, which she feels impacted her depression, as he is sneaking around and has another hidden relationship behind her back. She then discusses belief that her youngest daughter was "switched in and out" of the home with an imposter by her . Tells me this didn't happen with her other children and that it's not happening with her daughter anymore but that it did. Tells me that her children and others "laugh at me to make me feel crazy". Discussed my concern about her confusion recently (i.e. needing guidance to remember where rooms are on our small unit) and how this could make driving a bad idea. She tells me she would never get lost and that the reason she did not recognize me yesterday was due to longstanding prosopagnosia ("I told everyone I have that"). She reports this has been present since an old injury many years ago. Physical Exam Psychiatric Orientation: alert, oriented to person, oriented to place and oriented to time Apperance: appropriately dressed and appropriately groomed Eye Contact: good eye contact Motor Behavior: no abnormal motor movements Speech: normal rate/rhythm/volume of speech Affect: euthymic affect, + labile affect, + irritable affect and + constricted affect Mood: + depressed mood and + irritable mood Thought Process: + concrete thought process Thought Content: + paranoid and + delusions Suicidal Thoughts: denies suicidal thoughts (s/ serious attempt), denies suicidal plan and denies suicidal intent Homicidal Thoughts: denies homicidal thoughts Hallucinations: no auditory hallucinations and no visual hallucinations Cognition: remote memory grossly intact, attention grossly intact and language grossly intact; + recent memory not intact Insight: + limited insight Judgment: + limited judgement Vital Signs (Past 24 Hours) Last Vital Signs Temp 37.2 C 01/31/25 06:00 Pulse 66 01/31/25 06:00 Resp 16 01/31/25 06:00 BP 138/66 01/31/25 06:00 Pulse Ox 93 01/31/25 06:00 O2 Del Method Room Air 01/31/25 06:00 Results & Data ([facility]) Laboratory Results Laboratory Results - last 24 hr 01/30/25 07:04 Treponema pallidum Ab Negative Current Inpatient Medications Current Inpatient Medications: Current Inpatient Medications Acetaminophen (Acetaminophen 325 Mg Tab) 650 mg PO Q4H PRN PRN Reason: Headache or Minor Fever Stop: 02/27/25 13:07 Last Admin: 01/30/25 20:51 Dose: 650 mg Al Hydrox/Mg Hydrox/Simethicone (Aluminum/Magnesium Susp 30 Ml Udc) 30 ml PO Q4H PRN PRN Reason: GI Upset Stop: 02/27/25 13:07 Last Admin: 01/30/25 21:33 Dose: 30 ml Aspirin (Aspirin 81 Mg Ectab) 81 mg PO [facility] Stop: 02/28/25 08:59 Last Admin: 01/31/25 08:41 Dose: 81 mg Atorvastatin Calcium (Atorvastatin 40 Mg Tab) [facility] Stop: 02/28/25 08:59 Last Admin: 01/31/25 08:41 Dose: 40 mg Bismuth Subsalicylate (Bismuth Subsalicylate 262 Mg Chew) 2 tab PO Q30M PRN PRN Reason: Loose Stool/Diarrhea Stop: 02/27/25 13:07 Famotidine (Famotidine 40 Mg Tablet) 40 mg PO QAM [facility] Stop: 02/28/25 08:59 Last Admin: 01/31/25 08:41 Dose: 40 mg Fluoxetine HCl (Fluoxetine Hcl 10 Mg Cap) 10 mg PO QAM [facility] Stop: 02/28/25 11:14 Last Admin: 01/31/25 08:41 Dose: 10 mg Guaifenesin (Guaifenesin Sugar Free 100 Mg/5 Ml Udc) 100 mg PO Q6H PRN PRN Reason: Cough Stop: 03/01/25 20:15 Last Admin: 01/30/25 20:54 Dose: 100 mg Hydroxyzine HCl (Hydroxyzine Hcl 25 Mg Tab) 50 mg PO HSZ PRN PRN Reason: Insomnia Stop: 02/27/25 13:07 Last Admin: 01/28/25 21:17 Dose: 50 mg Hydroxyzine HCl (Hydroxyzine Hcl 25 Mg Tab) 25 mg PO Q4H PRN PRN Reason: Anxiety Stop: 02/27/25 13:07 Magnesium Hydroxide (Magnesium Hydroxide Susp 30 Ml Udc) 30 ml PO DAILY PRN PRN Reason: Constipation Stop: 02/27/25 13:07 Menthol (Cough Drop (Sugar Free) Clarence 24 Clarence/1 Box) 1 clarence BUCCAL TID PRN PRN Reason: Sore Throat Stop: 03/01/25 12:23 Last Admin: 01/30/25 14:03 Dose: 1 clarence Metformin HCl (Metformin Hcl Er 500 Mg Tabcr) 500 mg PO DAILYBD [facility] Stop: 03/01/25 17:14 Last Admin: 01/30/25 17:37 Dose: 500 mg Metoprolol Succinate (Metoprolol Succ 25mg Ext Rel Tab) 25 mg PO BID [facility] Stop: 02/27/25 20:59 Last Admin: 01/31/25 08:41 Dose: 25 mg Multivitamins/Minerals (Cerovite Adv Formula Tab) 1 tab PO QAM [facility] Stop: 03/02/25 08:59 Last Admin: 01/31/25 08:41 Dose: 1 tab Polyethylene Glycol (Polyethylene (Miralax) 17 Gm Pack) 17 gm PO DAILY [facility] Stop: 02/28/25 08:59 Last Admin: 01/31/25 08:41 Dose: 17 gm Risperidone (Risperidone 0.5 Mg Tablet) 0.5 mg PO BID [facility] Stop: 02/27/25 20:59 Last Admin: 01/31/25 08:41 Dose: 0.5 mg Risperidone (Risperidone 1 Mg Tablet) 1 mg PO BID PRN PRN Reason: agitation/psychosis Stop: 02/27/25 17:26 Sodium Chloride (Sodium Chloride 0.65% Na Soln 45 Ml ([place])) 1 - 2 sprays NA PRN PRN PRN Reason: Nasal Dryness/Congestion Stop: 02/27/25 13:07 Vitamin D (Cholecalciferol 25 Mcg (1000 Units) Tab) 25 mcg PO QAM [facility] Stop: 03/02/25 08:59 Last Admin: 01/31/25 08:41 Dose: 25 mcg Mental Health & Subst Abuse Tx Railway Signal Operator Name of Railway Signal Operator: BSU case manger Phone Number for Railway Signal Operator: [phone] Case Management Appointment Comment: Referral for BSU completed on 01/29/25. Post Discharge Appointments Contact Information Discharge Discharge Address: [address] [place] [phone] (4) Antipsychotic overdose Encounter type: initial encounter Injury intent: intentional self-harm Qualified Code(s): T43.502A - Poisoning by unspecified antipsychotics and neuroleptics, intentional self-harm, initial encounter
[2025-01-31] MEDS: risperiDONE 1 MG TABLET PO SCH (21:23)
[2025-02-01 06:55] VITALS: O2SAT 95
[2025-02-01] MEDS: FLUoxetine HCL 20 MG CAP PO SCH ×2 (07:42→21:00)
--- NOTE | 2025-02-01 09:03 | Psychiatric Progress Note ---
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 Diagnostically consistent with unspecified psychosis with differential including major depressive disorder with psychotic features vs bipolar affective disorder with mixed episode and psychosis vs primary psychotic disorder such as schizophrenia (parietal lobe addison matter changes on MRI) vs post TBI or infectious psychosis (given MRI changes) vs neurocognitive process such as lewy body dementia given confusion and visual hallucinations (however, also with recent delirium from overdose and history of significant confusion during episode of psychosis in the past). A: Less paranoia voiced today but still with periods of confusion and at times may be internally preoccupied. Tolerating higher dose of risperidone but with increased fatigue. Will switch fluoxetine dosing to HS and adjust risperidone so larger dose at HS. MNPR-psychosis Overall, I spent a total of 35 minutes on this case including meeting with the patient, reviewing the chart, nursing report, multidisciplinary team meeting, orders, and documentation. (1) Major depressive disorder with psychotic features: (2) Disorganized behavior: (3) Confusion: (4) Antipsychotic overdose: (5) Suicide attempt: Plan 02/01/2025: -Change fluoxetine to 20mg HS starting tomorrow -Switch risperidone to 0.5mg qAM and 1.5mg HS 01/31/2025: -Increase risperidone to 1mg BID -Increase fluoxetine to 20mg qAM tomorrow 01/30/2025: -Start metformin 500mg qdinner -Add multivitamin and Vit D -She requests Robitussin as she was getting this on medical floor for sore throat and slight cough since extubation, reasonable to continue for a few more days 01/29/2025: [facility]) on q15 min checks (behavioral with suicide precautions) for safety. The patient will participate in group, recreational, and milieu therapies and will be offered additional individual and family sessions as clinically appropriate. -Start risperidone 0.5mg BID -Start fluoxetine 10mg daily -Fasting lipid panel, HbA1c, Vit D, Vit B12, RPR tomorrow AM -Elopement precautions Inventory Assets Strengths: supportive relationships, willing to get treatment Needs: safety and stabilization, medication adjustment, additional coping skills, increased outpatient services Suicide Risk Level Suicide Risk Level: Moderate (q15 min suicide checks) (s/p serious suicide attem pt and some confusion and paranoia but mood slowly improving,denies SI and able to ask staff for support ) Suicide Risk Level Comments: Risk Factors Assessment Male: No : Yes Do You Have Access To A Gun?: No Health Problems: Yes Mental Health Diagnoses: Yes Substance Use Disorders: No Previous Attempt: Yes Family History of Suicide: No Previous Psychiatric Hospitalization: Yes Hopelessness: No Protective Factors Assessment : Yes Stable Relationships: Yes Supportive Family: Yes Interval History Identifying Information RIK FAJARDO is a 59-year-old woman who currently lives [place] with her and adult children, has a history of psychosis, MDD with psychotic features, brain imaging showing 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 Chief Complaint "So tired". Review of Systems Sleep Information Total Hours of Sleep: 6 Meal Information Percent Meal Consumed - Breakfast: 75 Percent Meal Consumed - Lunch: 100 Percent Meal Consumed - Dinner: 90 Subjective Subjective Patient was seen & assessed and interval progress reviewed with treatment team. had a good visit with her . Last evening she thought the windows had been changed in her room. Attending groups. Rated mood as "tired and peaceful". Reports feeling tired today. She recalls fatigue with fluoxetine in the past, likes idea of switching to HS dosing. Reports her visit with went "ok". Denies SI. Physical Exam Psychiatric Orientation: alert, oriented to person, oriented to place and oriented to time Apperance: appropriately dressed and appropriately groomed Eye Contact: good eye contact Motor Behavior: no abnormal motor movements Speech: normal rate/rhythm/volume of speech Affect: + constricted affect Mood: + depressed mood Thought Process: + concrete thought process Thought Content: + paranoid Suicidal Thoughts: denies suicidal thoughts (s/ serious attempt), denies suicidal plan and denies suicidal intent Homicidal Thoughts: denies homicidal thoughts Hallucinations: no auditory hallucinations and no visual hallucinations Cognition: remote memory grossly intact, attention grossly intact and language grossly intact; + recent memory not intact Insight: + limited insight Judgment: + limited judgement Vital Signs (Past 24 Hours) Last Vital Signs Temp 37.0 C 02/01/25 06:00 Pulse 84 02/01/25 06:00 Resp 16 02/01/25 06:00 BP 148/84 H 02/01/25 06:52 Pulse Ox 95 02/01/25 06:00 O2 Del Method Room Air 02/01/25 06:00 Results & Data ([facility]) Current Inpatient Medications Current Inpatient Medications: Current Inpatient Medications Acetaminophen (Acetaminophen 325 Mg Tab) 650 mg PO Q4H PRN PRN Reason: Headache or Minor Fever Stop: 02/27/25 13:07 Last Admin: 01/31/25 18:59 Dose: 650 mg Al Hydrox/Mg Hydrox/Simethicone (Aluminum/Magnesium Susp 30 Ml Udc) 30 ml PO Q4H PRN PRN Reason: GI Upset Stop: 02/27/25 13:07 Last Admin: 01/31/25 22:52 Dose: 30 ml Aspirin (Aspirin 81 Mg Ectab) 81 mg PO [facility] Stop: 02/28/25 08:59 Last Admin: 02/01/25 07:41 Dose: 81 mg Atorvastatin Calcium (Atorvastatin 40 Mg Tab) 40 mg PO [facility] Stop: 02/28/25 08:59 Last Admin: 02/01/25 07:42 Dose: 40 mg Bismuth Subsalicylate (Bismuth Subsalicylate 262 Mg Chew) 2 tab PO Q30M PRN PRN Reason: Loose Stool/Diarrhea Stop: 02/27/25 13:07 Famotidine (Famotidine 40 Mg Tablet) 40 mg PO [facility] Stop: 02/28/25 08:59 Last Admin: 02/01/25 07:42 Dose: 40 mg Fluoxetine HCl (Fluoxetine Hcl 20 Mg Cap) 20 mg PO [facility] Stop: 03/03/25 08:59 Last Admin: 02/01/25 07:42 Dose: 20 mg Guaifenesin (Guaifenesin Sugar Free 100 Mg/5 Ml Udc) 100 mg PO Q6H PRN PRN Reason: Cough Stop: 03/01/25 20:15 Last Admin: 01/30/25 20:54 Dose: 100 mg Hydroxyzine HCl (Hydroxyzine Hcl 25 Mg Tab) 50 mg PO HSZ PRN PRN Reason: Insomnia Stop: 02/27/25 13:07 Last Admin: 01/28/25 21:17 Dose: 50 mg Hydroxyzine HCl (Hydroxyzine Hcl 25 Mg Tab) 25 mg PO Q4H PRN PRN Reason: Anxiety Stop: 02/27/25 13:07 Magnesium Hydroxide (Magnesium Hydroxide Susp 30 Ml Udc) 30 ml PO DAILY PRN PRN Reason: Constipation Stop: 02/27/25 13:07 Menthol (Cough Drop (Sugar Free) Clarence 24 Clarence/1 Box) 1 clarence BUCCAL TID PRN PRN Reason: Sore Throat Stop: 03/01/25 12:23 Last Admin: 01/30/25 14:03 Dose: 1 clarence Metformin HCl (Metformin Hcl Er 500 Mg Tabcr) 500 mg PO DAILYBD DARLENE Stop: 03/01/25 17:14 Last Admin: 01/31/25 17:10 Dose: 500 mg Metoprolol Succinate (Metoprolol Succ 25mg Ext Rel Tab) 25 mg PO BID DARLENE Stop: 02/27/25 20:59 Last Admin: 02/01/25 07:43 Dose: 25 mg Multivitamins/Minerals (Cerovite Adv Formula Tab) 1 tab PO QAM DARLENE Stop: 03/02/25 08:59 Last Admin: 02/01/25 07:43 Dose: 1 tab Polyethylene Glycol (Polyethylene (Miralax) 17 Gm Pack) 17 gm PO DAILY DARLENE Stop: 02/28/25 08:59 Last Admin: 02/01/25 07:46 Dose: 17 gm Risperidone (Risperidone 1 Mg Tablet) 1 mg PO BID PRN PRN Reason: agitation/psychosis Stop: 02/27/25 17:26 Risperidone (Risperidone 1 Mg Tablet) 1 mg PO BID DARLENE Stop: 03/02/25 20:59 Last Admin: 02/01/25 07:43 Dose: 1 mg Sodium Chloride (Sodium Chloride 0.65% Na Soln 45 Ml ([place])) 1 - 2 sprays NA PRN PRN PRN Reason: Nasal Dryness/Congestion Stop: 02/27/25 13:07 Vitamin D (Cholecalciferol 25 Mcg (1000 Units) Tab) 25 mcg PO QAM DARLENE Stop: 03/02/25 08:59 Last Admin: 02/01/25 07:42 Dose: 25 mcg Mental Health & Subst Abuse Tx Germ Drier Name of Germ Drier: BSU case manger Phone Number for Germ Drier: [phone] Case Management Appointment Comment: Referral for BSU completed on 01/29/25. Post Discharge Appointments Contact Information Discharge Discharge Address: [address] [place], [place] [id number] (4) Antipsychotic overdose Encounter type: initial encounter Injury intent: intentional self-harm Qualified Code(s): T43.502A - Poisoning by unspecified antipsychotics and neurol eptics, intentional self-harm, initial encounter
[2025-02-01] MEDS: risperiDONE 0.5 MG TABLET PO SCH (21:03)
[2025-02-02] MEDS: risperiDONE 0.25 MG TAB PO SCH (09:26)
--- NOTE | 2025-02-02 09:50 | Psychiatric Progress Note ---
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 Diagnostically consistent with unspecified psychosis with differential including major depressive disorder with psychotic features vs bipolar affective disorder with mixed episode and psychosis vs primary psychotic disorder such as schizophrenia (parietal lobe addison matter changes on MRI) vs post TBI or infectious psychosis (given MRI changes) vs neurocognitive process such as lewy body dementia given confusion and visual hallucinations (however, also with recent delirium from overdose and history of significant confusion during episode of psychosis in the past). A: Less paranoia voiced today especially about her , still some depression but mood improving slowly. More energy today with adjusted dosing of risperidone and fluoxetine. MNPR-psychosis Overall, I spent a total of 30 minutes on this case including meeting with the patient, reviewing the chart, nursing report, multidisciplinary team meeting, orders, and documentation. (1) Major depressive disorder with psychotic features: (2) Disorganized behavior: (3) Confusion: (4) Antipsychotic overdose: (5) Suicide attempt: Plan 02/02/2025: Continue current medications and tx plan 02/01/2025: -Change fluoxetine to 20mg HS starting tomorrow -Switch risperidone to 0.5mg qAM and 1.5mg HS 01/31/2025: -Increase risperidone to 1mg BID -Increase fluoxetine to 20mg qAM tomorrow 01/30/2025: -Start metformin 500mg qdinner -Add multivitamin and Vit D -She requests Robitussin as she was getting this on medical floor for sore throat and slight cough since extubation, reasonable to continue for a few more days 01/29/2025: [facility] on q15 min checks (behavioral with suicide precautions) for safety. The patient will participate in group, recreational, and milieu therapies and will be offered additional individual and family sessions as clinically appropriate. -Start risperidone 0.5mg BID -Start fluoxetine 10mg daily -Fasting lipid panel, HbA1c, Vit D, Vit B12, RPR tomorrow AM -Elopement precautions Inventory Assets Strengths: supportive relationships, willing to get treatment Needs: safety and stabilization, medication adjustment, additional coping skills, increased outpatient services Suicide Risk Level Suicide Risk Level: Moderate (q15 min suicide checks) (s/p serious suicide attempt and some confusion and paranoia but mood slowly improving,denies SI and able to ask staff for support ) Suicide Risk Level Comments: Risk Factors Assessment Male: No : Yes Do You Have Access To A Gun?: No Health Problems: Yes Mental Health Diagnoses: Yes Substance Use Disorders: No Previous Attempt: Yes Family History of Suicide: No Previous Psychiatric Hospitalization: Yes Hopelessness: No Protective Factors Assessment : Yes Stable Relationships: Yes Supportive Family: Yes Interval History Identifying Information RIK FAJARDO is a 59-year-old woman who currently lives [place] with her and adult children, has a history of psychosis, MDD with psychotic features, brain imaging showing 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 Chief Complaint "More awake". Review of Systems Sleep Information Total Hours of Sleep: 7.75 Meal Information Percent Meal Consumed - Breakfast: 90 Percent Meal Consumed - Lunch: 90 Percent Meal Consumed - Dinner: 100 Subjective Subjective Patient was seen & assessed and interval progress reviewed with nursing. Starla wood yesterday, attended most groups. had some confusion related to her evening snack. This morning thought the metformin was the cause of her fatigue. Today she reports feeling more awake. Thought she had still gotten fluoxetine this morning, reviewed MAR with her and that it wasn't given. She reports having an ok visit with her "we got along". She hasn't spoken to him about her concerns about depression worsening when she is home alone during the day. Physical Exam Psychiatric Orientation: alert, oriented to person, oriented to place and oriented to time Apperance: appropriately dressed and appropriately groomed Eye Contact: good eye contact Motor Behavior: no abnormal motor movements Speech: normal rate/rhythm/volume of speech Affect: + constricted affect Mood: + depressed mood Thought Process: + concrete thought process Thought Content: + paranoid (at times, less evidence of this today) Suicidal Thoughts: denies suicidal thoughts (s/ serious attempt), denies suicidal plan and denies suicidal intent Homicidal Thoughts: denies homicidal thoughts Hallucinations: no auditory hallucinations and no visual hallucinations Cognition: remote memory grossly intact, attention grossly intact and language grossly intact; + recent memory not intact Insight: + limited insight Judgment: + limited judgement Vital Signs (Past 24 Hours) Last Vital Signs Temp 36.8 C 02/02/25 06:28 Pulse 87 02/02/25 06:28 Resp 16 02/02/25 06:28 BP 122/78 02/02/25 06:28 Pulse Ox 95 02/01/25 06:00 O2 Del Method Room Air 02/01/25 06:00 Results & Data ([facility]) Current Inpatient Medications Current Inpatient Medications: Current Inpatient Medications Acetaminophen (Acetaminophen 325 Mg Tab) 650 mg PO Q4H PRN PRN Reason: Headache or Minor Fever Stop: 02/27/25 13:07 Last Admin: 02/01/25 11:07 Dose: 650 mg Al Hydrox/Mg Hydrox/Simethicone (Aluminum/Magnesium Susp 30 Ml Udc) 30 ml PO Q4H PRN PRN Reason: GI Upset Stop: 02/27/25 13:07 Last Admin: 01/31/25 22:52 Dose: 30 ml Aspirin ([facility] 81 Mg Ectab) [facility] Stop: 02/28/25 08:59 Last Admin: 02/02/25 09:26 Dose: 81 mg Atorvastatin Calcium (Atorvastatin 40 Mg Tab) [facility] Stop: 02/28/25 08:59 Last Admin: 02/02/25 09:27 Dose: 40 mg Bismuth Subsalicylate (Bismuth Subsalicylate 262 Mg Chew) 2 tab PO Q30M PRN PRN Reason: Loose Stool/Diarrhea Stop: 02/27/25 13:07 Famotidine (Famotidine 40 Mg Tablet) [facility] Stop: 02/28/25 08:59 Last Admin: 02/02/25 09:26 Dose: 40 mg Fluoxetine HCl (Fluoxetine Hcl 20 Mg Cap) 20 mg PO [facility] Stop: 03/03/25 21:59 Last Admin: 02/01/25 21:00 Dose: 20 mg Guaifenesin (Guaifenesin Sugar Free 100 Mg/5 Ml Udc) 100 mg PO Q6H PRN PRN Reason: Cough Stop: 03/01/25 20:15 Last Admin: 01/30/25 20:54 Dose: 100 mg Hydroxyzine HCl (Hydroxyzine Hcl 25 Mg Tab) 50 mg PO HSZ PRN PRN Reason: Insomnia Stop: 02/27/25 13:07 Last Admin: 01/28/25 21:17 Dose: 50 mg Hydroxyzine HCl (Hydroxyzine Hcl 25 Mg Tab) 25 mg PO Q4H PRN PRN Reason: Anxiety Stop: 02/27/25 13:07 Magnesium Hydroxide (Magnesium Hydroxide Susp 30 Ml Udc) 30 ml PO DAILY PRN PRN Reason: Constipation Stop: 02/27/25 13:07 Menthol (Cough Drop (Sugar Free) Clarence 24 Clarence/1 Box) 1 clarence BUCCAL TID PRN PRN Reason: Sore Throat Stop: 03/01/25 12:23 Last Admin: 01/30/25 14:03 Dose: 1 clarence Metformin HCl (Metformin Hcl Er 500 Mg Tabcr) 500 mg PO DAILYBD DARLENE Stop: 03/01/25 17:14 Last Admin: 02/01/25 17:25 Dose: 500 mg Metoprolol Succinate (Metoprolol Succ 25mg Ext Rel Tab) 25 mg PO BID DARLENE Stop: 02/27/25 20:59 Last Admin: 02/02/25 09:27 Dose: 25 mg Multivitamins/Minerals (Cerovite Adv Formula Tab) 1 tab PO QAM DARLENE Stop: 03/02/25 08:59 Last Admin: 02/02/25 09:26 Dose: 1 tab Polyethylene Glycol (Polyethylene (Miralax) 17 Gm Pack) 17 gm PO DAILY DARLENE Stop: 02/28/25 08:59 Last Admin: 02/02/25 09:26 Dose: 17 gm Risperidone (Risperidone 1 Mg Tablet) 1 mg PO BID PRN PRN Reason: agitation/psychosis Stop: 02/27/25 17:26 Risperidone (Risperidone 0.25 Mg Tab) 0.5 mg PO QAM DARLENE Stop: 03/04/25 08:59 Last Admin: 02/02/25 09:26 Dose: 0.5 mg Risperidone (Risperidone 0.5 Mg Tablet) 1.5 mg PO HS DARLENE Stop: 03/03/25 21:59 Last Admin: 02/01/25 21:03 Dose: 1.5 mg Sodium Chloride (Sodium Chloride 0.65% Na Soln 45 Ml ([place])) 1 - 2 sprays NA PRN PRN PRN Reason: Nasal Dryness/Congestion Stop: 02/27/25 13:07 Vitamin D (Cholecalciferol 25 Mcg (1000 Units) Tab) 25 mcg PO QAM DARLENE Stop: 03/02/25 08:59 Last Admin: 02/02/25 09:26 Dose: 25 mcg Mental Health & Subst Abuse Tx Staff Development Coordinator Rn Name of Staff Development Coordinator Rn: BSU case manger Phone Number for Staff Development Coordinator Rn: [phone] Case Management Appointment Comment: Referral for BSU completed on 01/29/25. Post Discharge Appointments Contact Information Discharge Discharge Address: [address] [place] [address] (4) Antipsychotic overdose Encounter type: initial encounter Injury intent: intentional self-harm Qualified Code(s): T43.502A - Poisoning by unspecified antipsychotics and neuroleptics, intentional self-harm, initial encounter
[2025-02-03] MEDS: IBUPROFEN 600 MG TAB PO SCH (12:33)
[2025-02-03] MEDS: LIDOCAINE 5% 1 PATCH TD SCH (14:00)
--- NOTE | 2025-02-03 14:41 | Psychiatric Progress Note ---
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 Diagnostically consistent with unspecified psychosis with differential including major depressive disorder with psychotic features vs bipolar affective disorder with mixed episode and psychosis vs primary psychotic disorder such as schizophrenia (parietal lobe addison matter changes on MRI) vs post TBI or infectious psychosis (given MRI changes) vs neurocognitive process such as lewy body dementia given confusion and visual hallucinations (however, also with recent delirium from overdose and history of significant confusion during episode of psychosis in the past). A: Depression lessening and less paranoia today but still with some confusion at times and increased back pain. Discussed adding motrin and lidocaine patch to help with this. MNPR-psychosis, paranoia Overall, I spent a total of 30 minutes on this case including meeting with the patient, reviewing the chart, nursing report, multidisciplinary team meeting, orders, and documentation. (1) Major depressive disorder with psychotic features: (2) Disorganized behavior: (3) Confusion: (4) Antipsychotic overdose: (5) Suicide attempt: Plan 02/03/2025: -Lidocaine patch TD -Motrin 600mg QID 02/02/2025: Continue current medications and tx plan 02/01/2025: -Change fluoxetine to 20mg HS starting tomorrow -Switch risperidone to 0.5mg qAM and 1.5mg HS 01/31/2025: -Increase risperidone to 1mg BID -Increase fluoxetine to 20mg qAM tomorrow 01/30/2025: -Start metformin 500mg qdinner -Add multivitamin and Vit D -She requests Robitussin as she was getting this on medical floor for sore throat and slight cough since extubation, reasonable to continue for a few more days 01/29/2025: The [facility]) on q15 min checks (behavioral with suicide precautions) for safety. The patient will participate in group, recreational, and milieu therapies and will be offered additional individual and family sessions as clinically appropriate. -Start risperidone 0.5mg BID -Start fluoxetine 10mg daily -Fasting lipid panel, HbA1c, Vit D, Vit B12, RPR tomorrow AM -Elopement precautions Inventory Assets Strengths: supportive relationships, willing to get treatment Needs: safety and stabilization, medication adjustment, additional coping skills, increased outpatient services Suicide Risk Level Suicide Risk Level: Moderate (q15 min suicide checks) (s/p serious suicide attempt and some confusion and paranoia but mood slowly improving,denies SI and able to ask staff for support ) Suicide Risk Level Comments: Risk Factors Assessment Male: No : Yes Do You Have Access To A Gun?: No Health Problems: Yes Mental Health Diagnoses: Yes Substance Use Disorders: No Previous Attempt: Yes Family History of Suicide: No Previous Psychiatric Hospitalization: Yes Hopelessness: No Protective Factors Assessment : Yes Stable Relationships: Yes Supportive Family: Yes Interval History Identifying Information RIK FAJARDO is a 59-year-old woman who currently lives [place] her and adult children, has a history of psychosis, MDD with psychotic features, brain imaging showing 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 Chief Complaint "I have a lot of pain in my back". Review of Systems Sleep Information Total Hours of Sleep: 6.5 Meal Information Percent Meal Consumed - Breakfast: 100 Percent Meal Consumed - Lunch: 100 Percent Meal Consumed - Dinner: 100 Subjective Subjective Patient was seen & assessed and interval progress reviewed with nursing. She reports increased back pain this morning which has been making it harder to focus in groups. She slept well overnight with switching dose time of fluoxetine. Reports she feels some fatigue but more awake overall. Physical Exam Psychiatric Orientation: alert, oriented to person, oriented to place and oriented to time Apperance: appropriately dressed and appropriately groomed Eye Contact: good eye contact Motor Behavior: no abnormal motor movements Speech: normal rate/rhythm/volume of speech Affect: + constricted affect Mood: + depressed mood Thought Process: + concrete thought process Thought Content: + paranoid (at times, less evidence of this again today) Suicidal Thoughts: denies suicidal thoughts (s/ serious attempt), denies suicidal plan and denies suicidal intent Homicidal Thoughts: denies homicidal thoughts Hallucinations: no auditory hallucinations and no visual hallucinations Cognition: remote memory grossly intact, attention grossly intact and language grossly intact; + recent memory not intact Insight: + limited insight Judgment: + limited judgement Vital Signs (Past 24 Hours) Last Vital Signs Temp 36.8 C 02/03/25 06:30 Pulse 85 02/03/25 06:30 Resp 16 02/03/25 06:30 BP 126/74 02/03/25 06:30 Pulse Ox 95 02/01/25 06:00 O2 Del Method Room Air 02/01/25 06:00 Results & Data ([facility]) Current Inpatient Medications Current Inpatient Medications: Current Inpatient Medications Acetaminophen (Acetaminophen 325 Mg Tab) 650 mg PO Q4H PRN PRN Reason: Headache or Minor Fever Stop: 02/27/25 13:07 Last Admin: 02/03/25 06:27 Dose: 650 mg Al Hydrox/Mg Hydrox/Simethicone (Aluminum/Magnesium Susp 30 Ml Udc) 30 ml PO Q4H PRN PRN Reason: GI Upset Stop: 02/27/25 13:07 Last Admin: 01/31/25 22:52 Dose: 30 ml Aspirin (Aspirin 81 Mg Ectab) 81 mg PO [facility] Stop: 02/28/25 08:59 Last Admin: 02/03/25 08:43 Dose: 81 mg Atorvastatin Calcium (At[facility]vastatin 40 Mg Tab) [facility] Stop: 02/28/25 08:59 Last Admin: 02/03/25 08:44 Dose: 40 mg Bismuth Subsalicylate (Bismuth Subsalicylate 262 Mg Chew) 2 tab PO Q30M PRN PRN Reason: Loose Stool/Diarrhea Stop: 02/27/25 13:07 Famotidine (Famotidine 40 Mg Tablet) 40 [facility] Stop: 02/28/25 08:59 Last Admin: 02/03/25 08:44 Dose: 40 mg Fluoxetine HCl (Fluoxetine Hcl 20 Mg Cap) 20 mg PO [facility] Stop: 03/03/25 21:59 Last Admin: 02/02/25 22:02 Dose: 20 mg Guaifenesin (Guaifenesin Sugar Free 100 Mg/5 Ml Udc) 100 mg PO Q6H PRN PRN Reason: Cough Stop: 03/01/25 20:15 Last Admin: 01/30/25 20:54 Dose: 100 mg Hydroxyzine HCl (Hydroxyzine Hcl 25 Mg Tab) 50 mg PO HSZ PRN PRN Reason: Insomnia Stop: 02/27/25 13:07 Last Admin: 01/28/25 21:17 Dose: 50 mg Hydroxyzine HCl (Hydroxyzine Hcl 25 Mg Tab) 25 mg PO Q4H PRN PRN Reason: Anxiety Stop: 02/27/25 13:07 Ibuprofen (Ibuprofen 600 Mg Tab) 600 mg PO QID [facility] Stop: 03/05/25 12:59 Last Admin: 02/03/25 12:33 Dose: 600 mg Lidocaine (Lidocaine 5% 1 Patch) 1 patch TD QAM [facility] Stop: 03/05/25 12:59 Last Admin: 02/03/25 14:00 Dose: 1 patch Magnesium Hydroxide (Magnesium Hydroxide Susp 30 Ml Udc) 30 ml PO DAILY PRN PRN Reason: Constipation Stop: 02/27/25 13:07 Menthol (Cough Drop (Sugar Free) Clarence 24 Clarence/1 Box) 1 clarence BUCCAL TID PRN PRN Reason: Sore Throat Stop: 03/01/25 12:23 Last Admin: 01/30/25 14:03 Dose: 1 clarence Metformin HCl (Metformin Hcl Er 500 Mg Tabcr) 500 mg PO DAILYBD [facility] Stop: 03/01/25 17:14 Last Admin: 02/02/25 17:25 Dose: 500 mg Metoprolol Succinate (Metoprolol Succ 25mg Ext Rel Tab) 25 mg PO BID [facility] Stop: 02/27/25 20:59 Last Admin: 02/03/25 08:45 Dose: 25 mg Miscellaneous (Remove Lidoderm Patch) 1 each N/A DAILY@2100 [facility] Stop: 03/06/25 00:00 Multivitamins/Minerals (Cerovite Adv Formula Tab) 1 tab PO QAM [facility] Stop: 03/02/25 08:59 Last Admin: 02/03/25 08:45 Dose: 1 tab Polyethylene Glycol (Polyethylene (Miralax) 17 Gm Pack) 17 gm PO DAILY [facility] Stop: 02/28/25 08:59 Last Admin: 02/03/25 08:45 Dose: 17 gm Risperidone (Risperidone 1 Mg Tablet) 1 mg PO BID PRN PRN Reason: agitation/psychosis Stop: 02/27/25 17:26 Risperidone (Risperidone 0.25 Mg Tab) 0.5 mg PO QAM [facility] Stop: 03/04/25 08:59 Last Admin: 02/03/25 08:46 Dose: 0.5 mg Risperidone (Risperidone 0.5 Mg Tablet) 1.5 mg PO HS [facility] Stop: 03/03/25 21:59 Last Admin: 02/02/25 22:02 Dose: 1.5 mg Sodium Chloride (Sodium Chloride 0.65% Na Soln 45 Ml ([place])) 1 - 2 sprays NA PRN PRN PRN Reason: Nasal Dryness/Congestion Stop: 02/27/25 13:07 Vitamin D (Cholecalciferol 25 Mcg (1000 Units) Tab) 25 mcg PO QAM [facility] Stop: 03/02/25 08:59 Last Admin: 02/03/25 08:44 Dose: 25 mcg Mental Health & Subst Abuse Tx Manufacturing Plant Technician Name of Manufacturing Plant Technician: BSU case manger Phone Number for Manufacturing Plant Technician: [phone] Case Management Appointment Comment: Referral for BSU completed on 01/29/25. Post Discharge Appointments Contact Information Discharge Discharge Address: [address] [place] [address] (4) Antipsychotic overdose Encounter type: initial encounter Injury intent: intentional self-harm Qualified Code(s): T43.502A - Poisoning by unspecified antipsychotics and neuroleptics, intentional self-harm, initial encounter
--- NOTE | 2025-02-04 09:17 | Psychiatric Progress Note ---
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 Diagnostically consistent with unspecified psychosis with differential including major depressive disorder with psychotic features vs bipolar affective disorder with mixed episode and psychosis vs primary psychotic disorder such as schizophrenia (parietal lobe addison matter changes on MRI) vs post TBI or infectious psychosis (given MRI changes) vs neurocognitive process such as lewy body dementia given confusion and visual hallucinations (however, also with recent delirium from overdose and history of significant confusion during episode of psychosis in the past). A: Still with some periods of paranoia and some concerns about medication adherence long-term as she gets easily fixated on medications and suspicious of these. She declined her AM risperidone but is agreeing to taking it as a consolidated dose tonight. Still with some distrust of her but then seems to do well with him during visits and during support meeting today. Ongoing confusion raises suspicion for possible co-occurring underlying cognitive impairment that may be contributing to periods of paranoia and fixed delusions. Depression improving. Likely will be ready for discharge tomorrow if she tolerates consolidated risperidone dose as unclear how much further any of her chronic risk factors (paranoia and confusion and impulsivity) will respond to further medication or treatment intervention in the inpatient setting. MNPR-psychosis, paranoia Overall, I spent a total of 35 minutes on this case including meeting with the patient, reviewing the chart, nursing report, multidisciplinary team meeting, orders, and documentation. (1) Major depressive disorder with psychotic features: (2) Disorganized behavior: (3) Confusion: (4) Antipsychotic overdose: (5) Suicide attempt: Plan 02/04/2025: -Change risperidone to 2mg HS 02/03/2025: -Lidocaine patch TD -Motrin 600mg QID 02/02/2025: Continue current medications and tx plan 02/01/2025: -Change fluoxetine to 20mg HS starting tomorrow -Switch risperidone to 0.5mg qAM and 1.5mg HS 01/31/2025: -Increase risperidone to 1mg BID -Increase fluoxetine to 20mg qAM tomorrow 01/30/2025: -Start metformin 500mg qdinner -Add multivitamin and Vit D -She requests Robitussin as she was getting this on medical floor for sore throat and slight cough since extubation, reasonable to continue for a few more days 01/29/2025: The patient was admitted to the [facility] ([facility]) on q15 min checks (behavioral with suicide precautions) for safety. The patient will participate in group, recreational, and milieu therapies and will be offered additional individual and family sessions as clinically appropriate. -Start risperidone 0.5mg BID -Start fluoxetine 10mg daily -Fasting lipid panel, HbA1c, Vit D, Vit B12, RPR tomorrow AM -Elopement precautions Inventory Assets Strengths: supportive relationships, willing to get treatment Needs: safety and stabilization, medication adjustment, additional coping skills, increased outpatient services Suicide Risk Level Suicide Risk Level: Moderate (q15 min suicide checks) (s/p serious suicide attempt and some confusion and paranoia but mood slowly improving,denies SI and able to ask staff for support ) Suicide Risk Level Comments: Risk Factors Assessment Male: No : Yes Do You Have Access To A Gun?: No Health Problems: Yes Mental Health Diagnoses: Yes Substance Use Disorders: No Previous Attempt: Yes Family History of Suicide: No Previous Psychiatric Hospitalization: Yes Hopelessness: No Protective Factors Assessment : Yes Stable Relationships: Yes Supportive Family: Yes Interval History Identifying Information RIK FAJARDO is a 59-year-old woman who currently lives [place] with her and adult children, has a history of psychosis, MDD with psychotic features, brain imaging showing 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 Chief Complaint "Energy is better than it was". Review of Systems Sleep Information Total Hours of Sleep: 6 Meal Information Percent Meal Consumed - Breakfast: 100 Percent Meal Consumed - Lunch: 100 Percent Meal Consumed - Dinner: 100 Subjective Subjective Patient was seen & assessed and interval progress reviewed with treatment team. Attending groups, last evening rated her mood as "content". Did abruptly bang on nurses station last evening but was due to her concern for another patient who was having a panic attack. Back pain resolved today. Today she reports feeling less tired and "ok". She declined AM risperidone asking to get this as consolidated dose tonight due to concern for fatigue. She remains a little suspicious of her telling me her previous machine adjuster leader case trim shared information with her that she will be safe at home if she has someone "who I can call" who is separate from her . But then also tells me that h er support meeting with him "went pretty good". Discussing ways to find support she notes more paranoia about [facility] in the past and that they shared her medical records and "let people see them from the bottom of a pile". Then tells me that the same provider is the one who started her on metformin and that she doesn't like it. Reminded her that I started the metformin to prevent antipsychotic-induced weight gain and she apologizes to me and laughs stating "I'm sorry, I forgot it was you who did that". Discussed that she can stop the metformin if she wants to, she states she'll continue and then references her lisinopril perhaps being the cause of fatigue. Does tell me she is willing to continue taking risperidone and fluoxetine and likes that they are now all at night "because then they'll help me sleep and I struggle with that". She asks me to reconfirm how long we have worked together, wonders if a family member of hers, like her kids, saw me in the past. Reviewed with her that it would not have been possible as I was not in this area years ago which seemed to reassure her. Physical Exam Psychiatric Orientation: alert, oriented to person, oriented to place and oriented to time Apperance: appropriately dressed and appropriately groomed Eye Contact: good eye contact Motor Behavior: no abnormal motor movements Speech: normal rate/rhythm/volume of speech Affect: + constricted affect Mood: + anxious mood Thought Process: + concrete thought process Thought Content: + paranoid (at times) Suicidal Thoughts: denies suicidal thoughts (s/ serious attempt), denies suicidal plan and denies suicidal intent Homicidal Thoughts: denies homicidal thoughts Hallucinations: no auditory hallucinations and no visual hallucinations Cognition: remote memory grossly intact, attention grossly intact and language grossly intact; + recent memory not intact Insight: + limited insight Judgment: + limited judgement Vital Signs (Past 24 Hours) Last Vital Signs Temp 36.7 C 02/04/25 06:31 Pulse 75 02/04/25 06:31 Resp 16 02/04/25 06:31 BP 118/69 02/04/25 06:31 Pulse Ox 95 02/01/25 06:00 O2 Del Method Room Air 02/01/25 06:00 Results & Data ([facility]) Current Inpatient Medications Current Inpatient Medications: Current Inpatient Medications Acetaminophen (Acetaminophen 325 Mg Tab) 650 mg PO Q4H PRN PRN Reason: Headache or Minor Fever Stop: 02/27/25 13:07 Last Admin: 02/03/25 06:27 Dose: 650 mg Al Hydrox/Mg Hydrox/Simethicone (Aluminum/Magnesium Susp 30 Ml Udc) 30 ml PO Q4H PRN PRN Reason: GI Upset Stop: 02/27/25 13:07 Last Admin: 01/31/25 22:52 Dose: 30 ml Aspirin (Aspirin 81 Mg Ectab) [facility] Stop: 02/28/25 08:59 Last Admin: 02/04/25 08:38 Dose: 81 mg Atorvastatin Calcium (Atorvastatin 40 Mg Tab) 40 mg PO QAM [facility] Stop: 02/28/25 08:59 Last Admin: 02/04/25 08:39 Dose: 40 mg Bismuth Subsalicylate (Bismuth Subsalicylate 262 Mg Chew) 2 tab PO Q30M PRN PRN Reason: Loose Stool/Diarrhea Stop: 02/27/25 13:07 Famotidine (Famotidine 40 Mg Tablet) 40 mg PO QAM [facility] Stop: 02/28/25 08:59 Last Admin: 02/04/25 08:39 Dose: 40 mg Fluoxetine HCl (Fluoxetine Hcl 20 Mg Cap) 20 mg PO HS [facility] Stop: 03/03/25 21:59 Last Admin: 02/03/25 22:19 Dose: 20 mg Guaifenesin (Guaifenesin Sugar Free 100 Mg/5 Ml Udc) 100 mg PO Q6H PRN PRN Reason: Cough Stop: 03/01/25 20:15 Last Admin: 01/30/25 20:54 Dose: 100 mg Hydroxyzine HCl (Hydroxyzine Hcl 25 Mg Tab) 50 mg PO HSZ PRN PRN Reason: Insomnia Stop: 02/27/25 13:07 Last Admin: 01/28/25 21:17 Dose: 50 mg Hydroxyzine HCl (Hydroxyzine Hcl 25 Mg Tab) 25 mg PO Q4H PRN PRN Reason: Anxiety Stop: 02/27/25 13:07 Ibuprofen (Ibuprofen 600 Mg Tab) 600 mg PO QID [facility] Stop: 03/05/25 12:59 Last Admin: 02/04/25 08:39 Dose: 600 mg Lidocaine (Lidocaine 5% 1 Patch) 1 patch TD QAM [facility] Stop: 03/05/25 12:59 Last Admin: 02/04/25 08:40 Dose: 1 patch Magnesium Hydroxide (Magnesium Hydroxide Susp 30 Ml Udc) 30 ml PO DAILY PRN PRN Reason: Constipation Stop: 02/27/25 13:07 Menthol (Cough Drop (Sugar Free) Clarence 24 Clarence/1 Box) 1 clarence BUCCAL TID PRN PRN Reason: Sore Throat Stop: 03/01/25 12:23 Last Admin: 01/30/25 14:03 Dose: 1 clarence Metformin HCl (Metformin Hcl Er 500 Mg Tabcr) 500 mg PO DAILYBD [facility] Stop: 03/01/25 17:14 Last Admin: 02/03/25 17:20 Dose: 500 mg Metoprolol Succinate (Metoprolol Succ 25mg Ext Rel Tab) 25 mg PO BID [facility] Stop: 02/27/25 20:59 Last Admin: 02/04/25 08:39 Dose: 25 mg Miscellaneous (Remove Lidoderm Patch) 1 each N/A DAILY@2100 [facility] Stop: 03/06/25 00:00 Last Admin: 02/04/25 05:37 Dose: 1 each Multivitamins/Minerals (Cerovite Adv Formula Tab) 1 tab PO QAM [facility] Stop: 03/02/25 08:59 Last Admin: 02/04/25 08:39 Dose: 1 tab Polyethylene Glycol (Polyethylene (Miralax) 17 Gm Pack) 17 gm PO DAILY [facility] Stop: 02/28/25 08:59 Last Admin: 02/04/25 08:40 Dose: 17 gm Risperidone (Risperidone 1 Mg Tablet) 1 mg PO BID PRN PRN Reason: agitation/psychosis Stop: 02/27/25 17:26 Risperidone (Risperidone 0.25 Mg Tab) 0.5 mg PO QAM [facility] Stop: 03/04/25 08:59 Last Admin: 02/03/25 08:46 Dose: 0.5 mg Risperidone (Risperidone 0.5 Mg Tablet) 1.5 mg PO HS [facility] Stop: 03/03/25 21:59 Last Admin: 02/03/25 22:19 Dose: 1.5 mg Sodium Chloride (Sodium Chloride 0.65% Na Soln 45 Ml ([place])) 1 - 2 sprays NA PRN PRN PRN Reason: Nasal Dryness/Congestion Stop: 02/27/25 13:07 Vitamin D (Cholecalciferol 25 Mcg (1000 Units) Tab) 25 mcg PO QAM [facility] Stop: 03/02/25 08:59 Last Admin: 02/04/25 08:38 Dose: 25 mcg Mental Health & Subst Abuse Tx Psychiatrist Name of Psychiatrist: [facility] Psychiatrist's Date Of Appointment With Psychiatric Provider: 02/11/25 Time of Appointment with Psychiatrist: 12:30 PM Psychiatric Appointment Comment: 60 minute for first appointment, come to complete paperwork in the office. Psychiatrist Release of Information: Obtained and Reviewed Meter Technician Name of Meter Technician: BSU case manger Phone Number for Meter Technician: [phone] Case Management Appointment Comment: Referral for BSU completed on 01/29/25. Post Discharge Appointments Contact Information Discharge Discharge Address: [address] [place] [phone] (4) Antipsychotic overdose Encounter type: initial encounter Injury intent: intentional self-harm Qualified Code(s): T43.502A - Poisoning by unspecified antipsychotics and neuroleptics, intentional self-harm, initial encounter
[2025-02-04] MEDS: risperiDONE 2 MG TABLET PO SCH (21:04)
[2025-02-05 06:26] VITALS: RESP 16; TEMP 97.9
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
[2025-02-05 16:20] VITALS: BP 157/84; PULSE 77
== END 2025-02-05 17:40 | disposition home or self-care (01) | DRG 885 ==
LOC: 3S 13:08

== ENCOUNTER 2025-05-08 12:25 | Observation (INO) ==
[2025-05-08 13:02] LABS: Hematocrit (blood only) 45.0 % (37.0-47.0); Hemoglobin 15.2 g/dl (12.0-16.0); Immature Granulocytes # (auto) 0.01 K/uL (0.01-0.20); Immature Granulocytes % (auto) 0.2 %; Mean Corpuscular Hemoglobin 29.5 pg (25.0-34.0); Mean Corpuscular Volume 87.4 fL (80.0-100.0); Platelet Count 188 K/uL (130-400); RDW Standard Deviation 42.0 fL (36.4-46.3); Red Blood Count 5.15 M/uL (4.20-5.40); White Blood Count 5.84 K/ul (4.8-10.8)
[2025-05-08] MEDS: SODIUM CHLORIDE 0.9% 1,000 ML IV ONE (13:08)
[2025-05-08] MEDS: ACETAMINOPHEN 1,000 MG/100 ML VIAL IV STA (13:11)
[2025-05-08] MEDS: KETOROLAC TROMETHAMINE 15 MG/ML VIAL IV STA (13:11)
[2025-05-08] MEDS: ONDANSETRON INJ 2 MG/ML 2 ML VIAL IV STA ×2 (13:11→15:13)
--- NOTE | 2025-05-08 13:11 | Emergency Department Note ---
Impression & Plan Vomiting, Weakness, Incarcerated umbilical hernia, Depression ED Provider Note NAME: RIK FAJARDO AGE: 60 SEX: F : 1965 ARRIVES VIA: Walk-In INFORMANT: [Patient] ED PROVIDER(S): [Darron Young MD] CHIEF COMPLAINT: Abdominal pain HISTORY OF PRESENT ILLNESS: The patient is a 60-year-old female with an umbilical hernia. She had a CT scan of her abdomen 17 days ago showing incarceration of fatty tissue. The patient was referred to surgery. She did see the surgical service today, she was referred from their office to our ER as they felt the procedure would need to be done more emergently. The patient has had the discomfort for weeks. She has had some intermittent nausea and vomiting. She did vomit today. The patient has been using Tylenol for pain. She feels quite weak and washed out. She is a hard time tolerating oral intake. There has been no fever, no cough or congestion. No urinary complaints. PMHx/PSHx/Social Hx: See Below PHYSICAL EXAM: GENERAL: Patient is in no acute distress. Anxious and at times tearful discussing her situation. HEENT: No acute trauma, normocephalic atraumatic, mucous membranes moist, no nasal congestion. NECK: No stridor, no adenopathy, no meningismus, trachea is midline. LUNGS: Clear to auscultation bilaterally, no wheeze, no rhonchi, breath sounds equal. HEART: Without murmurs gallops or rubs, regular rate and rhythm. ABDOMEN: Soft, obese. Tender in the area just inferior and to the right of the umbilicus. A firm mass, 3 to 4 cm in size, can be felt here consistent with the diagnosed umbilical hernia. EXTREMITIES: No cyanosis, full range of motion of all the joints without pain or difficulty. NEUROLOGIC: Oriented x 3, no acute motor or sensory deficits, no focal weakness. SKIN: No jaundice, no diaphoresis. Psychiatric: Anxious, tearful, seems depressed. Denies being suicidal. DIFFERENTIAL DIAGNOSIS: Umbilical hernia, dehydration, electrolyte imbalance, failed outpatient management, among others. EMERGENCY DEPARTMENT PROCEDURES: MEDICAL DECISION MAKING: There is no leukocytosis or concerning anemia. There is a normal platelet count. No bandemia. No renal failure or significant electrolyte abnormality. No concerning liver enzyme elevation. No evidence for pancreatitis. Abdominal and pelvis CT shows an incarcerated umbilical hernia, the hernia contains fat, no bowel. There is no bowel obstruction. On exam, the patient had a palpable mass just inferior and to the right of the umbilicus. This is consistent with the hernia seen on CT imaging. The patient was shaky, at times tearful and quite upset. The patient did not want any narcotic pain medication. She was given IV saline for hydration. She received IV Zofran for nausea, additional IV Zofran was given. She was given IV Ativan for relaxation, she was given IV Toradol, IV Tylenol. I did have the patient seen by general surgery. The patient is not in need of any emergent operation and this hernia can be repaired electively. Given the patient's tearfulness, her depression, I did have her seen by psychiatry case management. The patient does not meet criteria for inpatient psychiatric care as she is not suicidal. She does carry history of depression and her depression has become worse because of this hernia diagnosis. I talked to the patient about discharge, she is very uncomfortable going home. She feels awful, she cannot keep herself from vomiting, she has shakes all the time and chills, the pain is at times unbearable. Given the circumstances, given her weeks of discomfort, given her depression, given her tearfulness, given her vomiting, hospitalization for hydration and pain control and possibly a psychiatry consult was felt warranted. The on-call hospitalist was consulted. Prior/Outside records/notes reviewed: Previous ED visit note describing her presentation, findings and outpatient plan. ECG per my interpretation: Indication was abdominal pain. The ECG shows a normal sinus rhythm with a rate of 78. There is no ST elevation, no PVCs. The QTc is 385. Continuous Cardiac Monitoring per my interpretation: An order was placed for continuous cardiac monitoring. The monitor shows a rate of 88 with normal sinus rhythm. Imaging/x-ray results per my interpretation: Chronic Medical/Social conditions affecting care: Obesity Care/Management discussed with: General Surgery-Dr. Rao. Psychiatry case management. The on-call hospitalist. Level of care consideration(s): After review of the information above and other included data: --I believe the patient requires escalation of care to admission DISPOSITION: Admission Past Med/Surg History Problem List (Updated 05/08/25 @ 18:54 by Darron Young MD) Depression (Acute) Incarcerated umbilical hernia (Acute) Weakness (Acute) Vomiting (Acute) Generalized anxiety disorder Ventral hernia without obstruction or gangrene Major depressive disorder with psychotic features Medical History GERD (gastroesophageal reflux disease) History of stroke Altered mental status Near syncope (10/05/13) Major depression Unresponsive Antipsychotic overdose Encephalopathy acute On mechanically assisted ventilation Acute kidney injury Lactic acidosis Prolonged QT interval Disorganized behavior Confusion Suicide attempt Hiatal hernia with gastroesophageal reflux disease and esophagitis Hypokalemia Psychosomatic abdominal pain Psychosis No pertinent family history Surgical History No pertinent past surgical history Social History Smoking Status: Never smoker Hx Alcohol Use: No Hx Substance Use: No Preferred Language: Maori Communication Ability: Effective Veterans Services Specialist Required: No Beliefs That Will Affect Care: None Current Living Situation: Spouse and Family Feels Safe at Home: Hesitant to Answer Gender Identity: Female Assistive Devices: Glasses Allergies Allergies Allergy/AdvReac Type Severity Reaction Status Date / Time Penicillins Allergy Severe SEIZURES Verified 01/23/25 17:57 Sulfa (Sulfonamide Allergy Severe ARRHYTHMIAS Verified 05/08/25 15:41 Antibiotics) doxycycline AdvReac Tachycardia Verified 05/08/25 15:41 Home Meds Home Medications Medication Instructions Recorded Confirmed albuterol sulfate 90 mcg/actuation 2 puff inhalation Q4 PRN Wheezing 05/17/21 05/08/25 aerosol inhaler atorvastatin 40 mg tablet 40 mg PO QAM 05/17/21 05/08/25 multivitamin with minerals 1 tab PO QAM 03/03/24 05/08/25 (Multiple Vitamin-Minerals tablet) pantoprazole 40 mg tablet,delayed 40 mg PO DAILYBB 04/19/25 05/08/25 release fluoxetine 10 mg capsule 10 mg PO HS 05/08/25 05/08/25 Results & Data (ED) Vital Signs Vital Signs - 24 hr 05/08/25 12:26 05/08/25 12:29 05/08/25 13:35 Temperature 36.9 C Temperature Source Temporal Artery Scan Pulse Rate 88 73 Pulse Rate [Apical] 73 Pulse Rhythm [Apical] Regular Pulse Strength [Apical] Normal Respiratory Rate 19 18 Respiratory Effort / Characteristics Non-Labored Spontaneous Non-Labored Spontaneous Respiratory Depth Normal Normal Respiratory Pattern Regular Regular Blood Pressure 143/98 H Blood Pressure [Right Arm] 159/85 H Blood Pressure Mean 113 Blood Pressure Mean [Right Arm] 109 Blood Pressure Position Sitting Blood Pressure Position [Right Arm] Sitting Pulse Oximetry 96 97 Oxygen Delivery Method Room Air Room Air Sepsis Recent Fever Within 48 Hours No Sepsis New/Unexplained Change in Mental Status N/A Sepsis Action Taken by Nursing No Action Required 05/08/25 14:26 05/08/25 16:00 05/08/25 17:52 Temperature Temperature Source Pulse Rate 77 Pulse Rate [Apical] 86 74 Pulse Rhythm [Apical] Pulse Strength [Apical] Respiratory Rate 13 18 Respiratory Effort / Characteristics Non-Labored Spontaneous Respiratory Depth Normal Respiratory Pattern Regular Blood Pressure Blood Pressure [Right Arm] 159/85 H 160/102 H Blood Pressure Mean Blood Pressure Mean [Right Arm] 109 121 Blood Pressure Position Blood Pressure Position [Right Arm] Pulse Oximetry 96 95 Oxygen Delivery Method Room Air Room Air Sepsis Recent Fever Within 48 Hours Sepsis New/Unexplained Change in Mental Status Sepsis Action Taken by Snf Medications Current Medication List: was personally reviewed by me Laboratory Data Attestation: I reviewed the patient's lab results. 05/08/25 12:40 05/08/25 12:40 Lab Results 05/08/25 Range/Units 12:40 WBC 5.84 (4.8-10.8) K/ul RBC 5.15 (4.20-5.40) M/uL Hgb 15.2 (12.0-16.0) g/dl Hct 45.0 (37.0-47.0) % MCV 87.4 (80.0-100.0) fL MCH 29.5 (25.0-34.0) pg MCHC 33.8 (32.0-36.0) g/dL RDW Std Deviation 42.0 (36.4-46.3) fL RDW Coeff of Padmini 13.2 (11.5-14.5) % Plt Count 188 (130-400) K/uL MPV 12.5 H (9.4-12.4) fL Immature Gran % (Auto) 0.2 % Neut % (Auto) 67.5 % Lymph % (Auto) 25.3 % [place] % (Auto) 5.7 % Eos % (Auto) 1.0 % Baso % (Auto) 0.3 % Neut # (Auto) 3.94 (1.40-6.50) K/uL Lymph # (Auto) 1.48 (1.20-3.40) K/uL [place] # (Auto) 0.33 (0.11-0.59) K/uL Eos # (Auto) 0.06 (0.00-0.50) K/uL Baso # (Auto) 0.02 (0.00-0.20) K/uL Immature Gran # (Auto) 0.01 (0.01-0.20) K/uL Sodium 140 (136-145) mmol/L Potassium 3.7 (3.5-5.1) mmol/L Chloride 107 (98-107) mmol/L Carbon Dioxide 24 (21-32) mmol/L Anion Gap 9 (3-11) BUN 8 (6-23) mg/dl Creatinine 0.84 (0.6-1.2) mg/dl Est Cr Clr Drug Dosing 78.0 ml/min eGFR 80.00 BUN/Creatinine Ratio 9.5 L (10-20) Glucose 117 H (70-99(Fasting)) mg/dl Calcium 11.2 H (8.6-10.3) mg/dl Magnesium 1.7 (1.7-2.4) mg/dl Total Bilirubin 0.6 (0.2-1.0) mg/dl AST 23 (13-39) U/L ALT 37 (7-52) U/L Alkaline Phosphatase 136 H (34-104) U/L Total Protein 6.8 (6.0-8.3) gm/dl Albumin 4.1 (3.4-5.0) gm/dl Globulin 2.7 (2.5-4.0) gm/dl Albumin/Globulin Ratio 1.5 (0.9-2) Lipase 28 (11-82) U/L Administered Medications Sodium Chloride (Nss) 1,000 mls @ 80 mls/hr IV .[id number] DARLENE Stop: 05/09/25 06:14 Last Admin: 05/08/25 18:03 Dose: 80 mls/hr Documented By: LCD Discontinued Medications Sodium Chloride (Nss) 1,000 mls @ 999 mls/hr IV .Q1H1M ONE Stop: 05/08/25 14:04 Last Infusion: 05/08/25 15:06 Dose: Infused Documented By: Admin: 05/08/25 13:08 Dose: 999 mls/hr Documented By: MEGHAN Acetaminophen (Ofirmev) 1,000 mg in 100 mls @ 400 mls/hr IV NOW STA Stop: 05/08/25 13:18 Last Infusion: 05/08/25 13:37 Dose: Infused Documented By: Admin: 05/08/25 13:11 Dose: 400 mls/hr Documented By: MARANDA Ioversol (Optiray 320 100ml) 94 ml IV ONCE ONE Stop: 05/08/25 13:40 Last Admin: 05/08/25 13:39 Dose: 94 ml Documented By: MARIA ALEJANDRA Ketorolac Tromethamine (Ketorolac Tromethamine 15 Mg/Ml Vial) 15 mg IV NOW STA Stop: 05/08/25 13:05 Last Admin: 05/08/25 13:11 Dose: 15 mg Documented By: MARANDA Lorazepam (Lorazepam 2 Mg/1 Ml Vial) 0.5 mg IV NOW STA Stop: 05/08/25 15:06 Last Admin: 05/08/25 15:13 Dose: 0.5 mg Documented By: WILIAN Ondansetron HCl (Ondansetron Inj 2 Mg/Ml 2 Ml Vial) 4 mg IV NOW STA Stop: 05/08/25 13:05 Last Admin: 05/08/25 13:11 Dose: 4 mg Documented By: MARANDA Ondansetron HCl (Ondansetron Inj 2 Mg/Ml 2 Ml Vial) 4 mg IV NOW STA Stop: 05/08/25 15:08 Last Admin: 05/08/25 15:13 Dose: 4 mg Documented By: WILIAN Imaging Data Radiologist's Impression: Abdomen/Pelvis CT 05/08/25 13:13 CT SCAN OF THE ABDOMEN AND PELVIS WITH IV CONTRAST CLINICAL HISTORY: Abdominal pain. Hernia. COMPARISON STUDY: CT of the abdomen and pelvis April 21, 2025. TECHNIQUE: Following the IV administration of 94 cc of Optiray 320, CT scan of the abdomen and pelvis is performed from the lung bases to the proximal femora. Images are reviewed in the axial, sagittal, and coronal planes. IV contrast was administered without complication. A dose lowering technique was utilized adhering to the principles of ALARA. CT DOSE: 1324.46 mGy.cm FINDINGS: Visualized lung bases are unremarkable. No pneumatosis, free air or portal venous gas is present. There is hepatic steatosis. No biliary or pancreatic ductal dilatation is present. Spleen, adrenal glands and pancreas are unremarkable. Bilateral renal calculi measure up to 5 mm. There are no ureteral calculi. There is no hydronephrosis. There is a 2.9 cm right lower pole renal cyst. There is no evidence for a bowel obstruction. The caliber and wall thickness of small and large bowel are normal. There is no ascites. There is a small fat-containing umbilical hernia. Note is also made of an infraumbilical fat-containing hernia. Hernia neck measures 1.9 cm in transverse diameter. Associated omental stranding is similar to CT of April 21, 2025. No additional sites of inflammation are identified. There are no fluid collections. IMPRESSION: 1. No significant change in appearance of an infraumbilical fat-containing hernia with associated omental stranding since CT of April 21, 2025. Associated inflammation suggests strangulation of the herniated fat and this favors an incarcerated hernia. 2. Small fat-containing umbilical hernia. 3. No bowel obstruction. No bowel wall thickening. 4. Bilateral nephrolithiasis. No ureteral calculi. ACT 112: Negative or not required by law. Electronically signed by: Bernard Carey M.D. 05/08/2025 2:05 PM Discharge Plan Visit Data Chief Complaint: Abdominal Pain Stated Complaint: ABD PAIN, REF BY DOC, NEAR SYNCOPE ED Provider: Darron Young Discharge Problem: Vomiting, Weakness, Incarcerated umbilical hernia, Depression Patient Disposition: Admitted As Inpatient Condition: Fair Forms Stand Alone Forms: [facility] [employer] Prescriptions Prescriptions: No Action atorvastatin 40 mg tablet 40 mg PO QAM albuterol sulfate 90 mcg/actuation HFA aerosol inhaler 2 puff INHALATION Q4 PRN (Reason: Wheezing) Multiple Vitamin-Minerals Tablet 1 tab PO QAM pantoprazole 40 mg Tablet,Delayed Release (Dr/Ec) 40 mg PO DAILYBB fluoxetine 10 mg capsule 10 mg PO HS Referrals Referrals: Amena Bennett MD [Primary Care Provider] - Discharge Problem: Vomiting Qualifiers: Vomiting type: unspecified Nausea presence: with nausea Qualified Code(s): R 11.2 - Nausea with vomiting, unspecified Depression Qualifiers: Depression Type: unspecified Qualified Code(s): F32.A - Depression, unspecified
[2025-05-08 13:14] LABS: Alanine Aminotransferase 37.0 U/L (7-52); Albumin Globulin Ratio 1.5 (0.9-2); Alkaline Phosphatase 136.0 U/L (34-104); Anion Gap 9.0 (3-11); Bilirubin,Total 0.6 mg/dl (0.2-1.0); Blood Urea Nitrogen 8.0 mg/dl (6-23); Calcium 11.2 mg/dl (8.6-10.3); Carbon Dioxide 24.0 mmol/L (21-32); Chloride 107.0 mmol/L (98-107); Creatinine Clr Calc Pharmacy 78.0 ml/min; Globulin 2.7 gm/dl (2.5-4.0); Glucose 117.0 mg/dl (70-99(Fasting)); Potassium 3.7 mmol/L (3.5-5.1); Sodium 140.0 mmol/L (136-145); Total Protein 6.8 gm/dl (6.0-8.3)
[2025-05-08 13:31] LABS: Lipase 28.0 U/L (11-82); Magnesium 1.7 mg/dl (1.7-2.4)
[2025-05-08] MEDS: OPTIRAY 320 100ml IV ONE (13:39)
--- NOTE | 2025-05-08 14:06 | CT Scan Report ---
CT SCAN OF THE ABDOMEN AND PELVIS WITH IV CONTRAST CLINICAL HISTORY: Abdominal pain. Hernia. COMPARISON STUDY: CT of the abdomen and pelvis April 21, 2025. TECHNIQUE: Following the IV administration of 94 cc of Optiray 320, CT scan of the abdomen and pelvi s is performed from the lung bases to the proximal femora. Images are reviewed in the axial, sagittal , and coronal planes. IV contrast was administered without complication. A dose lowering technique wa s utilized adhering to the principles of ALARA. CT DOSE: 1324.46 mGy.cm FINDINGS: Visualized lung bases are unremarkable. No pneumatosis, free air or portal venous gas is pr esent. There is hepatic steatosis. No biliary or pancreatic ductal dilatation is present. Spleen, adr enal glands and pancreas are unremarkable. Bilateral renal calculi measure up to 5 mm. There are no u reteral calculi. There is no hydronephrosis. There is a 2.9 cm right lower pole renal cyst. There is no evidence for a bowel obstruction. The caliber and wall thickness of small and large bowel are norm al. There is no ascites. There is a small fat-containing umbilical hernia. Note is also made of an in fraumbilical fat-containing hernia. Hernia neck measures 1.9 cm in transverse diameter. Associated om ental stranding is similar to CT of April 21, 2025. No additional sites of inflammation are identified. There are no fluid collections. IMPRESSION: 1. No significant change in appearance of an infraumbilical fat-containing hernia with associated ome ntal stranding since CT of April 21, 2025. Associated inflammation suggests strangulation of the hernia juan pablo fat and this favors an incarcerated hernia. 2. Small fat-containing umbilical hernia. 3. No bowel obstruction. No bowel wall thickening. 4. Bilateral nephrolithiasis. No ureteral calculi. ACT 112: Negative or not required by law. Electronically signed by: Bernard Carey M.D. 05/08/2025 2:05 PM
--- NOTE | 2025-05-08 14:19 | Surgery Consultation ---
Date of Consultation May 08, 2025 Assessment & Plan (1) Ventral hernia without obstruction or gangrene: Her CT images and results were personally viewed and interpreted by myself She has a fat-containing ventral hernia without bowel involvement This looks similar to her CT scan from 2 weeks ago There is no indications for surgical repair urgently She can follow-up with her surgeon as an outpatient to discuss elective repair History of Present Illness Reason for Consultation: Hernia History of Present Illness This is a 60-year-old female who was sent over from the [facility] general surgery clinic with concern for incarcerated hernia. She states that over the last few weeks she has had pain above her umbilicus, sharp in nature that is present when the area is palpated. She denies any vomiting. She is having normal bowel movements. Denies any skin changes. States she has had her tubes tied in the past, otherwise no abdominal surgeries. Allergies Allergy/AdvReac Type Severity Reaction Status Date / Time Penicillins Allergy Severe SEIZURES Verified 01/23/25 17:57 Sulfa (Sulfonamide Allergy Severe ARRHYTHMIAS Verified 03/03/24 17:55 Antibiotics) doxycycline AdvReac Tachycardia Verified 01/23/25 17:57 Home Medications Medication Instructions Recorded Confirmed Type albuterol sulfate 90 mcg/actuation 2 puff inhalation Q4 PRN Wheezing 05/17/21 04/21/25 History aerosol inhaler atorvastatin 40 mg tablet 40 mg PO QAM 05/17/21 04/21/25 History multivitamin with minerals 1 tab PO QAM 03/03/24 04/21/25 History (Multiple Vitamin-Minerals tablet) alprazolam 0.25 mg tablet (Xanax) 0.25 mg PO TID PRN Anxiety 04/19/25 04/21/25 History fluoxetine 10 mg capsule 10 mg PO DAILY #10 caps 04/19/25 04/21/25 Rx pantoprazole 40 mg tablet,delayed 40 mg PO DAILY 04/19/25 04/21/25 History release Patient History Medical History Psychosis No pertinent family history Surgical History No pertinent past surgical history Social History Smoking Status: Never smoker Hx Alcohol Use: No Hx Substance Use: No Preferred Language: Upper Sorbian Communication Ability: Effective Evp Strategy Required: No Beliefs That Will Affect Care: None Current Living Situation: Spouse Feels Safe at Home: Hesitant to Answer Gender Identity: Female Assistive Devices: Glasses Review of Systems Constitutional: no fever and no chills Eyes: no blind spots and no corrective lenses Ear, Nose, Mouth, Throat: no ear pain and no hearing loss Respiratory: no cough and no dyspnea Cardiovascular: no chest pain and no dyspnea on exertion Gastrointestinal: + abdominal pain; no nausea, no vomiting , no constipation and no diarrhea/loose stools Genitourinary: no dysuria and no urinary urgency Musculoskeletal: no back pain and no neck pain Integumentary: no acne, no sores and no erythema Neurologic: no gait abnormality and no headache(s) Psychiatric: no behavioral changes and no depression Hematologic / Lymphatic: no easy bleeding and no easy bruising Physical Exam Constitutional: WD/WN, vitals as above Eyes: PERRL, conjunctivae normal, anicteric sclerae ENMT: external ear and nose normal, oropharynx normal Neck: trachea midline, no thyromegaly Respiratory: normal respiratory effort, lungs clear to auscultation Cardiovascular: RRR, no murmur, no edema Gastrointestinal (Abdomen): Inspection/Auscultation: abdomen normal to inspection; abdomen not distended Percussion/Palpation: + abdomen tender (Mild supraumbilical), abdomen soft and + hernia (Unable to palpate defect due to body habitus); no guarding Musculoskeletal: no cyanosis or clubbing, extremities motor strength 5/5 Skin: no rashes, warm and dry Neurologic: PERRL, EOMI, accommodation nl, no face palsy, no dysarthria Psychiatric: A+Ox3, euthymic affect Results & Data Vital Signs (Past 12 Hours) Vital Signs Temp Pulse Pulse Resp BP BP Pulse Ox 05/08/25 13:35 73 05/08/25 12:29 36.9 C 88 18 143/98 H 97 05/08/25 12:26 73 19 159/85 H 96 O2 Del Method 05/08/25 13:35 05/08/25 12:29 Room Air 05/08/25 12:26 Room Air PG Care Time/CCT Total # of Minutes Spent Total Time Spent with Patient: Total time spent is greater than 50% in coordination of care (as documented) at patient's floor/unit and/or counseling patient: Coding Level of Care Code 46170 OFFICE CONSULT LVL Diagnoses Ventral hernia without obstruction or gangrene K43.9
--- NOTE | 2025-05-08 17:16 | History & Physical Report ---
Date of Service May 08, 2025 Assessment & Plan (1) Ventral hernia without obstruction or gangrene: (2) Major depressive disorder with psychotic features: (3) Generalized anxiety disorder: (4) GERD (gastroesophageal reflux disease): (5) History of stroke: Plan 60 year old female with PMH significant for dyslipidemia, elevated parathyroid hormone, prediabetes, history of CVA, iron deficiency anemia, and depression who presented to the ED on 05/08/2025 as a referral from Dr. Augustin today. Patient was previously seen in our ED on 04/19 and 04/21 with abdominal pain and was found to have a fat-containing umbilical hernia. She followed up with Dr. Augustin outpatient today for this and was referred to the ED due to severe pain in his office. Ventral hernia without obstruction or gangrene Patient with ongoing abdominal pain with associated nausea and weakness CT abdomen revealed no significant change in appearance of fat-containing hernia compared to CT on 04/21/2025 Surgery evaluated patient and advise outpatient follow up for elective repair Patient was offered discharge with pain and nausea medicine but preferred to stay in the hospital due to weakness and need for IV fluids MIVF, zofran PRN, tylenol and ibuprofen and oxycodone PRN PT in the am Elevated PTH Ca 11.2 on admission appears to be baseline PTH outpatient 151 in February 2025 Referred to Endo by PCP and has appt 05/16/2025 Depression and anxiety Continue fluoxetine GERD Continue pantoprazole History of CVA Dyslipidemia Continue baby aspirin and atorvastatin DVT Prophylaxis: SQ lovenox Code Status: FULL CODE - As per discussion at bedside with the patient. PCP: Amena Bennett Disposition: admit to med surg under obs Patient seen in collaboration with Dr. Mohan. Please see addendum. I spent a total of 60 minutes coordinating, documenting and providing care for this patient excluding time spent in the performance of separately billed services or time spent by another provider/QHP. Admission and Anticipated Discharge Date Admission Date: 05/08/2025 History of Present Illness Chief Complaint: abdominal pain Primary Care Provider: Amena Bennett MD 60 year old female with PMH significant for dyslipidemia, elevated parathyroid hormone, prediabetes, history of CVA, iron deficiency anemia, and depression who presented to the ED on 05/08/2025 as a referral from Dr. Augustin today. Patient was previously seen in our ED on 04/19 and 04/21 with abdominal pain and was found to have a fat-containing umbilical hernia. She followed up with Dr. Augustin outpatient today for this and was referred to the ED due to severe pain in his office. Patient reports she has been having abdominal pain for a few weeks with associated weakness, shaking, and nausea without vomiting. She denies fevers, chills, chest pain, SOB, dysuria, constipation, diarrhea. She does not feel she is safe to go home and would prefer to stay in the hospital overnight for fluids and medications. Allergies Allergy/AdvReac Type Severity Reaction Status Date / Time Penicillins Allergy Severe SEIZURES Verified 01/23/25 17:57 Sulfa (Sulfonamide Allergy Severe ARRHYTHMIAS Verified 05/08/25 15:41 Antibiotics) doxycycline AdvReac Tachycardia Verified 05/08/25 15:41 Home Medications Medication Instructions Recorded Confirmed Type albuterol sulfate 90 mcg/actuation 2 puff inhalation Q4 PRN Wheezing 05/17/21 05/08/25 History aerosol inhaler atorvastatin 40 mg tablet 40 mg PO QAM 05/17/21 05/08/25 History multivitamin with minerals 1 tab PO QAM 03/03/24 05/08/25 History (Multiple Vitamin-Minerals tablet) pantoprazole 40 mg tablet,delayed 40 mg PO DAILYBB 04/19/25 05/08/25 History release fluoxetine 10 mg capsule 10 mg PO HS 05/08/25 05/08/25 History Past Med/Surg History Problem List (Updated 05/08/25 @ 18:54 by Darron Young MD) Depression (Acute) Incarcerated umbilical hernia (Acute) Weakness (Acute) Vomiting (Acute) Generalized anxiety disorder Ventral hernia without obstruction or gangrene Major depressive disorder with psychotic features Medical History GERD (gastroesophageal reflux disease) History of stroke Altered mental status Near syncope (10/05/13) Major depression Unresponsive Antipsychotic overdose Encephalopathy acute On mechanically assisted ventilation Acute kidney injury Lactic acidosis Prolonged QT interval Disorganized behavior Confusion Suicide attempt Hiatal hernia with gastroesophageal reflux disease and esophagitis Hypokalemia Psychosomatic abdominal pain Psychosis No pertinent family history Surgical History No pertinent past surgical history Social History Smoking Status: Never smoker Hx Alcohol Use: No Hx Substance Use: No Preferred Language: Macedonian Communication Ability: Effective Assistant Manager Retail Required: No Beliefs That Will Affect Care: None Current Living Situation: Spouse and Family Feels Safe at Home: Hesitant to Answer Gender Identity: Female Assistive Devices: Glasses Review of Systems Review of Systems: All systems reviewed & are unremarkable except as noted in HPI & below Physical Exam Physical Exam: General/Psych: unkempt, sitting up in bed, NAD, flat affect Head: normocephalic, atraumatic Eyes: normal inspection, PERRL, conjunctivae pink ENT: external ear and nose normal, oropharynx normal Neck: normal visual inspection, trachea midline Respiratory: normal respiratory effort, lungs clear to auscultation, no wheeze/rales/rhonchi, no accessory muscle use Cardiovascular: regular rate and rhythm, no murmur/rub/gallop, no JVD Extremities: no cyanosis or clubbing, normal peripheral pulses, no BLE edema Abdomen/GI: normal bowel sounds, soft, tender on palpation, umbilical hernia present Neurologic/MSK: A+Ox3, motor strength 5/5, moves all extremities Skin: no rashes, normal color, warm and dry Results & Data Results & Data Vital Signs (Past 12 Hours) Vital Signs Temp Pulse Pulse Resp BP BP Pulse Ox 05/08/25 16:00 74 18 160/102 H 95 05/08/25 14:26 86 13 159/85 H 96 05/08/25 13:35 73 05/08/25 12:29 36.9 C 88 18 143/98 H 97 05/08/25 12:26 73 19 159/85 H 96 O2 Del Method 05/08/25 16:00 Room Air 05/08/25 14:26 Room Air 05/08/25 13:35 05/08/25 12:29 Room Air 05/08/25 12:26 Room Air Laboratory Results Short CBC 05/08/25 Range/Units 12:40 WBC 5.84 (4.8-10.8) K/ul Hgb 15.2 (12.0-16.0) g/dl Hct 45.0 (37.0-47.0) % Plt Count 188 (130-400) K/uL BMP 05/08/25 12:40 Sodium 140 Potassium 3.7 Chloride 107 Carbon Dioxide 24 BUN 8 Creatinine 0.84 Glucose 117 H Calcium 11.2 H Liver Function 05/08/25 Range/Units 12:40 Total Bilirubin 0.6 (0.2-1.0) mg/dl AST 23 (13-39) U/L ALT 37 (7-52) U/L Alkaline Phosphatase 136 H (34-104) U/L Albumin 4.1 (3.4-5.0) gm/dl I have independently reviewed and interpreted patient's admitting labs including CBC, CMP, PTT, PT/INR, mag and lipase. Diagnostic Findings Abdomen/Pelvis CT 05/08/25 13:13 CT SCAN OF THE ABDOMEN AND PELVIS WITH IV CONTRAST CLINICAL HISTORY: Abdominal pain. Hernia. COMPARISON STUDY: CT of the abdomen and pelvis April 21, 2025. TECHNIQUE: Following the IV administration of 94 cc of Optiray 320, CT scan of the abdomen and pelvis is performed from the lung bases to the proximal femora. Images are reviewed in the axial, sagittal, and coronal planes. IV contrast was administered without complication. A dose lowering technique was utilized adhering to the principles of ALARA. CT DOSE: 1324.46 mGy.cm FINDINGS: Visualized lung bases are unremarkable. No pneumatosis, free air or portal venous gas is present. There is hepatic steatosis. No biliary or pancreatic ductal dilatation is present. Spleen, adrenal glands and pancreas are unremarkable. Bilateral renal calculi measure up to 5 mm. There are no ureteral calculi. There is no hydronephrosis. There is a 2.9 cm right lower pole renal cyst. There is no evidence for a bowel obstruction. The caliber and wall thickness of small and large bowel are normal. There is no ascites. There is a small fat-containing umbilical hernia. Note is also made of an infraumbilical fat-containing hernia. Hernia neck measures 1.9 cm in transverse diameter. Associated omental stranding is similar to CT of April 21, 2025. No additional sites of inflammation are identified. There are no fluid collections. IMPRESSION: 1. No significant change in appearance of an infraumbilical fat-containing hernia with associated omental stranding since CT of April 21, 2025. Associated inflammation suggests strangulation of the herniated fat and this favors an incarcerated hernia. 2. Small fat-containing umbilical hernia. 3. No bowel obstruction. No bowel wall thickening. 4. Bilateral nephrolithiasis. No ureteral calculi. ACT 112: Negative or not required by law. Electronically signed by: Bernard Carey M.D. 05/08/2025 2:05 PM ECG Additional Comments: I have independently reviewed and interpreted patient's admitting EKG which revealed: NSR at a rate of 78 bpm Code Status & VTE Plan Code Status Full Code Supervising Physician Co-Signing Physician Notes Patient seen and examined independently. She presents to the hospital with abdominal pain nausea and vomiting. Evaluated by surgery; no indication of surgical repair urgently and recommended follow-up with her surgeon as outpatient for elective procedure. Admitted for supportive care with IV fluids, antiemetic and pain control. Noted to have elevated calcium level; PTH elevated in outpatient records; has follow-up with endocrinology for work up. I have reviewed the advanced practitioner's documentation, and I agree with, and take responsibility for the plan of care I spent a total of 30 minutes coordinating, documenting, and providing care for this patient excluding time spent in the performance of separately billed services. All of the aforementioned completed while collaborating with the assigned advanced practitioner for a full treatment plan (4) GERD (gastroesophageal reflux disease) Esophagitis bleeding: without hemorrhage Esophagitis presence: with esophagitis Qualified Code(s): K21.00 - Gastro-esophageal reflux disease with esophagitis, without bleeding
[2025-05-08] MEDS: SODIUM CHLORIDE 0.9% 1,000 ML IV SCH (18:03)
[2025-05-08] MEDS ORDERED: ACETAMINOPHEN 325 MG TAB PO PRN (20:36)
[2025-05-08] MEDS ORDERED: ONDANSETRON 4 MG OD TAB PO PRN (20:36)
[2025-05-08] MEDS ORDERED: IBUPROFEN 600 MG TAB PO PRN (20:36)
[2025-05-08] MEDS: ENOXAPARIN INJ 40 MG/0.4 ML SYR SQ SCH (21:43)
[2025-05-09 06:16] LABS: Hematocrit (blood only) 41.2 % (37.0-47.0); Hemoglobin 13.8 g/dl (12.0-16.0); Mean Corpuscular Hemoglobin 30.0 pg (25.0-34.0); Mean Corpuscular Volume 89.6 fL (80.0-100.0); Platelet Count 147 K/uL (130-400); RDW Standard Deviation 42.8 fL (36.4-46.3); Red Blood Count 4.60 M/uL (4.20-5.40); White Blood Count 3.79 K/ul (4.8-10.8)
[2025-05-09 06:33] LABS: Anion Gap 4.0 (3-11); Blood Urea Nitrogen 7.0 mg/dl (6-23); Calcium 9.9 mg/dl (8.6-10.3); Carbon Dioxide 26.0 mmol/L (21-32); Chloride 112.0 mmol/L (98-107); Creatinine Clr Calc Pharmacy 92.2 ml/min; Glucose 104.0 mg/dl (70-99(Fasting)); Potassium 4.2 mmol/L (3.5-5.1); Sodium 142.0 mmol/L (136-145)
[2025-05-09] MEDS: ATORVASTATIN 40 MG TAB PO SCH (07:50)
--- NOTE | 2025-05-09 14:47 | Hospitalist Progress Note ---
Date of Service May 09, 2025 Assessment & Plan (1) Ventral hernia without obstruction or gangrene: (2) Major depressive disorder with psychotic features: (3) Generalized anxiety disorder: (4) GERD (gastroesophageal reflux disease): (5) History of stroke: Plan 60 year old female with PMH significant for dyslipidemia, elevated parathyroid hormone, prediabetes, history of CVA, iron deficiency anemia, and depression who presented to the ED on 05/08/2025 as a referral from Dr. uAgustin yesterday. Patient was previously seen in the ED on 04/19 and 04/21 with abdominal pain and was found to have a fat-containing umbilical hernia. She followed up with Dr. Augustin outpatient for this and was referred to the ED due to severe pain in his office. Ventral hernia without obstruction or gangrene Patient with ongoing abdominal pain with associated nausea and weakness CT abdomen revealed no significant change in appearance of fat-containing hernia compared to CT on 04/21/2025 Surgery evaluated patient and advise outpatient follow up for elective repair Patient was offered discharge with pain and nausea medicine but preferred to stay in the hospital due to weakness and need for IV fluids MIVF, zofran PRN, tylenol and ibuprofen and oxycodone PRN PT in the am Elevated PTH Ca 11.2 on admission appears to be baseline PTH outpatient 151 in February 2025 Referred to Endo by PCP and has appt 05/16/2025 Depression and anxiety Continue fluoxetine GERD Continue pantoprazole History of CVA Dyslipidemia Continue baby aspirin and atorvastatin DVT Prophylaxis: SQ lovenox Code Status: FULL CODE - As per discussion at bedside with the patient. PCP: Amena Bennett I spent a total of 47 minutes coordinating, documenting and providing care for this patient . Admission and Anticipated Discharge Date Admission Date: May 08, 2025 Subjective Chart and vital signs reviewed. Patient seen at bedside. Still has some ventral abdominal pain but not as bad. Patient was seen by surgery and no urgent surgical intervention is planned. Review of Systems Review of Systems: Constitutional- no fever; no weight loss Eyes- no acute visual changes ENT- no sinus drainage; no pharyngitis Pulmonary- no cough, no wheezing, no shortness of breath Cardiac- no chest pain, no palpitations, no orthopnea, no dependent edema GI- no nausea, no vomiting, no diarrhea, no melena, no hematochezia, has abdominal pain. Severe in the office yesterday - no dysuria, no hematuria Musculoskeletal- no arthralgias, no myalgias Derm- no rashes, no new skin lesions, no changing skin lesions Hematologic- no unusual bruising, no unusual bleeding Lymphatics- no adenopathy Endocrine- no polyuria or polydipsia; no heat or cold intolerance Neuro- no headaches, no focal neurologic symptoms Psych- no anxiety, no depression Physical Exam Physical Exam: General- adult female seen at bedside. Extremely flat affect Head- atraumatic Eyes- PERRL, EOMI, anicteric ENT- oropharynx clear Neck- supple, no JVD, no adenopathy, no thyromegaly; carotids +2/2, no bruits appreciated Lungs- clear to auscultation and percussion Heart- regular rhythm; no murmur, no gallop, no rub appreciated Abdomen- normal bowel sounds, soft, diffuse mild tenderness, no masses or hepatosplenomegaly Extremities- no pretibial edema, no calf tenderness; peripheral pulses intact Neuro- alert, oriented x 3; PERRL, EOMI; no focal findings Skin- warm & dry Results & Data Results & Data Vital Signs (Past 12 Hours) Vital Signs Temp Pulse Resp BP Pulse Ox O2 Del Method 05/09/25 14:36 36.7 C 83 16 136/84 94 Room Air 05/09/25 07:29 36.5 C 75 16 143/84 H 97 Room Air Diagnostic Findings Laboratory Results WBC 3.79 K/ul (4.8-10.8) L 05/09/25 05:59 RBC 4.60 M/uL (4.20-5.40) 05/09/25 05:59 Hgb 13.8 g/dl (12.0-16.0) 05/09/25 05:59 Hct 41.2 % (37.0-47.0) 05/09/25 05:59 MCV 89.6 fL (80.0-100.0) 05/09/25 05:59 MCH 30.0 pg (25.0-34.0) 05/09/25 05:59 MCHC 33.5 g/dL (32.0-36.0) 05/09/25 05:59 RDW Std Deviation 42.8 fL (36.4-46.3) 05/09/25 05:59 RDW Coeff of Padmini 13.2 % (11.5-14.5) 05/09/25 05:59 Plt Count 147 K/uL (130-400) 05/09/25 05:59 MPV 12.3 fL (9.4-12.4) 05/09/25 05:59 Immature Gran % (Auto) 0.2 % 05/08/25 12:40 Neut % (Auto) 67.5 % 05/08/25 12:40 Lymph % (Auto) 25.3 % 05/08/25 12:40 Isabela % (Auto) 5.7 % 05/08/25 12:40 Eos % (Auto) 1.0 % 05/08/25 12:40 Baso % (Auto) 0.3 % 05/08/25 12:40 Neut # (Auto) 3.94 K/uL (1.40-6.50) 05/08/25 12:40 Lymph # (Auto) 1.48 K/uL (1.20-3.40) 05/08/25 12:40 Isabela # (Auto) 0.33 K/uL (0.11-0.59) 05/08/25 12:40 Eos # (Auto) 0.06 K/uL (0.00-0.50) 05/08/25 12:40 Baso # (Auto) 0.02 K/uL (0.00-0.20) 05/08/25 12:40 Immature Gran # (Auto) 0.01 K/uL (0.01-0.20) 05/08/25 12:40 Sodium 142 mmol/L (136-145) 05/09/25 05:59 Potassium 4.2 mmol/L (3.5-5.1) 05/09/25 05:59 Chloride 112 mmol/L (98-107) H 05/09/25 05:59 Carbon Dioxide 26 mmol/L (21-32) 05/09/25 05:59 Anion Gap 4 (3-11) 05/09/25 05:59 BUN 7 mg/dl (6-23) 05/09/25 05:59 Creatinine 0.71 mg/dl (0.6-1.2) 05/09/25 05:59 Est Cr Clr Drug Dosing 92.2 ml/min 05/09/25 05:59 eGFR 97.88 05/09/25 05:59 BUN/Creatinine Ratio 9.9 (10-20) L 05/09/25 05:59 Glucose 104 mg/dl (70-99(Fasting)) H 05/09/25 05:59 Calcium 9.9 mg/dl (8.6-10.3) 05/09/25 05:59 Magnesium 1.7 mg/dl (1.7-2.4) 05/08/25 12:40 Total Bilirubin 0.6 mg/dl (0.2-1.0) 05/08/25 12:40 AST 23 U/L (13-39) 05/08/25 12:40 ALT 37 U/L (7-52) 05/08/25 12:40 Alkaline Phosphatase 136 U/L (34-104) H 05/08/25 12:40 Total Protein 6.8 gm/dl (6.0-8.3) 05/08/25 12:40 Albumin 4.1 gm/dl (3.4-5.0) 05/08/25 12:40 Globulin 2.7 gm/dl (2.5-4.0) 05/08/25 12:40 Albumin/Globulin Ratio 1.5 (0.9-2) 05/08/25 12:40 Lipase 28 U/L (11-82) 05/08/25 12:40 Impressions Abdomen/Pelvis CT 05/08/25 13:13 CT SCAN OF THE ABDOMEN AND PELVIS WITH IV CONTRAST CLINICAL HISTORY: Abdominal pain. Hernia. COMPARISON STUDY: CT of the abdomen and pelvis April 21, 2025. TECHNIQUE: Following the IV administration of 94 cc of Optiray 320, CT scan of the abdomen and pelvis is performed from the lung bases to the proximal femora. Images are reviewed in the axial, sagittal, and coronal planes. IV contrast was administered without complication. A dose lowering technique was utilized adhering to the principles of ALARA. CT DOSE: 1324.46 mGy.cm FINDINGS: Visualized lung bases are unremarkable. No pneumatosis, free air or portal venous gas is present. There is hepatic steatosis. No biliary or pancreatic ductal dilatation is present. Spleen, adrenal glands and pancreas are unremarkable. Bilateral renal calculi measure up to 5 mm. There are no ureteral calculi. There is no hydronephrosis. There is a 2.9 cm right lower pole renal cyst. There is no evidence for a bowel obstruction. The caliber and wall thickness of small and large bowel are normal. There is no ascites. There is a small fat-containing umbilical hernia. Note is also made of an infraumbilical fat-containing hernia. Hernia neck measures 1.9 cm in transverse diameter. Associated omental stranding is similar to CT of April 21, 2025. No additional sites of inflammation are identified. There are no fluid collections. IMPRESSION: 1. No significant change in appearance of an infraumbilical fat-containing hernia with associated omental stranding since CT of April 21, 2025. Associated inflammation suggests strangulation of the herniated fat and this favors an incarcerated hernia. 2. Small fat-containing umbilical hernia. 3. No bowel obstruction. No bowel wall thickening. 4. Bilateral nephrolithiasis. No ureteral calculi. ACT 112: Negative or not required by law. Electronically signed by: Bernard Carey M.D. 05/08/2025 2:05 PM (4) GERD (gastroesophageal reflux disease) Esophagitis bleeding: without hemorrhage Esophagitis presence: with esophagitis Qualified Code(s): K21.00 - Gastro-esophageal reflux disease with esophagitis, without bleeding
[2025-05-09 19:44] VITALS: O2SAT 95
[2025-05-10 07:27] VITALS: BP 166/78; PULSE 84; RESP 18; TEMP 97.9
--- NOTE | 2025-05-10 10:37 | Discharge Summary ---
Discharge Summary Date of Service May 10, 2025 Principal Dx & Hospital Course #1 = Principal Diagnosis (1) Ventral hernia without obstruction or gangrene: (2) Major depressive disorder with psychotic features: (3) Generalized anxiety disorder: (4) GERD (gastroesophageal reflux disease): (5) History of stroke: Notes For Next Care Provider Medication Changes From Visit See hospital course No med changes Admission HPI Per Admitting Provider 60 year old female with PMH significant for dyslipidemia, elevated parathyroid hormone, prediabetes, history of CVA, iron deficiency anemia, and depression who presented to the ED on 05/08/2025 as a referral from Dr. Augustin today. Patient was previously seen in our ED on 04/19 and 04/21 with abdominal pain and was found to have a fat-containing umbilical hernia. She followed up with Dr. Augustin outpatient today for this and was referred to the ED due to severe pain in his office. Patient reports she has been having abdominal pain for a few weeks with associated weakness, shaking, and nausea without vomiting. She denies fevers, chills, chest pain, SOB, dysuria, constipation, diarrhea. She does not feel she is safe to go home and would prefer to stay in the hospital overnight for fluids and medications. Discharge Exam General- adult female seen at bedside. Extremely flat affect Head- atraumatic Eyes- PERRL, EOMI, anicteric ENT- oropharynx clear Neck- supple, no JVD, no adenopathy, no thyromegaly; carotids +2/2, no bruits appreciated Lungs- clear to auscultation and percussion Heart- regular rhythm; no murmur, no gallop, no rub appreciated Abdomen- normal bowel sounds, soft, diffuse mild tenderness, no masses or hepatosplenomegaly Extremities- no pretibial edema, no calf tenderness; peripheral pulses intact Neuro- alert, oriented x 3; PERRL, EOMI; no focal findings Skin- warm & dry Updated Medication List Medication Instructions Recorded Confirmed Type albuterol sulfate 90 mcg/actuation 2 puff inhalation Q4 PRN Wheezing 05/17/21 05/08/25 History aerosol inhaler atorvastatin 40 mg tablet 40 mg PO QAM 05/17/21 05/08/25 History multivitamin with minerals 1 tab PO QAM 03/03/24 05/08/25 History (Multiple Vitamin-Minerals tablet) pantoprazole 40 mg tablet,delayed 40 mg PO DAILYBB 04/19/25 05/08/25 History release fluoxetine 10 mg capsule 10 mg PO HS 05/08/25 05/08/25 History Hospital Stay Data Consultations 05/08/25 14:08 Consult General Surgery Stat 05/08/25 15:32 ED Decision to Admit Stat Diagnostic Imagining Performed 05/08/25 13:13 CT Abd and Pelvis [CT abd pelvis IV con only] Stat Pending Results Patient Have Any Pending Studies at Discharge: No Discharge Instructions Given to Patient (Per Discharging Provider) Follow up with Dr. Og Augustin with [facility] General Surgery next week for ongoing evaluation and possible elective umbilical hernia repair Total Time Total Time Spent Total Time Spent (In Minutes): 35 minutes Course Course HOSPITAL COURSE: 60 year old female with PMH significant for dyslipidemia, elevated parathyroid hormone, prediabetes, history of CVA, iron deficiency anemia, and depression who presented to the ED on 05/08/2025 as a referral from Dr. Augustin yesterday. Patient was previously seen in the ED on 04/19 and 04/21 with abdominal pain and was found to have a fat-containing umbilical hernia. She followed up with Dr. Augustin outpatient for this and was referred to the ED due to severe pain in his office. Patient was admitted admitted to the medical surgical floor. She was given IV fluids. Ventral hernia without obstruction or gangrene Patient with ongoing abdominal pain with associated nausea and weakness CT abdomen revealed no significant change in appearance of fat-containing hernia compared to CT on 04/21/2025 Surgery evaluated patient and advised outpatient follow up for elective repair Patient was offered discharge with pain and nausea medicine but preferred to stay in the hospital due to weakness and need for IV fluids MIVF, zofran PRN, tylenol and ibuprofen and oxycodone PRN PT in the am Elevated PTH Ca 11.2 on admission appears to be baseline PTH outpatient 151 in February 2025 Referred to Endo by PCP and has appt 05/16/2025 Depression and anxiety Continue fluoxetine GERD Continue pantoprazole History of CVA Dyslipidemia Continue baby aspirin and atorvastatin DVT Prophylaxis: SQ lovenox Code Status: FULL CODE - As per discussion at bedside with the patient. Patient felt better on the day of discharge. Her IV fluids were stopped. Her diet was advanced. PT saw the patient and determined that she was at baseline did not require any further therapy. On the day of discharge the vital signs were stable. Her physical exam findings were stable. She had no further nausea or vomiting. Her abdominal pain was well-controlled. Patient will follow-up with general surgery in 1 week to discuss elective repair of the ventral hernia. I spent a total of 35 minutes in discharge planning for this patient . Administered Medications Atorvastatin Calcium (At[facility]vastatin 40 Mg Tab) [facility] [place] 06/08/25 08:59 Last Admin: 05/10/25 09:32 Dose: 40 mg Documented By: Admin: 05/09/25 07:50 Dose: 40 mg Documented By: JUNI Enoxaparin Sodium (Enoxaparin Inj 40 Mg/0.4 Ml Syr) 40 mg SQ [facility] Stop: 06/07/25 20:59 Last Admin: 05/09/25 22:07 Dose: 40 mg Documented By: Admin: 05/08/25 21:43 Dose: 40 mg Documented By: GREG Fluoxetine HCl (Fluoxetine Hcl 10 Mg Cap) 10 mg PO [facility] Stop: 06/07/25 20:59 Last Admin: 05/09/25 22:07 Dose: 10 mg Documented By: Admin: 05/08/25 21:43 Dose: 10 mg Documented By: GREG Pantoprazole Sodium (Pantoprazole 40 Mg Tab) [facility] Stop: 06/08/25 06:29 Last Admin: 05/10/25 05:49 Dose: 40 mg Documented By: Admin: 05/09/25 06:13 Dose: 40 mg Documented By: GREG Discontinued Medications Sodium Chloride (Nss) 1,000 mls @ 999 mls/hr IV .Q1H1M ONE Stop: 05/08/25 14:04 Last Infusion: 05/08/25 15:06 Dose: Infused Documented By: Admin: 05/08/25 13:08 Dose: 999 mls/hr Documented By: MEGHAN Acetaminophen (Ofirmev) 1,000 mg in 100 mls @ 400 mls/hr IV NOW STA Stop: 05/08/25 13:18 Last Infusion: 05/08/25 13:37 Dose: Infused Documented By: Admin: 05/08/25 13:11 Dose: 400 mls/hr Documented By: MARANDA Sodium Chloride (Nss) 1,000 mls @ 80 mls/hr IV .[id number] DARLENE Stop: 05/09/25 06:14 Last Infusion: 05/09/25 06:37 Dose: Infused Documented By: Admin: 05/08/25 18:03 Dose: 80 mls/hr Documented By: WILIAN Ioversol (Optiray 320 100ml) 94 ml IV ONCE ONE Stop: 05/08/25 13:40 Last Admin: 05/08/25 13:39 Dose: 94 ml Documented By: MARIA ALEJANDRA Ketorolac Tromethamine (Ketorolac Tromethamine 15 Mg/Ml Vial) 15 mg IV NOW STA Stop: 05/08/25 13:05 Last Admin: 05/08/25 13:11 Dose: 15 mg Documented By: MARANDA Lorazepam (Lorazepam 2 Mg/1 Ml Vial) 0.5 mg IV NOW STA Stop: 05/08/25 15:06 Last Admin: 05/08/25 15:13 Dose: 0.5 mg Documented By: WILIAN Ondansetron HCl (Ondansetron Inj 2 Mg/Ml 2 Ml Vial) 4 mg IV NOW STA Stop: 05/08/25 13:05 Last Admin: 05/08/25 13:11 Dose: 4 mg Documented By: MARANDA Ondansetron HCl (Ondansetron Inj 2 Mg/Ml 2 Ml Vial) 4 mg IV NOW STA Stop: 05/08/25 15:08 Last Admin: 05/08/25 15:13 Dose: 4 mg Documented By: WILIAN
--- NOTE | 2025-05-11 06:11 | Electrocardiogram Report ---
Test Reason : Blood Pressure : */* mmHG Vent. Rate : 78 BPM Atrial Rate : 78 BPM P-R Int : 164 ms QRS Dur : 72 ms QT Int : 338 ms P-R-T Axes : 28 19 48 degrees QTcB Int : 385 ms Normal sinus rhythm Normal ECG When compared with ECG of 19-Apr-2025 10:46, No significant change was found Confirmed by Basilio Leo ([id number]) on 05/11/2025 6:11:26 AM Referred By: Confirmed By: Basilio Leo
== END 2025-05-10 17:08 | disposition home or self-care (01) ==
LOC: 3W 12:25 → ED 12:25 → SUATTDRO 17:34 → 3W 22:39